=== PATIENT | female | born 1985 ===

== ENCOUNTER 2020-11-01 11:41 | Emergency (ER) | payer MEDICAID, SELFPAY ==
[2020-11-01 11:54] VITALS: BP 106/61; PULSE 80; RESP 18; TEMP 36.8; O2SAT 99; BMI 39.0
--- NOTE | 2020-11-01 13:41 | ED.GENADULT ---
HPI - General Adult General Chief complaint: General Medical Stated complaint: diarrhea, bodyaches Time Seen by Provider: 11/01/20 13:23 Source: patient Mode of arrival: ambulatory Limitations: no limitations History of Present Illness HPI narrative: States has had this couple days of body aches, rhinorrhea with myalgias and couple episodes of diarrhea. Here with multiple family members with similar symptoms. Daughter tested positive for COVID. Onset (ago): day(s) Treatments prior to arrival: none Related Data Allergies Allergy/AdvReac Type Severity Reaction Status Date / Time penicillin V Allergy Unknown Verified 11/28/17 00:00 Penicillins [PENICILLINS] Allergy Unknown UNKNOWN Unverified 07/16/20 17:28 Review of Systems Review of Systems: Constitutional: No Weight loss, No Fever, No Chills, No Night Sweats, No Fatigue, No Malaise, no recent travel or antibiotic use. ENT/Mouth: No Hearing loss, No Ear Pain, + Nasal Congestion, No Sinus Pain, No Hoarseness, No sore throat, + Rhinorrhea, No Swallowing Difficulty Eyes: No Eye Pain, No Swelling, No Redness, No Foreign Body, No Discharge, No Vision Changes Cardiovascular: No Chest Pain, No SOB, No Dyspnea on Exertion, No Orthopnea, No Edema, No Palpitations Respiratory: No Cough, No Sputum, No Wheezing, No Smoke Exposure, No Dyspnea Gastrointestinal: No Nausea, No Vomiting, + Diarrhea, No Constipation, No abdominal Pain, No Hematochezia, No Melena Genitourinary: no irregular bleeding, No Dysuria, No Urinary Frequency, No Hematuria, No Urinary Incontinence, No Urgency, No Flank Pain, No Urinary Flow Changes, No Hesitancy Musculoskeletal: No joint pain, + Myalgias, No Joint Swelling Skin: No Skin Lesions, No rash Neuro: No Weakness, No Numbness, No Paresthesias, No Loss of Consciousness, No Dizziness, No Headache Heme/Lymph: No Bruising, No Bleeding,No Lymphadenopathy Endocrine: No Polyuria, No Polydipsia, No Temperature Intolerance Yes all other systems are reviewed and are negative [facility] Past Medical History Medical History (Updated 11/01/20 @ 13:44 by Gregory Iglesias NP) Asthma Social History Social History Advance Directives: No Advance Directives Information Provided: No Physical Exam Vital Signs: Vital Signs: Last Vital Signs Temp 98.2 F 11/01/20 11:54 Pulse 80 11/01/20 11:54 Resp 18 11/01/20 11:54 BP 106/61 11/01/20 11:54 Pulse Ox 99 11/01/20 11:54 Body Mass Index 39.0 Const: General: cooperative and healthy appearing; No acute distress or intoxicated appearing Nutritional Appearance: average body habitus Orientation/consciousness: patient oriented x3 HENMT: Head: Yes normal to inspection Ears: hearing grossly normal bilaterally Eyes: General: appearance normal, both eyes and all related structures Visual Urban: normal visual urban by confrontation Neck: Neck: Yes normal visual inspection, No positive Brudzinski's sign, No positive Kernig's sign and No tender Thyroid: Thyroid normal Chest: Chest palpation & inspection: normal inspection of the chest Resp: Effort & Inspection: normal respiratory effort Auscultation: clear to auscultation bilaterally Cardio: Jugular venous distension: no JVD Rhythm: regular rhythm Heart sounds: S1 normal heart sound present and S2 normal heart sound present GI: Inspection: Yes normal to inspection Percussion: Yes normal to percussion Auscultation: normal bowel sounds : General: Yes no CVA tenderness Back/Spine/Pelvis: Back: no CVA tenderness Skin: General skin exam: no rashes or lesions noted Neuro: General: patient oriented x3 Extrem: General: Yes normal to inspection Course Course Course Narrative: Well nontoxic appearing. Hemodynamically stable. Strong suspicion for COVID-19 as daughter who is here with him tested positive. Similar symptoms. Will self-isolation/discussing. Cdc/state guidelines provided. Not currently working. Discharge Plan Discharge Clinical Impression: Acute viral syndrome Patient Disposition: Home, Self-Care Instructions: Viral Syndrome (ED) Additional Instructions: Based on your symptoms and history we have sent a COVID-19. Although your RESULT IS PENDING at this time. RESULTS should return within 72 hours. At this time you will be contacted with either NEGATIVE OR POSITIVE results. -Please wait until we contact you for your results. At this time you will be okay for discharge. Please plan for self quarantine for up to 14 days. Do not expose yourself to others. You may not go to work. If testing does come back negative you may return to activities as long as you are no longer having any symptoms for at least 3 days. Please continue to follow cold instructions and wash your hands frequently. You may take Tylenol as directed on the bottle for pain or fever. Patient seen in the emergency department and should be excused from work until negative test results AND until 72 hours without any symptoms AND at least 10 days have passed since symptoms first appeared or since last exposure to COVID-19 positive patient CDC Guidelines for home isolation: - Stay away from others - WEAR A MASK if you are sick AND STAY HOME - Cover your mouth and nose with a tissue when you cough or sneeze. Dispose of tissues in a lined trash can and wash your hands immediately with soap and water for at least 20 seconds. If soap and water are not available, clean hands with alcohol-based hand principal systems engineer that contains at least 60% alcohol. - Clean your hands often with soap and water for at least 20 seconds - Avoid touching your eyes, nose and mouth with unwashed hands - Do not share dishes, drinking glasses, cups, eating utensils, towels, or bedding with other people in your home. After using these items, wash them thoroughly with soap and water or put in the hydraulic press servicer. - Clean high-touch surfaces in your isolation area ( sick room and bathroom) every day; let a caregiver clean and disinfect high-touch surfaces in other areas of the home. Clean the area or item with soap and water or another detergent if it is dirty. Then, use a household disinfectant. - Limit contact with pets and animals: If you must care for a pet, wash your hands before and after interacting with them Referrals: [facility] [Primary Care Provider] - 2 weeks (PHONE VISIT ) Interventions: ED Discharge Assessment Last Done: 11/01/20 14:11 Discharge Date/Time: 11/01/20 14:12
== END 2020-11-01 14:12 | disposition home or self-care (01) ==
PROVIDERS: Nurse Practitioner Primary Care; Emergency Provider Emergency Medicine
DX: B34.9 Viral infection, unspecified (principal); M79.10 Myalgia, unspecified site; R19.7 Diarrhea, unspecified; Z20.828 Contact with and (suspected) exposure to other viral communicable diseases
CPT/HCPCS: 99283; U0003

== ENCOUNTER 2020-11-09 14:56 | Outpatient (REF) | payer MEDICAID, SELFPAY | END 2020-11-09 14:57 | disposition home or self-care (01) | LOC: HO.LAB 14:56 | PROVIDERS: Visit Provider Internal Medicine | DX: Z20.822 Contact with and (suspected) exposure to COVID-19 (principal) | CPT/HCPCS: 36415; C9803; U0003 ==

== ENCOUNTER 2020-11-18 11:57 | Outpatient (REF) | payer MEDICAID, SELFPAY | END 2020-11-18 11:58 | disposition home or self-care (01) | LOC: HO.LAB 11:57 | PROVIDERS: Visit Provider Internal Medicine | DX: Z20.822 Contact with and (suspected) exposure to COVID-19 (principal) | CPT/HCPCS: 36415; C9803; U0003 ==

== ENCOUNTER 2021-11-04 16:15 | Outpatient (REF) | payer MEDICAID, SELFPAY ==
--- NOTE | ~2021-11-04 | US_ITS ---
EXAMINATION: US PELVIS CLINICAL INFORMATION: Abnormal uterine and vaginal bleeding. COMPARISON: None TECHNIQUE: Ultrasound of the pelvis is performed using both transabdominal and transvaginal transducers along with Doppler. Transvaginal imaging is performed due to inadequate visualization transabdominally. FINDINGS: UTERUS: The uterus is anteverted and measures 10.2 x 5.2 x 5.3 cm. There are 2 uterine fibroids seen opposite one another just beneath the fundus measuring 3.3 x 2.9 x 3.0 cm and 2.9 x 2.6 x 3.1 cm. These abut the endometrial cavity. The double wall endometrial thickness is 0.9 mm. ADNEXA: Both ovaries are visualized. There is normal color flow to the adnexa. There is no ovarian torsion. There is no pelvic ascites or fluid collection. Right ovary measures 3.6 x 2.5 x 2.7 cm for a volume of 12.7 mL which includes an exophytic 2.0 x 1.2 x 1.1 cm cyst with a septation. Left ovary measures 2.9 x 2.1 x 2.0 cm for a volume of 6.4 mL which includes a 1.3 x 0.9 x 1.1 cm echogenic mass which could be a dermoid. US/US pelvic and transvaginal IMPRESSION: Uterine fibroids. Small right ovarian cyst needs no further follow up. Question of 1.3 cm left ovarian dermoid. Pelvic MR would be able to diagnose this.
== END 2021-11-04 16:16 | disposition home or self-care (01) ==
LOC: HO.US 16:15
PROVIDERS: PCP Internal Medicine; Visit Provider Advanced Practice Midwife
DX: N93.9 Abnormal uterine and vaginal bleeding, unspecified (principal)
CPT/HCPCS: 76830; 76856

== ENCOUNTER 2021-12-07 12:41 | Outpatient (REF) | payer MEDICAID, SELFPAY ==
--- NOTE | ~2021-12-07 | XR_ITS ---
EXAMINATION: XR HIP, LEFT CLINICAL INFORMATION: Pain COMPARISON: None TECHNIQUE: Two views of the left hip. FINDINGS: No fracture or dislocation. Alignment is maintained. Joint space maintained. The visualized left pelvis is intact. The soft tissues appear unremarkable. XR/XR hip LT min 2V IMPRESSION: Normal left hip.
--- NOTE | ~2021-12-07 | XR_ITS ---
EXAMINATION: XR KNEE, LEFT CLINICAL INFORMATION: Pain with no known injury. COMPARISON: 11/13/2019 TECHNIQUE: Four views of the left knee. FINDINGS: No fracture or subluxation. Compartmental joint spaces are maintained. No joint effusion. The soft tissues are unremarkable. XR/XR knee LT 4V IMPRESSION: Normal left knee.
== END 2021-12-07 12:42 | disposition home or self-care (01) ==
LOC: HO.XRAY 12:41
PROVIDERS: Absent Provider Internal Medicine; PCP Internal Medicine; Visit Provider General Practice
DX: M25.552 Pain in left hip (principal); M25.562 Pain in left knee
CPT/HCPCS: 73502; 73564

== ENCOUNTER 2021-12-21 15:33 | Outpatient (REF) | payer MEDICAID, SELFPAY ==
[2021-12-21 18:11] LABS: CT PCR NOT DETECTED (Not Detect.)
[2021-12-21 18:12] LABS: NG PCR NOT DETECTED (Not Detect.)
[2021-12-24 04:27] LABS: HPV mRNA E6/E7 rflx Not Detected (Not Detected)
== END 2021-12-21 15:34 | disposition home or self-care (01) ==
LOC: HO.LAB 15:33
PROVIDERS: PCP Internal Medicine; Visit Provider Obstetrics & Gynecology
DX: Z12.4 Encounter for screening for malignant neoplasm of cervix (principal); Z11.51 Encounter for screening for human papillomavirus (HPV); N93.9 Abnormal uterine and vaginal bleeding, unspecified; D21.9 Benign neoplasm of connective and other soft tissue, unspecified; N83.291 Other ovarian cyst, right side; N83.292 Other ovarian cyst, left side
CPT/HCPCS: 36415; 84443; 84702; 85027; 86304; 87491; 87591; 87624; 88142; 99202

== ENCOUNTER 2021-12-21 16:04 | Outpatient (REF) | payer MEDICAID, SELFPAY ==
[2021-12-21 16:28] LABS: Hematocrit 36.8 % (37.0-47.0); Hemoglobin 10.8 g/dl (12.0-16.0); Mean Corpuscular HGB Conc 29.3 g/dl (31.0-35.0); Mean Corpuscular Hemoglobin 20.2 pg (27.0-33.0); Mean Corpuscular Volume 68.8 fL (80.0-98.0); Mean Platelet Volume 9.1 fL (9.4-12.3); Platelet Count 582 X10*3/uL (160-400); Red Blood Count 5.35 X10*6/uL (4.20-5.50); Red Cell Distribution Width 16.2 % (11.0-16.0); White Blood Count 18.6 X10*3/uL (4.8-10.8)
[2021-12-21 17:07] LABS: HCG Quantitative < 2 mIU/mL; TSH reflex Free T4 1.32 uIU/mL (0.32-4.0)
[2021-12-22 09:12] LABS: CA-125 11 U/mL (<35)
== END 2021-12-21 16:05 | disposition home or self-care (01) ==
LOC: HO.LAB 16:04
PROVIDERS: PCP Internal Medicine; Visit Provider Obstetrics & Gynecology
DX: N93.9 Abnormal uterine and vaginal bleeding, unspecified (principal); N83.299 Other ovarian cyst, unspecified side
CPT/HCPCS: 36415; 84443; 84702; 85027; 86304

== ENCOUNTER 2022-01-04 18:56 | Emergency (ER) | payer MEDICAID, SELFPAY | END 2022-01-04 19:37 | disposition left against medical advice (07) | PROVIDERS: Emergency Provider Emergency Medicine | DX: R10.9 Unspecified abdominal pain (principal) ==

== ENCOUNTER 2022-01-18 10:01 | Outpatient (REF) | payer MEDICAID, SELFPAY | END 2022-01-18 10:02 | disposition home or self-care (01) | LOC: HO.LAB 10:01 | PROVIDERS: Visit Provider Obstetrics & Gynecology | DX: N93.9 Abnormal uterine and vaginal bleeding, unspecified (principal) | CPT/HCPCS: 58100; 88305 ==

== ENCOUNTER 2022-01-22 16:15 | Emergency (ER) | payer MEDICAID, SELFPAY ==
[2022-01-22 16:21] VITALS: BP 150/55; PULSE 91; RESP 16; TEMP 36.7; O2SAT 99; BMI 33.6
--- NOTE | 2022-01-22 16:49 | ED.URI ---
HPI - URI/Sore Throat General Chief Complaint: Upper Respiratory Symptoms Stated Complaint: coughing/SOB/headaches Time Seen by Provider: 01/22/22 16:43 Source: patient Mode of arrival: ambulatory Limitations: no limitations History of Present Illness HPI Narrative: 36 y/o female presenting with 4 days of nasal congestion, headaches, and dry cough. She was recently around her son and daughter who were home with similar symptoms. They were negative for COVID. She denies any shortness of breath or chest pain. She has been eating and drinking normally. She states she has yellow nasal discharge and has been using some sort of nasal spray at home. She denies any fevers but admits that some chills. She denies any nausea, vomiting, abdominal leia MD elicited complaint: cough and nasal congestion Onset (ago): day(s) (4) Consistency: intermittent Severity: moderate Description of mucous: watery and yellow Able to tolerate fluids by mouth: Yes Exacerbating factors: nothing Relieving factors: nothing Context: sick contacts Associated symptoms: chills, headache, nasal congestion and cough Treatments prior to arrival: none Related Data Previous Rx's Medication Instructions Recorded fluticasone propionate 50 1 spray INTRANASAL BID #16 g 01/22/22 mcg/actuation nasal spray,suspension (Flonase Allergy Relief) Allergies Allergy/AdvReac Type Severity Reaction Status Date / Time penicillin V Allergy Unknown Unknown Verified 01/22/22 16:21 Penicillins [PENICILLINS] Allergy Unknown UNKNOWN Verified 12/21/21 15:37 Review of Systems Review of Systems: Constitutional: No Fever, + Chills ENT/Mouth: No sore throat, + Rhinorrhea, No Swallowing Difficulty Eyes: No Eye Pain, No Swelling, No Redness Cardiovascular: No Chest Pain, No SOB Respiratory:+ Cough, No Sputum, No Wheezing, No dyspnea Gastrointestinal: No Nausea, No Vomiting, No Diarrhea, No abdominal Pain Musculoskeletal: No joint pain, No Myalgias Skin: No Skin Lesions, No rash Neuro: No Weakness, No Numbness, No Dizziness,+ Headache Heme/Lymph: No Bruising, No Lymphadenopathy PMFSH Past Medical History Medical History Asthma Surgical History Hx of section Social History Social History Alcohol intake: current Alcohol intake frequency: a few times a week Patient Tobacco Use Status: Current everyday Tobacco user Cigarettes Per Day: 2 Advance Directives: No Advance Directives Information Provided: No Sexual orientation: Straight/Heterosexual Gender identity: Female Physical Exam Vital Signs: Vital Signs: Last Vital Signs Temp 98.0 F 01/22/22 16:21 Pulse 91 01/22/22 16:21 Resp 16 01/22/22 16:21 BP 150/55 H 01/22/22 16:21 Pulse Ox 99 01/22/22 16:21 BMI result Body Mass Index 33.6 Appearance: Alert. Oriented X3. No acute distress. Eyes: Pupils equal, round and reactive to light. ENT: Pharynx normal. No tonsillar swelling or exudate. Normal voice. Normal TMs bilaterally. Neck: Normal inspection. Neck supple. No LAD. CVS: Normal heart rate and rhythm. Pulses normal. Respiratory: No respiratory distress. Breath sounds normal. Skin: Skin warm and dry. Normal skin color. Normal skin turgor. No rashes. Extremities: Normal inspection x4 Neuro: Oriented X 3. Grossly normal, nonfocal. Course Course Course Narrative: 36 y/o female presenting to the ER with nasal congestion, headache and dry cough x4 days. Children had similar symptoms last week. She is negative for influenza and COVID-19. Her symptoms are most likely due to another viral etiology contracted from her children. She is stable for discharge home with supportive care. Will write a prescription for intranasal fluticasone for nasal congestion. Patient agrees with plan will follow-up with her primary care doctor as needed. MDM - URI/Sore Throat Lab Data Labs: Lab Results 01/22/22 01/22/22 Range/Units 16:54 16:54 COVID-19 (JOSÉ MANUEL) Negative (Negative) COVID-19 Clin Com See Note Influenza Type A (RAMÓN) Negative (Negative) Influenza Type B (RAMÓN) Negative (Negative) Influenza A & B Note See Note Critical Care Time Critical Care Time Critical Care Time: No Discharge Plan Discharge Clinical Impression: Viral infection Patient Disposition: Home, Self-Care Instructions: Viral Syndrome (ED) Additional Instructions: You were negative for influenza and COVID-19. Your symptoms are most likely due to another viral infection, most likely contracted from your children. Use the prescribed nasal spray as needed for nasal congestion. You can continue using the nasal spray you have at home as well. Take [id number] cold and flu medications as needed for your symptoms Follow-up with your doctor this week. If you develop new or worsening symptoms call 911 or come back to the ER for further evaluation. Prescriptions: New fluticasone propionate [Flonase Allergy Relief] 50 mcg/actuation spray,suspension 1 spray intranasal BID Qty: 16 0RF Rx Instructions: administer into each nostril
[2022-01-22 17:17] LABS: COVID-19 Test Negative (Negative); IDNOW Serial# 16C4AD1C; Influenza A Negative (Negative); Influenza B2 Negative (Negative)
== END 2022-01-22 17:49 | disposition home or self-care (01) ==
PROVIDERS: Physician Assistant; Emergency Provider Internal Medicine; PCP Internal Medicine
DX: B34.9 Viral infection, unspecified (principal); Z20.822 Contact with and (suspected) exposure to COVID-19; R51.9 Headache, unspecified; J45.909 Unspecified asthma, uncomplicated; F17.200 Nicotine dependence, unspecified, uncomplicated
CPT/HCPCS: 87502; 87635; 99283

== ENCOUNTER → 2022-02-17 11:32 | Outpatient (BNVA) | payer MEDICAID, SELFPAY | PROVIDERS: PCP Internal Medicine; Visit Provider Obstetrics & Gynecology | DX: N93.9 Abnormal uterine and vaginal bleeding, unspecified (principal) | CPT/HCPCS: 99212 ==

== ENCOUNTER 2022-04-28 14:34 | Outpatient (REF) | payer MEDICAID, SELFPAY ==
--- NOTE | ~2022-04-28 | XR_ITS ---
EXAMINATION: XR CHEST CLINICAL INFORMATION: Bronchitis COMPARISON: Chest radiographs 06/15/2018. TECHNIQUE: 2 views of the chest were obtained. FINDINGS: Lungs clear. No hyperinflation, airspace consolidation, ground-glass opacity, or effusion. The costophrenic sulci are well-defined. Heart size normal. The hilar and mediastinal contours and visualized bony structures are unremarkable. XR/XR chest 2V IMPRESSION: Unremarkable examination.
[2022-04-28 15:47] LABS: Estimated Average Glucose 163 mg/dL; Hemoglobin A1c % 7.3 %
[2022-04-28 16:04] LABS: Creatinine Urine 86.77 mg/dL; Microalbum/Creatinine Ratio Ur 74.9 ug/mg cr
== END 2022-04-28 14:35 | disposition home or self-care (01) ==
LOC: HO.XRAY 14:34
PROVIDERS: Absent Provider Internal Medicine; PCP Internal Medicine; Visit Provider Emergency Medicine
DX: E11.9 Type 2 diabetes mellitus without complications (principal); E55.9 Vitamin D deficiency, unspecified; M25.552 Pain in left hip; J40 Bronchitis, not specified as acute or chronic
CPT/HCPCS: 36415; 71046; 82043; 83036

== ENCOUNTER 2022-06-28 16:20 | Emergency (ER) | payer MEDICAID, SELFPAY ==
[2022-06-28 16:31] VITALS: BP 109/55; PULSE 90; RESP 18; TEMP 36.9; O2SAT 98; BMI 34.5
--- NOTE | 2022-06-28 17:36 | ED.EXTPRO ---
HPI - Extremity Problem General Chief complaint: Extremity Problem Stated complaint: pain in both feet Time Seen by Provider: 06/28/22 17:36 Source: patient Mode of arrival: ambulatory Limitations: no limitations History of Present Illness HPI Narrative: Patient diabetic complaining of lower extremity pain for long time gets worse in the nighttime and able to sleep because of pain no swelling no trauma sensations intact no weakness no back pain Related Data Home Medications Medication Instructions Recorded Confirmed metformin 500 mg tablet 500 mg PO 02/17/22 omeprazole 20 mg capsule,delayed 20 mg PO DAILY 02/17/22 release Previous Rx's Medication Instructions Recorded fluticasone propionate 50 1 spray intranasal BID #16 grams 01/22/22 mcg/actuation nasal spray,suspension (Flonase Allergy Relief) gabapentin 300 mg capsule 300 mg PO BEDTIME #30 caps 06/28/22 tramadol 50 mg tablet 50 mg PO Q6H PRN pain #20 tabs 06/28/22 Allergies Allergy/AdvReac Type Severity Reaction Status Date / Time penicillin V Allergy Unknown Unknown Verified 02/17/22 11:44 Penicillins [PENICILLINS] Allergy Unknown UNKNOWN Verified 02/17/22 11:44 Review of Systems Review of Systems: Yes all other systems are reviewed and are negative [facility] Past Medical History Medical History Asthma Diabetes Surgical History Hx of section Social History Social History Alcohol intake: current Alcohol intake frequency: a few times a week Patient Tobacco Use Status: Current everyday Tobacco user Cigarettes Per Day: 2 Advance Directives: No Advance Directives Information Provided: No Sexual orientation: Straight/Heterosexual Gender identity: Female Physical Exam Vital Signs: Vital Signs: Last Vital Signs Temp 98.4 F 06/28/22 16:31 Pulse 90 06/28/22 16:31 Resp 18 06/28/22 16:31 BP 109/55 L 06/28/22 16:31 Pulse Ox 98 06/28/22 16:31 O2 Del Method 06/28/22 16:31 BMI result Body Mass Index 34.5 Appearance: Alert. Oriented X3. No acute distress. Eyes: PERRLA, No Nystagmus ENT: Pharynx normal. Oral Mucosa moist Neck: Normal inspection. Neck supple. CVS: Normal heart rate and rhythm. Pulses normal. Respiratory: No respiratory distress. Equal air entry bilateral, no wheezing/rales/rhonchi Abdomen: Soft and nontender. Bowel sounds are present, no mass palpable, no CVA tenderness Skin: Skin warm and dry. Normal skin color. Normal skin turgor. Extremities: No lower extremity edema. No calf tenderness Neuro: Oriented X 3. No motor deficit. No sensory deficit.No cerebellar signs , cranial nerves II-XII intact MDM - Extremity (Nontraumatic) MDM Narrative Medical decision making narrative: Patient clinically with diabetic neuropathy will discharge patient home on gabapentin advised to follow with PCP no signs of DVT Discharge Plan Discharge Clinical Impression: Diabetic peripheral angiopathy Patient Disposition: Home, Self-Care Instructions: Peripheral Neuropathy (ED) Additional Instructions: Take medication as prescribed for legcramps and pain follow with PCP Prescriptions: New gabapentin 300 mg capsule 300 mg PO BEDTIME Qty: 30 0RF tramadol 50 mg tablet 50 mg PO Q6H PRN (Reason: pain) Qty: 20 0RF No Action fluticasone propionate [Flonase Allergy Relief] 50 mcg/actuation spray,suspension 1 spray intranasal BID Qty: 16 0RF Rx Instructions: administer into each nostril metformin 500 mg tablet 500 mg PO omeprazole 20 mg capsule,delayed release(DR/EC) 20 mg PO DAILY Interventions: ED Discharge Assessment Last Done: 06/28/22 18:25 Discharge Date/Time: 06/28/22 18:26
[2022-06-28] MEDS: Gabapentin 300 MG CAPSULE PO (18:03)
== END 2022-06-28 18:26 | disposition home or self-care (01) ==
PROVIDERS: Emergency Provider Internal Medicine; PCP Internal Medicine
DX: E11.51 Type 2 diabetes mellitus with diabetic peripheral angiopathy without gangrene (principal); M79.662 Pain in left lower leg; M79.661 Pain in right lower leg; F17.200 Nicotine dependence, unspecified, uncomplicated; Z79.84 Long term (current) use of oral hypoglycemic drugs
CPT/HCPCS: 99283

== ENCOUNTER 2022-09-04 15:08 | Emergency (ER) | payer MEDICAID, SELFPAY | END 2022-09-04 16:08 | disposition left against medical advice (07) | LOC: HO.ED 16:02 | PROVIDERS: Emergency Provider Emergency Medicine | DX: M54.50 Low back pain, unspecified (principal) ==

== ENCOUNTER 2022-10-20 05:53 | Outpatient (REF) | payer MEDICAID, SELFPAY ==
--- NOTE | ~2022-10-20 | XR_ITS ---
EXAMINATION: XR KNEE AP STANDING CLINICAL INFORMATION: M25.561 - Pain in right knee COMPARISON: Radiographs left knee 12/07/2021, 11/13/2019, 11/08/2019 TECHNIQUE: AP bilateral standing view of the knees was obtained. FINDINGS: Right: No joint narrowing or erosive change or chondrocalcinosis. There is an oval circumscribed lucency femoral head possibly cyst or enchondroma measuring 0.7 x 1.8 cm. No visible matrix mineralization. Left: No joint narrowing or erosive change or chondrocalcinosis. There is subtle vertical cystic change in the proximal tibial metaphysis just lateral to midline similar to prior studies. Subtle vertical lucencies again seen mid tibial shaft, stable from prior studies. No matrix mineralization. No periostitis. Findings may be related to enchondromas or fibrous cortical defects. XR/XR knee standing BI IMPRESSION: -No knee joint compartment narrowing or erosive change. -Circumscribed nonexpansile cystic lesion right fibula head. 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 Findings are nonspecific, possibly enchondromas or fibrous cortical defect. Recommend correlation with patient's symptoms and clinical exam. If clinically indicated, further assessment of the skeleton for multiplicity may be obtained with recent nuclide bone scan.
== END 2022-10-20 05:54 | disposition home or self-care (01) ==
LOC: HO.HOSX 05:53
PROVIDERS: Visit Provider Physician Assistant
DX: M22.2X2 Patellofemoral disorders, left knee (principal)
CPT/HCPCS: 20610; 73565; 99202; J1020

== ENCOUNTER 2022-10-23 14:23 | Emergency (ER) | payer MEDICAID, SELFPAY ==
[2022-10-23 14:26] VITALS: BP 119/64; PULSE 80; RESP 18; TEMP 36.4; O2SAT 97; BMI 38.0
[2022-10-23 15:36] LABS: Influenza A PCR NEGATIVE (Negative); Influenza B PCR NEGATIVE (Negative); Resp Syncy Virus RNA Qual PCR NEGATIVE (Negative); SARS COV2 PCR INHOUSE NEGATIVE (Negative)
--- NOTE | 2022-10-23 15:43 | PC.NURSE ---
pt medicated per order
--- NOTE | 2022-10-23 16:03 | ED_ITS ---
HPI - General Adult General Chief complaint: General Medical Stated complaint: pressure in head Time Seen by Provider: 10/23/22 14:43 Source: patient Mode of arrival: ambulatory History of Present Illness HPI narrative: 37-year-old female with past medical history of asthma, diabetes, presenting to the ED complaining of nonproductive cough, headache, sore throat, myalgias, subjective fever times a couple days. Admits family members with similar symptoms. Headache not maximal in onset. Denies chest pain, shortness of breath, abdominal pain, nausea/vomiting, recent travel Onset (ago): day(s) Related Data Home Medications Medication Instructions Recorded Confirmed metformin 500 mg tablet 500 mg PO 02/17/22 omeprazole 20 mg capsule,delayed 20 mg PO DAILY 02/17/22 release Previous Rx's Medication Instructions Recorded fluticasone propionate 50 1 spray intranasal BID #16 grams 01/22/22 mcg/actuation nasal spray,suspension (Flonase Allergy Relief) gabapentin 300 mg capsule 300 mg PO BEDTIME #30 caps 06/28/22 tramadol 50 mg tablet 50 mg PO Q6H PRN pain #20 tabs 06/28/22 [id number] 1 cap PO Q4-6H PRN headache #14 10/23/22 50 mg-300 mg-40 mg capsule caps (Fioricet) Allergies Allergy/AdvReac Type Severity Reaction Status Date / Time penicillin V Allergy Unknown Unknown Verified 10/20/22 14:36 Penicillins [PENICILLINS] Allergy Unknown UNKNOWN Verified 10/20/22 14:36 Review of Systems Review of Systems: Constitutional: +subj Fever, + Chills ENT/Mouth: No Ear Pain, + Nasal Congestion, No Sinus Pain, No Hoarseness, + sore throat, + Rhinorrhea, No Swallowing Difficulty Cardiovascular: No Chest Pain, No SOB Respiratory: + Cough, No Sputum, No Wheezing Gastrointestinal: No Nausea, No Vomiting, No Diarrhea, No Constipation, No Abdominal pain Genitourinary: No Dysuria, No Urinary Frequency, No Hematuria, No Flank Pain Musculoskeletal: No joint pain, + Myalgias, No Joint Swelling Skin: No Skin Lesions, No rash Neuro: No Weakness, No Numbness Yes all other systems are reviewed and are negative Constitutional: Constitutional: Reports as per [facility] Past Medical History Attestation statement: The following information was validated with the patient. Medical History Asthma Diabetes Surgical History Hx of section Social History Social History Alcohol intake: current Alcohol intake frequency: a few times a week Patient Tobacco Use Status: Current everyday Tobacco user Cigarettes Per Day: 2 Advance Directives: No Sexual orientation: Straight/Heterosexual Gender identity: Female Physical Exam ED Vital Signs: Vital Signs - 24 hr 10/23/22 14:26 Temperature 97.5 F Pulse Rate 80 Respiratory Rate 18 Blood Pressure 119/64 Pulse Oximetry 97 Oxygen Delivery Method Room Air BMI result Body Mass Index 38.0 Const General: cooperative, healthy appearing and no acute distress Orientation/consciousness: patient oriented x3 Limitations: no limitations HENMT Head: Yes normal to inspection and Yes atraumatic Ears: hearing grossly normal bilaterally, external ears normal, TM's normal bilaterally and mastoids normal General nose exam: Normal external nose present Face and sinus: Yes normal facial exam Mouth: Normal oral and palatal mucosa present Throat: Yes posterior oropharynx normal, Yes tonsils normal, Yes uvula midline, No peritonsillar mass, No uvula laterally displaced and No uvular edema Eyes General: appearance normal, both eyes and all related structures EOM: EOMs intact bilaterally Neck Neck: Yes normal visual inspection and Yes no meningeal signs Resp Effort & Inspection: normal respiratory effort and no respiratory distress Auscultation: clear to auscultation bilaterally, no crackles, no rales and no rhonchi Cardio Rate: regular rate Heart sounds: S1 normal heart sound present and S2 normal heart sound present GI Inspection: Yes normal to inspection Palpation (GI): Soft to palpation, nontender, no guarding and not rigid Skin Rashes: no rashes Wounds: no wounds Neuro General: patient oriented x3, tone normal and no meningeal signs Gait exam (Neuro): Normal gait present Extrem General: Yes normal to inspection, Yes no pedal edema and Yes no calf tenderness Course Course Course Narrative: -COVID-19/influenza/RSV negative Patient reports symptomatic improvement after p.o. Fioricet Results discussed with patient including worrisome signs and symptoms and strict return precautions, and when to return to the emergency department. They verbalized understanding and feel safe for discharge at this time. Medications Administered Discontinued Medications Generic Name Dose Route Start Last Admin Trade Name Freq PRN Reason Stop Dose Admin Acetaminophen/Butalbital/Caffeine 1 tab 10/23/22 15:22 10/23/22 15:40 Butalb/Acetamin/Caff 50/325/40 Tablet PO 10/23/22 15:23 1 tab ONCE ONE Administration Medical Decision Making Medical Decision Making MDM Narrative: 37-year-old female with past medical history of asthma, diabetes, presenting to the ED complaining of nonproductive cough, headache, sore throat, myalgias, subjective fever times a couple days. On exam vital signs stable, NAD, nontoxic appearing, lungs CTA, concern for viral illness vs migraine headache. Low suspicion for pneumonia/bronchitis or SAH/ICH Plan: COVID-19/influenza/RSV testing, PO Fioricet Differential Diagnosis Differential Diagnoses: The differential diagnosis associated with the presentation includes Lab Data Labs: Lab Results 10/23/22 Range/Units 14:46 Influenza Type A (PCR) NEGATIVE (Negative) Influenza Type B (PCR) NEGATIVE (Negative) RSV RNA Qual (PCR) NEGATIVE (Negative) SARS-CoV-2 RNA (RT-PCR) NEGATIVE (Negative) Discharge Plan Discharge Clinical Impression: Acute viral syndrome Patient Disposition: Home, Self-Care Instructions: Viral Syndrome (ED) Additional Instructions: You tested negative for COVID-19, the flu, and RSV You likely have a virus. Rest. Stay hydrated. Take Tylenol & Motrin as needed. Fioricet headaches, take as needed. Be aware Fioricet as Tylenol mixed in do not exceed 4 g in 1 day If symptoms persist or worsen return to the emergency department Prescriptions: New bayrxabdyy-etmpmrrijuymg-shjv [Fioricet] 50-300-40 mg capsule 1 cap PO Q4-6H PRN (Reason: headache) Qty: 14 0RF No Action fluticasone propionate [Flonase Allergy Relief] 50 mcg/actuation spray,suspension 1 spray intranasal BID Qty: 16 0RF Rx Instructions: administer into each nostril gabapentin 300 mg capsule 300 mg PO BEDTIME Qty: 30 0RF tramadol 50 mg tablet 50 mg PO Q6H PRN (Reason: pain) Qty: 20 0RF metformin 500 mg tablet 500 mg PO omeprazole 20 mg capsule,delayed release(DR/EC) 20 mg PO DAILY Referrals: Josefina Nelson MD [Primary Care Provider] - 5 days Stand Alone Forms: Work/School Release Interventions: ED Discharge Assessment Last Done: 10/23/22 16:16 Discharge Date/Time: 10/23/22 16:17
--- NOTE | 2022-10-23 16:18 | PC.NURSE ---
pt states her pain reduced to 2/10 before discharge
== END 2022-10-23 16:17 | disposition home or self-care (01) ==
PROVIDERS: Emergency Provider Student in an Organized Health Care Education/Training Program; PCP Internal Medicine
DX: B34.9 Viral infection, unspecified (principal); Z20.822 Contact with and (suspected) exposure to COVID-19
CPT/HCPCS: 0241U; 99283

== ENCOUNTER 2022-10-28 16:01 | Emergency (ER) | payer MEDICAID, SELFPAY | END 2022-10-28 18:34 | disposition left against medical advice (07) | PROVIDERS: Emergency Provider Emergency Medicine; PCP Dermatology MOHS-Micrographic Surgery | DX: J10.1 Influenza due to other identified influenza virus with other respiratory manifestations (principal) ==

== ENCOUNTER 2023-01-11 10:37 | Outpatient (REF) | payer MEDICAID, SELFPAY ==
--- NOTE | ~2023-01-11 | XR_ITS ---
EXAMINATION: XR WRIST, RIGHT CLINICAL INFORMATION: Acute pain of right wrist COMPARISON: None available. TECHNIQUE: PA, lateral, and oblique views of the right wrist. FINDINGS: The bones and soft tissues are normal. No fracture. Alignment is anatomic with normal joint spaces. No erosions or abnormal soft tissue calcifications. XR/XR wrist RT min 3V IMPRESSION: Normal right wrist.
== END 2023-01-11 10:38 | disposition home or self-care (01) ==
LOC: HO.XRAY 10:37
PROVIDERS: Absent Provider Internal Medicine; PCP Internal Medicine; Visit Provider Emergency Medicine
DX: M25.531 Pain in right wrist (principal)
CPT/HCPCS: 73110

== ENCOUNTER 2023-02-22 18:26 | Emergency (ER) | payer MEDICAID, SELFPAY ==
--- NOTE | 2023-02-22 18:57 | ED_ITS ---
HPI - General Adult General Chief complaint: Abdominal Pain <RICARDO Matos - Last Filed: 02/22/23 19:01> Stated complaint: vomiting/abd <RICARDO Matos - Last Filed: 02/22/23 19:01> Time Seen by Provider: 02/22/23 20:50 <RICARDO Matos - Last Filed: 02/22/23 19:01> Related Data Home medications: Home Medications Medication Instructions Recorded Confirmed metformin 500 mg tablet 500 mg PO 02/17/22 omeprazole 20 mg capsule,delayed 20 mg PO DAILY 02/17/22 release Previous Rx's Medication Instructions Recorded fluticasone propionate 50 1 spray intranasal BID #16 grams 01/22/22 mcg/actuation nasal spray,suspension (Flonase Allergy Relief) gabapentin 300 mg capsule 300 mg PO BEDTIME #30 caps 06/28/22 tramadol 50 mg tablet 50 mg PO Q6H PRN pain #20 tabs 06/28/22 [id number]-[id number] 1 cap PO Q4-6H PRN headache #14 10/23/22 50 mg-300 mg-40 mg capsule caps (Fioricet) ferrous sulfate 325 mg (65 mg 325 mg PO TID #90 tabs 02/22/23 iron) tablet (Iron (ferrous sulfate)) <RICARDO Matos - Last Filed: 02/22/23 19:01> Allergies/adverse reactions: Allergies Allergy/AdvReac Type Severity Reaction Status Date / Time penicillin V Allergy Unknown Unknown Verified 02/22/23 18:58 Penicillins [PENICILLINS] Allergy Unknown UNKNOWN Verified 02/22/23 18:58 <RICARDO Matos - Last Filed: 02/22/23 19:01> [facility] Past Medical History Medical History: Medical History Asthma Diabetes <RICARDO Matos - Last Filed: 02/22/23 19:01> Surgical History: Surgical History Hx of section <RICARDO Matos - Last Filed: 02/22/23 19:01> Social History Social History: Social History Alcohol intake: current Alcohol intake frequency: holidays/special occasions only Alcohol type: beer Patient Tobacco Use Status: Current everyday Tobacco user Cigarettes Per Day: 2 Smoked in Last 30 Days: Yes Use of substances other than those prescribed or required for medical reasons: No Advance Directives: No Advance Directives Information Provided: No Sexual orientation: Straight/Heterosexual Gender identity: Female <RICARDO Matos - Last Filed: 02/22/23 19:01> Physical Exam ED Vital Signs: Vital Signs - 24 hr 02/22/23 18:58 02/22/23 23:47 02/23/23 00:02 Temperature 97.0 F 98.2 F 98.5 F Pulse Rate 91 79 81 Respiratory Rate 18 16 17 Blood Pressure 127/69 115/62 126/66 Pulse Oximetry 98 Oxygen Delivery Method Room Air 02/23/23 00:24 02/23/23 00:29 Temperature 97.9 F 97.7 F Pulse Rate 83 81 Respiratory Rate 16 16 Blood Pressure 122/65 121/68 Pulse Oximetry 100 Oxygen Delivery Method Room Air BMI result Body Mass Index 32.2 <RICARDO Matos - Last Filed: 02/22/23 19:01> Vital Signs - 24 hr 02/22/23 18:58 02/22/23 23:47 02/23/23 00:02 Temperature 97.0 F 98.2 F 98.5 F Pulse Rate 91 79 81 Respiratory Rate 18 16 17 Blood Pressure 127/69 115/62 126/66 Pulse Oximetry 98 Oxygen Delivery Method Room Air 02/23/23 00:24 02/23/23 00:29 Temperature 97.9 F 97.7 F Pulse Rate 83 81 Respiratory Rate 16 16 Blood Pressure 122/65 121/68 Pulse Oximetry 100 Oxygen Delivery Method Room Air BMI result Body Mass Index 32.2 <Pranav Mccullough - Last Filed: 02/23/23 00:36> Course Course Course Narrative: This is an RME: Additional HPI, ROS, PE not included below will be defe rred to primary provider. 38 year old F presents with CC of epigastric abdominal pain since yesterday. Patient additionally reports she has been vomiting and has had diarrhea since 1 am. Her PCP told her she was dehydrated and needed to be seen in the ED. Patient deneis urinary symptoms. PE: epigastric tenderness PLAN: labs, UA, COVID, FLU <RICARDO Matos - Last Filed: 02/22/23 19:01> Reevaluation(s) Reevaluation #1: Patient's repeat H&H was 6.7 and 26.4. Her stool sample was negative for occult blood. She is eating a cheeseburger that her brought her without any difficulty or nausea/vomiting. I discussed with the patient that her symptoms are most likely related to chronic iron loss from heavy menstrual cycle bleeding. She is agreeable to blood transfusion this time. Will transfuse 1 unit and the patient be discharged on iron supplementation. She was instructed to follow with PCP for repeat labs within 1 week <Pranav Mccullough - Last Filed: 02/23/23 00:36> Time: 23:22 <Pranav Mccullough - Last Filed: 02/23/23 00:36> Reevaluation #2: Patient reports feeling much better after blood transfusion. She is stable for discharge to time <Pranav Mccullough - Last Filed: 02/23/23 00:36> Time: 00:36 <Pranav Mccullough - Last Filed: 02/23/23 00:36> Medications Administered Discontinued Medications Generic Name Dose Route Start Last Admin Trade Name Freq PRN Reason Stop Dose Admin Al Hydroxide/Mg Hydroxide 30 ml 02/22/23 21:13 02/22/23 21:27 Magnesium Hydrox/Alum Hydrox 30 Ml Oral.Susp PO 02/22/23 21:14 30 ml ONCE ONE Administration Sodium Chloride 1,000 mls @ 999 mls/hr 02/22/23 19:00 02/23/23 00:21 Ns IV 02/22/23 20:00 Infused .Q1H1M JOEL Infusion Lidocaine HCl 15 ml 02/22/23 21:13 02/22/23 21:27 Lidocaine Hcl Viscous 2 % 15 Ml Solution MUCOUS MEM 02/22/23 21:14 15 ml ONCE ONE Administration Ondansetron HCl 4 mg 02/22/23 18:59 02/22/23 21:26 Ondansetron Hcl 4 Mg/2 Ml Vial IVPUSH 02/22/23 19:00 Not Given ONCE ONE Ondansetron HCl 4 mg 02/22/23 21:13 02/22/23 21:27 Ondansetron Hcl 4 Mg/2 Ml Vial IVPUSH 02/22/23 21:14 4 mg ONCE ONE Administration <RICARDO Matos - Last Filed: 02/22/23 19:01> Medications Administered Discontinued Medications Generic Name Dose Route Start Last Admin Trade Name Trinidad PRN Reason Stop Dose Admin Al Hydroxide/Mg Hydroxide 30 ml 02/22/23 21:13 02/22/23 21:27 Magnesium Hydrox/Alum Hydrox 30 Ml Oral.Susp PO 02/22/23 21:14 30 ml ONCE ONE Administration Sodium Chloride 1,000 mls @ 999 mls/hr 02/22/23 19:00 02/23/23 00:21 Ns IV 02/22/23 20:00 Infused .Q1H1M JOEL Infusion Lidocaine HCl 15 ml 02/22/23 21:13 02/22/23 21:27 Lidocaine Hcl Viscous 2 % 15 Ml Solution MUCOUS MEM 02/22/23 21:14 15 ml ONCE ONE Administration Ondansetron HCl 4 mg 02/22/23 18:59 02/22/23 21:26 Ondansetron Hcl 4 Mg/2 Ml Vial IVPUSH 02/22/23 19:00 Not Given ONCE ONE Ondansetron HCl 4 mg 02/22/23 21:13 02/22/23 21:27 Ondansetron Hcl 4 Mg/2 Ml Vial IVPUSH 02/22/23 21:14 4 mg ONCE ONE Administration <Pranav Mccullough - Last Filed: 02/23/23 00:36> Medical Decision Making Lab Data Result Diagrams: 02/22/23 19:18 02/22/23 19:18 <RICARDO Matos - Last Filed: 02/22/23 19:01> Labs: Lab Results 02/22/23 02/22/23 02/22/23 Range/Units 19:18 19:18 19:18 WBC 13.9 H (4.8-10.8) X10*3/uL RBC 5.21 (4.20-5.50) X10*6/uL Hgb 7.4 L D (12.0-16.0) g/dl Hct 29.9 L (37.0-47.0) % MCV 57.4 L (80.0-98.0) fL MCH 14.2 L (27.0-33.0) pg MCHC 24.7 L (31.0-35.0) g/dl RDW 21.3 H (11.0-16.0) % Plt Count 678 H (160-400) X10*3/uL MPV 8.4 L (9.4-12.3) fL Immature Gran % (Auto) 0.6 H (0.0-0.4) % Neut % (Auto) 76.8 H (45-73) % Lymph % (Auto) 13.4 L (20-40) % Mccreary % (Auto) 6.8 (2-11) % Eos % (Auto) 2.2 (0-4) % Baso % (Auto) 0.2 (0-2) % Lymph # (Auto) 1.9 (1.2-4.9) X10*3/uL Mccreary # (Auto) 1.0 (0.1-1.2) X10*3/uL Eos # (Auto) 0.3 (0.0-0.4) X10*3/uL Baso # (Auto) 0.0 (0.0-0.2) X10*3/uL Abs Immat Gran (auto) 0.09 H (0.00-0.03) X10*3/uL Absolute Neuts (auto) 10.7 H (2.0-8.3) x10*3/uL Absolute Nucleated RBC 0.000 (0.0-0.012) X10*3/uL Nucleated RBC % (auto) 0.0 (0.0-0.2) /100WBC Sodium 137 (135-145) mmol/L Potassium 3.9 (3.3-5.1) mmol/L Chloride 103 (96-108) mmol/L Carbon Dioxide 24 (22-29) mmol/L Anion Gap 14 (12-20) BUN 9 (9-16) mg/dL Creatinine 0.59 (0.5-1.4) mg/dL Estim Creat Clear Calc 136.5 Estimated GFR > 60 Random Glucose 124 H (60-115) mg/dL Calcium 8.7 (8.4-10.2) mg/dL Magnesium 1.7 (1.6-2.6) mg/dL Total Bilirubin 0.5 (0.0-1.0) mg/dL AST 16 (5-31) U/L ALT 11 (0-31) U/L Alkaline Phosphatase 75 (39-117) U/L Total Protein 7.1 (6.5-8.0) g/dL Albumin 4.2 (3.5-5.0) g/dL Stool Occult Blood (NEGATIVE) COVID-19 (JOSÉ MANUEL) (Negative) COVID-19 Clin Com Influenza Type A (RAMÓN) Negative (Negative) Influenza Type B (RAMÓN) Negative (Negative) Influenza A & B Note See Note Blood Type Antibody Screen Crossmatch 02/22/23 02/22/23 02/22/23 Range/Units 19:18 21:14 21:18 WBC (4.8-10.8) X10*3/uL RBC (4.20-5.50) X10*6/uL Hgb (12.0-16.0) g/dl Hct (37.0-47.0) % MCV (80.0-98.0) fL MCH (27.0-33.0) pg MCHC (31.0-35.0) g/dl RDW (11.0-16.0) % Plt Count (160-400) X10*3/uL MPV (9.4-12.3) fL Immature Gran % (Auto) (0.0-0.4) % Neut % (Auto) (45-73) % Lymph % (Auto) (20-40) % Mccreary % (Auto) (2-11) % Eos % (Auto) (0-4) % Baso % (Auto) (0-2) % Lymph # (Auto) (1.2-4.9) X10*3/uL Mccreary # (Auto) (0.1-1.2) X10*3/uL Eos # (Auto) (0.0-0.4) X10*3/uL Baso # (Auto) (0.0-0.2) X10*3/uL Abs Immat Gran (auto) (0.00-0.03) X10*3/uL Absolute Neuts (auto) (2.0-8.3) x10*3/uL Absolute Nucleated RBC (0.0-0.012) X10*3/uL Nucleated RBC % (auto) (0.0-0.2) /100WBC Sodium (135-145) mmol/L Potassium (3.3-5.1) mmol/L Chloride (96-108) mmol/L Carbon Dioxide (22-29) mmol/L Anion Gap (12-20) BUN (9-16) mg/dL Creatinine (0.5-1.4) mg/dL Estim Creat Clear Calc Estimated GFR Random Glucose (60-115) mg/dL Calcium (8.4-10.2) mg/dL Magnesium (1.6-2.6) mg/dL Total Bilirubin (0.0-1.0) mg/dL AST (5-31) U/L ALT (0-31) U/L Alkaline Phosphatase (39-117) U/L Total Protein (6.5-8.0) g/dL Albumin (3.5-5.0) g/dL Stool Occult Blood NEGATIVE (NEGATIVE) COVID-19 (JOSÉ MANUEL) Negative (Negative) COVID-19 Clin Com See Note Influenza Type A (RAMÓN) (Negative) Influenza Type B (RAMÓN) (Negative) Influenza A & B Note Blood Type O Positive Antibody Screen NEGATIVE Crossmatch See Detail 02/22/23 Range/Units 22:37 WBC (4.8-10.8) X10*3/uL RBC (4.20-5.50) X10*6/uL Hgb 6.7 L* (12.0-16.0) g/dl Hct 26.4 L (37.0-47.0) % MCV (80.0-98.0) fL MCH (27.0-33.0) pg MCHC (31.0-35.0) g/dl RDW (11.0-16.0) % Plt Count (160-400) X10*3/uL MPV (9.4-12.3) fL Immature Gran % (Auto) (0.0-0.4) % Neut % (Auto) (45-73) % Lymph % (Auto) (20-40) % Mccreary % (Auto) (2-11) % Eos % (Auto) (0-4) % Baso % (Auto) (0-2) % Lymph # (Auto) (1.2-4.9) X10*3/uL Mccreary # (Auto) (0.1-1.2) X10*3/uL Eos # (Auto) (0.0-0.4) X10*3/uL Baso # (Auto) (0.0-0.2) X10*3/uL Abs Immat Gran (auto) (0.00-0.03) X10*3/uL Absolute Neuts (auto) (2.0-8.3) x10*3/uL Absolute Nucleated RBC (0.0-0.012) X10*3/uL Nucleated RBC % (auto) (0.0-0.2) /100WBC Sodium (135-145) mmol/L Potassium (3.3-5.1) mmol/L Chloride (96-108) mmol/L Carbon Dioxide (22-29) mmol/L Anion Gap (12-20) BUN (9-16) mg/dL Creatinine (0.5-1.4) mg/dL Estim Creat Clear Calc Estimated GFR Random Glucose (60-115) mg/dL Calcium (8.4-10.2) mg/dL Magnesium (1.6-2.6) mg/dL Total Bilirubin (0.0-1.0) mg/dL AST (5-31) U/L ALT (0-31) U/L Alkaline Phosphatase (39-117) U/L Total Protein (6.5-8.0) g/dL Albumin (3.5-5.0) g/dL Stool Occult Blood (NEGATIVE) COVID-19 (JOSÉ MANUEL) (Negative) COVID-19 Clin Com Influenza Type A (RAMÓN) (Negative) Influenza Type B (RAMÓN) (Negative) Influenza A & B Note Blood Type Antibody Screen Crossmatch <RICARDO Matos - Last Filed: 02/22/23 19:01> Lab Results 02/22/23 02/22/23 02/22/23 Range/Units 19:18 19:18 19:18 WBC 13.9 H (4.8-10.8) X10*3/uL RBC 5.21 (4.20-5.50) X10*6/uL Hgb 7.4 L D (12.0-16.0) g/dl Hct 29.9 L (37.0-47.0) % MCV 57.4 L (80.0-98.0) fL MCH 14.2 L (27.0-33.0) pg MCHC 24.7 L (31.0-35.0) g/dl RDW 21.3 H (11.0-16.0) % Plt Count 678 H (160-400) X10*3/uL MPV 8.4 L (9.4-12.3) fL Immature Gran % (Auto) 0.6 H (0.0-0.4) % Neut % (Auto) 76.8 H (45-73) % Lymph % (Auto) 13.4 L (20-40) % Mccreary % (Auto) 6.8 (2-11) % Eos % (Auto) 2.2 (0-4) % Baso % (Auto) 0.2 (0-2) % Lymph # (Auto) 1.9 (1.2-4.9) X10*3/uL Mccreary # (Auto) 1.0 (0.1-1.2) X10*3/uL Eos # (Auto) 0.3 (0.0-0.4) X10*3/uL Baso # (Auto) 0.0 (0.0-0.2) X10*3/uL Abs Immat Gran (auto) 0.09 H (0.00-0.03) X10*3/uL Absolute Neuts (auto) 10.7 H (2.0-8.3) x10*3/uL Absolute Nucleated RBC 0.000 (0.0-0.012) X10*3/uL Nucleated RBC % (auto) 0.0 (0.0-0.2) /100WBC Sodium 137 (135-145) mmol/L Potassium 3.9 (3.3-5.1) mmol/L Chloride 103 (96-108) mmol/L Carbon Dioxide 24 (22-29) mmol/L Anion Gap 14 (12-20) BUN 9 (9-16) mg/dL Creatinine 0.59 (0.5-1.4) mg/dL Estim Creat Clear Calc 136.5 Estimated GFR > 60 Random Glucose 124 H (60-115) mg/dL Calcium 8.7 (8.4-10.2) mg/dL Magnesium 1.7 (1.6-2.6) mg/dL Total Bilirubin 0.5 (0.0-1.0) mg/dL AST 16 (5-31) U/L ALT 11 (0-31) U/L Alkaline Phosphatase 75 (39-117) U/L Total Protein 7.1 (6.5-8.0) g/dL Albumin 4.2 (3.5-5.0) g/dL Stool Occult Blood (NEGATIVE) COVID-19 (JOSÉ MANUEL) (Negative) COVID-19 Clin Com Influenza Type A (RAMÓN) Negative (Negative) Influenza Type B (RAMÓN) Negative (Negative) Influenza A & B Note See Note Blood Type Antibody Screen Crossmatch 02/22/23 02/22/23 02/22/23 Range/Units 19:18 21:14 21:18 WBC (4.8-10.8) X10*3/uL RBC (4.20-5.50) X10*6/uL Hgb (12.0-16.0) g/dl Hct (37.0-47.0) % MCV (80.0-98.0) fL MCH (27.0-33.0) pg MCHC (31.0-35.0) g/dl RDW (11.0-16.0) % Plt Count (160-400) X10*3/uL MPV (9.4-12.3) fL Immature Gran % (Auto) (0.0-0.4) % Neut % (Auto) (45-73) % Lymph % (Auto) (20-40) % Mccreary % (Auto) (2-11) % Eos % (Auto) (0-4) % Baso % (Auto) (0-2) % Lymph # (Auto) (1.2-4.9) X10*3/uL Mccreary # (Auto) (0.1-1.2) X10*3/uL Eos # (Auto) (0.0-0.4) X10*3/uL Baso # (Auto) (0.0-0.2) X10*3/uL Abs Immat Gran (auto) (0.00-0.03) X10*3/uL Absolute Neuts (auto) (2.0-8.3) x10*3/uL Absolute Nucleated RBC (0.0-0.012) X10*3/uL Nucleated RBC % (auto) (0.0-0.2) /100WBC Sodium (135-145) mmol/L Potassium (3.3-5.1) mmol/L Chloride (96-108) mmol/L Carbon Dioxide (22-29) mmol/L Anion Gap (12-20) BUN (9-16) mg/dL Creatinine (0.5-1.4) mg/dL Estim Creat Clear Calc Estimated GFR Random Glucose (60-115) mg/dL Calcium (8.4-10.2) mg/dL Magnesium (1.6-2.6) mg/dL Total Bilirubin (0.0-1.0) mg/dL AST (5-31) U/L ALT (0-31) U/L Alkaline Phosphatase (39-117) U/L Total Protein (6.5-8.0) g/dL Albumin (3.5-5.0) g/dL Stool Occult Blood NEGATIVE (NEGATIVE) COVID-19 (JOSÉ MANUEL) Negative (Negative) COVID-19 Clin Com See Note Influenza Type A (RAMÓN) (Negative) Influenza Type B (RAMÓN) (Negative) Influenza A & B Note Blood Type O Positive Antibody Screen NEGATIVE Crossmatch See Detail 02/22/23 Range/Units 22:37 WBC (4.8-10.8) X10*3/uL RBC (4.20-5.50) X10*6/uL Hgb 6.7 L* (12.0-16.0) g/dl Hct 26.4 L (37.0-47.0) % MCV (80.0-98.0) fL MCH (27.0-33.0) pg MCHC (31.0-35.0) g/dl RDW (11.0-16.0) % Plt Count (160-400) X10*3/uL MPV (9.4-12.3) fL Immature Gran % (Auto) (0.0-0.4) % Neut % (Auto) (45-73) % Lymph % (Auto) (20-40) % Mccreary % (Auto) (2-11) % Eos % (Auto) (0-4) % Baso % (Auto) (0-2) % Lymph # (Auto) (1.2-4.9) X10*3/uL Mccreary # (Auto) (0.1-1.2) X10*3/uL Eos # (Auto) (0.0-0.4) X10*3/uL Baso # (Auto) (0.0-0.2) X10*3/uL Abs Immat Gran (auto) (0.00-0.03) X10*3/uL Absolute Neuts (auto) (2.0-8.3) x10*3/uL Absolute Nucleated RBC (0.0-0.012) X10*3/uL Nucleated RBC % (auto) (0.0-0.2) /100WBC Sodium (135-145) mmol/L Potassium (3.3-5.1) mmol/L Chloride (96-108) mmol/L Carbon Dioxide (22-29) mmol/L Anion Gap (12-20) BUN (9-16) mg/dL Creatinine (0.5-1.4) mg/dL Estim Creat Clear Calc Estimated GFR Random Glucose (60-115) mg/dL Calcium (8.4-10.2) mg/dL Magnesium (1.6-2.6) mg/dL Total Bilirubin (0.0-1.0) mg/dL AST (5-31) U/L ALT (0-31) U/L Alkaline Phosphatase (39-117) U/L Total Protein (6.5-8.0) g/dL Albumin (3.5-5.0) g/dL Stool Occult Blood (NEGATIVE) COVID-19 (JOSÉ MANUEL) (Negative) COVID-19 Clin Com Influenza Type A (RAMÓN) (Negative) Influenza Type B (RAMÓN) (Negative) Influenza A & B Note Blood Type Antibody Screen Crossmatch <Pranav Mccullough - Last Filed: 02/23/23 00:36> Discharge Plan Discharge Clinical Impression: Microcytic anemia <RICARDO Matos - Last Filed: 02/22/23 19:01> Patient Disposition: Home, Self-Care <RICARDO Matos - Last Filed: 02/22/23 19:01> Instructions: Iron Deficiency Anemia (ED) <RICARDO Matos - Last Filed: 02/22/23 19:01> Additional Instructions: Your symptoms are most likely related to long-term heavy vaginal bleeding. This leads to loss of iron which is important to replenish your blood counts Your transfuse 1 unit of red blood cells in the ER Start taking iron supplementation 3 times daily for the next month Have your primary doctor repeat your blood work within 1 week <RICARDO Matos - Last Filed: 02/22/23 19:01> Prescriptions: New ferrous sulfate [Iron (ferrous sulfate)] 325 mg (65 mg iron) tablet 325 mg PO TID Qty: 90 0RF No Action fluticasone propionate [Flonase Allergy Relief] 50 mcg/actuation spray,suspension 1 spray intranasal BID Qty: 16 0RF Rx Instructions: administer into each nostril gabapentin 300 mg capsule 300 mg PO BEDTIME Qty: 30 0RF tramadol 50 mg tablet 50 mg PO Q6H PRN (Reason: pain) Qty: 20 0RF [id number] [Fioricet] 50-300-40 mg capsule 1 cap PO Q4-6H PRN (Reason: headache) Qty: 14 0RF metformin 500 mg tablet 500 mg PO omeprazole 20 mg capsule,delayed release(DR/EC) 20 mg PO DAILY <RICARDO Matos - Last Filed: 02/22/23 19:01>
[2023-02-22 18:58] VITALS: BP 127/69; PULSE 91; RESP 18; TEMP 36.1; O2SAT 98; BMI 32.2
[2023-02-22 19:23] LABS: MANUAL DIFF FLAG NO
[2023-02-22 19:26] LABS: Basophils Percent Auto 0.2 % (0-2); Eosinophils Absolute Auto 0.3 X10*3/uL (0.0-0.4); Eosinophils Percent Auto 2.2 % (0-4); Hematocrit 29.9 % (37.0-47.0); Hemoglobin 7.4 g/dl (12.0-16.0); Imm Gran Abs Auto 0.09 X10*3/uL (0.00-0.03); Imm Gran Pct Auto 0.6 % (0.0-0.4); Lymphocytes Absolute Auto 1.9 X10*3/uL (1.2-4.9); Lymphocytes Percent Auto 13.4 % (20-40); Mean Corpuscular HGB Conc 24.7 g/dl (31.0-35.0); Mean Corpuscular Hemoglobin 14.2 pg (27.0-33.0); Mean Platelet Volume 8.4 fL (9.4-12.3); Monocytes Percent Auto 6.8 % (2-11); Neutrophils Absolute Auto 10.7 x10*3/uL (2.0-8.3); Neutrophils Percent Auto 76.8 % (45-73); Platelet Count 678 X10*3/uL (160-400); Red Blood Count 5.21 X10*6/uL (4.20-5.50); Red Cell Distribution Width 21.3 % (11.0-16.0); White Blood Count 13.9 X10*3/uL (4.8-10.8)
[2023-02-22 19:33] LABS: Mean Corpuscular Volume 57.4 fL (80.0-98.0)
[2023-02-22 19:39] LABS: COVID-19 Test Negative (Negative); IDNOW Serial# 55D5AD1C; IDNOW Serial# BCCEAD1C; Influenza A Negative (Negative); Influenza B2 Negative (Negative)
[2023-02-22 20:07] LABS: Alanine Aminotransferase 11 U/L (0-31); Albumin Level 4.2 g/dL (3.5-5.0); Alkaline Phosphatase 75 U/L (39-117); Anion Gap 14 (12-20); Aspartate Amino Transferase 16 U/L (5-31); Bilirubin Total 0.5 mg/dL (0.0-1.0); Blood Urea Nitrogen 9 mg/dL (9-16); Calcium 8.7 mg/dL (8.4-10.2); Carbon Dioxide 24 mmol/L (22-29); Chloride 103 mmol/L (96-108); Creatinine Clr Calc Pharmacy 136.5; Estimated Glomerular Filt Rate > 60; Glucose Random 124 mg/dL (60-115); Magnesium 1.7 mg/dL (1.6-2.6); Potassium 3.9 mmol/L (3.3-5.1); Sodium 137 mmol/L (135-145); Total Protein 7.1 g/dL (6.5-8.0)
[2023-02-22] MEDS: 0.9 % Sodium Chloride 1,000 ML 999 ML IV (21:27)
[2023-02-22] MEDS: Lidocaine HCl Viscous 2 % 15 ML SOLUTION MUCOUS MEM (21:27)
[2023-02-22] MEDS: Magnesium Hydrox/Alum Hydrox 30 ML ORAL.SUSP PO (21:27)
[2023-02-22] MEDS: ondansetron HCL 4 MG/2 ML VIAL IVPUSH (21:27)
[2023-02-22 22:29] LABS: OBS Int Ctl Valid YES; OBS1 NEGATIVE (NEGATIVE)
[2023-02-22 22:52] LABS: Hematocrit 26.4 % (37.0-47.0)
[2023-02-22 22:57] LABS: Hemoglobin 6.7 g/dl (12.0-16.0)
[2023-02-22 23:47] VITALS: BP 115/62; PULSE 79; RESP 16; TEMP 36.8
[2023-02-23 00:02] VITALS: BP 126/66; PULSE 81; RESP 17; TEMP 36.9
[2023-02-23 00:24] VITALS: BP 122/65; PULSE 83; RESP 16; TEMP 36.6; O2SAT 100
[2023-02-23 00:29] VITALS: BP 121/68; PULSE 81; RESP 16; TEMP 36.5
--- NOTE | 2023-02-23 00:31 | PC.NURSE ---
Blood transfusion completed, patient tolerated procedure well with no s/s of acute reactions noted.
== END 2023-02-23 01:19 | disposition home or self-care (01) ==
PROVIDERS: Physician Assistant; Emergency Provider Emergency Medicine Emergency Medical Services; PCP Internal Medicine
DX: D50.9 Iron deficiency anemia, unspecified (principal); F17.210 Nicotine dependence, cigarettes, uncomplicated; Z71.6 Tobacco abuse counseling; Z20.822 Contact with and (suspected) exposure to COVID-19; Z20.828 Contact with and (suspected) exposure to other viral communicable diseases; Z79.899 Other long term (current) drug therapy
CPT/HCPCS: 36415; 36430; 80053; 82272; 83735; 85014; 85018; 85025; 86850; 86900; 86901; 86923; 87502; 87635; 96361; 96374; 96376; 99284; 99285; J2405; P9016

== ENCOUNTER 2023-02-24 18:01 | Emergency (ER) | payer MEDICAID, SELFPAY ==
--- NOTE | ~2023-02-24 | US_ITS ---
EXAMINATION: US ABDOMEN LIMITED CLINICAL INFORMATION: Epigastric/right upper quadrant abdominal pain. COMPARISON: 03/17/2019 TECHNIQUE: Real-time imaging of the right upper quadrant abdominal viscera. FINDINGS: PANCREAS: Not well seen due to bowel gas. LIVER: The liver is normal in size. The liver contour is normal. There is diffuse increased liver parenchymal echogenicity, consistent with hepatic steatosis. No focal hepatic lesion. There is no intrahepatic biliary duct dilatation seen. GALLBLADDER: Normal. The gallbladder is physiologically distended without evidence of stones, sludge, polyps, wall thickening or pericholecystic fluid. COMMON BILE DUCT: Normal in caliber measuring 0.2 cm in diameter. RIGHT KIDNEY: Normal. No hydronephrosis. No renal calculi or focal parenchymal lesions. The kidney measures 11 cm in maximum dimension. FREE FLUID: None. US/US abdomen limited IMPRESSION: Hepatic steatosis. Otherwise unremarkable right upper quadrant ultrasound.
[2023-02-24 19:18] VITALS: BP 109/76; PULSE 82; RESP 20; TEMP 36.6; O2SAT 98; BMI 30.7
--- NOTE | 2023-02-24 19:18 | ED.ABDPAIN ---
HPI - Abdominal Pain General Chief Complaint: Abdominal Pain <RICARDO Martinez - Last Filed: 02/24/23 19:22> Stated Complaint: abdominal pain, vomiting, diarrhea, seen Wed <RICARDO Martinez - Last Filed: 02/24/23 19:22> Time Seen by Provider: 02/24/23 22:19 <RICARDO Martinez - Last Filed: 02/24/23 19:22> Source: patient <Calvin Zamorano MD - Last Filed: 02/24/23 22:45> Mode of arrival: ambulatory <Calvin Zamorano MD - Last Filed: 02/24/23 22:45> Limitations: no limitations <Calvin Zamorano MD - Last Filed: 02/24/23 22:45> History of Present Illness HPI narrative: 38-year-old female presents with upper abdominal pain. The pain is been ongoing for several days. She was recently in the emergency department for nausea vomiting, diarrhea and reportedly received a blood transfusion. Since then she has continued to have upper abdominal pain. The pain is moderate in nature. Does not radiate. The pain is pressure-like in nature. Worse with eating. Associated with nausea vomiting. Vomiting can make the symptoms better. She denies any diarrhea that has resolved. There has been no blood in the vomitus or stool. Patient denies any active fevers or chills. Reviewed the records, was felt that her anemia was likely component of long-term heavy vaginal bleeding. Is recommended that she start iron supplementation. <Calvin Zamorano MD - Last Filed: 02/24/23 22:45> Related Data Home Medications: Home Medications Medication Instructions Recorded Confirmed metformin 500 mg tablet 500 mg PO 02/17/22 omeprazole 20 mg capsule,delayed 20 mg PO DAILY 02/17/22 release Previous Rx's Medication Instructions Recorded fluticasone propionate 50 1 spray intranasal BID #16 grams 01/22/22 mcg/actuation nasal spray,suspension (Flonase Allergy Relief) gabapentin 300 mg capsule 300 mg PO BEDTIME #30 caps 06/28/22 tramadol 50 mg tablet 50 mg PO Q6H PRN pain #20 tabs 06/28/22 gvmhvudehs-wcbgiwxjwayxi-qloyiudu 1 cap PO Q4-6H PRN headache #14 10/23/22 50 mg-300 mg-40 mg capsule caps (Fioricet) ferrous sulfate 325 mg (65 mg 325 mg PO TID #90 tabs 02/22/23 iron) tablet (Iron (ferrous sulfate)) ondansetron 4 mg disintegrating 4 mg PO Q8H PRN nausea and 02/24/23 tablet vomiting #10 tabs <RICARDO Martinez - Last Filed: 02/24/23 19:22> Allergies/Adverse Reactions: Allergies Allergy/AdvReac Type Severity Reaction Status Date / Time penicillin V Allergy Unknown Unknown Verified 02/22/23 18:58 Penicillins [PENICILLINS] Allergy Unknown UNKNOWN Verified 02/22/23 18:58 <RICARDO Martinez - Last Filed: 02/24/23 19:22> [facility] Past Medical History Medical History: Medical History Asthma Diabetes <RICARDO Martinez Last Filed: 02/24/23 19:22> Surgical History: Surgical History Hx of section <RICARDO Martinez - Last Filed: 02/24/23 19:22> Social History Social History: Social History Alcohol intake: current Alcohol intake frequency: holidays/special occasions only Alcohol type: beer Patient Tobacco Use Status: Current everyday Tobacco user Cigarettes Per Day: 2 Advance Directives: No Advance Directives Information Provided: No Sexual orientation: Straight/Heterosexual Gender identity: Female <RICARDO Martinez Last Filed: 02/24/23 19:22> Physical Exam ED Vital Signs: Vital Signs - 24 hr 02/24/23 19:18 02/24/23 21:11 Temperature 97.8 F 96.0 F L Pulse Rate 82 72 Respiratory Rate 20 18 Blood Pressure 109/76 122/74 Pulse Oximetry 98 100 Oxygen Delivery Method Room Air Room Air BMI result Body Mass Index 30.7 <RICARDO Martinez Last Filed: 02/24/23 19:22> Vital Signs - 24 hr 02/24/23 19:18 02/24/23 21:11 Temperature 97.8 F 96.0 F L Pulse Rate 82 72 Respiratory Rate 20 18 Blood Pressure 109/76 122/74 Pulse Oximetry 98 100 Oxygen Delivery Method Room Air Room Air BMI result Body Mass Index 30.7 <Calvin Zamorano MD - Last Filed: 02/24/23 22:45> GEN: Well developed, no acute distress, alert, oriented HEENT: Normocephalic, atraumatic, normal external ears, nose appears normal, no oropharyngeal edema or exudates Eyes: Normal to appearance Neck: Supple, no lymphadenopathy Respiratory: Talks in complete sentences, no respiratory distress, clear to auscultation bilaterally Cardiovascular: Regular rate and rhythm, no murmurs rubs or gallops Abdomen: Soft, nontender, nondistended, no guarding, no rebound, negative Acosta sign Back: No CVA tenderness Extremities: No clubbing cyanosis or edema Neurologic: No focal neurologic deficits, cranial nerves 2-12 intact, strength is 5/5 bilaterally Skin: No rash <Calvin Zamorano MD - Last Filed: 02/24/23 22:45> Course Course Course Narrative: RME: 38-year-old female with past medical history of asthma, diabetes, anemia, presenting to the ED complaining of epigastric abdominal pain, nausea, vomiting, diarrhea x 1 week. Patient was seen and treated in our ED on 02/22, notably anemic received 1 unit RBCs transfusion, occult stool negative at that time. Reports continued nausea and vomiting. Reports an episode of black emesis today. Denies melena/bloody BMs Abdomen soft with epigastric/RUQ tenderness EKG, labs, abdomen ultrasound ordered Full HPI, ROS and PE to be performed by primary ED provider. <RICARDO Martinez - Last Filed: 02/24/23 19:22> Reevaluation(s) Reevaluation #1: A her workup is complete. Her labwork identifies an elevated white blood cell count which is downward trending. Her hemoglobin is 8.7 which is up from 6.7. This appears to represent a good increase. She does have a thrombocytosis which has been seen previously. Patient's blood sugar is slightly elevated. Her LFTs and lipase were normal. This argues against biliary related symptoms and pancreatitis her ultrasound identified hepatic steatosis but otherwise was unremarkable. Be recommending antiemetics, acid reducing medications and follow-up with her primary care provider. <Calvin Zamorano MD - Last Filed: 02/24/23 22:45> Time: 22:41 <Calvin Zamorano MD - Last Filed: 02/24/23 22:45> Medical Decision Making Medical Decision Making [facility] Narrative: 38-year-old female presents with epigastric abdominal pain. Her examination is benign. Negative Acosta sign. Differential diagnosis could include gastritis, GERD, musculoskeletal pain, biliary colic, pancreatitis, dyspepsia, IBD, IBS. There are no palpable masses, doubt aortic dissection or AAA. She has no urinary complaints no CVA tenderness. I doubt renal colic. Will obtain an ultrasound on laboratory analysis. Disposition pending findings. <Calvin Zamorano MD - Last Filed: 02/24/23 22:45> Differential Diagnosis Differential Diagnoses: The differential diagnosis associated with the presentation includes (Gastritis, peptic ulcer disease, GERD, biliary colic, pancreatitis, IBD, IBS) <Calvin Zamorano MD - Last Filed: 02/24/23 22:45> Epigastric abdominal pain <Calvin Zamorano MD - Last Filed: 02/24/23 22:45> Admission/Observation Consideration of admission/observation: Escalation of care including admission/observation considered <Calvin Zamornao MD - Last Filed: 02/24/23 22:45> Lab Data [facility] Lab Attestation statement: I reviewed the patient's lab results. <Calvin Zamorano MD - Last Filed: 02/24/23 22:45> Result Diagrams: 02/24/23 19:42 02/24/23 19:42 <RICARDO Martinez - Last Filed: 02/24/23 19:22> Labs: Lab Results 02/24/23 02/24/23 02/24/23 Range/Units 19:42 19:42 19:42 WBC 12.8 H (4.8-10.8) X10*3/uL RBC 5.40 (4.20-5.50) X10*6/uL Hgb 8.7 L D (12.0-16.0) g/dl Hct 32.4 L D (37.0-47.0) % MCV 60.0 L (80.0-98.0) fL MCH 16.1 L (27.0-33.0) pg MCHC 26.9 L (31.0-35.0) g/dl RDW 24.4 H (11.0-16.0) % Plt Count 665 H (160-400) X10*3/uL MPV 8.6 L (9.4-12.3) fL Immature Gran % (Auto) 1.5 H (0.0-0.4) % Neut % (Auto) 66.2 (45-73) % Lymph % (Auto) 21.7 (20-40) % Cavalier % (Auto) 7.3 (2-11) % Eos % (Auto) 2.8 (0-4) % Baso % (Auto) 0.5 (0-2) % Lymph # (Auto) 2.8 (1.2-4.9) X10*3/uL Cavalier # (Auto) 0.9 (0.1-1.2) X10*3/uL Eos # (Auto) 0.4 (0.0-0.4) X10*3/uL Baso # (Auto) 0.1 (0.0-0.2) X10*3/uL Abs Immat Gran (auto) 0.19 H (0.00-0.03) X10*3/uL Absolute Neuts (auto) 8.5 H (2.0-8.3) x10*3/uL Absolute Nucleated RBC 0.000 (0.0-0.012) X10*3/uL Nucleated RBC % (auto) 0.0 (0.0-0.2) /100WBC PT 13.1 (10.0-13.1) SEC INR 1.1 (0.9-1.1) Sodium 139 (135-145) mmol/L Potassium 3.7 (3.3-5.1) mmol/L Chloride 106 (96-108) mmol/L Carbon Dioxide 24 (22-29) mmol/L Anion Gap 13 (12-20) BUN 9 (9-16) mg/dL Creatinine 0.66 (0.5-1.4) mg/dL Estim Creat Clear Calc 127.8 Estimated GFR > 60 Random Glucose 118 H (60-115) mg/dL Calcium 9.1 (8.4-10.2) mg/dL Magnesium 1.8 (1.6-2.6) mg/dL Total Bilirubin 0.3 (0.0-1.0) mg/dL Direct Bilirubin 0.1 (0.0-0.5) mg/dL AST 16 (5-31) U/L ALT 16 (0-31) U/L Alkaline Phosphatase 84 (39-117) U/L Total Protein 7.3 (6.5-8.0) g/dL Albumin 4.3 (3.5-5.0) g/dL Lipase 14 (8-78) U/L Urine Color Urine Appearance Urine pH (5.0-9.0) Ur Specific [place]crombie (1.005-1.025) Urine Protein (Neg-Trace) mg/dL Urine Glucose (UA) (Negative) mg/dL Urine Ketones (Negative) mg/dL Urine Blood (Negative) Urine Nitrite (Negative) Ur Leukocyte Esterase (Negative) 02/24/23 Range/Units 21:06 WBC (4.8-10.8) X10*3/uL RBC (4.20-5.50) X10*6/uL Hgb (12.0-16.0) g/dl Hct (37.0-47.0) % MCV (80.0-98.0) fL MCH (27.0-33.0) pg MCHC (31.0-35.0) g/dl RDW (11.0-16.0) % Plt Count (160-400) X10*3/uL MPV (9.4-12.3) fL Immature Gran % (Auto) (0.0-0.4) % Neut % (Auto) (45-73) % Lymph % (Auto) (20-40) % Cavalier % (Auto) (2-11) % Eos % (Auto) (0-4) % Baso % (Auto) (0-2) % Lymph # (Auto) (1.2-4.9) X10*3/uL Cavalier # (Auto) (0.1-1.2) X10*3/uL Eos # (Auto) (0.0-0.4) X10*3/uL Baso # (Auto) (0.0-0.2) X10*3/uL Abs Immat Gran (auto) (0.00-0.03) X10*3/uL Absolute Neuts (auto) (2.0-8.3) x10*3/uL Absolute Nucleated RBC (0.0-0.012) X10*3/uL Nucleated RBC % (auto) (0.0-0.2) /100WBC PT (10.0-13.1) SEC INR (0.9-1.1) Sodium (135-145) mmol/L Potassium (3.3-5.1) mmol/L Chloride (96-108) mmol/L Carbon Dioxide (22-29) mmol/L Anion Gap (12-20) BUN (9-16) mg/dL Creatinine (0.5-1.4) mg/dL Estim Creat Clear Calc Estimated GFR Random Glucose (60-115) mg/dL Calcium (8.4-10.2) mg/dL Magnesium (1.6-2.6) mg/dL Total Bilirubin (0.0-1.0) mg/dL Direct Bilirubin (0.0-0.5) mg/dL AST (5-31) U/L ALT (0-31) U/L Alkaline Phosphatase (39-117) U/L Total Protein (6.5-8.0) g/dL Albumin (3.5-5.0) g/dL Lipase (8-78) U/L Urine Color Yellow Urine Appearance Clear Urine pH 6.0 (5.0-9.0) Ur Specific [place]rombie 1.025 (1.005-1.025) Urine Protein Trace (Neg-Trace) mg/dL Urine Glucose (UA) Negative (Negative) mg/dL Urine Ketones Trace (Negative) mg/dL Urine Blood Negative (Negative) Urine Nitrite Negative (Negative) Ur Leukocyte Esterase Negative (Negative) <RICARDO Martinez - Last Filed: 02/24/23 19:22> Lab Results 02/24/23 02/24/23 02/24/23 Range/Units 19:42 19:42 19:42 WBC 12.8 H (4.8-10.8) X10*3/uL RBC 5.40 (4.20-5.50) X10*6/uL Hgb 8.7 L D (12.0-16.0) g/dl Hct 32.4 L D (37.0-47.0) % MCV 60.0 L (80.0-98.0) fL MCH 16.1 L (27.0-33.0) pg MCHC 26.9 L (31.0-35.0) g/dl RDW 24.4 H (11.0-16.0) % Plt Count 665 H (160-400) X10*3/uL MPV 8.6 L (9.4-12.3) fL Immature Gran % (Auto) 1.5 H (0.0-0.4) % Neut % (Auto) 66.2 (45-73) % Lymph % (Auto) 21.7 (20-40) % Cavalier % (Auto) 7.3 (2-11) % Eos % (Auto) 2.8 (0-4) % Baso % (Auto) 0.5 (0-2) % Lymph # (Auto) 2.8 (1.2-4.9) X10*3/uL Cavalier # (Auto) 0.9 (0.1-1.2) X10*3/uL Eos # (Auto) 0.4 (0.0-0.4) X10*3/uL Baso # (Auto) 0.1 (0.0-0.2) X10*3/uL Abs Immat Gran (auto) 0.19 H (0.00-0.03) X10*3/uL Absolute Neuts (auto) 8.5 H (2.0-8.3) x10*3/uL Absolute Nucleated RBC 0.000 (0.0-0.012) X10*3/uL Nucleated RBC % (auto) 0.0 (0.0-0.2) /100WBC PT 13.1 (10.0-13.1) SEC INR 1.1 (0.9-1.1) Sodium 139 (135-145) mmol/L Potassium 3.7 (3.3-5.1) mmol/L Chloride 106 (96-108) mmol/L Carbon Dioxide 24 (22-29) mmol/L Anion Gap 13 (12-20) BUN 9 (9-16) mg/dL Creatinine 0.66 (0.5-1.4) mg/dL Estim Creat Clear Calc 127.8 Estimated GFR > 60 Random Glucose 118 H (60-115) mg/dL Calcium 9.1 (8.4-10.2) mg/dL Magnesium 1.8 (1.6-2.6) mg/dL Total Bilirubin 0.3 (0.0-1.0) mg/dL Direct Bilirubin 0.1 (0.0-0.5) mg/dL AST 16 (5-31) U/L ALT 16 (0-31) U/L Alkaline Phosphatase 84 (39-117) U/L Total Protein 7.3 (6.5-8.0) g/dL Albumin 4.3 (3.5-5.0) g/dL Lipase 14 (8-78) U/L Urine Color Urine Appearance Urine pH (5.0-9.0) Ur Specific [place]rombie (1.005-1.025) Urine Protein (Neg-Trace) mg/dL Urine Glucose (UA) (Negative) mg/dL Urine Ketones (Negative) mg/dL Urine Blood (Negative) Urine Nitrite (Negative) Ur Leukocyte Esterase (Negative) 02/24/23 Range/Units 21:06 WBC (4.8-10.8) X10*3/uL RBC (4.20-5.50) X10*6/uL Hgb (12.0-16.0) g/dl Hct (37.0-47.0) % MCV (80.0-98.0) fL MCH (27.0-33.0) pg MCHC (31.0-35.0) g/dl RDW (11.0-16.0) % Plt Count (160-400) X10*3/uL MPV (9.4-12.3) fL Immature Gran % (Auto) (0.0-0.4) % Neut % (Auto) (45-73) % Lymph % (Auto) (20-40) % [place]alier % (Auto) (2-11) % Eos % (Auto) (0-4) % Baso % (Auto) (0-2) % Lymph # (Auto) (1.2-4.9) X10*3/uL [place]alier # (Auto) (0.1-1.2) X10*3/uL Eos # (Auto) (0.0-0.4) X10*3/uL Baso # (Auto) (0.0-0.2) X10*3/uL Abs Immat Gran (auto) (0.00-0.03) X10*3/uL Absolute Neuts (auto) (2.0-8.3) x10*3/uL Absolute Nucleated RBC (0.0-0.012) X10*3/uL Nucleated RBC % (auto) (0.0-0.2) /100WBC PT (10.0-13.1) SEC INR (0.9-1.1) Sodium (135-145) mmol/L Potassium (3.3-5.1) mmol/L Chloride (96-108) mmol/L Carbon Dioxide (22-29) mmol/L Anion Gap (12-20) BUN (9-16) mg/dL Creatinine (0.5-1.4) mg/dL Estim Creat Clear Calc Estimated GFR Random Glucose (60-115) mg/dL Calcium (8.4-10.2) mg/dL Magnesium (1.6-2.6) mg/dL Total Bilirubin (0.0-1.0) mg/dL Direct Bilirubin (0.0-0.5) mg/dL AST (5-31) U/L ALT (0-31) U/L Alkaline Phosphatase (39-117) U/L Total Protein (6.5-8.0) g/dL Albumin (3.5-5.0) g/dL Lipase (8-78) U/L Urine Color Yellow Urine Appearance Clear Urine pH 6.0 (5.0-9.0) Ur Specific [place]rombie 1.025 (1.005-1.025) Urine Protein Trace (Neg-Trace) mg/dL Urine Glucose (UA) Negative (Negative) mg/dL Urine Ketones Trace (Negative) mg/dL Urine Blood Negative (Negative) Urine Nitrite Negative (Negative) Ur Leukocyte Esterase Negative (Negative) <Calvin Zamorano MD - Last Filed: 02/24/23 22:45> Independent Interpretation I performed an independent interpretation of an: Ultrasound (Increased hepatic echogenicity) <Calvin Zamorano MD - Last Filed: 02/24/23 22:45> Radiology Impression Discussion of test interpretation with radiology: I have reviewed the radiologist's reading. ( US/US abdomen limited IMPRESSION: Hepatic steatosis. Otherwise unremarkable right upper quadrant ultrasound. Dictated By:Vj Dunlap MDSigned By:<Electronically signed by Vj Dunlap MD in [place]>02/24/23 2106) <Calvin Zamorano MD - Last Filed: 02/24/23 22:45> Tests considered The following testing was considered but not selected: CT scan <Calvin Zamorano MD - Last Filed: 02/24/23 22:45> Prescription Management I considered prescription management with: Pain Medication <Calvin Zamorano MD - Last Filed: 02/24/23 22:45> Discharge Plan Discharge Clinical Impression: Abdominal pain <RICARDO Martinez - Last Filed: 02/24/23 19:22> Patient Disposition: Home, Self-Care <RICARDO Martinez - Last Filed: 02/24/23 19:22> Instructions: Gastroesophageal Reflux Disease (DC), Abdominal Pain (ED) <RICARDO Martinez - Last Filed: 02/24/23 19:22> Additional Instructions: I will recommend to increase your omeprazole from 20 mg daily to 40 mg daily. Follow-up with her primary care provider early next week. Return for worsening and uncontrolled pain/intractable nausea vomiting. <RICARDO Martinez - Last Filed: 02/24/23 19:22> Prescriptions: New ondansetron 4 mg tablet,disintegrating 4 mg PO Q8H PRN (Reason: nausea and vomiting) Qty: 10 0RF No Action fluticasone propionate [Flonase Allergy Relief] 50 mcg/actuation spray,suspension 1 spray intranasal BID Qty: 16 0RF Rx Instructions: administer into each nostril gabapentin 300 mg capsule 300 mg PO BEDTIME Qty: 30 0RF tramadol 50 mg tablet 50 mg PO Q6H PRN (Reason: pain) Qty: 20 0RF [id number] [Fioricet] 50-300-40 mg capsule 1 cap PO Q4-6H PRN (Reason: headache) Qty: 14 0RF ferrous sulfate [Iron (ferrous sulfate)] 325 mg (65 mg iron) tablet 325 mg PO TID Qty: 90 0RF metformin 500 mg tablet 500 mg PO omeprazole 20 mg capsule,delayed release(DR/EC) 20 mg PO DAILY <RICARDO Martinez Last Filed: 02/24/23 19:22> Referrals: Josefina Nelson MD [Primary Care Provider] - 3 days <RICARDO Martinez - Last Filed: 02/24/23 19:22>
--- NOTE | 2023-02-24 19:20 | ECG_ITS ---
Test Reason : N/V Blood Pressure : / mmHG Vent. Rate : 081 BPM Atrial Rate : 081 BPM P-R Int : 140 ms QRS Dur : 090 ms QT Int : 396 ms P-R-T Axes : 046 058 050 degrees QTc Int : 460 ms Normal sinus rhythm Normal ECG When compared with ECG of 24-MAY-2017 16:40, No significant change was found Referred By: Pavithra Eli Electronically Signed By:Slim Suárez
[2023-02-24 19:46] LABS: MANUAL DIFF FLAG NO
[2023-02-24 19:49] LABS: Basophils Absolute Auto 0.1 X10*3/uL (0.0-0.2); Basophils Percent Auto 0.5 % (0-2); Eosinophils Absolute Auto 0.4 X10*3/uL (0.0-0.4); Eosinophils Percent Auto 2.8 % (0-4); Hematocrit 32.4 % (37.0-47.0); Hemoglobin 8.7 g/dl (12.0-16.0); Imm Gran Abs Auto 0.19 X10*3/uL (0.00-0.03); Imm Gran Pct Auto 1.5 % (0.0-0.4); Lymphocytes Absolute Auto 2.8 X10*3/uL (1.2-4.9); Lymphocytes Percent Auto 21.7 % (20-40); Mean Corpuscular HGB Conc 26.9 g/dl (31.0-35.0); Mean Corpuscular Hemoglobin 16.1 pg (27.0-33.0); Mean Platelet Volume 8.6 fL (9.4-12.3); Monocytes Absolute Auto 0.9 X10*3/uL (0.1-1.2); Monocytes Percent Auto 7.3 % (2-11); Neutrophils Absolute Auto 8.5 x10*3/uL (2.0-8.3); Neutrophils Percent Auto 66.2 % (45-73); Platelet Count 665 X10*3/uL (160-400); Red Cell Distribution Width 24.4 % (11.0-16.0); White Blood Count 12.8 X10*3/uL (4.8-10.8)
[2023-02-24 19:54] LABS: INTERNATIONAL NORM RATIO 1.1 (0.9-1.1); Prothrombin Time 13.1 SEC (10.0-13.1)
[2023-02-24 20:14] LABS: Alanine Aminotransferase 16 U/L (0-31); Albumin Level 4.3 g/dL (3.5-5.0); Alkaline Phosphatase 84 U/L (39-117); Anion Gap 13 (12-20); Aspartate Amino Transferase 16 U/L (5-31); Bilirubin Direct 0.1 mg/dL (0.0-0.5); Bilirubin Total 0.3 mg/dL (0.0-1.0); Blood Urea Nitrogen 9 mg/dL (9-16); Calcium 9.1 mg/dL (8.4-10.2); Carbon Dioxide 24 mmol/L (22-29); Chloride 106 mmol/L (96-108); Creatinine Clr Calc Pharmacy 127.8; Estimated Glomerular Filt Rate > 60; Glucose Random 118 mg/dL (60-115); Lipase 14 U/L (8-78); Magnesium 1.8 mg/dL (1.6-2.6); Potassium 3.7 mmol/L (3.3-5.1); Sodium 139 mmol/L (135-145); Total Protein 7.3 g/dL (6.5-8.0)
[2023-02-24 21:11] VITALS: BP 122/74; PULSE 72; RESP 18; TEMP 35.6; O2SAT 100
[2023-02-24 21:13] LABS: Appearance Urine Clear; Color Urine Yellow; Glucose Urine UA Negative (Negative); Leukocyte Esterase Urine Negative (Negative); Nitrite Urine Negative (Negative); Specific Gravity - Urine 1.025 (1.005-1.025); Urine Blood Negative (Negative); Urine Ketones Trace mg/dL (Negative); Urine Protein Trace mg/dL (Neg-Trace)
[2023-02-24] MEDS: Ondansetron ODT 4 MG TAB.RAPDIS TRANSLINGU (23:25)
== END 2023-02-24 23:31 | disposition home or self-care (01) ==
PROVIDERS: Physician Assistant; Emergency Provider Emergency Medicine; PCP Internal Medicine
DX: R10.9 Unspecified abdominal pain (principal); E11.9 Type 2 diabetes mellitus without complications; F17.210 Nicotine dependence, cigarettes, uncomplicated; Z79.84 Long term (current) use of oral hypoglycemic drugs; Z79.899 Other long term (current) drug therapy
CPT/HCPCS: 36415; 76705; 80048; 80076; 81003; 83690; 83735; 85025; 85610; 93005; 99283; 99284

== ENCOUNTER 2023-03-08 12:12 | Emergency (ER) | payer MEDICAID, SELFPAY ==
--- NOTE | 2023-03-08 12:34 | ED_ITS ---
HPI - Abdominal Pain General Chief Complaint: Abdominal Pain <RICARDO Jay - Last Filed: 03/08/23 12:40> Stated Complaint: Abdominal Pain Nausea <RICARDO Jay - Last Filed: 03/08/23 12:40> Time Seen by Provider: 03/08/23 16:55 <RICARDO Jay - Last Filed: 03/08/23 12:40> Source: patient <Jesús Lester MD - Last Filed: 03/09/23 00:55> Mode of arrival: ambulatory <Jesús Lester MD - Last Filed: 03/09/23 00:55> Limitations: no limitations <Jesús Lester MD - Last Filed: 03/09/23 00:55> History of Present Illness HPI narrative: Patient chronic abdominal pain with hepatic steatosis comes in for epigastric pain which is not going away this no vomiting has some diarrhea and nausea patient has not seen a business instructor yet no fever no chills no urinary symptom patient is taking Prilosec 20 mg daily <Jesús Lester MD - Last Filed: 03/09/23 00:55> Related Data Home Medications: Home Medications Medication Instructions Recorded Confirmed metformin 500 mg tablet 500 mg PO 02/17/22 omeprazole 20 mg capsule,delayed 20 mg PO DAILY 02/17/22 release Previous Rx's Medication Instructions Recorded fluticasone propionate 50 1 spray intranasal BID #16 grams 01/22/22 mcg/actuation nasal spray,suspension (Flonase Allergy Relief) gabapentin 300 mg capsule 300 mg PO BEDTIME #30 caps 06/28/22 tramadol 50 mg tablet 50 mg PO Q6H PRN pain #20 tabs 06/28/22 lbtfbznzqv-csrczinrubtdj-qutqckch 1 cap PO Q4-6H PRN headache #14 10/23/22 50 mg-300 mg-40 mg capsule caps (Fioricet) ferrous sulfate 325 mg (65 mg 325 mg PO TID #90 tabs 02/22/23 iron) tablet (Iron (ferrous sulfate)) ondansetron 4 mg disintegrating 4 mg PO Q8H PRN nausea and 02/24/23 tablet vomiting #10 tabs dicyclomine 20 mg tablet 20 mg PO QID PRN abdominal pain 03/08/23 #20 tabs sucralfate 1 gram tablet 1 g PO TID #90 tabs 03/08/23 <RICARDO Jay - Last Filed: 03/08/23 12:40> Allergies/Adverse Reactions: Allergies Allergy/AdvReac Type Severity Reaction Status Date / Time penicillin V Allergy Unknown Unknown Verified 02/22/23 18:58 Penicillins [PENICILLINS] Allergy Unknown UNKNOWN Verified 02/22/23 18:58 <RICARDO Jay - Last Filed: 03/08/23 12:40> Review of Systems Review of Systems Yes all other systems are reviewed and are negative <Jesús Lester MD - Last Filed: 03/09/23 00:55> [facility] Past Medical History Medical History: Medical History Anemia Asthma Diabetes <RICARDO Jya - Last Filed: 03/08/23 12:40> Surgical History: Surgical History Hx of section <RICARDO Jay - Last Filed: 03/08/23 12:40> Social History Social History: Social History Alcohol intake: current Alcohol intake frequency: holidays/special occasions only Alcohol type: beer Patient Tobacco Use Status: Current everyday Tobacco user Cigarettes Per Day: 2 Smoked in Last 30 Days: Yes Use of substances other than those prescribed or required for medical reasons: No Advance Directives: No Advance Directives Information Provided: Yes Patient : No Sexual orientation: Straight/Heterosexual Gender identity: Female <RICARDO Jay - Last Filed: 03/08/23 12:40> Physical Exam ED Vital Signs: Vital Signs - 24 hr 03/08/23 12:36 03/08/23 17:20 Temperature 97.7 F 98.2 F Pulse Rate 71 72 Respiratory Rate 18 18 Blood Pressure 118/69 112/77 Pulse Oximetry 93 98 Oxygen Delivery Method Room Air Room Air BMI result Body Mass Index 34.0 <RICARDO Jay - Last Filed: 03/08/23 12:40> Vital Signs - 24 hr 03/08/23 12:36 03/08/23 17:20 Temperature 97.7 F 98.2 F Pulse Rate 71 72 Respiratory Rate 18 18 Blood Pressure 118/69 112/77 Pulse Oximetry 93 98 Oxygen Delivery Method Room Air Room Air BMI result Body Mass Index 34.0 <Jesús Lester MD - Last Filed: 03/09/23 00:55> Appearance: Alert. Oriented X3. No acute distress. Eyes: No pallor or icterus ENT: Pharynx normal. Oral Mucosa moist Neck: Normal inspection. Neck supple. CVS: Normal heart rate and rhythm. Pulses normal. Respiratory: No respiratory distress. Equal air entry bilateral, Abdomen: Soft , mild tenderness in epigastric area no rebound tenderness/ guarding Bowel sounds are present, no mass palpable, no CVA tenderness Skin: Skin warm and dry. Normal skin color. Normal skin turgor. Extremities: No lower extremity edema. No calf tenderness Neuro: Oriented X 3. <Jesús Lester MD - Last Filed: 03/09/23 00:55> Course Course Course Narrative: RME - 38 yo female presents to the ER for evaluation of intermittent epigastric abdominal pain, nausea and diarrhea for the last 1 month. Seen here for the same on 02/24 - had unremarkable RUQ U/S. Instructed to increase PPI dose, but she hasn't taken it in 2 days because it was making her constipated. Pain is worse after eating. Plan: lab workup including LFTs and lipase <RICARDO Jay - Last Filed: 03/08/23 12:40> Medical Decision Making Medical Decision Making MDM Narrative: Patient with stable labs likely has chronic gastritis will increase the dose of Prilosec to 40 mg and sucralfate advised to follow with business instructor patient lab shows thrombocytosis advised to follow with private equity associate <Jesús Lester MD - Last Filed: 03/09/23 00:55> Lab Data MDM Lab Attestation statement: I reviewed the patient's lab results. <Jesús Lester MD - Last Fi led: 03/09/23 00:55> Result Diagrams: 03/08/23 12:53 03/08/23 12:53 <RICARDO Jay - Last Filed: 03/08/23 12:40> Labs: Lab Results 03/08/23 03/08/23 Range/Units 12:53 12:53 WBC 14.1 H (4.8-10.8) X10*3/uL RBC 5.36 (4.20-5.50) X10*6/uL Hgb 9.2 L (12.0-16.0) g/dl Hct 34.7 L (37.0-47.0) % MCV 64.7 L (80.0-98.0) fL MCH 17.2 L (27.0-33.0) pg MCHC 26.5 L (31.0-35.0) g/dl RDW 29.6 H (11.0-16.0) % Plt Count 703 H (160-400) X10*3/uL MPV 9.0 L (9.4-12.3) fL Immature Gran % (Auto) 0.8 H (0.0-0.4) % Neut % (Auto) 66.5 (45-73) % Lymph % (Auto) 20.5 (20-40) % [place] % (Auto) 8.1 (2-11) % Eos % (Auto) 3.5 (0-4) % Baso % (Auto) 0.6 (0-2) % Lymph # (Auto) 2.9 (1.2-4.9) X10*3/uL [place] # (Auto) 1.2 (0.1-1.2) X10*3/uL Eos # (Auto) 0.5 H (0.0-0.4) X10*3/uL Baso # (Auto) 0.1 (0.0-0.2) X10*3/uL Abs Immat Gran (auto) 0.12 H (0.00-0.03) X10*3/uL Absolute Neuts (auto) 9.4 H (2.0-8.3) x10*3/uL Absolute Nucleated RBC 0.000 (0.0-0.012) X10*3/uL Nucleated RBC % (auto) 0.0 (0.0-0.2) /100WBC Sodium 143 (135-145) mmol/L Potassium 3.9 (3.3-5.1) mmol/L Chloride 107 (96-108) mmol/L Carbon Dioxide 29 (22-29) mmol/L Anion Gap 11 L (12-20) BUN 12 (9-16) mg/dL Creatinine 0.65 (0.5-1.4) mg/dL Estim Creat Clear Calc 127.3 Estimated GFR > 60 Random Glucose 108 (60-115) mg/dL Calcium 9.2 (8.4-10.2) mg/dL Magnesium 1.7 (1.6-2.6) mg/dL Total Bilirubin 0.2 (0.0-1.0) mg/dL Direct Bilirubin < 0.2 (0.0-0.5) mg/dL AST 9 (5-31) U/L ALT 6 (0-31) U/L Alkaline Phosphatase 73 (39-117) U/L Total Protein 6.7 (6.5-8.0) g/dL Albumin 3.9 (3.5-5.0) g/dL Lipase 24 (8-78) U/L <RICARDO Jay - Last Filed: 03/08/23 12:40> Lab Results 03/08/23 03/08/23 Range/Units 12:53 12:53 WBC 14.1 H (4.8-10.8) X10*3/uL RBC 5.36 (4.20-5.50) X10*6/uL Hgb 9.2 L (12.0-16.0) g/dl Hct 34.7 L (37.0-47.0) % MCV 64.7 L (80.0-98.0) fL MCH 17.2 L (27.0-33.0) pg MCHC 26.5 L (31.0-35.0) g/dl RDW 29.6 H (11.0-16.0) % Plt Count 703 H (160-400) X10*3/uL MPV 9.0 L (9.4-12.3) fL Immature Gran % (Auto) 0.8 H (0.0-0.4) % Neut % (Auto) 66.5 (45-73) % Lymph % (Auto) 20.5 (20-40) % [place] % (Auto) 8.1 (2-11) % Eos % (Auto) 3.5 (0-4) % Baso % (Auto) 0.6 (0-2) % Lymph # (Auto) 2.9 (1.2-4.9) X10*3/uL [place] # (Auto) 1.2 (0.1-1.2) X10*3/uL Eos # (Auto) 0.5 H (0.0-0.4) X10*3/uL Baso # (Auto) 0.1 (0.0-0.2) X10*3/uL Abs Immat Gran (auto) 0.12 H (0.00-0.03) X10*3/uL Absolute Neuts (auto) 9.4 H (2.0-8.3) x10*3/uL Absolute Nucleated RBC 0.000 (0.0-0.012) X10*3/uL Nucleated RBC % (auto) 0.0 (0.0-0.2) /100WBC Sodium 143 (135-145) mmol/L Potassium 3.9 (3.3-5.1) mmol/L Chloride 107 (96-108) mmol/L Carbon Dioxide 29 (22-29) mmol/L Anion Gap 11 L (12-20) BUN 12 (9-16) mg/dL Creatinine 0.65 (0.5-1.4) mg/dL Estim Creat Clear Calc 127.3 Estimated GFR > 60 Random Glucose 108 (60-115) mg/dL Calcium 9.2 (8.4-10.2) mg/dL Magnesium 1.7 (1.6-2.6) mg/dL Total Bilirubin 0.2 (0.0-1.0) mg/dL Direct Bilirubin < 0.2 (0.0-0.5) mg/dL AST 9 (5-31) U/L ALT 6 (0-31) U/L Alkaline Phosphatase 73 (39-117) U/L Total Protein 6.7 (6.5-8.0) g/dL Albumin 3.9 (3.5-5.0) g/dL Lipase 24 (8-78) U/L <Jeúss Lester MD - Last Filed: 03/09/23 00:55> Medications Administered Discontinued Medications Generic Name Dose Route Start Last Admin Trade Name Freq PRN Reason Stop Dose Admin Al Hydroxide/Mg Hydroxide 30 ml 03/08/23 17:21 03/08/23 17:44 Magnesium Hydrox/Alum Hydrox 30 Ml Oral.Susp PO 03/08/23 17:22 30 ml ONCE ONE Administration Dicyclomine HCl 20 mg 03/08/23 17:21 03/08/23 17:44 Dicyclomine Hcl 10 Mg Capsule PO 03/08/23 17:22 20 mg ONCE ONE Administration <RICARDO Jay - Last Filed: 03/08/23 12:40> Medications Administered Discontinued Medications Generic Name Dose Route Start Last Admin Trade Name Freq PRN Reason Stop Dose Admin Al Hydroxide/Mg Hydroxide 30 ml 03/08/23 17:21 03/08/23 17:44 Magnesium Hydrox/Alum Hydrox 30 Ml Oral.Susp PO 03/08/23 17:22 30 ml ONCE ONE Administration Dicyclomine HCl 20 mg 03/08/23 17:21 03/08/23 17:44 Dicyclomine Hcl 10 Mg Capsule PO 03/08/23 17:22 20 mg ONCE ONE Administration <Jesús Lester MD - Last Filed: 03/09/23 00:55> Discharge Plan Discharge Clinical Impression: Gastritis, Irritable bowel syndrome <RICARDO Jay - Last Filed: 03/08/23 12:40> Patient Disposition: Home, Self-Care <RICARDO Jay - Last Filed: 03/08/23 12:40> Instructions: Gastritis (ED), Irritable Bowel Syndrome (ED) <RICARDO Jay - Last Filed: 03/08/23 12:40> Additional Instructions: Drink plenty of fluids Avoid fried food Increase the dose of Prilosec to 40 mg daily Sucralfate 1 tablet half an hour before meals Dicyclomine for persistent pain as needed <RICARDO Jay - Last Filed: 03/08/23 12:40> Prescriptions: New dicyclomine 20 mg tablet 20 mg PO QID PRN (Reason: abdominal pain) Qty: 20 0RF sucralfate 1 gram tablet 1 g PO TID Qty: 90 0RF No Action fluticasone propionate [Flonase Allergy Relief] 50 mcg/actuation spray,suspension 1 spray intranasal BID Qty: 16 0RF Rx Instructions: administer into each nostril gabapentin 300 mg capsule 300 mg PO BEDTIME Qty: 30 0RF tramadol 50 mg tablet 50 mg PO Q6H PRN (Reason: pain) Qty: 20 0RF otduqrdjmr-lagfssfzchibx-cnne [Fioricet] 50-300-40 mg capsule 1 cap PO Q4-6H PRN (Reason: headache) Qty: 14 0RF ferrous sulfate [Iron (ferrous sulfate)] 325 mg (65 mg iron) tablet 325 mg PO TID Qty: 90 0RF ondansetron 4 mg tablet,disintegrating 4 mg PO Q8H PRN (Reason: nausea and vomiting) Qty: 10 0RF metformin 500 mg tablet 500 mg PO omeprazole 20 mg capsule,delayed release(DR/EC) 20 mg PO DAILY <RICARDO Jay - Last Filed: 03/08/23 12:40> Referrals: Raina Villalobos MD [Physician] - 1 week <RICARDO Jay - Last Filed: 03/08/23 12:40> Interventions: ED Discharge Assessment Last Done: 03/08/23 17:57 <RICARDO Jay - Last Filed: 03/08/23 12:40> Discharge Date/Time: 03/08/23 18:15 <RICARDO Jay - Last Filed: 03/08/23 12:40>
[2023-03-08 12:36] VITALS: BP 118/69; PULSE 71; RESP 18; TEMP 36.5; O2SAT 93; BMI 34.0
[2023-03-08 12:58] LABS: MANUAL DIFF FLAG NO
[2023-03-08 13:00] LABS: Basophils Absolute Auto 0.1 X10*3/uL (0.0-0.2); Basophils Percent Auto 0.6 % (0-2); Eosinophils Absolute Auto 0.5 X10*3/uL (0.0-0.4); Eosinophils Percent Auto 3.5 % (0-4); Hematocrit 34.7 % (37.0-47.0); Hemoglobin 9.2 g/dl (12.0-16.0); Imm Gran Abs Auto 0.12 X10*3/uL (0.00-0.03); Imm Gran Pct Auto 0.8 % (0.0-0.4); Lymphocytes Absolute Auto 2.9 X10*3/uL (1.2-4.9); Lymphocytes Percent Auto 20.5 % (20-40); Mean Corpuscular HGB Conc 26.5 g/dl (31.0-35.0); Mean Corpuscular Hemoglobin 17.2 pg (27.0-33.0); Mean Corpuscular Volume 64.7 fL (80.0-98.0); Monocytes Absolute Auto 1.2 X10*3/uL (0.1-1.2); Monocytes Percent Auto 8.1 % (2-11); Neutrophils Absolute Auto 9.4 x10*3/uL (2.0-8.3); Neutrophils Percent Auto 66.5 % (45-73); Platelet Count 703 X10*3/uL (160-400); Red Blood Count 5.36 X10*6/uL (4.20-5.50); Red Cell Distribution Width 29.6 % (11.0-16.0); White Blood Count 14.1 X10*3/uL (4.8-10.8)
[2023-03-08 13:15] LABS: Alanine Aminotransferase 6 U/L (0-31); Albumin Level 3.9 g/dL (3.5-5.0); Alkaline Phosphatase 73 U/L (39-117); Anion Gap 11 (12-20); Aspartate Amino Transferase 9 U/L (5-31); Bilirubin Direct < 0.2 mg/dL (0.0-0.5); Bilirubin Total 0.2 mg/dL (0.0-1.0); Blood Urea Nitrogen 12 mg/dL (9-16); Calcium 9.2 mg/dL (8.4-10.2); Carbon Dioxide 29 mmol/L (22-29); Chloride 107 mmol/L (96-108); Creatinine Clr Calc Pharmacy 127.3; Estimated Glomerular Filt Rate > 60; Glucose Random 108 mg/dL (60-115); Lipase 24 U/L (8-78); Magnesium 1.7 mg/dL (1.6-2.6); Potassium 3.9 mmol/L (3.3-5.1); Sodium 143 mmol/L (135-145); Total Protein 6.7 g/dL (6.5-8.0)
[2023-03-08 17:20] VITALS: BP 112/77; PULSE 72; RESP 18; TEMP 36.8; O2SAT 98
--- NOTE | 2023-03-08 17:21 | PC.NURSE ---
patient a&ox3, vss, c/o mid abd pain 05/08, provider in at bedside to see patient, call nowak within reach, will continue to monitor
[2023-03-08] MEDS: Dicyclomine HCl 10 MG CAPSULE 20 MG PO (17:44)
[2023-03-08] MEDS: Magnesium Hydrox/Alum Hydrox 30 ML ORAL.SUSP PO (17:44)
== END 2023-03-08 18:15 | disposition home or self-care (01) ==
PROVIDERS: Physician Assistant; Emergency Provider Internal Medicine; PCP Internal Medicine
DX: K29.70 Gastritis, unspecified, without bleeding (principal); K58.9 Irritable bowel syndrome, unspecified; E11.9 Type 2 diabetes mellitus without complications; F17.210 Nicotine dependence, cigarettes, uncomplicated; Z79.84 Long term (current) use of oral hypoglycemic drugs; Z79.899 Other long term (current) drug therapy
CPT/HCPCS: 36415; 80048; 80076; 83690; 83735; 85025; 99283; 99284

== ENCOUNTER 2023-04-22 17:25 | Emergency (ER) | payer MEDICAID, SELFPAY ==
--- NOTE | ~2023-04-22 | XR_ITS ---
EXAMINATION: XR CHEST CLINICAL INFORMATION: Chest pain COMPARISON: 04/28/2022 TECHNIQUE: Frontal view of the chest was obtained. FINDINGS: No acute finding. The lung urban are grossly clear. The cardiac silhouette is nonenlarged. Hilar structures are comparable to previous. No effusion is seen. XR/XR chest 1V IMPRESSION: No acute finding.
[2023-04-22 17:28] VITALS: BP 146/104; PULSE 99; O2SAT 99
[2023-04-22 17:32] VITALS: BP 112/69; PULSE 80; RESP 14; TEMP 36.5; O2SAT 98; BMI 31.8
--- NOTE | 2023-04-22 17:37 | ECG_ITS ---
Test Reason : CHEST PAIN Blood Pressure : / mmHG Vent. Rate : 070 BPM Atrial Rate : 070 BPM P-R Int : 162 ms QRS Dur : 090 ms QT Int : 420 ms P-R-T Axes : 032 060 057 degrees QTc Int : 453 ms Normal sinus rhythm Normal ECG When compared with ECG of 24-FEB-2023 19:32, No significant change was found Referred By: Generic ED Physician Electronically Signed By:ARSH LINDSEY
[2023-04-22 17:49] LABS: MANUAL DIFF FLAG NO
[2023-04-22 18:02] LABS: Anion Gap 15 (12-20); Blood Urea Nitrogen 10 mg/dL (9-16); Calcium 9.9 mg/dL (8.4-10.2); Carbon Dioxide 23 mmol/L (22-29); Chloride 106 mmol/L (96-108); Creatinine Clr Calc Pharmacy 117.6; Estimated Glomerular Filt Rate > 60; Glucose Random 167 mg/dL (60-115); Potassium 3.5 mmol/L (3.3-5.1); Sodium 140 mmol/L (135-145)
[2023-04-22 18:08] VITALS: BP 116/70; PULSE 74; RESP 18; TEMP 36.6; O2SAT 97
[2023-04-22 18:12] LABS: Troponin-I High Sensitivity < 2.7 ng/L (<3.5-17.0)
--- NOTE | 2023-04-22 18:26 | ED_ITS ---
HPI - Chest Pain General Chief Complaint: Chest Pain Stated Complaint: CHEST PAIN Time Seen by Provider: 04/22/23 18:14 Source: patient, family and RN notes reviewed Mode of arrival: ambulatory Limitations: no limitations History of Present Illness HPI narrative: This is a 38-year-old female, with a past medical history of diabetes, presenting to the emergency department for evaluation of left sided chest pain x3 days, worsening this morning at 3:00 a.m. patient reports that the pain has been constant, does not radiate. Reports the pain is reproducible. Denies any recent trauma or injury to her chest. Denies recent heavy lifting. No fevers, chills, shortness of breath, palpitations, nausea, vomiting, or diarrhea. She denies recent travel, surgeries, hospitalizations, history of blood clots, history of cancer. She took Tylenol prior to arrival which has provided her without any relief. No other complaints or concerns at this time. MD complaint: chest pain Timing of current episode: constant Prior episodes: No Onset: during rest Pain location: left chest Pain radiation: none Severity: mild Quality: aching Relieving factors: nothing Exacerbating factors: nothing Treatment prior to arrival: none Risk Factors Coronary artery disease risk factors: diabetes Thoracic aortic dissection risk factors: none Related Data On Oral Contraceptives: No Home Medications Medication Instructions Recorded Confirmed metformin 500 mg tablet 500 mg PO 02/17/22 omeprazole 20 mg capsule,delayed 20 mg PO DAILY 02/17/22 release Previous Rx's Medication Instructions Recorded fluticasone propionate 50 1 spray intranasal BID #16 grams 01/22/22 mcg/actuation nasal spray,suspension (Flonase Allergy Relief) gabapentin 300 mg capsule 300 mg PO BEDTIME #30 caps 06/28/22 tramadol 50 mg tablet 50 mg PO Q6H PRN pain #20 tabs 06/28/22 nabteeggrl-fukxpfsvedesh-kmussqnl 1 cap PO Q4-6H PRN headache #14 10/23/22 50 mg-300 mg-40 mg capsule caps (Fioricet) ferrous sulfate 325 mg (65 mg 325 mg PO TID #90 tabs 02/22/23 iron) tablet (Iron (ferrous sulfate)) ondansetron 4 mg disintegrating 4 mg PO Q8H PRN nausea and 02/24/23 tablet vomiting #10 tabs dicyclomine 20 mg tablet 20 mg PO QID PRN abdominal pain 03/08/23 #20 tabs sucralfate 1 gram tablet 1 g PO TID #90 tabs 03/08/23 ibuprofen 600 mg tablet 600 mg PO Q6H PRN pain #30 tabs 04/22/23 Allergies Allergy/AdvReac Type Severity Reaction Status Date / Time penicillin V Allergy Unknown Unknown Verified 02/22/23 18:58 Penicillins [PENICILLINS] Allergy Unknown UNKNOWN Verified 02/22/23 18:58 Review of Systems Review of Systems: Yes all other systems are reviewed and are negative Constitutional: Constitutional: Reports as per [facility] Past Medical History Medical History Anemia Asthma Diabetes Surgical History Hx of section Social History Social History Alcohol intake: unknown Patient Tobacco Use Status: Current everyday Tobacco user Cigarettes Per Day: 2 Use of substances other than those prescribed or required for medical reasons: No Advance Directives: No Advance Directives Information Provided: No Patient : No Sexual orientation: Straight/Heterosexual Gender identity: Female Physical Exam Vital Signs: Vital Signs: Last Vital Signs Temp 97.8 F 04/22/23 18:08 Pulse 74 04/22/23 18:08 Resp 18 04/22/23 18:08 BP 116/70 04/22/23 18:08 Pulse Ox 97 04/22/23 18:08 O2 Del Method Room Air 04/22/23 18:08 BMI result Body Mass Index 31.8 Const: General: cooperative, comfortable and no acute distress Orientation/consciousness: patient oriented x3 Limitations: no limitations HEENT: Head: Yes normal to inspection, Yes normocephalic and Yes atraumatic Ears: hearing grossly normal bilaterally General nose exam: Normal external nose present Face and sinus: Yes normal facial exam Mouth: Normal oral and palatal mucosa present, oropharynx normal and moist mucous membranes Throat: Yes posterior oropharynx normal Eyes: General: appearance normal, both eyes and all related structures Eyelids: Yes eyelids normal Conjunctivae: conjunctivae normal Sclerae: s clerae normal Pupils: Equal, round and reactive pupils present EOM: EOMs intact bilaterally Neck: Neck: Yes normal visual inspection, Yes full ROM and Yes no lymphadenopathy Lymphatic: no lymphadenopathy noted Chest: Chest palpation & inspection: normal inspection of the chest Resp: Effort & Inspection: normal respiratory effort and able to speak in complete sentences Auscultation: clear to auscultation bilaterally, no crackles, no rales, no rhonchi and no wheezes Cardio: Other: Reproducible chest wall pain, no overlying ecchymosis or edema noted to the est. Rate: regular rate Rhythm: regular rhythm Heart sounds: S1 normal heart sound present and S2 normal heart sound present GI: Inspection: Yes normal to inspection Skin: General skin exam: no rashes or lesions noted Trauma: no lacerations or abrasions Wounds: no wounds Neuro: General: patient oriented x3 and moves all extremities Cranial nerves: Yes Equal, round and reactive pupils present Extrem: General: Yes normal to inspection Right upper extremity: normal to inspection Left upper extremity: normal to inspection Right lower extrem ity: normal to inspection Left lower extremity: normal to inspection Course Reevaluation(s) Reevaluation #1: Patient is negative cardiac workup, chest x-ray negative, EKG normal sinus rhythm with no ST elevation or depression. Symptoms likely secondary to musculoskeletal pain. Workup is reassuring today. Discussed these results patient who agree with following up with primary care. Assessed pain, patient is feeling much better after receiving Toradol I would like to be discharged home. Patient given return precautions. Patient stable for discharge. Medications Administered Discontinued Medications Generic Name Dose Route Start Last Admin Trade Name Freq PRN Reason Stop Dose Admin Ketorolac Tromethamine 15 mg 04/22/23 19:19 04/22/23 19:35 Ketorolac Tromethamine 15 Mg/Ml Vial IVPUSH 04/22/23 19:20 15 mg ONCE ONE Administration Medical Decision Making Medical Decision Making MDM Narrative: 38-year-old female, with a past medical history of diabetes, presenting to the emergency department for evaluation of chest pain since 3:00 a.m. this morning. On arrival, vital signs within normal limits, chest wall pain is reproducible. Given history of diabetes will obtain a full cardiac workup for rule out. Patient is PERC negative. Heart score 1 Differential Diagnosis Differential Diagnoses: The differential diagnosis associated with the presentation includes ACS, costochondritis, musculoskeletal, pneumothorax,, pneumonia Admission/Observation Consideration of admission/observation: Escalation of care including admission/observation considered Escalation care was considered given concern for ACS however upon workup, this was ruled out. Lab Data MDM Lab Attestation statement: I reviewed the patient's lab results. Mild leukocytosis which I believe is reactive, troponin x2 negative 04/22/23 17:44 04/22/23 17:44 Labs: Lab Results 04/22/23 04/22/23 04/22/23 Range/Units 17:44 17:44 17:44 WBC 13.2 H (4.8-10.8) X10*3/uL RBC 5.14 (4.20-5.50) X10*6/uL Hgb 11.4 L D (12.0-16.0) g/dl Hct 38.0 (37.0-47.0) % MCV 73.9 L (80.0-98.0) fL MCH 22.2 L (27.0-33.0) pg MCHC 30.0 L (31.0-35.0) g/dl RDW 23.0 H (11.0-16.0) % Plt Count 551 H (160-400) X10*3/uL MPV 9.6 (9.4-12.3) fL Immature Gran % (Auto) 1.1 H (0.0-0.4) % Neut % (Auto) 64.9 (45-73) % Lymph % (Auto) 24.5 (20-40) % [place] % (Auto) 6.9 (2-11) % Eos % (Auto) 1.9 (0-4) % Baso % (Auto) 0.7 (0-2) % Lymph # (Auto) 3.2 (1.2-4.9) X10*3/uL [place] # (Auto) 0.9 (0.1-1.2) X10*3/uL Eos # (Auto) 0.3 (0.0-0.4) X10*3/uL Baso # (Auto) 0.1 (0.0-0.2) X10*3/uL Abs Immat Gran (auto) 0.14 H (0.00-0.03) X10*3/uL Absolute Neuts (auto) 8.5 H (2.0-8.3) x10*3/uL Absolute Nucleated RBC 0.000 (0.0-0.012) X10*3/uL Nucleated RBC % (auto) 0.0 (0.0-0.2) /100WBC Sodium 140 (135-145) mmol/L Potassium 3.5 (3.3-5.1) mmol/L Chloride 106 (96-108) mmol/L Carbon Dioxide 23 (22-29) mmol/L Anion Gap 15 (12-20) BUN 10 (9-16) mg/dL Creatinine 0.68 (0.5-1.4) mg/dL Estim Creat Clear Calc 117.6 Estimated GFR > 60 Random Glucose 167 H (60-115) mg/dL Calcium 9.9 D (8.4-10.2) mg/dL Troponin I High Sens < 2.7 (<3.5-17.0) ng/L Independent Interpretation I performed an independent interpretation of an: EKG and Plain X-Ray Interpretation: X-ray reviewed by me with no findings of consolidation, I agree with the radiology report. EKG normal sinus rhythm with ventricular rate of 70 beats per minute OH interval 162 QTC 453, no ST elevation or depression. Radiology Impression Discussion of test interpretation with radiology: I have reviewed the radiologist's reading. Radiologist Impression: EXAMINATION: XR CHEST CLINICAL INFORMATION: Chest pain COMPARISON: 04/28/2022 TECHNIQUE: Frontal view of the chest was obtained. FINDINGS: No acute finding. The lung urban are grossly clear. The cardiac silhouette is nonenlarged. Hilar structures are comparable to previous. No effusion is seen. XR/XR chest 1V IMPRESSION: No acute finding. ? Dictated By: Elmer Spence MD Signed By: <Electronically signed by Elmer Spence MD in OV> 04/22/23 1842 DD/ 175 TD/TT:? [employer]: [employer] External Record Review External record reviewed: Inpatient record, Office record, Outpatient record, Prior outpatient labs, Prior outpatient radiology, Primary care record and Outside ED record Extensive review of previous ER visits and outpatient visits. Scores Heart Score History: -0- slightly suspicious ECG: -0- normal Age: -0- < or = 45 Risk factory: -1- 1 or 2 risk factors Troponin: -0- < or = normal limit Score: 1 Risk: 1.7% Discharge Plan Discharge Clinical Impression: Acute chest wall pain Patient Disposition: Home, Self-Care Instructions: Chest Pain (ED) Additional Instructions: Your blood work, x-rays, and work up today was reassuring. Your symptoms are likely due to musculoskeletal pain. Please take prescribed anti-inflammatories as directed as needed for pain. Please follow-up with your primary care physician regarding this visit. Call on Monday to make an appointment. If any new or worsening symptoms occur, including but not limited to worsening chest pain, shortness of breath, please return for re-evaluation. Prescriptions: New ibuprofen 600 mg tablet 600 mg PO Q6H PRN (Reason: pain) Qty: 30 0RF No Action fluticasone propionate [Flonase Allergy Relief] 50 mcg/actuation spray,suspension 1 spray intranasal BID Qty: 16 0RF Rx Instructions: administer into each nostril gabapentin 300 mg capsule 300 mg PO BEDTIME Qty: 30 0RF tramadol 50 mg tablet 50 mg PO Q6H PRN (Reason: pain) Qty: 20 0RF [id number]-[id number] [Fioricet] 50-300-40 mg capsule 1 cap PO Q4-6H PRN (Reason: headache) Qty: 14 0RF ferrous sulfate [Iron (ferrous sulfate)] 325 mg (65 mg iron) tablet 325 mg PO TID Qty: 90 0RF ondansetron 4 mg tablet,disintegrating 4 mg PO Q8H PRN (Reason: nausea and vomiting) Qty: 10 0RF dicyclomine 20 mg tablet 20 mg PO QID PRN (Reason: abdominal pain) Qty: 20 0RF sucralfate 1 gram tablet 1 g PO TID Qty: 90 0RF metformin 500 mg tablet 500 mg PO omeprazole 20 mg capsule,delayed release(DR/EC) 20 mg PO DAILY Interventions: ED Discharge Assessment Last Done: 04/22/23 20:26 Discharge Date/Time: 04/22/23 20:27 Print Language: Montenegrin
[2023-04-22 18:29] LABS: Basophils Absolute Auto 0.1 X10*3/uL (0.0-0.2); Basophils Percent Auto 0.7 % (0-2); Eosinophils Absolute Auto 0.3 X10*3/uL (0.0-0.4); Eosinophils Percent Auto 1.9 % (0-4); Hemoglobin 11.4 g/dl (12.0-16.0); Imm Gran Abs Auto 0.14 X10*3/uL (0.00-0.03); Imm Gran Pct Auto 1.1 % (0.0-0.4); Lymphocytes Absolute Auto 3.2 X10*3/uL (1.2-4.9); Lymphocytes Percent Auto 24.5 % (20-40); Mean Corpuscular Hemoglobin 22.2 pg (27.0-33.0); Mean Corpuscular Volume 73.9 fL (80.0-98.0); Mean Platelet Volume 9.6 fL (9.4-12.3); Monocytes Absolute Auto 0.9 X10*3/uL (0.1-1.2); Monocytes Percent Auto 6.9 % (2-11); Neutrophils Absolute Auto 8.5 x10*3/uL (2.0-8.3); Neutrophils Percent Auto 64.9 % (45-73); Platelet Count 551 X10*3/uL (160-400); Red Blood Count 5.14 X10*6/uL (4.20-5.50); White Blood Count 13.2 X10*3/uL (4.8-10.8)
[2023-04-22] MEDS: Ketorolac Tromethamine 15 MG/ML VIAL IVPUSH (19:35)
== END 2023-04-22 20:27 | disposition home or self-care (01) ==
PROVIDERS: Emergency Provider Internal Medicine; PCP Internal Medicine
DX: R07.89 Other chest pain (principal); E11.9 Type 2 diabetes mellitus without complications; F17.210 Nicotine dependence, cigarettes, uncomplicated; Z79.899 Other long term (current) drug therapy
CPT/HCPCS: 36415; 71045; 80048; 84484; 85025; 93005; 96374; 99284; 99285; J1885

== ENCOUNTER 2023-07-04 14:35 | Outpatient (REF) | payer MEDICAID, SELFPAY ==
[2023-07-05 15:17] LABS: Influenza A PCR NEGATIVE (Negative); Influenza B PCR NEGATIVE (Negative); Resp Syncy Virus RNA Qual PCR NEGATIVE (Negative); SARS COV2 PCR INHOUSE NEGATIVE (Negative)
== END 2023-07-04 14:36 | disposition home or self-care (01) ==
LOC: HO.HHCLNP 14:35
PROVIDERS: Visit Provider Nurse Practitioner Family
DX: Z20.822 Contact with and (suspected) exposure to COVID-19 (principal); J06.9 Acute upper respiratory infection, unspecified
CPT/HCPCS: 0241U; 87070

== ENCOUNTER 2023-07-19 | Outpatient (REF) | payer MEDICAID, SELFPAY ==
[2023-07-20 16:27] LABS: Influenza A PCR NEGATIVE (Negative); Influenza B PCR NEGATIVE (Negative); Resp Syncy Virus RNA Qual PCR NEGATIVE (Negative); SARS COV2 PCR INHOUSE NEGATIVE (Negative)
== END 2023-07-19 00:01 | disposition home or self-care (01) ==
LOC: HO.HHCLNP
PROVIDERS: Visit Provider Registered Nurse
DX: Z20.822 Contact with and (suspected) exposure to COVID-19 (principal); R05.9 Cough, unspecified
CPT/HCPCS: 0241U

== ENCOUNTER 2023-10-13 15:57 | Emergency (ER) | payer MEDICAID, SELFPAY ==
[2023-10-13 16:01] VITALS: BP 131/71; PULSE 92; RESP 20; TEMP 36.7; O2SAT 98; BMI 34.0
--- NOTE | 2023-10-13 16:06 | ED_ITS ---
HPI - General Adult General Chief complaint: Upper Respiratory Symptoms Stated complaint: bodyache Time Seen by Provider: 10/13/23 16:30 Source: patient Mode of arrival: ambulatory Limitations: no limitations History of Present Illness HPI narrative: 38 year old female with no significant pmhx presents to the ED today for evaluation of cough, body aches, MOREIRA, congestion, fever, and chills x1 day. No documented fever at home, has felt warm. Cough is nonproductive of sputum. Admits son at home tested positive for COVID. Denies sore throat, ear pain, chest pain, shortness of breath, wheezing, dyspnea, rash, abdominal pain, nausea or vomiting, flank pain, dysuria or hematuria. Related Data Home Medications Medication Instructions Recorded Confirmed metformin 500 mg tablet 500 mg PO 02/17/22 omeprazole 20 mg capsule,delayed 20 mg PO DAILY 02/17/22 release Previous Rx's Medication Instructions Recorded fluticasone propionate 50 1 spray intranasal BID #16 grams 01/22/22 mcg/actuation nasal spray,suspension (Flonase Allergy Relief) gabapentin 300 mg capsule 300 mg PO BEDTIME #30 caps 06/28/22 tramadol 50 mg tablet 50 mg PO Q6H PRN pain #20 tabs 06/28/22 pygueievzi-znghspzpynjou-bvpwnluy 1 cap PO Q4-6H PRN headache #14 10/23/22 50 mg-300 mg-40 mg capsule caps (Fioricet) ferrous sulfate 325 mg (65 mg 325 mg PO TID #90 tabs 02/22/23 iron) tablet (Iron (ferrous sulfate)) ondansetron 4 mg disintegrating 4 mg PO Q8H PRN nausea and 02/24/23 tablet vomiting #10 tabs dicyclomine 20 mg tablet 20 mg PO QID PRN abdominal pain 03/08/23 #20 tabs sucralfate 1 gram tablet 1 g PO TID #90 tabs 03/08/23 ibuprofen 600 mg tablet 600 mg PO Q6H PRN pain #30 tabs 04/22/23 benzonatate 100 mg capsule 100 mg PO BID PRN cough #14 caps 10/13/23 Allergies Allergy/AdvReac Type Severity Reaction Status Date / Time penicillin V Allergy Unknown Unknown Verified 02/22/23 18:58 Penicillins [PENICILLINS] Allergy Unknown UNKNOWN Verified 02/22/23 18:58 Review of Systems Review of Systems: Constitutional: +fever, +chills, No fatigue, night sweats, weight changes ENT/Mouth: No ear pain, hearing loss, +nasal congestion, No sinus pain, rhinorrhea, sore throat Eyes: No eye pain, swelling, redness, vision changes, discharge Cardio: No chest pain, palpitations, HANKINS, orthopnea, peripheral edema Pulm: No SOB, +cough, No sputum, wheezing, dyspnea, hemoptysis GI: No nausea, vomiting, hematemesis, abdominal pain, diarrhea, constipation, hematochezia, melena : No irregular bleeding, dysuria, frequency, urgency, hesitancy, hematuria, flank pain, urinary flow changes, urinary incontinence or retention MSK: No back pain, neck pain, joint pain, +myalgias Skin: No lesions, rashes Neuro: No weakness, numbness, paresthesias, LOC, dizziness, +headache All other systems reviewed and are negative. [facility] Past Medical History Attestation statement: The following information was validated with the patient. Source: old records reviewed and nursing notes reviewed Medical History Anemia Diabetes Asthma Surgical History Hx of section Social History Social History Alcohol intake: unknown Patient Tobacco Use Status: Current everyday Tobacco user Cigarettes Per Day: 2 Advance Directives: No Advance Directives Information Provided: No Sexual orientation: Straight/Heterosexual Gender identity: Female Physical Exam ED Vital Signs: Vital Signs - 24 hr 10/13/23 16:01 Temperature 98.1 F Pulse Rate 92 Respiratory Rate 20 Blood Pressure 131/71 Pulse Oximetry 98 Oxygen Delivery Method Room Air BMI result Body Mass Index 34.0 vital signs stable, afebrile Const General: cooperative, comfortable, no acute distress, alert and awake Orientation/consciousness: patient oriented x3 Limitations: no limitations HENMT Other: + posterior oropharynx without erythema or edema. No tonsillar exudates. Uvula midline. No peritonsillar masses. Controlling secretions speaking complete sentences. Head: Yes normal to inspection Ears: hearing grossly normal bilaterally, external ears normal, TM's normal bilaterally, EAC's normal, mastoids normal and no periauricular adenopathy General nose exam: Normal external nose present, Normal nares present and No nasal discharge present Face and sinus: Yes normal facial exam and Yes sinuses nontender Mouth: Normal oral and palatal mucosa present Eyes General: appearance normal, both eyes and all related structures Conjunctivae: conjunctivae normal Sclerae: sclerae normal Pupils: Equal, round and reactive pupils present EOM: EOMs intact bilaterally Neck Neck: Yes normal visual inspection, Yes full ROM, Yes no lymphadenopathy and Yes no meningeal signs Resp Effort & Inspection: normal respiratory effort and Actively coughing Auscultation: clear to auscultation bilaterally and no wheezes Cardio Rate: regular rate Rhythm: regular rhythm Peripheral pulses: radial pulses present GI Inspection: Yes normal to inspection Palpation (GI): Soft to palpation, nontender and no hepatosplenomegaly General: Yes no CVA tenderness Back/Spine/Pelvis Back: no CVA tenderness Skin General skin exam: no rashes or lesions noted Neuro General: patient oriented x3, gait normal, moves all extremities and no meningeal signs Cranial nerves: Yes Equal, round and reactive pupils present Extrem General: Yes normal to inspection and Yes full ROM Course Course Course Narrative: RME performed by Jackie Goldsmith PA-C. Patient is a 38 year old assigned female at presenting to the emergency department with body aches. Swabs ordered. Patient placed back in the waiting room pending room availability and results. Reevaluation(s) Reevaluation #1: [id number]-- Informed patient of positive COVID results. Advised her that treatment for this is symptomatic and she does not need antibiotics. She was given Decadron in the ED today and states she feels better. Tolerating gingerale. Patient has remained stable throughout ED visit today. Discussed COVID protocol along with worrisome signs symptoms and when to return to the emergency department. All questions answered at this time. Patient is agreeable with disp osition and stable for discharge. Medications Administered Discontinued Medications Generic Name Dose Route Start Last Admin Trade Name Freq PRN Reason Stop Dose Admin Acetaminophen 975 mg 10/13/23 17:09 10/13/23 17:33 Acetaminophen 325 Mg Tablet PO 10/13/23 17:10 975 mg ONCE ONE Administration Dexamethasone Sodium Phosphate 10 mg 10/13/23 17:20 12/15/23 17:33 Dexamethasone Sod Phosphate 10 Mg/Ml Vial IVPUSH 10/13/23 17:21 10 mg ONCE ONE Administration Medical Decision Making Medical Decision Making [facility] Narrative: 38 year old female with no significant pmhx presents to the ED today for evaluat ion of cough, body aches, MOREIRA, congestion, fever, and chills x1 day. Vital signs stable. Afebrile. Not hypoxic. She is nontoxic appearing and in no acute distress. Lying comfortably on the bed. Bilateral EACs and TMs WNL. Posterior oropharynx without erythema or edema, no tonsillar exudates or peritonsillar masses, uvula midline, controlling secretions and speaking in complete sentences. Lungs are clear to auscultation bilaterally, no wheezes or signs of respiratory distress. No rashes. Exam nonfocal. No concern for viral syndrome, strep throat. Unlikely pneumonia, bronchitis, bronchiolitis, [employer], retropharyngeal abscess, mono, epiglottitis. Plan for serology and re- evaluation Differential Diagnosis Differential Diagnoses: The differential diagnosis associated with the presentation includes as above. Admission/Observation not indicated. Lab Data [facility] Lab Attestation statement: I reviewed the patient's lab results. As above. Labs: Lab Results 10/13/23 Range/Units 16:25 Influenza Type A (PCR) NEGATIVE (Negative) Influenza Type B (PCR) NEGATIVE (Negative) RSV RNA Qual (PCR) NEGATIVE (Negative) SARS-CoV-2 RNA (RT-PCR) POSITIVE A (Negative) S. pyogenes GrpA RAMÓN Negative (Negative) External Record Review External record reviewed: Inpatient record Prescription Management I considered prescription management with: Pain Medication and Other (steroid, antitussive) Social Determinants Patient?s care significantly limited by Social Determinants of Health including: Other Social Determinant of Health Critical Care Time Critical Care Time Critical Care Time: No Discharge Plan Discharge Clinical Impression: COVID Patient Disposition: Home, Self-Care Instructions: COVID-19 (Coronavirus Disease 2019) (ED) Additional Instructions: Today you tested positive for COVID-19.? Take Ibuprofen or Tylenol as needed for fevers or body aches.? Quarantine for 5 days and ensure you wear a mask. After 5 days you should wear a mask for 5 days after that.? Practice social distancing and good hand hygiene. Drink plenty of fluids. Yemi Balderas have been sent to your pharmacy. You may take these as needed for cough. Follow-up with your primary care provider this week. Return to the emergency department with new or worsening symptoms. In case of emergency call 911 You can purchase a pulse oximeter from your local pharmacy or grocery store, and monitor your oxygen saturation if it goes below 94% you should return to the emergency department for further evaluation. Prescriptions: New benzonatate 100 mg capsule 100 mg PO BID PRN (Reason: cough) Qty: 14 0RF No Action fluticasone propionate [Flonase Allergy Relief] 50 mcg/actuation spray,suspension 1 spray intranasal BID Qty: 16 0RF Rx Instructions: administer into each nostril gabapentin 300 mg capsule 300 mg PO BEDTIME Qty: 30 0RF tramadol 50 mg tablet 50 mg PO Q6H PRN (Reason: pain) Qty: 20 0RF npffztoeyp-cmyfxffskbgdf-mwyx [Fioricet] 50-300-40 mg capsule 1 cap PO Q4-6H PRN (Reason: headache) Qty: 14 0RF ibuprofen 600 mg tablet 600 mg PO Q6H PRN (Reason: pain) Qty: 30 0RF ferrous sulfate [Iron (ferrous sulfate)] 325 mg (65 mg iron) tablet 325 mg PO TID Qty: 90 0RF ondansetron 4 mg tablet,disintegrating 4 mg PO Q8H PRN (Reason: nausea and vomiting) Qty: 10 0RF dicyclomine 20 mg tablet 20 mg PO QID PRN (Reason: abdominal pain) Qty: 20 0RF sucralfate 1 gram tablet 1 g PO TID Qty: 90 0RF metformin 500 mg tablet 500 mg PO omeprazole 20 mg capsule,delayed release(DR/EC) 20 mg PO DAILY Stand Alone Forms: Work/School Release Interventions: ED Discharge Assessment Last Done: 10/13/23 18:41 Discharge Date/Time: 10/13/23 18:41
[2023-10-13 17:12] LABS: Influenza A PCR NEGATIVE (Negative); Influenza B PCR NEGATIVE (Negative); Resp Syncy Virus RNA Qual PCR NEGATIVE (Negative); SARS COV2 PCR INHOUSE POSITIVE (Negative)
[2023-10-13 17:20] LABS: IDNOW Serial# 08D9AD1C; Strep A Nucleic Acid Negative (Negative)
[2023-10-13] MEDS: dexAMETHasone sod phosphate 10 MG/ML VIAL IVPUSH (17:33)
[2023-10-13] MEDS: Acetaminophen 325 MG TABLET 975 MG PO (17:33)
== END 2023-10-13 18:41 | disposition home or self-care (01) ==
PROVIDERS: Physician Assistant Medical; Emergency Provider Emergency Medicine; PCP Internal Medicine
DX: U07.1 COVID-19 (principal); M79.10 Myalgia, unspecified site; R05.9 Cough, unspecified; R51.9 Headache, unspecified; R50.9 Fever, unspecified; Z79.899 Other long term (current) drug therapy
CPT/HCPCS: 0241U; 87651; 99283; J1100

== ENCOUNTER 2023-11-29 14:13 | Outpatient (AMB) | payer MEDICAID, SELFPAY ==
--- NOTE | 2023-11-29 14:20 | MHC.OFFVIS ---
Intake Vital Signs 11/29/23 14:24 Height 5 ft 4 in Weight 180 lb BMI 30.9 BP 104/51 L Blood Pressure Location Lt brachial Position Sitting Pulse 84 Intake Visit Reasons: Anemia Intake Note: Patient new consult for Anemia. Patient cc: middle abdominal pain, acid reflex with burning sensation and also she is gasping for air due her GERD at night time, diarrhea, fatigue, tiredness and sleeping all the time and loss weight. Multi Skilled Operator Required: No Accompanied by: Self / Same As Patient Allergies penicillin V Allergy (Unknown, Verified 11/29/23 14:18) Unknown Penicillins [PENICILLINS] Allergy (Unknown, Verified 11/29/23 14:18) UNKNOWN HPI Anemia HPI Details 38-year-old female with past medical history of anemia, thrombocytosis, epigastric pain, diabetes, asthma is here today for initial consultation. Patient was sent to us for evaluating the cause of her anemia. Patient confused about the appointment. Patient reports that she thought that she was sent for multiple symptoms that she has been experiencing that include epigastric pain postprandially, nausea and vomiting. Choking episodes during the night with severe acid reflux despite being on sucralfate 3 times a day. Patient reports to have frequent diarrhea mostly postprandially, denies melena, hematochezia, unintentional weight loss or ribbon like stools. Patient reports severe cramping during her periods that last sometimes 2-3 weeks with severe bleeding. Patient reports that sometimes when she believes she will bleed through the pad and the blood will go down her legs. Patient had episode of nausea and vomiting and epigastric pain and when she was seen in the ER her H&H was low and she needed to be transfused. Patient denies vomiting blood or coffee ground like vomit. Patient reports dyspepsia without dysphagia or odynophagia. [facility] Medical History (Updated 11/29/23 @ 16:55 by Shannan Dueñas, [facility]) GERD (gastroesophageal reflux disease) Anemia Diabetes Asthma Surgical History Hx of section Social History Alcohol intake: unknown Patient Tobacco Use Status: Current everyday Tobacco user Cigarettes Per Day: 2 Sexual orientation: Straight/Heterosexual Gender identity: Female Review of Systems Const Denies weight gain and Denies weight loss ENT Reports no additional complaints, Denies dysphagia and Denies odynophagia Card Reports no additional complaints Resp Reports no additional complaints GI Reports abdominal pain (epigastric), Denies belching, Denies melena, Reports bloating, Reports constipation, Denies dysphagia, Denies excessive flatus, Reports dyspepsia, Reports heartburn, Denies diarrhea, Reports loose stools, Denies nausea, Denies odynophagia and Denies vomiting Reports no additional complaints Musc Reports no additional complaints Neuro Reports no additional complaints Psych Reports no additional complaints Endo Reports no additional complaints Physical Exam Vital Signs: Last Vital Signs Pulse 84 11/29/23 14:24 BP 104/51 L 11/29/23 14:24 BMI result Body Mass Index 30.9 Const General: healthy appearing, no acute distress and well developed Nutritional Appearance: well nourished Orientation/consciousness: patient oriented x3 Resp Effort & Inspection: normal respiratory effort, able to speak in complete sentences, no tracheal deviation and symmetric chest movement Auscultation: clear to auscultation bilaterally Cardio Rate: regular rate GI Inspection: Yes normal to inspection and No distended Palpation (GI): Soft to palpation, not firm, nontender and No hepatosplenomegaly present Auscultation: normal bowel sounds General: Yes no CVA tenderness Back/Spine/Pelvis Back: no CVA tenderness Skin General skin exam: elasticity normal, turgor normal and dry skin Neuro General: patient oriented x3 Psych Appearance: grossly normal Mental Status: mental status grossly normal Assessment & Plan Assessment & Plan (1) Menometrorrhagia: Code(s): N92.1 - Excessive and frequent menstruation with irregular cycle (2) GERD (gastroesophageal reflux disease): Code(s): K21.9 - Gastro-esophageal reflux disease without esophagitis Qualifiers: Esophagitis presence: esophagitis presence not specified Qualified Code(s): K21.9 - Gastro-esophageal reflux disease without esophagitis (3) Postprandial abdominal pain in right upper quadrant: Code(s): R10.11 - Right upper quadrant pain (4) Postprandial abdominal bloating: Code(s): R14.0 - Abdominal distension (gaseous) (5) Diarrhea: Code(s): R19.7 - Diarrhea, unspecified Qualifiers: Diarrhea type: functional diarrhea Qualified Code(s): K59.1 - Functional diarrhea (6) Anemia: Code(s): D64.9 - Anemia, unspecified Qualifiers: Anemia type: iron deficiency Iron deficiency anemia type: chronic blood loss Qualified Code(s): D50.0 - Iron deficiency anemia secondary to blood loss (chronic) Plan Patient reports epigastric discomfort postprandially. Discussed with patient low FODMAP diet. List of food recommended as well as list of food to avoid given to patient. She will start taking pantoprazole daily and will take sucralfate at bedtime. Patient has been on sucralfate 3 times a day for a last couple months. We can cut down to bedtime only. Will try to manage her reflux with pantoprazole 40 mg. Patient was encouraged to avoid dietary triggers late night snacking. Staying upright for minimal 3 hours after meals discussed with patient. Patient was encouraged to stop NSAIDs and try Tylenol instead, use it only on as needed basis. Patient has a history of increase echogenicity of her liver will repeat ultrasound with elastography to stage. Will check transglutaminase to rule out celiac. Will check liver panel and lipase. Will check her thyroid, vitamin B12, folate, vitamin-D level to rule out malabsorption. Patient will be sent to check for H pylori. Patient does admit to having H pylori in the past like 10 years ago or so and was treated. History of hep C in the past treated with antivirals. Will check viral load. Patient reports severe cramping with heavy and long. Sometimes lasting 3 weeks. Have seen gynecology in the past, had ultrasound that showed ovarian cysts on both ovaries. Most likely PCOS. Patient is losing hair, facial hair present. I will see her in 5 weeks, sooner on as needed basis. Patient is agreeable to this plan and verbalizes understanding of instructions. She was given the opportunity to ask questions and all questions answered. Thank you for allowing me to participate in her care Orders: Orders Transglutaminase Ab IgG Today R10.9 - Unspecified abdominal pain Transglutaminase IgA Today R10.9 - Unspecified abdominal pain TSH reflex Free T4 Today K59.00 - Constipation, unspecified Liver Panel Today R74.01 - Elevation of levels of liver transaminase levels H pylori Ag Stool Today K21.9 - Gastro-esophageal reflux disease without esophagitis Lipase Today R10.9 - Unspecified abdominal pain Vitamin B12 and Folate Today R19.7 - Diarrhea, unspecified Vitamin D 25-OH (D2 and D3) Today E55.9 - Vitamin D deficiency, unspecified Hepatitis A,B,C Profile Today R79.89 - Other specified abnormal findings of blood chemistry US abdomen comp w elastography Today R79.89 - Other specified abnormal findings of blood chemistry Hepatitis C Viral Load Today Z86.19 - Personal history of other infectious and parasitic diseases Referrals DISPENSING AUDIOLOGIST Referral N92.1 - Excessive and frequent menstruation with irregular cycle Medications: New pantoprazole take one tablet half an hour before breakfast 40 mg PO DAILY 30 tabs 2RF K21.9 - Gastro-esophageal reflux disease without esophagitis methylcellulose (laxative) (Citrucel) 500 mg PO DAILY 30 tabs 2RF K59.00 - Constipation, unspecified Changed From sucralfate 1 g PO TID 90 tabs 0RF To sucralfate 1 g PO BEDTIME 30 tabs 3RF Discontinued ondansetron Discontinued Reason: Patient Completed Course 4 mg PO Q8H PRN 10 tabs 0RF nausea and vomiting ibuprofen Discontinued Reason: Patient Completed Course 600 mg PO Q6H PRN 30 tabs 0RF pain dicyclomine Discontinued Reason: Patient Completed Course 20 mg PO QID PRN 20 tabs 0RF abdominal pain Coding Level of Care Code New Pt Level 4 (48772) Diagnoses Menometrorrhagia N92.1 Gastroesophageal reflux disease, unspecified whether esophagitis present K21.9 Esophagitis presence: esophagitis presence not specified Postprandial abdominal pain in right upper quadrant R10.11 Postprandial abdominal bloating R14.0 Functional diarrhea K59.1 Diarrhea type: functional diarrhea Iron deficiency anemia due to chronic blood loss D50.0 Anemia type: iron deficiency Iron deficiency anemia type: chronic blood loss Time Spent (min) 45 Comment 30 minutes spent with patient and additional 15 minutes spent reviewing her records
[2023-11-29 14:24] VITALS: BP 104/51; PULSE 84; BMI 30.9
== END 2023-11-29 15:03 | disposition home or self-care (01) ==
PROVIDERS: PCP Internal Medicine; Visit Provider Nurse Practitioner Family
DX: N92.1 Excessive and frequent menstruation with irregular cycle (principal); K21.9 Gastro-esophageal reflux disease without esophagitis; R10.11 Right upper quadrant pain; R14.0 Abdominal distension (gaseous); K59.1 Functional diarrhea; D50.0 Iron deficiency anemia secondary to blood loss (chronic)
CPT/HCPCS: 99204

== ENCOUNTER 2023-11-29 14:13 | Outpatient (REF) | payer MEDICAID, SELFPAY ==
[2023-11-29 17:01] LABS: Alanine Aminotransferase 13 U/L (0-31); Albumin Level 3.8 g/dL (3.5-5.0); Alkaline Phosphatase 78 U/L (39-117); Aspartate Amino Transferase 13 U/L (5-31); Bilirubin Direct < 0.2 mg/dL (0.0-0.5); Bilirubin Total 0.1 mg/dL (0.0-1.0); Lipase 22 U/L (8-78); Total Protein 6.9 g/dL (6.5-8.0)
[2023-11-29 17:18] LABS: TSH reflex Free T4 1.51 uIU/mL (0.32-4.0)
[2023-11-29 17:28] LABS: Folate 8.9 ng/mL (> or = 4.0); Vitamin B12 347 pg/mL (200-900)
[2023-11-30 04:05] LABS: HBc Num1 0.45 S/CO (0.00-0.79); Hepatitis A Antibody IgM 0.16 Index (0-0.79); Hepatitis B Core Antibody Nonreactive (Nonreactive); ~Hepatitis A Antibody IgM Nonreactive (Nonreactive)
[2023-11-30 04:22] LABS: HBsAGNum1 0.29 S/CO (0.00-0.99); Hepatitis B Surface Antigen Negative (Negative); ~HepC Num1 6.51 S/CO (0.00-0.79); ~Hepatitis B Surface Antibody NONREACTIVE (Nonreactive); ~Hepatitis C Antibody Reactive (Nonreactive)
[2023-11-30 13:33] LABS: Transglutaminase Ab IgG 3.8 U/mL; Transglutaminase IgA <1.0 U/mL
[2023-12-02 13:39] LABS: Vitamin D 25-OH, D2 22 ng/mL; Vitamin D 25-OH, D3 9 ng/mL; Vitamin D 25-OH, Total 31 ng/mL (30-100)
[2023-12-02 17:48] LABS: HCV Log PCR <1.18 NOT DETECTED Log IU/mL (NOT DETECTED); HepC Viral Load <15 NOT DETECTED IU/mL (NOT DETECTED)
== END 2023-11-29 14:14 | disposition home or self-care (01) ==
LOC: HO.LAB 14:13
PROVIDERS: PCP Internal Medicine; Visit Provider Nurse Practitioner Family
DX: K21.9 Gastro-esophageal reflux disease without esophagitis (principal); K59.00 Constipation, unspecified; K59.1 Functional diarrhea; R74.01 Elevation of levels of liver transaminase levels; R79.89 Other specified abnormal findings of blood chemistry; E55.9 Vitamin D deficiency, unspecified; D64.9 Anemia, unspecified; R10.13 Epigastric pain; N92.1 Excessive and frequent menstruation with irregular cycle; R10.11 Right upper quadrant pain; R14.0 Abdominal distension (gaseous); D50.0 Iron deficiency anemia secondary to blood loss (chronic); Z86.19 Personal history of other infectious and parasitic diseases
CPT/HCPCS: 36415; 80076; 82306; 82607; 82746; 83690; 84443; 86364; 86704; 86706; 86709; 86803; 87340; 87522; 99212

== ENCOUNTER 2024-08-02 15:55 | Outpatient (REF) | payer MEDICAID, SELFPAY ==
[2024-08-03 12:45] LABS: CT PCR NOT DETECTED (Not Detect.); NG PCR NOT DETECTED (Not Detect.)
[2024-08-04 09:01] LABS: Bacterial Vaginosis PCR NEGATIVE (Negative); Candida Group PCR DETECTED (Not Detect); Candida glab krusei PCR NOT DETECTED (Not Detect); Trichomonas vaginalis PCR NOT DETECTED (Not Detect)
[2024-08-05 04:32] LABS: HIV AB/AG Nonreactive (Nonreactive); HIV Num 1 0.05 S/CO (0.00-0.99); ~HepC Num1 6.55 S/CO (0.00-0.79); ~Hepatitis C Antibody Reactive (Nonreactive)
[2024-08-06 15:09] LABS: HCV Log PCR <1.18 NOT DETECTED Log IU/mL (NOT DETECTED); HepC Viral Load <15 NOT DETECTED IU/mL (NOT DETECTED)
== END 2024-08-02 15:56 | disposition home or self-care (01) ==
LOC: HO.HHCL 15:55
PROVIDERS: Visit Provider Nurse Practitioner Family
DX: N89.8 Other specified noninflammatory disorders of vagina (principal); Z72.51 High risk heterosexual behavior
CPT/HCPCS: 0352U; 36415; 86803; 87389; 87491; 87522; 87591

== ENCOUNTER 2024-09-24 11:21 | Outpatient (REF) | payer MEDICAID, SELFPAY ==
[2024-09-25 12:31] LABS: Bacterial Vaginosis PCR NEGATIVE (Negative); Candida Group PCR DETECTED (Not Detect); Candida glab krusei PCR NOT DETECTED (Not Detect); Trichomonas vaginalis PCR NOT DETECTED (Not Detect)
[2024-09-25 13:00] LABS: CT PCR NOT DETECTED (Not Detect.); NG PCR NOT DETECTED (Not Detect.)
== END 2024-09-24 11:22 | disposition home or self-care (01) ==
LOC: HO.HHCLNP 11:21
PROVIDERS: Visit Provider Nurse Practitioner Family
DX: N89.8 Other specified noninflammatory disorders of vagina (principal)
CPT/HCPCS: 0352U; 87491; 87591

== ENCOUNTER 2024-10-28 16:12 | Outpatient (REF) | payer MEDICAID, SELFPAY ==
[2024-10-28 18:19] LABS: Alanine Aminotransferase 15 U/L (0-31); Albumin Level 3.8 g/dL (3.5-5.0); Alkaline Phosphatase 94 U/L (39-117); Anion Gap 14 (12-20); Aspartate Amino Transferase 23 U/L (5-31); Bilirubin Total 0.3 mg/dL (0.0-1.0); Blood Urea Nitrogen 9 mg/dL (9-16); Calcium 8.8 mg/dL (8.4-10.2); Carbon Dioxide 20 mmol/L (22-29); Chloride 104 mmol/L (96-108); Cholesterol 148 mg/dL (<200); Estimated Glomerular Filt Rate > 60; Glucose Random 327 mg/dL (60-115); HDL Cholesterol 33 mg/dL (>40); LDL Cholesterol Calculated 89 mg/dL (<100); Potassium 4.4 mmol/L (3.3-5.1); Sodium 134 mmol/L (135-145); Total Protein 7.4 g/dL (6.5-8.0); Triglycerides 134 mg/dL (<150)
[2024-10-28 18:32] LABS: Reflex LDLD? No
[2024-10-28 18:39] LABS: TSH reflex Free T4 0.34 uIU/mL (0.32-4.0); Vitamin D 25-OH Total 29.7 ng/mL (>30)
[2024-10-29 04:12] LABS: HBS Num1 3.79 mIU/mL (0-7.99); HBc Num1 0.55 S/CO (0.00-0.79); HBsAGNum1 0.43 S/CO (0.00-0.99); Hepatitis A Antibody IgM 0.15 Index (0-0.79); Hepatitis B Core Antibody Nonreactive (Nonreactive); Hepatitis B Surface Antigen Negative (Negative); ~Hepatitis A Antibody IgM Nonreactive (Nonreactive); ~Hepatitis B Surface Antibody NONREACTIVE (Nonreactive); ~Hepatitis C Antibody Reactive (Nonreactive)
[2024-10-29 11:38] LABS: Rubella IgG Antibody 4.02 Index
== END 2024-10-28 16:13 | disposition home or self-care (01) ==
LOC: HO.HHCL 16:12
PROVIDERS: Visit Provider Internal Medicine
DX: Z00.00 Encounter for general adult medical examination without abnormal findings (principal); E66.811 Obesity, class 1; E66.09 Other obesity due to excess calories; Z68.30 Body mass index [BMI] 30.0-30.9, adult; E11.9 Type 2 diabetes mellitus without complications; Z86.19 Personal history of other infectious and parasitic diseases
CPT/HCPCS: 36415; 80053; 80061; 82306; 84443; 86704; 86706; 86709; 86735; 86762; 86765; 86803; 87340

== ENCOUNTER 2024-10-29 10:01 | Outpatient (REF) | payer MEDICAID, SELFPAY ==
[2024-10-29 11:02] LABS: MANUAL DIFF FLAG NO
[2024-10-29 11:21] LABS: Basophils Absolute Auto 0.1 X10*3/uL (0.0-0.2); Basophils Percent Auto 0.5 % (0-2); Eosinophils Absolute Auto 0.5 X10*3/uL (0.0-0.4); Eosinophils Percent Auto 3.1 % (0-4); Hematocrit 35.4 % (37.0-47.0); Hemoglobin 10.2 g/dl (12.0-16.0); Imm Gran Abs Auto 0.17 X10*3/uL (0.00-0.03); Imm Gran Pct Auto 1.1 % (0.0-0.4); Lymphocytes Absolute Auto 3.1 X10*3/uL (1.2-4.9); Mean Corpuscular HGB Conc 28.8 g/dl (31.0-35.0); Mean Corpuscular Hemoglobin 19.3 pg (27.0-33.0); Mean Corpuscular Volume 66.9 fL (80.0-98.0); Mean Platelet Volume 10.1 fL (9.4-12.3); Monocytes Absolute Auto 0.8 X10*3/uL (0.1-1.2); Monocytes Percent Auto 5.3 % (2-11); Neutrophils Absolute Auto 10.7 x10*3/uL (2.0-8.3); Platelet Count 572 X10*3/uL (160-400); Red Blood Count 5.29 X10*6/uL (4.20-5.50); Red Cell Distribution Width 17.1 % (11.0-16.0); White Blood Count 15.3 X10*3/uL (4.8-10.8)
[2024-10-29 11:45] LABS: Creatinine Urine 95.03 mg/dL; Microalbum/Creatinine Ratio Ur 16.8 ug/mg cr (<30)
[2024-10-29 11:47] LABS: Cholesterol 153 mg/dL (<200); HDL Cholesterol 32 mg/dL (>40); LDL Cholesterol Calculated 83 mg/dL (<100); Triglycerides 192 mg/dL (<150)
[2024-10-29 11:56] LABS: Vitamin D 25-OH Total 25.7 ng/mL (>30)
[2024-10-29 13:59] LABS: Reflex LDLD? No
[2024-10-31 18:24] LABS: TS Negative Control Passed; TS Panel A 0; TS Panel B 0; TS Positive Control Passed; TSpotTB Negative (Negative)
== END 2024-10-29 10:02 | disposition home or self-care (01) ==
LOC: HO.HHCL 10:01
PROVIDERS: Visit Provider Internal Medicine
DX: E55.9 Vitamin D deficiency, unspecified (principal); E11.9 Type 2 diabetes mellitus without complications; Z79.4 Long term (current) use of insulin; D75.839 Thrombocytosis, unspecified; Z86.19 Personal history of other infectious and parasitic diseases
CPT/HCPCS: 36415; 80061; 82043; 82306; 82570; 85025; 86481

== ENCOUNTER 2024-10-29 12:14 | Emergency (ER) | payer MEDICAID, SELFPAY ==
[2024-10-29 12:56] VITALS: BP 116/68; PULSE 89; RESP 16; TEMP 36.6; O2SAT 98; BMI 34.1
--- NOTE | 2024-10-29 12:57 | ED.GENADULT ---
HPI - General Adult General Chief complaint: Skin/Abscess/Foreign Body Stated complaint: Vaginal abscess - sent by Time Seen by Provider: 10/29/24 13:45 Source: patient Mode of arrival: ambulatory Limitations: no limitations History of Present Illness ED Provider: DEBBIE JIMENEZ PA-C HPI narrative: 39 year old female with pmhx significant for DM, asthma, anemia, and GERD presents to the ED today for evaluation of abscess to her left labia x5 days. She reports history of similar in the affected region as well as her axilla. States he is typically resolve on their own. She was evaluated for this at urgent care today however was sent to the ED for I&D. Reports pain. States that there was some drainage yesterday. Denies dysuria, vaginal discharge, other vaginal lesions. Denies concern for STDs. She is sexually active with her long-term partner. Related Data Home Medications ?Medication ?Instructions ?Recorded ?Confirmed metformin 500 mg tablet 500 mg PO 02/17/22 Previous Rx's ?Medication ?Instructions ?Recorded fluticasone propionate 50 1 spray intranasal BID #16 grams 01/22/22 mcg/actuation nasal spray,suspension (Flonase Allergy Relief) gabapentin 300 mg capsule 300 mg PO BEDTIME #30 caps 06/28/22 tramadol 50 mg tablet 50 mg PO Q6H PRN pain #20 tabs 06/28/22 [id number]-kcdzbmyoxkpof-rokbaqjc 1 cap PO Q4-6H PRN headache #14 10/23/22 50 mg-300 mg-40 mg capsule caps (Fioricet) ferrous sulfate 325 mg (65 mg 325 mg PO TID #90 tabs 02/22/23 iron) tablet (Iron (ferrous sulfate)) benzonatate 100 mg capsule 100 mg PO BID PRN cough #14 caps 10/13/23 methylcellulose (laxative) 500 mg 500 mg PO DAILY #30 tabs 04/03/24 tablet (Citrucel) sucralfate 1 gram tablet 1 g PO BEDTIME #30 tabs 05/13/24 pantoprazole 40 mg tablet,delayed 40 mg PO DAILY #30 tabs 07/10/24 release doxycycline monohydrate 100 mg 100 mg PO BID 7 days #14 caps 10/29/24 capsule morphine 15 mg immediate release 15 mg PO Q8H PRN pain (scale score 10/29/24 tablet 4-6) #5 tabs sulfamethoxazole 800 1 tab PO DAILY 7 days #7 tabs 10/29/24 mg-trimethoprim 160 mg tablet (Bactrim DS) Allergies Allergy/AdvReac Type Severity Reaction Status Date / Time penicillin V Allergy Unknown Unknown Verified 10/29/24 12:57 Penicillins [PENICILLINS] Allergy Unknown UNKNOWN Verified 10/29/24 12:57 Review of Systems Review of Systems: Constitutional: No fever, chills, fatigue, night sweats, weight changes ENT/Mouth: No ear pain, hearing loss, nasal congestion, sinus pain, rhinorrhea, sore throat Eyes: No eye pain, swelling, redness, vision changes, discharge Cardio: No chest pain, palpitations, HANKINS, orthopnea, peripheral edema Pulm: No SOB, cough, sputum, wheezing, dyspnea, hemoptysis GI: No nausea, vomiting, hematemesis, abdominal pain, diarrhea, constipation, hematochezia, melena : No irregular bleeding, dysuria, frequency, urgency, hesitancy, hematuria, flank pain, urinary flow changes, urinary incontinence or retention, +vaginal pain/swelling MSK: No back pain, neck pain, joint pain, myalgias Skin: No lesions, rashes Neuro: No weakness, numbness, paresthesias, LOC, dizziness, headache Psych: No anxiety/panic, depression, SI/HI, AH/VH All other systems reviewed and are negative. [facility] Past Medical History Attestation statement: The following information was validated with the patient. Source: old records reviewed and nursing notes reviewed Medical History GERD (gastroesophageal reflux disease) Anemia Diabetes Asthma Surgical History Hx of section Social History Social History Alcohol intake: unknown Patient Tobacco Use Status: Current everyday Tobacco user Cigarettes Per Day: 2 Advance Directives: No Advance Directives Information Provided: Yes Sexual orientation: Straight/Heterosexual Gender identity: Female Physical Exam ED Vital Signs: Vital Signs - 24 hr 10/29/24 17:57 Temperature 97.8 F Pulse Rate 89 Respiratory Rate 16 Blood Pressure 116/68 Pulse Oximetry 98 Oxygen Delivery Method Room Air BMI result Body Mass Index 34.1 vital signs stable, afebrile General: Well appearing, in no acute distress. Skin: Warm, dry, intact. No rashes or lesions. Head: Normocephalic, atraumatic. EENT: Hearing is intact b/l. Conjunctiva clear. Cardiac: Chest wall symmetric. RRR Lungs: Normal respiratory effort without accessory muscle use Abdomen: Soft, non-tender, non-distended. No rebound tenderness or guarding. Positive BS x4. : power mule operator offered, patient declined. External genitalia w/ swelling to posterior aspect of left labia majora, erythemaous. ttp, indurated, warm w/ central pointing. Ext: Upper and lower extremities atraumatic, without tenderness, deformity, swelling or erythema Neuro: AOx3. Normal speech. Ambulating with steady gait. Course Course Course Narrative: This is a rapid medical exam performed by Gal Kitchen NP: Additional HPI, ROS, PE not included below will be deferred to primary provider. Patient is a 39-year-old female presenting from urgent care for drainage of a labial abscess. Symptoms x 4 days. Area not visualized in triage due to privacy concerns. Reevaluation(s) Reevaluation #1: exam consistent with bartholins abscess to left labia. pre-medicated w/ oxycodone and ativan for anxiety/ pain. I&D performed, initially attempted needle aspiration which was unsuccessful. I incised the abscess and expressed ~3 ml of purulent fluid. no packing placed. will place patient on double coverage with bactrim and doxy (unknown allergy to PCN - will refrain from cephalosporin). advised sitz baths/ warm compresses/ hygiene. Patient has remained stable throughout ED visit today. Discussed worrisome signs and symptoms and when to return to the ED. All questions answered at this time. Patient is agreeable with disposition and stable for discharge. Medications Administered Discontinued Medications Generic Name Dose Route Start Last Admin Trade Name Freq PRN Reason Stop Dose Admin Doxycycline Monohydrate 100 mg 10/29/24 16:19 10/29/24 16:23 Doxycycline Monohydrate 100 Mg Capsule PO 10/29/24 16:20 100 mg ONCE ONE Administration Lidocaine HCl 5 ml 10/29/24 13:45 10/29/24 13:58 Lidocaine Hcl 1 % Mpf 5 Ml Vial INFILTRATI 10/29/24 13:46 5 ml ONCE ONE Administration Lidocaine HCl 5 ml 10/29/24 13:46 10/29/24 13:58 Lidocaine Hcl 1 % Mpf 5 Ml Vial INFILTRATI 10/29/24 13:47 5 ml ONCE ONE Administration Lorazepam 1 mg 10/29/24 14:17 10/29/24 14:39 Lorazepam 1 Mg Tablet PO 10/29/24 14:18 1 mg ONCE ONE Administration Oxycodone HCl 5 mg 10/29/24 15:44 10/29/24 16:20 Oxycodone Hcl Immed Release 5 Mg Tablet PO 10/29/24 15:45 5 mg ONCE ONE Administration Trimethoprim/Sulfamethoxazole 1 tab 10/29/24 16:19 10/29/24 16:23 Sulfamethox/Trimeth 800/160 Tablet PO 10/29/24 16:20 1 tab ONCE ONE Administration Procedures Abscess I/D Site: bartholin's gland Side (if applicable): left Local Anesthetic: lidocaine 1% Amount of anesthesia used (mL): 5 Technique: needle aspiration and incised with blade Amount of fluid expressed (mL): 3 Sent for culture/gram staining?: No Irrigation: Yes Packing used?: none Medical Decision Making Medical Decision Making MDM Narrative: 39 year old female with pmhx significant for DM, asthma, anemia, and GERD presents to the ED today for evaluation of abscess to her left labia x5 days. Vital signs stable. afebrile. she is nontoxic appearing and in NAD. Exam concerning for bartholins gland abscess. Differential diagnosis includes bartholins cyst, bartholins abscess, folliculitis, cellulitis Plan for pain control, I&D, and disposition. Differential Diagnosis Differential Diagnoses: The differential diagnosis associated with the presentation includes as above. Admission/Observation Not indicated Independent Historian Clinical information obtained from an independent historian. History obtained from or confirmed by: Spouse External Record Review External record reviewed: Inpatient record, Office record, Outpatient record, Prior outpatient labs, Prior outpatient radiology, Primary care record and Outside ED record Prescription Management I considered prescription management with: Pain Medication and Antibiotic (bactrim, doxycycline) Chronic Conditions Patient?s care impacted by: Diabetes Social Determinants Patient?s care significantly limited by Social Determinants of Health including: Other Social Determinant of Health Critical Care Time Critical Care Time Critical Care Time: No Discharge Plan Discharge Clinical Impression: Abscess of Bartholin gland Patient Disposition: Home, Self-Care Instructions: Abscess (ED), Sitz Bath (DC), Incision and Drainage (ED) Additional Instructions: You were evaluated in the ED today for an abscess to your left labia. A small amount of fluid was drained from the abscess today. Wear a pad over the next few days as it may continue to drain. There was no packing placed. You will be given a prescription for antibiotics (Bactrim and Doxycycline). Please take the antibiotics as directed for the full course of the medication. I advised sitz baths (refer to papers attached). Practice clean hygiene. I recommend you take 600mg ibuprofen every 6 hours or Tylenol 650mg every 6 hours as needed for pain. If needed, you can alternate these medications so that you take one medication every 3 hours. For example, at noon take ibuprofen, then at 3pm take Tylenol, then at 6pm take ibuprofen. I have sent morphine to your pharmacy for break through pain. Use this with caution as this is a controlled pain medication. Please schedule an appointment with your primary care provider as soon as possible for follow up. You have also been provided with a referral to a general surgeon. You may call them to establish care. They will not call you. Return to the Emergency Department if you experience fevers greater than 100.4F, increase in area of redness or swelling, increasing amount of discharge from the area, increased tenderness around the area, or any other concerning symptoms. Prescriptions: New sulfamethoxazole-trimethoprim [Bactrim DS] 800-160 mg tablet 1 tab PO DAILY 7 Days Qty: 7 0RF doxycycline monohydrate 100 mg capsule 100 mg PO BID 7 Days Qty: 14 0RF morphine 15 mg tablet 15 mg PO Q8H PRN (Reason: pain (scale score 4-6)) Qty: 5 0RF Rx Instructions: Partial Fill upon patient request. No Action Citrucel 500 mg tablet 500 mg PO DAILY Qty: 30 2RF sucralfate 1 gram tablet 1 g PO BEDTIME Qty: 30 3RF pantoprazole 40 mg tablet,delayed release (DR/EC) 40 mg PO DAILY Qty: 30 2RF Rx Instructions: take one tablet half an hour before breakfast fluticasone propionate [Flonase Allergy Relief] 50 mcg/actuation spray,suspension 1 spray intranasal BID Qty: 16 0RF Rx Instructions: administer into each nostril gabapentin 300 mg capsule 300 mg PO BEDTIME Qty: 30 0RF tramadol 50 mg tablet 50 mg PO Q6H PRN (Reason: pain) Qty: 20 0RF bqjverdrap-bjremamjztiik-htvu [Fioricet] 50-300-40 mg capsule 1 cap PO Q4-6H PRN (Reason: headache) Qty: 14 0RF ferrous sulfate [Iron (ferrous sulfate)] 325 mg (65 mg iron) tablet 325 mg PO TID Qty: 90 0RF benzonatate 100 mg capsule 100 mg PO BID PRN (Reason: cough) Qty: 14 0RF metformin 500 mg tablet 500 mg PO Referrals: [facility] [place], [place] General Surgeons [Provider Group] Josefina Nelson MD [Primary Care Provider] - Interventions: ED Discharge Assessment Last Done: 10/29/24 17:57 Discharge Date/Time: 10/29/24 17:57 Print Language: Senegalese
[2024-10-29] MEDS: Lidocaine HCl 1 % MPF 5 ML VIAL INFILTRATI ×2 (13:58)
[2024-10-29] MEDS: LORazepam 1 MG TABLET PO (14:39)
--- NOTE | 2024-10-29 15:03 | PC.NURSE ---
pt a&ox3, family at bedside, pt medicated for anxiety and awaiting provider, plan of care ongoing
[2024-10-29] MEDS: oxyCODONE HCl Immed Release 5 MG TABLET PO (16:20)
[2024-10-29] MEDS: Sulfamethox/Trimeth 800/160 TABLET 1 TAB PO (16:23)
[2024-10-29] MEDS: Doxycycline Monohydrate 100 MG CAPSULE PO (16:23)
[2024-10-29 17:57] VITALS: BP 116/68; PULSE 89; RESP 16; TEMP 36.6; O2SAT 98
== END 2024-10-29 17:57 | disposition home or self-care (01) ==
PROVIDERS: Emergency Provider Emergency Medicine; PCP Internal Medicine
DX: N75.1 Abscess of Bartholin's gland (principal); N76.4 Abscess of vulva; F17.210 Nicotine dependence, cigarettes, uncomplicated
CPT/HCPCS: 56420; 99283; 99284; J2003

== ENCOUNTER 2025-01-20 09:35 | Outpatient (REF) | payer MEDICAID, SELFPAY ==
--- NOTE | ~2025-01-20 | XR_ITS ---
EXAMINATION: XR KNEE 1-2 VIEWS LEFT HISTORY: pain COMPARISON: Comparison is made with the prior examination dated 10/20/2022. FINDINGS: AP and lateral views of the left knee are submitted. Osseous mineralization is normal. There is no fracture or dislocation. The joint spaces are preserved. The soft tissues are unremarkable. There is no joint effusion. XR/XR knee LT 2V IMPRESSION: Unremarkable examination of the left knee. Electronically signed by: Champ De Jesus MD 01/20/2025 10:33 AM EDT
== END 2025-01-20 09:36 | disposition home or self-care (01) ==
LOC: HO.HHCX 09:35
PROVIDERS: Visit Provider Student in an Organized Health Care Education/Training Program
DX: M25.562 Pain in left knee (principal); G89.29 Other chronic pain
CPT/HCPCS: 73560

== ENCOUNTER → 2025-01-20 09:36 | Outpatient (BNV) | payer MEDICAID, SELFPAY | PROVIDERS: Visit Provider Radiology Diagnostic Radiology | DX: M25.562 Pain in left knee (principal) | CPT/HCPCS: 73560 ==

== ENCOUNTER 2025-02-28 17:55 | Emergency (ER) | payer MEDICAID, SELFPAY ==
--- NOTE | 2025-02-28 18:31 | ED_ITS ---
HPI - URI/Sore Throat General Chief Complaint: Upper Respiratory Symptoms Stated Complaint: headache neck pain body aches Time Seen by Provider: 02/28/25 22:43 Source: patient Mode of arrival: ambulatory Limitations: no limitations History of Present Illness ED Provider: HPI Narrative: Patient's with history of asthma smoker comes here for 3 - 4 days of cough with mucopurulent phlegm nasal congestion body ache her daughter also sick since yesterday patient has had clear nasal discharge sometimes purulent especially in the nighttime also does have mucopurulent phlegm no fever no chills does not have any inhaler at home and been coughing a lot in the nighttime Related Data Home Medications ?Medication ?Instructions ?Recorded ?Confirmed metformin 500 mg tablet 500 mg PO 02/17/22 Previous Rx's ?Medication ?Instructions ?Recorded fluticasone propionate 50 1 spray intranasal BID #16 grams 01/22/22 mcg/actuation nasal spray,suspension (Flonase Allergy Relief) gabapentin 300 mg capsule 300 mg PO BEDTIME #30 caps 06/28/22 tramadol 50 mg tablet 50 mg PO Q6H PRN pain #20 tabs 06/28/22 [id number]-ievjossdscriz-zclgbsbr 1 cap PO Q4-6H PRN headache #14 10/23/22 50 mg-300 mg-40 mg capsule caps (Fioricet) ferrous sulfate 325 mg (65 mg 325 mg PO TID #90 tabs 02/22/23 iron) tablet (Iron (ferrous sulfate)) benzonatate 100 mg capsule 100 mg PO BID PRN cough #14 caps 10/13/23 methylcellulose (laxative) 500 mg 500 mg PO DAILY #30 tabs 04/03/24 tablet (Citrucel) sucralfate 1 gram tablet 1 g PO BEDTIME #30 tabs 05/13/24 pantoprazole 40 mg tablet,delayed 40 mg PO DAILY #30 tabs 07/10/24 release doxycycline monohydrate 100 mg 100 mg PO BID 7 days #14 caps 10/29/24 capsule morphine 15 mg immediate release 15 mg PO Q8H PRN pain (scale score 10/29/24 tablet 4-6) #5 tabs sulfamethoxazole 800 1 tab PO DAILY 7 days #7 tabs 10/29/24 mg-trimethoprim 160 mg tablet (Bactrim DS) albuterol sulfate 90 mcg/actuation 2 puff inhalation Q6H PRN 02/28/25 aerosol inhaler shortness of breath or wheezing #8.5 grams benzonatate 200 mg capsule 200 mg PO TID PRN cough #20 caps 02/28/25 cefuroxime axetil 500 mg tablet 500 mg PO BID 7 days #14 tabs 02/28/25 Allergies Allergy/AdvReac Type Severity Reaction Status Date / Time penicillin V Allergy Unknown Unknown Verified 02/28/25 18:36 Penicillins [PENICILLINS] Allergy Unknown UNKNOWN Verified 02/28/25 18:36 Review of Systems Review of Systems: Yes all other systems are reviewed and are negative [facility] Past Medical History Medical History GERD (gastroesophageal reflux disease) Anemia Diabetes Asthma Surgical History Hx of section Social History Social History Alcohol intake: unknown Patient Tobacco Use Status: Current everyday Tobacco user Cigarettes Per Day: 2 Advance Directives: No Advance Directives Information Provided: Yes Do you have a plan to hurt others: No Plan Sexual orientation: Straight/Heterosexual Gender identity: Female Physical Exam Vital Signs: Vital Signs: Last Vital Signs Temp 97.8 F 02/28/25 18:35 Pulse 82 02/28/25 18:35 Resp 18 02/28/25 18:35 BP 119/62 02/28/25 18:35 Pulse Ox 100 02/28/25 18:35 O2 Del Method Room Air 02/28/25 18:35 BMI result Body Mass Index 34.3 Appearance: Alert. Oriented X3. No acute distress. Eyes: no pallor or icterus ENT: Pharynx normal Oral Mucosa moist tympanic membrane intact no erythema, clear rhinorrhea Neck: Normal inspection. Neck supple. CVS: Normal heart rate and rhythm. Pulses normal. Respiratory: No respiratory distress. Equal air entry bilateral, no wheezing/rales/rhonchi prolonged expiration Abd: soft, not tender Skin: Skin warm and dry. Normal skin color. Normal skin turgor. Extremities: No lower extremity edema, no calf tenderness Neuro: Oriented X 3. Course Course Course Narrative: This is an RME performed by S. Barcome, MARINE FUEL DOCK ATTENDANT: Additional HPI, ROS, PE not included below will be deferred to primary provider. Patient is a 40-year-old female who presents emergency department for evaluation of body aches, posterior headache, nasal congestion. Daughter is ill with similar symptoms. Plan: Viral serologies, group a strep Medical Decision Making Medical Decision Making [facility] Narrative: Patient has acute bronchitis will prescribe cefuroxime inhaler and cough drops, advised to stop smoking. Patient's COVID/flu/RSV/strep negative Lab Data [facility] Lab Attestation statement: I reviewed the patient's lab results. Labs: Lab Results 02/28/25 Range/Units 19:29 Influenza Type A (PCR) NEGATIVE (Negative) Influenza Type B (PCR) NEGATIVE (Negative) RSV RNA Qual (PCR) NEGATIVE (Negative) SARS-CoV-2 RNA (RT-PCR) NEGATIVE (Negative) S. pyogenes GrpA RAMÓN Negative (Negative) Discharge Plan Discharge Clinical Impression: Bronchitis Patient Disposition: Home, Self-Care Instructions: Acute Bronchitis (ED) Additional Instructions: Stop smoking Your COVID flu RSV and strep tests are negative Take antibiotics as prescribed Inhaler as advised Follow up with your PCP Prescriptions: New benzonatate 200 mg capsule 200 mg PO TID PRN (Reason: cough) Qty: 20 0RF cefuroxime axetil 500 mg tablet 500 mg PO BID 7 Days Qty: 14 0RF albuterol sulfate 90 mcg/actuation HFA aerosol inhaler 2 puff inhalation Q6H PRN (Reason: shortness of breath or wheezing) Qty: 8.5 0RF No Action Citrucel 500 mg tablet 500 mg PO DAILY Qty: 30 2RF sucralfate 1 gram tablet 1 g PO BEDTIME Qty: 30 3RF pantoprazole 40 mg tablet,delayed release (DR/EC) 40 mg PO DAILY Qty: 30 2RF Rx Instructions: take one tablet half an hour before breakfast fluticasone propionate [Flonase Allergy Relief] 50 mcg/actuation spray,suspension 1 spray intranasal BID Qty: 16 0RF Rx Instructions: administer into each nostril gabapentin 300 mg capsule 300 mg PO BEDTIME Qty: 30 0RF tramadol 50 mg tablet 50 mg PO Q6H PRN (Reason: pain) Qty: 20 0RF nobqxpfdzf-ppjfejrdajnvd-macd [Fioricet] 50-300-40 mg capsule 1 cap PO Q4-6H PRN (Reason: headache) Qty: 14 0RF ferrous sulfate [Iron (ferrous sulfate)] 325 mg (65 mg iron) tablet 325 mg PO TID Qty: 90 0RF benzonatate 100 mg capsule 100 mg PO BID PRN (Reason: cough) Qty: 14 0RF sulfamethoxazole-trimethoprim [Bactrim DS] 800-160 mg tablet 1 tab PO DAILY 7 Days Qty: 7 0RF doxycycline monohydrate 100 mg capsule 100 mg PO BID 7 Days Qty: 14 0RF morphine 15 mg tablet 15 mg PO Q8H PRN (Reason: pain (scale score 4-6)) Qty: 5 0RF Rx Instructions: Partial Fill upon patient request. metformin 500 mg tablet 500 mg PO Print Language: Japanese
[2025-02-28 18:35] VITALS: BP 119/62; PULSE 82; RESP 18; TEMP 36.6; O2SAT 100; BMI 34.3
[2025-02-28 19:40] LABS: IDNOW Serial# 58CA691E
[2025-02-28 19:41] LABS: Strep A Nucleic Acid Negative (Negative)
[2025-02-28 20:11] LABS: Influenza A PCR NEGATIVE (Negative); Influenza B PCR NEGATIVE (Negative); Resp Syncy Virus RNA Qual PCR NEGATIVE (Negative); SARS COV2 PCR INHOUSE NEGATIVE (Negative)
[2025-02-28] MEDS: cefuroxime axetiL 500 MG TABLET PO (23:02)
[2025-02-28] MEDS: Albuterol Sulfate 90 MCG 8 GM INHALER 2 PUFF INHALE (23:02)
[2025-02-28 23:27] VITALS: BP 119/62; PULSE 82; RESP 18; TEMP 36.6; O2SAT 100
== END 2025-02-28 23:29 | disposition home or self-care (01) ==
PROVIDERS: Nurse Practitioner Family; Emergency Provider Internal Medicine
DX: J40 Bronchitis, not specified as acute or chronic (principal); R05.9 Cough, unspecified
CPT/HCPCS: 0241U; 87651; 99282; 99283; 99284

== ENCOUNTER 2025-03-11 08:52 | Outpatient (REF) | payer MEDICAID, SELFPAY ==
--- NOTE | 2025-03-11 08:56 | EMG_ITS ---
Bilateral tibial and peroneal motor studies were performed. Bilateral superficial peroneal and sural sensory studies were performed. Bilateral median and lateral distal tibial mixed plantar sensory studies were performed. Tibial H reflexes were obtained and paraspinal muscles were tested with a needle. 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 Otherwise, no significant abnormality noted. MD JORDAN David/YANET / [phone]
--- OUTSIDE RECORDS SUMMARY | 2025-03-11 09:18 | XMS_ITS | Encounter Summary ---
Author Organization [employer] Address [address] [place] [address] Care Team Providers Care Natural Resource Economist Name Role Phone Josefina Nelson MD Primary Care Provider + Encounter Details Date Type Department Care Team ([facility] Contact Info) Description 12/30/2022 Abstract [facility] [address], [place] [phone] Natan Mcneil DDS [address], [place] [phone] Social History Tobacco Use Types Packs/Day Years Used Date Smoking Tobacco: Some Days Cigarettes Smokeless Tobacco: Never Alcohol Use Standard Drinks/Week Comments Yes 0 (1 standard drink = 0.6 oz pur e alcohol) Comments No Sex and Gender Information Value Date Recorded Sex Assigned at Female 08/29/2022 10:19 AM EDT Legal Sex Female 10:19 AM EDT Gender Identity Female 08/29/2022 10:19 AM EDT Sexual Orientation Choose not to disclose 2021 10:19 AM EDT COVID-19 Exposure Response Date Recorded In the last 10 days, have yo u been in contact with someone who was confirmed or suspected to have Coronavirus/COVID-19? No / Unsure 12/26/2022 1:33 PM EST documented as of this encounter Plan of Treatment Upcoming Encounters Date Type Department Care Team ([facility] Contact Info) Description 03/14/2025 10:45 AM EDT Office Visit [facility] [address], [place] [phone] Josefina Nelson MD [address] [place], [place] [phone] documented as of this encounter Visit Diagnoses Not on filedocumented in this encounter Care Teams Natural Resource Economist Relationship Specialty Start Date End Date Josefina Nelson MD [address] [place] [id number] PCP - General Family Medicine 01/19/17 documented as of this encounter
--- OUTSIDE RECORDS SUMMARY | 2025-03-11 09:18 | XMS_ITS | Encounter Summary ---
Author Organization [employer] Address [address] [address] [place] [address] Care Team Providers Care Back Pad Inspector Name Role Phone Josefina Nelson MD Primary Care Provider + Reason for Visit * Reason Comments Med Refill Encounter Details Date Type Department Care Team ([facility] st Contact Info) Description 03/29/2024 Refill [facility] [address] [place], [place] [phone] Josefina Nelson MD [address] [place], [place] [phone] Nonintractable headache, unspecified chronicity pattern, unspecified headache type Social History Tobacco Use Types Packs/Day Years Used Date Smoking Tobacco: Some Days Cigarettes Passive Smoke Exposure: Never Smokeless Tobacco: Never Alcohol Use Standard Drinks/Week Comments Yes 0 (1 standard drink = 0.6 oz pur e alcohol) oca Housing Stability Answer Date Recorded What is your housing situation today? I have mikayla vargas 02/16/[address] you li ve. Do you have problems with any of the following? Water leaks;Pests such as bugs, ants, or mice 02/16/2024 Food Insecurity Answer Date Recorded Within the past 12 months, y ou worried that your food would run out before you got money to buy more: Never True 08/22/2023 Within the past 12 months,th e food you bought just didn't last and you didn't have enough money to get more: Never True Transportation Answer Date Recorded In the past 12 months, has l ack of transportation kept you from medical appts, meetings, work or from getting things needed for daily living? No 08/22/2023 Utilities Answer Date Recorded In the past 12 months, has t he electric, gas, oil or water company threatened to shut off services in your home? No 08/22/2023 Depression Answer Date Recorded Patient Health Questionnaire-2 Score 0 04/03/2023 Comments No Sex and Gender Information Value Date Recorded Sex Assigned at Female 08/29/2022 10:19 AM EDT Legal Sex Female 10:19 AM EDT Gender Identity Female 08/29/2022 10:19 AM EDT Sexual Orientation Choose not to disclose 2021 10:19 AM EDT documented as of this encounter Plan of Treatment Upcoming Encounters Date Type Department Care Team (Late st Contact Info) Description 03/14/2025 10:45 AM EDT Office Visit [facility] [address] [place] [address] Josefina Nelson MD [address] [place] [phone] documented as of this encounter Visit Diagnoses Diagnosis Nonintractable headache, unspecified chronicity pattern, unspecified headache type documented in this encounter Care Teams Back Pad Inspector Relationship Specialty Start Date End Date Josefina Nelson MD [address] [place] [id number] PCP - General Family Medicine 01/19/17 documented as of this encounter
--- OUTSIDE RECORDS SUMMARY | 2025-03-11 09:18 | XMS_ITS | Encounter Summary ---
Author Organization [employer] Address [address] [facility] 7t [place] [address] Care Team Providers Care Crocheter Hand Name Role Phone Josefina Nelson MD Primary Care Provider + Reason for Visit * Reason Comments Med Refill Encounter Details Date Type Department Care Team ([facility] st Contact Info) Description 01/11/2025 Refill [facility] [address] [place], [place] [phone] Josefina Nelson MD [address] [place] [address] Social History Tobacco Use Types Packs/Day Years Used Date Smoking Tobacco: Every Day Cigarettes Passive Smoke Exposure: Never Smokeless Tobacco: Never Alcohol Use Standard Drinks/Week Comments Yes 0 (1 standard drink = 0.6 oz pur e alcohol) oca Depression Answer Date Recorded Patient Health Questionnaire-9 Score 7 05/27/2024 Patient Health Questionnaire-9 Score 7 05/27/2024 Last PHQ-9: Questionnaire Data Not on file 0 05/27/2024 Housing Stability Answer Date Recorded What is your housing situation today? I have mikayla kaye 02/16/[address] you li [...] Answer Date Recorded Patient Health Questionnaire-2 Score 2 05/27/2024 Internet Access Answer Date Recorded Internet Access Q1 Yes 09/25/2024 Internet Access Q2 Not on file 09/25/2024 Comments No Sex and Gender Information Value [...] Description 03/14/2025 10:45 AM EDT Office Visit [facility] [address] [place] [address] Josefina Nelson MD [address] [place] [address] documented as of this encounter Visit Diagnoses Not on filedocumented in this encounter Additional Health Concerns Assessment Noted Time PHQ-9 Depression Total Score: 7 05/27/20 24 3:24 PM EDT documented as of this encounter Care Teams Crocheter Hand Relationship Specialty Start Date End Date Josefina Nelson MD [address] [place] [address] PCP - General Family Medicine 01/19/17 documented as of this encounter
--- OUTSIDE RECORDS SUMMARY | 2025-03-11 09:18 | XMS_ITS | Encounter Summary ---
Author Organization [employer] Address [address] [facility] 7t [place] [address] Care Team Providers Care Automotive Specialty Technician Name Role Phone Josefina Nelson MD Primary Care Provider + Reason for Visit * Reason Comments Pre-visit Planning (Unable to reach for PVP screening, LVM) Encounter Details Date Type Department Care Team ([facility] Contact Info) Description 03/07/2025 Patient Outreach [facility] [address] [place], [place] [phone] Josefina Nelson MD [address] [place], [place] [phone] Pre-visit Planning ((Unable to reach for PVP screening, LVM)) Social History Tobacco Use Types Packs/Day Years [...] AM EDT documented as of this encounter Progress Notes * Maegan Hansen - 03/07/2025 11:26 AM EDT REX Issa. Placed outbound call to patient to complete pre-visit planning. No answer at this time. Patient name and were not confirmed. CC left voicemail requesting return call. Direct contact information provided. documented in this encounter Plan of Treatment Upcoming Encounters Date Type Department Care Team (Late st Contact Info) Description 03/14/2025 10:45 AM EDT Office Visit [facility] [address] [place] [address] Josefina Nelson MD [address] [place] [address] documented as of this encounter Visit Diagnoses Not on filedocumented in this encounter Additional Health Concerns Assessment Noted Time PHQ-9 Depression Total Score: 7 05/27/20 24 3:24 PM EDT documented as of this encounter Care Teams Automotive Specialty Technician Relationship Specialty Start Date End Date Josefina Nelson MD [address] [place] [address] PCP - General Family Medicine 01/19/17 documented as of this encounter
--- OUTSIDE RECORDS SUMMARY | 2025-03-11 09:18 | XMS_ITS | Encounter Summary ---
Author Organization [facility] Address [address] [facility] 7t [place] [address] Care Team Providers Care Priming Mixture Carrier Name Role Phone Josefina Nelson MD Primary Care Provider + Encounter Details Date Type Department Care Team (Latest Contact Info) Description 06/09/2022 Abstract [facility] CONVERSIONS Dental, Provider, DDS Social History Tobacco Use Types Packs/Day Years Used Date Smoking Tobacco: Never Assessed Comments Unknown Sex and Gender Information Value Date Recorded [...] Description 03/14/2025 10:45 AM EDT Office Visit [facility] [address] [place] [address] Josefina Nelson MD [address] [place] [address] documented as of this encounter Visit Diagnoses Not on filedocumented in this encounter Care Teams Priming Mixture Carrier Relationship Specialty Start Date End Date Josefina Nelson MD [address] [place] [address] PCP - General Family Medicine 01/19/17 documented as of this encounter
--- OUTSIDE RECORDS SUMMARY | 2025-03-11 09:18 | XMS_ITS | Encounter Summary ---
Author Organization [employer] Address [address] [facility] 7t [place] [address] Care Team Providers Care Wire Setter Name Role Phone Josefina Nelson MD Primary Care Provider + Encounter Details Date Type Department Care Team (Late Contact Info) Description 11/02/2022 Orders Only [facility] [address] [place], [place] [phone] Jacklyn Patterson LPN Social History Tobacco Use Types Packs/Day Years Used Date Smoking Tobacco: Every Day Cigarettes Smokeless Tobacco: Never Comments Unknown Sex and Gender Information Value [...] suspected to have Coronavirus/COVID-19? No / Unsure 11/01/2022 3:06 PM EST documented as of this encounter Plan of Treatment Upcoming Encounters Date Type Department Care Team (Late st Contact Info) Description 03/14/2025 10:45 AM EDT Office Visit [facility] [address] [place] [phone] Josefina Nelson MD [address] [place] [address] documented as of this encounter Visit Diagnoses Not on filedocumented in this encounter Care Teams Wire Setter Relationship Specialty Start Date End Date Josefina Nelson MD [address] [place] [address] PCP - General Family Medicine 01/19/17 documented as of this encounter
--- OUTSIDE RECORDS SUMMARY | 2025-03-11 09:18 | XMS_ITS | Encounter Summary ---
Author Organization [employer] Address [address] [facility] 7t [place] [address] Care Team Providers Care Humanities Teacher Name Role Phone Josefina Nelson MD Primary Care Provider + Reason for Visit * Reason Comments Med Refill Encounter Details Date Type Department Care Team ([facility] st Contact Info) Description 04/07/2024 Refill [facility] [address] [place], [place] [phone] Josefina Nelson MD [address] [place], [place] [phone] Cough, unspecified type Social History Tobacco Use Types Packs/Day [...] Description 03/14/2025 10:45 AM EDT Office Visit [facility] MEDICINE [address] [place] [phone] Josefina Nelson MD [address] [place] [phone] documented as of this encounter Visit Diagnoses Diagnosis Cough, unspecified type documented in this encounter Care Teams Humanities Teacher Relationship Specialty Start Date End Date Josefina Nelson MD [address] [place] [phone] PCP - General Family Medicine 01/19/17 documented as of this encounter
--- OUTSIDE RECORDS SUMMARY | 2025-03-11 09:18 | XMS_ITS | Encounter Summary ---
Author Organization [facility] Address [address] [facility] 7t [place] [address] Care Team Providers Care [employer] Name Role Phone Josefina Nelson MD Primary Care Provider + Encounter Details Date Type Department Care Team (Latest Contact Info) Description 07/21/2021 Abstract [facility] CONVERSIONS Dental, Provider, DDS Social History Tobacco [...] 10:45 AM EDT Office Visit [facility] [address] [place] [address] Josefina Nelson MD [address] [place] [address] documented as of this encounter Visit Diagnoses Not on filedocumented in this encounter Care Teams [employer] Relationship Specialty Start Date End Date Josefina Nelson MD [address] [place] [address] PCP - General Family Medicine 01/19/17 documented as of this encounter
--- OUTSIDE RECORDS SUMMARY | 2025-03-11 09:18 | XMS_ITS | Encounter Summary ---
Author Organization [facility] Address [address] [facility] 7t [place] [address] Care Team Providers Care Revenue Specialist Name Role Phone Josefina Nelson MD Primary Care Provider + Encounter Details Date Type Department Care Team ([facility] Contact Info) Description 10/12/2022 Orders Only [facility] [address] [place], [place] [phone] Reyna Moya LPN Social History Tobacco Use Types Packs/Day [...] suspected to have Coronavirus/COVID-19? No / Unsure 10/12/2022 1:54 PM EST documented as of this encounter Plan of Treatment Upcoming Encounters Date Type Department Care Team (Late st Contact Info) Description 03/14/2025 10:45 AM EDT Office Visit [facility] [address] [place] [phone] Josefina Nelson MD [address] [place], [place] [phone] documented as of this encounter Procedures Procedure Name Priority Date/Time Associated Diagnosis Comments SARS COV2/INFLUENZA A/B AND RSV RNA QL NAAT Routine 10/23/2022 2:46 PM EST documented in this encounter Results * SARS-CoV-2 RNA, Influenza A/B, and RSV RNA, Ql NAAT (10/23/2022 2:46 PM EST) Influenza A PCR NEGATIVE Negative [facility] Influenza B PCR NEGATIVE Negative [facility] Resp Syncy Virus RNA Qual PCR NEGATIVE Negative [facility] SARS COV2 PCR NEGATIVE Negative [facility] SARS/Flu/RSV Note See Note [facility] Comment:All test results mus t be correlated with clinical findings.Negative results do not preclude SARS-CoV2, influenza Avirus, influenza B virus and/or RSV infectionand should not be used as the sole basis for treatment orother patient management decisions. Negative results must becombined with clinical observations, patient history, andepidemiological information.This test has not been evaluated for monitoring treatment ofinfection.This test has been authorized by the FDA under an EmergencyUse Authorization (EUA) for use by authorized laboratories.Testing performed on the [employer] GeneXpert utilizingreal-time RT-PCR.All SARS CoV2 and positive influenza A/B results arereported to [facility]. 10/23/2022 2:46 PM EST 10/23/2022 2:55 PM EST [facility] Exter nal Provider LAB MICROBIOLOGY - GENERAL ORDERABLES Final Result [facility] [address] [place] [phone] documented in this encounter Visit Diagnoses Not on filedocumented in this encounter Care Teams Revenue Specialist Relationship Specialty Start Date End Date Josefina Nelson MD [address] [place] [phone] PCP - General Family Medicine 01/19/17 documented as of this encounter
--- OUTSIDE RECORDS SUMMARY | 2025-03-11 09:18 | XMS_ITS | Clinical Summary ---
Author Organization [employer] Address [address] [facility] [address] [place] [address] Care Team Providers Care Primer Assembler Name Role Phone Josefina Nelson MD Primary Care Provider + Allergies Active Allergy Reactions Criticality Noted Date Comments Penicillin V Hives Penicillins 10/12/2022 Other Reaction(s): UNKNOWN Medications * This document contains information received from the source organization and may not represent a complete record from that organization. Emollient (Moisturizing Creme) cream use topically to affected area 4x/day prn 2 Active TRUEplus Lancets 33G misc TEST BLOOD SUGAR EVERY DAY 2 Active dicyclomine (Bentyl) 20 MG tablet Take 1 tablet by mouth if needed in the morning, at noon, in the evening, and at bedtime. Abdominal pain Active traZODone (Desyrel) 50 MG tabletIndication s:Adjustment disorder with anxious mood TAKE 1 OR 2 TABLETS BY MOUTH AT BEDTIME NEEDED FOR SLEEP 60 tablet 3 Active FREESTYLE LITE test stripIndications :Type 2 diabetes mellitus without complication, without long-term current use of insulin ([facility]) USE 1 PARA TEST BLOOD SUGAR EVERY DAY 50 strip 5 3 Active ferrous sulfate (FeroSul) 325 (65 Fe) MG tablet Take 1 tablet (325 mg) by mouth 2 times daily. 180 tablet 4 Active SITagliptin (Januvia) 100 MG tablet Take 1 tablet (100 mg) by mouth Once per day. 30 tablet 11 4 08/19/20 25 Active hydrocortisone 2.5 % cream Apply pea sized amount to skin bid for 1 week 15 g 4 Active diphenhydrAMINE (BENADryl) 25 MG tablet Take 1 tablet (25 mg) by mouth if needed at bedtime for itching or allergies for up to 7 days. 7 tablet 4 Active Acetaminophen Extra Strength 500 MG tabletIndication s:Nasal congestion TAKE 1 TABLET BY MOUTH EVERY 6 TO 8 HOURS NEEDED FOR PAIN OR FEVER 120 tablet 4 Active omeprazole (PriLOSEC) [address] capsuleIndicatio ns:Gastroesophag eal reflux disease, unspecified whether esophagitis present Take 1 capsule (20 mg) by mouth before breakfast. Do not crush or chew. 90 capsule 1 4 Active pioglitazone (Actos) 45 MG tablet Take 1 tablet (45 mg) by mouth Once per day. 30 tablet 11 4 10/28/20 25 Active ergocalciferol (Vitamin D2) 1.25 MG (15410 UT) capsule TAKE 1 CAPSULE BY MOUTH ONCE A WEEK 12 capsule 1 5 Active albuterol (Ventolin HFA) 108 (90 Base) MCG/ACT inhalerIndicatio ns:Cough, unspecified type INHALE 2 PUFFS BY MOUTH EVERY 4 HOURS NEEDED FOR WHEEZING OR SHORTNESS OF BREATH 18 g 2 5 Active gabapentin (Neurontin) 300 MG capsule Take 1 capsule (300 mg) by mouth 3 times daily. 90 capsule 3 5 01/10/20 26 Active cetirizine (ZyrTEC) 10 MG tablet Take 1 tablet (10 mg) by mouth in the morning. 90 tablet 3 5 Active naproxen (Naprosyn) 500 MG tablet Take 1 tablet (500 mg) by mouth if needed in the morning and at bedtime for mild pain. 30 tablet 1 5 01/10/20 26 Active baclofen (Lioresal) 10 MG tablet Take 1 tablet (10 mg) by mouth if needed in the morning, at noon, and at bedtime for muscle spasms. 60 tablet 1 5 Active Diclofenac Sodium 1 % gel Apply 2 g topically if needed in the morning, at noon, in the evening, and at bedtime (pain). 150 g 3 5 Active fluticasone (Flonase) 50 MCG/ACT nasal spray Administer 1 spray into each nostril Once per day. 16 g 3 5 Active pramipexole (Mirapex) 0.75 MG tablet Take 1 tablet (0.75 mg) by mouth at bedtime. 30 tablet 11 5 01/21/20 26 Active Blood Glucose Monitoring Suppl ([employer] Lite) w/Device kit 1 each Once per day. 1 kit 4 02/26/20 25 Active Problems Problem Noted Date Diagnosed Date Nasal congestion 10/28/2024 Assessment & Plan (10/28/2024 4:40 PM EST): Most likely related to URI, viral tests are negative today. Rest (sleep at least 8 hours a night). Hydrate with plenty of water (avoid caffeine and alcohol). Use saline nose drops to loosen mucus + Flonase spray Take Acetaminophen (Tylenol??) as needed to reduce fever, headache, body aches or discomfort Gargle with salt water and use throat sprays/lozenges for throat pain. Use heated, humidified air. If you do not have a humidifier, take hot showers. Gastroesophageal reflux disease 10/28/2024 Assessment & Plan (10/28/2024 4:43 PM EST): Not improved with Sucralfate Rx Omeprazole, advised to take it prn only due to potential vitamin deficiencies with intermission coordinator use. 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 She doesn't have any increased risk for TB at this time, will order T-spot as requested by employer. Order IZ titers, will complete other IZs at next appt once URI is resolved. Candidiasis of female genitalia 08/19/2024 Assessment & Plan (08/19/2024 5:53 PM EDT): Resolved now I gave her an extra rx Diflucan in case she develops candidiasis sp abs rx today. Advised re tight control of DM, avoid vaginal douches. Benign skin lesion excluding plantar wart 2023 Assessment & Plan (08/19/2024 5:58 PM EDT): On left foot, refer to podiatry for further evaluation Vaginal itching 08/02/2024 Assessment & Plan (10/28/2024 4:32 PM EST): Most likely vaginal candidiasis se c to uncontrolled DM. Rx fluconazole sent to pharmacy Advised re tight control of DM Re consult prn if sxs continue after 4d Assessment & Plan (08/04/2024 10:53 AM EDT): Suspect vaginal antonieta secondary to elevated glucose Rx as written below, Labs as written below Class 1 obesity due to exces s calories with serious comorbidity and body mass index (BMI) of 30.0 to 30.9 in adult 05/28/2024 Assessment & Plan (10/28/2024 4:33 PM EST): Discussed re weight reduction options including exercise, life style modifications, diet . Patient didn't tolerate metformin that was started for DM, which should also would've helped with weight reduction. Decliend to be started on GLP1 agonists. Recommended to decrease soda and sugary beverage consumption, increase protein intake with meals (at least 1 portion of protein with each meal) to assist with satiety, increase dietary fiber Recommended at least 150 min/week of moderate intensity exercise. Assessment & Plan (05/28/2024 10:34 AM EDT): Discussed re weight reduction options including exercise, life style modifications, diet . Patient is on metformin for DM, which should also help with weight reduction. Recommended to decrease soda and sugary beverage consumption, increase protein intake with meals (at least 1 portion of protein with each meal) to assist with satiety, increase dietary fiber Recommended at least 150 min/week of moderate intensity exercise. Exercise counseling 05/28/2024 Dietary counseling 05/28/2024 Acute bilateral low back pain without sciatica 0 05/27/2024 Assessment & Plan (05/28/2024 10:28 AM EDT): It seems to be muscular Advised to use dry heat to affected area, use diclofenac gel bid + Tyelnol prn. Patient denied DV, she's able to reach out for safety in case she feels threatened. Pelvic pain 05/27/2024 Assessment & Plan (05/28/2024 10:24 AM EDT): Ro IC vs ovarian cyst? 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 I will obtain GARLAND MACHINE OPERATOR records Use tylenol prn pain, keep sxs dairy and menstrual track. Pain in both feet 02/26/2024 Assessment & Plan (02/26/2024 1:57 PM EDT): - most likely OA - advised to use shoes with arch support, refer to podiatry History of hepatitis C 11/30/2023 Assessment & Plan (10/28/2024 4:43 PM EST): Treated >10y ago, VL earlier this year was NEG, no need for addtl VL testing unless she has another RF. Order hepatitis vax titers and fu at next appt. 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 Will check CBC and ferritin levels prior to next appt. 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 Refer to . Adjustment disorder with anxious mood 04/03/2023 Assessment & Plan (08/19/2024 6:00 PM EDT): Anxiety seems to be triggered lately by behavioral issues of her father in law (has dementia). Advised to address it with WILMAN's PCP or her partner Advised to avoid being in close contact or by herself with her WILMAN. FU in 2mo, may need addtl intervention. She is able to reach out for safety, feels safe at home. Declined evaluation today. Assessment & Plan (04/03/2023 2:41 PM EDT): pt seems to be getting to extreme measures to control anxiety including smoking cigarettes, alcohol, and resort to violence Discussed with pt about stressful situations that may lead to violence, discuss this situation with her partner and reach out to us with situation of DV. Discussed with patient about reported to police if she feels unsafe, she feels safe at home at this time. Use trazodone qhs insomnia refer to Alcohol use disorder 04/03/2023 Assessment & Plan (04/03/2023 2:39 PM EDT): Counseled to cut down on alcohol fu in 3 months Dental caries 01/11/2023 Dental calculus 12/26/2022 Periodontal disease 12/26/2022 Elevated blood pressure reading 12/05/2022 Epigastric pain 12/05/2022 Assessment & Plan (04/03/2023 2:44 PM EDT): R/o PUD Continue omeprazole + sucralfate counseled to cut down on smoking and cut alcohol down to off. refer to GI FU in 3 months with wa Hip pain 12/05/2022 Primary osteoarthritis of left knee 12/05/2022 Recurrent candidiasis of vagina 12/05/2022 Superficial varicosities 12/05/2022 Vitamin D deficiency 12/05/2022 Assessment & Plan (05/28/2024 10:33 AM EDT): Check Vit D levels. Benign hypertension 10/12/2022 Type 2 diabetes mellitus without complication Assessment & Plan (10/28/2024 4:35 PM EST): Uncontrolled, I will add Actos 45mg, continue Januvia and fu with me in 4-5w Counseled re more frequent low calorie/carb meals. Check fgstk 2x daily, she wont do fgstk due to needle phobia Encouraged physical activity as tolerated. Copy of podiatry referral was given today so that she can make her appt. Assessment & Plan (08/19/2024 5:56 PM EDT): Uncontrolled, last A1c was 8. DC metformin due to non tolerance and likely non compliance. Start januvia 100mg and fu with me in 2m Counseled re more frequent low calorie/carb meals. Check fgstk 2x daily Encouraged physical activity as tolerated. Refer to podiatry to evaluate foot lesion Declined Influenza vax today, advised to go to nearest pharmacy once she completes abs, Assessment & Plan (08/04/2024 10:53 AM EDT): Glucose above goal today, limited engagement with sugars, motivated to address elevated sugars, scheduled with pcp Assessment & Plan (05/28/2024 10:27 AM EDT): Controlled. A1c is at goal. Continue on Metformin 1000mg bid Counseled re more frequent low calorie/carb meals. Check fgstk 1x daily Encouraged physical activity as tolerated. FU in x3 months. Assessment & Plan (02/26/2024 2:14 PM EDT): Fairly controlled, I advised pt importance of checking finger sticks at home so I can adjust her medications Compliant w/meds Continue Metformin same dose Counseled re low salt diet/increase moderate physical activity. Check home BP BIW and prn CP/MOREIRA/HANKINS Non smoking patient. Assessment & Plan (04/03/2023 2:45 PM EDT): Significantly improved. Continue Metformin 1000mg BID FU in 3 months and consider adjusting medication if A1C is below 6 Counseled re more frequent low calorie/carb meals. Encouraged physical activity as tolerated. Acquired skin tag 10/04/2018 Assessment & Plan (02/26/2024 5:08 PM EDT): Failed rx with liquid nitrogen. Refer to dermatology Tenosynovitis 08/25/2017 Simple obesity 07/26/2017 Recurrent major depression in partial remission 01/23/2017 Resolved Problems Problem Noted Date Diagnosed Date Resolved Date Subacute maxillary sinusitis 08/19/2024 10/28/2024 Assessment & Plan (08/19/2024 5:57 PM EDT): Rx Bactrim x 7d + Flonase + Tylenol Rapid viral tests are negative. Unprotected sex 08/02/2024 08/19/2024 Acute otitis media 12/05/2022 Contact with and (suspected) exposure to covid-19 12/05/2022 12/13/2022 Sprain of ankle 12/05/2022 05/28/2024 Sore throat 12/05/2022 12/13/2022 Suspected COVID-19 virus infection 12/05/2022 12/13/2022 Superficial burn of finger 01/29/2019 0 12/13/2022 Encounters Date Type Department Care Team Description 03/07/2025 Patient Outreach [facility] [address] [place] [address] [phone] Josefina Nelson MD Pre-visit Planning ((Unable to reach for PVP screening, LVM)) 02/25/2025 Travel 01/20/2025 9:00 AM EDT Office Visit [facility] [address], [place] [phone] Charlette Gutierrez MD Chronic pain of left knee (Primary Dx); RLS (restless legs syndrome) 01/11/2025 Refill [facility] [address], [place] [phone] Josefina Nelson MD 01/10/2025 Population Health Risk Score [facility] [address] [phone] Provider, Population Health Generic 01/09/2025 8:40 AM EDT Office Visit [facility] [address] [place] [phone] Jacklyn Lindsay DO Neck pain (Primary Dx); Acute nonintractable headache, unspecified headache type; Paresthesia of both feet 12/17/2024 Telephone [facility] [address] [place] [phone] Josefina Nelson MD No Show 12/14/2024 Refill [facility] [address] [phone] Josefina Nelson MD Cough, unspecified type 12/13/2024 Telephone [facility] [address] [place] [phone] Josefina Nelson MD Chart prep from Last 3 Months Immunizations Name Administration Dates Next Due Influenza injectable quadrivalent preservative f ree 07/21/2022,12/22/2020 Tdap 01/29/2019 Social History Tobacco Use Types Packs/Day Years Used Date Smoking Tobacco: Every Day Cigarettes Passive Smoke Exposure: Never Smokeless Tobacco: Never Tobacco Cessation:Ready to Q uit: Not Asked; Counseling Given: Not Answered Alcohol Use Standard Drinks/Week Comments Yes 0 [...] not to disclose 2021 10:19 AM EDT Last Filed Vital Signs Vital Sign Reading Time Taken Comments Blood Pressure 130/90 01/20/2025 8:48 AM EDT Pulse 90 01/20/2025 8:48 AM EDT Temperature 36.6 ??C (97.9 ??F) 01/20/2025 8:48 AM ED T Respiratory Rate 17 01/20/2025 8:48 AM EDT Oxygen Saturation 99% 01/09/2025 8:41 AM EDT Inhaled Oxygen Concentration - - Weight 92.7 kg (204 lb 6.4 oz) 01/20/2025 8:48 A M EDT Height 162.6 cm (5' 4 ) 01/20/2025 8:48 AM EDT Body Mass Index 35.09 01/20/2025 8:48 AM EDT Plan of Treatment Upcoming Encounters Date Type Department Care Team (Late st Contact Info) Description 03/14/2025 10:45 AM EDT Office Visit [facility] [address] [place] [address] Josefina eNlson MD [address] [place] [address] Health Maintenance Due Date Last Done Comments Dental Oral Exam 1985 Dental Prophylaxis 1985 Dental X-Ray: Bitewings 1985 Dental X-Ray: Full Mouth 1985 Eye Exam 1995 Alcohol/Substance Use Screening 1997 Family Planning (PISQ) 02/18/2000 Hepatitis A Vaccines (1 of 2 - Risk 2-dose series) 02/18/2004 Hepatitis B Vaccines (1 of 3 - 19+ 3-dose series) 02/18/2004 Pneumococcal Vaccine: Pediatrics (0 to 5 Years) and At-Risk Patients (6 to 49) Years) (1 of 2 - PCV) 02/18/2004 COVID-19 Vaccine ( season) 2024 11/24/2021, 04/01/2021, 03/04/2021 Influenza Vaccine (#1) 2024 07/21/2022, 2020 Diabetes: Hemoglobin A1C 01/26/2025 024, 08/02/2024, 05/27/2024, Additional history exists SDOH Screening 02/15/2025 02/16/2024 Mammogram 2025 Depression Screening 05/27/2025 05/27/2024, 05/27/20 Diabetes: Foot Exam 08/19/2025 08/19/2024, 08/19/2024, 08/19/2024, Additional history exists Diabetes: Urine Protein Screening 10/29/2025 10/29/2024, 04/28/2022 Lipid Panel 10/29/2025 10/29/2024, 10/01, 04/22/2022, Additional history exists Tobacco Screening 01/20/2026 01/20/2025 Cervical Cancer Screening 12/21/2026 HPV/Cotest 12/21/2026 12/21/2021, 12/01, 12/21/2021, Additional history exists Pap Smear 12/21/2026 12/21/2021, 08/30, 09/16/2021 DTaP/Tdap/Td Vaccines (2 - Td or Tdap) 01/29/2029 01/29/2019 Zoster Vaccines (1 of 2) 2035 RSV Patients and Patients Aged 60 years or older (1 - 1-dose 75+ series) 02/18/2060 HIV Screening Completed 08/02/2024 HIB Vaccines Aged Out No longer eligi ble based on patient's age to complete this topic HPV Vaccines Aged Out No longer eligi ble based on patient's age to complete this topic IPV Vaccines Aged Out No longer eligi ble based on patient's age to complete this topic Meningococcal Vaccine Aged Out No estefania jovanny eligible based on patient's age to complete this topic RSV under 20 months Aged Out No longe r eligible based on patient's age to complete this topic Rotavirus Vaccines Aged Out No longer eligible based on patient's age to complete this topic Procedures Procedure Name Priority Date/Time Associated Diagnosis Comments XR KNEE 1-2 VIEWS LEFT Routine 01/20/2025 9:36 AM EDT Chronic pain of left knee ALBUMIN, RANDOM URINE W/CREATININE Routine 10/29/2024 10:04 AM EST Type 2 diabetes mellitus without complication, without long-term current use of insulin (CMS/HCC) LIPID PANEL WITH REFLEX TO DIRECT LDL Routine 10/29/2024 10:04 AM EST Type 2 diabetes mellitus without complication, with long-term current use of insulin (CMS/HCC) POCT GLYCATED HEMOGLOBIN, TOTAL Routine 10/28/2024 3:44 PM EST Type 2 diabetes mellitus without complication, without long-term current use of insulin (CMS/HCC) HIV 1/2 ANTIGEN/ANTIBODY, FOURTH GENERATION W/RFL Routine 08/02/2024 4:00 PM EDT Unprotected sex HM PAP/HPV Routine 12/21/2021 from Last 3 Months or Most Recently Relevant to Health Maintenance Results * XR Knee 1-2 Views Left (01/20/2025 9:36 AM EDT) Anatomical Region Laterality Modality Lower Extremities, Knee Left [facility] 01/20/2025 9:36 AM EDT Narrative 01/20/2025 10:35 AM EDT ?[facility] ?[address] ?[place] [address] ?XRay Report ? Signed ? Patient: Romo,Radha ?MR#: [id number] ?? [id number] ? : 1985 ?Acct:[id number] ? Age/Sex: 39 / F ?ADM Date: 01/20/25 ? Loc: HO.HHCX ? Attending Dr: Charlette Gutierrez MD ? Ordering Physician: Charlette Gutierrez MD ?? Date of Service: 01/20/25 ?? Procedure(s): XR knee LT 2V ?? Accession Number(s): [id number] ? cc: Charlette Gutierrez MD ? EXAMINATION: ??XR KNEE 1-2 VIEWS LEFT ? HISTORY: pain ? COMPARISON: Comparison is made with the prior examination dated ?? 10/20/2022. ? FINDINGS: ? AP and lateral views of the left knee are submitted. ??Osseous ?? mineralization is normal. ??There is no fracture or dislocation. ??The ?? joint spaces are preserved. ??The soft tissues are unremarkable. There ?? is no joint effusion. ? XR/XR knee LT 2V ?? IMPRESSION: ? Unremarkable examination of the left knee. ? Electronically signed by: ??Champ De Jesus MD ??01/20/2025 10:33 AM EDT ?? RP ? Dictated By: ?Champ De Jesus MD ? Signed By: ?<Electronically signed by Champ Faberman, MD in OV> ?01/20/25 1033 ? DD/ 0936 ? TD/TT: 01/20/25 0940 ? Manager Documentation: ? Procedure Note Loraine Bustillo - 01/20/[address] [address] XRay Report Signed Patient: Leonardo Romo#: [id number] : 1985Acct:[id number] Age/Sex: 39 / FADM Date: 01/20/25 Loc: HO.HHCX Attending Dr: Charlette Gutierrez MD Ordering Physician: Charlette Gutierrez MD Date of Service: 01/20/25 Procedure(s): XR knee LT 2V Accession Number(s): [id number] cc: Charlette Gutierrez MD EXAMINATION: XR KNEE 1-2 VIEWS LEFT HISTORY: pain COMPARISON: Comparison is made with the prior examination dated 10/20/2022. FINDINGS: AP and lateral views of the left knee are submitted. Osseous mineralization is normal. There is no fracture or dislocation. The joint spaces are preserved. The soft tissues are unremarkable. There is no joint effusion. XR/XR knee LT 2V IMPRESSION: Unremarkable examination of the left knee. Electronically signed by: Champ De Jesus MD 01/20/2025 10:33 AM EDT RP Dictated By: Champ De Jesus MD Signed By: <Electronically signed by Champ De Jesus MD in OV> 01/20/25 1033 DD/ 0936 TD/TT: 01/20/25 0940 Manager Documentation: Charlette Gutierrez MD IMG XR PROCEDURES Final Result * (ABNORMAL) Lipid Panel with Reflex to Direct LDL (10/29/2024 10:04 AM EST) Triglycerides 192(H) <150 mg/dL [facility] Comment:Desirable Triglyceri de: less than 150 mg/dLBorderline High Triglyceride 150-199 mg/dLHigh Triglyceride: 200-499 mg/dLVery High Triglyceride: greater than or equal to 5OO mg/dL Cholesterol 153 <200 mg/dL [facility] Comment:Desirable Cholestero l: less than 200 mg/dLBorderline High Cholesterol: 200-239 mg/dLHigh Cholesterol: greater than 239 mg/dL LDL Cholesterol Calculated 83 <100 mg/dL [facility] Comment:Desirable LDL: less than 100 mg/dLNear Optimal/Above Optimal LDL: 110- 129 mg/dLBorderline High LDL: 130-159 mg/dLHigh LDL: 160-189 mg/dLVery High LDL: greater than or equal to 190 mg/dL HDL Cholesterol 32(L) >40 mg/dL [facility] Comment:Desirable HDL: great er than 40 mg/dL Note: This HDL assay may give artificially low results in patients with liver disease. Blood 10/29/2024 10:0 4 AM EST 10/29/2024 10:57 AM EST Josefina Nelson MD LAB BLOOD ORDERABLES Fin al Result Performing Organization Address [facility] Co de Phone Number [facility] [address] [place] [phone] * Albumin, Random Urine W/Creatinine (10/29/2024 10:04 AM EST) Creatinine, Urine 95.03 mg/dL [facility] Microalbumin Urine 16.0 mg/L [facility] Microalbum Creatinine Ratio Ur 16.8 <30 ug/mg cr [facility] Comment:Albumin/Creatinine R atio Reference Ranges: Normal: < 30 ug/mg creatinine Microalbuminuria: 30 - 300 ug/mg creatinineClinical Albuminuria: > 300 ug/mg creatinine Urine (Urine, Random) 10/29/2024 10:04 AM EST 10/29/2024 11:00 AM EST Josefina Nelson MD LAB URINE ORDERABLES Fin al Result Performing Organization Address [facility] Co de Phone Number [facility] [address] [place] [phone] * (ABNORMAL) POCT HGB A1C (10/28/2024 3:44 PM EST) Hemoglobin A1C 9.3(A) 4.0 - 6.0 % QC Media Lot # [id number] Lot# Expiration Date Blood 10/28/2024 3:44 PM EST Josefina Nelson MD POINT OF CARE TEST ENTER /EDIT ORDERABLES Final Result * HIV-1/2 Antigen and Antibodies, Fourth Generation, with Reflexes (08/02/2024 4:00 PM EDT) HIV AB/AG Nonreactive Nonreactive [facility] Comment:HIV-1 p24 Ag and/or HIV-1/HIV-2 Ab not detected.A test result that is nonreactive does not exclude thepossibility of exposure to or infection with HIV-1 and/orHIV-2. Nonreactive results in this assay for individualswith prior exposure to HIV-1 and/or HIV-2 may be due toantigen and antibody levels that are below the limit ofdetection of this assay.The [employer] HIV Ag/Ab Combo assay result andsupplemental assay results should be interpreted inconjunction with the patient's clinical presentation,history and other laboratory results. If the results areinconsistent with clinical evidence, additional testing issuggested to confirm the result. Blood Venous blood specimen / Unknown 08/02/2024 4:00 PM EDT 08/02/2024 5:36 PM EDT Stephanie Bernabe NP LAB BLOOD ORDERABLES Final Resul t [facility] [address] [place] [phone] * Pap Smear (12/21/2021) Pap Negative for intraephithelial lesion or malignancy Negative for intraephithelial lesion or malignancy, Other HPV Undetected Historical Provider HEALTH MAINTENANCE Final Result from Last 3 Months or Most Recently Relevant to Health Maintenance Insurance [facility] C[facility] [place] AD[place] Care Teams Primer Assembler Relationship Specialty Start Date End Date Josefina Nelson MD [address] [place] [phone] PCP - General Family Medicine 01/19/17
--- OUTSIDE RECORDS SUMMARY | 2025-03-11 09:18 | XMS_ITS | Encounter Summary ---
Author Organization [employer] [facility] Address [address] [facility] 7t [place] [address] Care Team Providers Care Freedom Of Information Officer Name Role Phone Josefina Nelson MD Primary Care Provider + Encounter Details Date Type Department Care Team (Late Contact Info) Description 11/20/2022 Orders Only [facility] MED[facility] [address] [place] [address] [phone] Brown Osei FNP Acute cystitis without hematuria (Primary Dx) Social History Tobacco Use Types Packs/Day Years [...] suspected to have Coronavirus/COVID-19? No / Unsure 11/15/2022 1:01 PM EST documented as of this encounter Plan of Treatment Upcoming Encounters Date Type Department Care Team (Late st Contact Info) Description 03/14/2025 10:45 AM EDT Office Visit [facility] [address] [place] [address] [phone] Josefina Nelson MD [address] [place] [address] [phone] documented as of this encounter Visit Diagnoses Diagnosis Acute cystitis without hematuria- Primary documented in this encounter Care Teams Freedom Of Information Officer Relationship Specialty Start Date End Date Josefina Nelson MD [address] [place] [address] PCP - General Family Medicine 01/19/17 documented as of this encounter
--- OUTSIDE RECORDS SUMMARY | 2025-03-11 09:18 | XMS_ITS | Encounter Summary ---
Author Organization [employer] [facility] Address [address] [facility] 7t [place] [address] Care Team Providers Care Hose Operator Name Role Phone Josefina Nelson MD Primary Care Provider + Encounter Details Date Type Department Care Team (Late Contact Info) Description 08/02/2023 Abstract [facility] MED[facility]INE [address] [place] [address] Yoko Lundy Social History Tobacco Use Types Packs/Day Years Used Date Smoking Tobacco: Some Days Cigarettes Passive Smoke Exposure: Never Smokeless Tobacco: Never Alcohol Use Standard Drinks/Week Comments Yes 0 (1 standard drink = 0.6 oz pur e alcohol) oca Depression Answer Date Recorded Patient Health Questionnaire-2 [...] Encounters Date Type Department Care Team (Late Contact Info) Description 03/14/2025 10:45 AM EDT Office Visit [facility] MED[facility]INE [address] [place] [address] Josefina Nelson MD [address] [place], [place] [phone] documented as of this encounter Procedures Procedure Name Priority Date/Time Associated Diagnosis Comments PAP/HPV Routine 12/21/2021 documented in this encounter Results * Hm Pap Smear (12/21/2021) Pap Negative for intraephithelial lesion or malignancy Negative for intraephithelial lesion or malignancy, Other HPV Undetected us Historical Provider HEALTH MAINTENANCE Final Result documented in this encounter Visit Diagnoses Not on filedocumented in this encounter Care Teams Hose Operator Relationship Specialty Start Date End Date Josefina Nelson MD [address] [place] [phone] PCP - General Family Medicine 01/19/17 documented as of this encounter
--- OUTSIDE RECORDS SUMMARY | 2025-03-11 09:18 | XMS_ITS | Encounter Summary ---
Author Organization [employer] Address [address] [facility] 7t [place] [address] Care Team Providers Care Marketing Content Coordinator Name Role Phone Josefina Nelson MD Primary Care Provider + Encounter Details Date Type Department Care Team (Late Contact Info) Description 12/12/2022 Abstract [facility] ADULT DENTAL [address] [place] [address] Natan Mcneil DDS [address] [place], [place] [phone] Social History Tobacco Use Types Packs/Day Years Used Date Smoking Tobacco: Every Day Cigarettes 0.3 10 Smokeless Tobacco: Never Alcohol Use Standard Drinks/Week [...] suspected to have Coronavirus/COVID-19? No / Unsure 12/12/2022 1:56 PM EST documented as of this encounter Plan of Treatment Upcoming Encounters Date Type Department Care Team (Late Contact Info) Description 03/14/2025 10:45 AM EDT Office Visit [facility] MEDICINE [address] [place] [address] Josefina Nelson MD [address] [place] [address] documented as of this encounter Visit Diagnoses Not on filedocumented in this encounter Care Teams Marketing Content Coordinator Relationship Specialty Start Date End Date Josefina Nelson MD [address] [place] [phone] PCP - General Family Medicine 01/19/17 documented as of this encounter
--- OUTSIDE RECORDS SUMMARY | 2025-03-11 09:18 | XMS_ITS | Encounter Summary ---
Author Organization [employer] Address [address] [facility] 7t [place] [address] Care Team Providers Care Screen Printing Machine Loader Unloader Name Role Phone Josefina Nelson MD Primary Care Provider + Encounter Details Date Type Department Care Team (Late st Contact Info) Description 09/25/2024 Orders Only [facility] [address] [place], [place] [phone] Tanya Metzger FNP [address] [place] [address] Social History Tobacco Use Types Packs/Day Years [...] Description 03/14/2025 10:45 AM EDT Office Visit [facility] MEDICINE [address] [place] [address] Josefina Nelson MD [address] [place] [address] documented as of this encounter Visit Diagnoses Not on filedocumented in this encounter Additional Health Concerns Assessment Noted Time PHQ-9 Depression Total Score: 7 05/27/20 24 3:24 PM EDT documented as of this encounter Care Teams Screen Printing Machine Loader Unloader Relationship Specialty Start Date End Date Josefina Nelson MD [address] [place] [phone] PCP - General Family Medicine 01/19/17 documented as of this encounter
--- OUTSIDE RECORDS SUMMARY | 2025-03-11 09:18 | XMS_ITS | Encounter Summary ---
Author Organization [employer] Address 75 [facility] 7t [place] [address] Care Team Providers Care Electrical Maintenance Technician Name Role Phone Josefina Nelson MD Primary Care Provider + Reason for Visit * Reason Onset Date Comments Nurse Triage 04/20/2023 Encounter Details Date Type Department Care Team ([facility] st Contact Info) Description 04/20/2023 Telephone [facility] MEDICINE [address] [place], [place] [phone] Josefina Nelson MD [address] [place] [address] Nurse Triage Social History Tobacco Use Types Packs/Day Years [...] suspected to have Coronavirus/COVID-19? No / Unsure 04/21/2023 3:18 PM EDT documented as of this encounter Miscellaneous Notes * Telephone Encounter - Armida Hay RN - 04/20/2023 3:57 PM EDT Triage call Pt reports abnormal vaginal bleeding for month now. Pt reports that Pt wears both pads and disposable underwear for the bleeding at time of the call, 3pm, Pt has changed 4 times with heavy amt of blood. Pt is passing blood clots as well some size of marble. Pt is taking iron as directedand has had a blood transfusion in January of 2023 . Pt does have some weakness at times. Pt is not taking control medication. Pt is advised to come to [facility] to be seen. Pt will come in the morning, opens 830am and closes 400pm. Pt aware. Protocol Used: Vaginal Bleeding - Abnormal (Adult) Protocol-Based Disposition: See in Office or Video Visit Today Override (Final) Disposition: See in Office or Video Visit Today or Tomorrow Override Reason: Other Video visit not offered Positive Triage Question: * Patient wants to be seen * All higher-acuity triage questions were negative Care Advice Discussed: * Reasons To Call Back - Severe abdomen pain or lightheadedness occurs - test is positive - Bleeding worsens - Bleeding or spotting lasts over 7 days - You become worse * Telephone Encounter - Lai Martinez - 04/20/2023 2:40 PM EDT Symptom: Menstrual Periods Absent or Missed Outcome: Schedule an appointment to be seen within 24 hours Reason: This is the only possible outcome for this symptom' Please contact spouse at [phone] documented in this encounter Plan of Treatment Upcoming Encounters Date Type Department Care Team (Late st Contact Info) Description 03/14/2025 10:45 AM EDT Office Visit [facility] MEDICINE [address] [place] [address] Josefina Nelson MD [address] [place] [address] documented as of this encounter Visit Diagnoses Not on filedocumented in this encounter Care Teams Electrical Maintenance Technician Relationship Specialty Start Date End Date Josefina Nelson MD [address] [place] [address] PCP - General Family Medicine 01/19/17 documented as of this encounter
== END 2025-03-11 08:53 | disposition home or self-care (01) ==
LOC: HO.NEURO 08:52
PROVIDERS: Visit Provider Family Medicine
DX: R20.2 Paresthesia of skin (principal)
CPT/HCPCS: 95886; 95913

== ENCOUNTER 2025-04-05 20:56 | Emergency (ER) | payer MEDICAID, SELFPAY ==
--- NOTE | ~2025-04-05 | XR_ITS ---
CLINICAL HISTORY: chest pain, palpitations 1 view chest x-ray Comparison: None Findings: Lungs are clear without acute infiltrates. No pneumothorax. Heart size normal. No acute bony abnormalities. Impression: No acute processes This document has been electronically signed by: Hussain Hargrove MD on 04/05/2025 21:57:17
[2025-04-05 21:04] VITALS: BP 127/81; BP 130/80; PULSE 95; PULSE 98; RESP 20; TEMP 36.8; O2SAT 98; BMI 34.5
--- NOTE | 2025-04-05 21:09 | ECG_ITS ---
Test Reason : CHEST PAIN Blood Pressure : */* mmHG Vent. Rate : 88 BPM Atrial Rate : 88 BPM P-R Int : 132 ms QRS Dur : 88 ms QT Int : 384 ms P-R-T Axes : 53 80 76 degrees QTcB Int : 464 ms Normal sinus rhythm Normal ECG When compared with ECG of 22-Apr-2023 17:40, No significant change was found Referred By: Generic ED Physician Electronically Signed By: ARSH LINDSEY
[2025-04-05 21:18] LABS: Glucose, Whole Blood 359 mg/dL (60-115)
[2025-04-05 21:33] LABS: MANUAL DIFF FLAG NO
--- OUTSIDE RECORDS SUMMARY | 2025-04-05 21:33 | XMS_ITS | Encounter Summary ---
Author Organization [employer] [facility] Address [address] [facility] 7t [place] [address] Care Team Providers Care Supervisor Dumping Name Role Phone Josefina Nelson MD Primary Care Provider + Encounter Details Date Type Department Care Team (Late Contact Info) Description 08/02/2023 Abstract [facility] MEDICINE [address] [place] [address] Yoko Lundy Social History Tobacco Use Types [...] Department Care Team (Late Contact Info) Description 06/27/2025 11:30 AM EDT Office Visit [facility] MEDICINE [address] [place], [place] [phone] Josefina Nelson MD [address] [place], [place] [phone] documented as of this encounter Procedures Procedure Name Priority Date/Time Associated Diagnosis Comments PAP/HPV Routine 12/21/2021 documented in this encounter Results * Hm Pap Smear (12/21/2021) Pap Negative for intraephithelial lesion or malignancy Negative for intraephithelial lesion or malignancy, Other HPV Undetected us Historical Provider HEALTH MAINTENANCE Final Result documented in this encounter Visit Diagnoses Not on filedocumented in this encounter Care Teams Supervisor Dumping Relationship Specialty Start Date End Date Josefina Nelson MD [address] [place] [phone] PCP - General Family Medicine 01/19/17 documented as of this encounter
[2025-04-05 21:34] LABS: Basophils Absolute Auto 0.1 X10*3/uL (0.0-0.2); Basophils Percent Auto 0.6 % (0-2); Eosinophils Absolute Auto 0.4 X10*3/uL (0.0-0.4); Eosinophils Percent Auto 2.9 % (0-4); Hematocrit 32.9 % (37.0-47.0); Hemoglobin 9.2 g/dl (12.0-16.0); Imm Gran Abs Auto 0.18 X10*3/uL (0.00-0.03); Imm Gran Pct Auto 1.2 % (0.0-0.4); Lymphocytes Absolute Auto 2.6 X10*3/uL (1.2-4.9); Lymphocytes Percent Auto 17.9 % (20-40); Mean Corpuscular Hemoglobin 17.7 pg (27.0-33.0); Monocytes Absolute Auto 1.1 X10*3/uL (0.1-1.2); Monocytes Percent Auto 7.6 % (2-11); Neutrophils Absolute Auto 10.2 x10*3/uL (2.0-8.3); Neutrophils Percent Auto 69.8 % (45-73); Platelet Count 667 X10*3/uL (160-400); Red Cell Distribution Width 20.8 % (11.0-16.0); White Blood Count 14.6 X10*3/uL (4.8-10.8)
[2025-04-05 21:36] LABS: Mean Corpuscular Volume 63.3 fL (80.0-98.0)
[2025-04-05 21:50] LABS: Anion Gap 11 (12-20); Blood Urea Nitrogen 11 mg/dL (9-16); Calcium 8.9 mg/dL (8.4-10.2); Carbon Dioxide 25 mmol/L (22-29); Chloride 104 mmol/L (96-108); Creatinine Clr Calc Pharmacy 113.6; Estimated Glomerular Filt Rate > 60; Glucose Random 364 mg/dL (60-115); Sodium 136 mmol/L (135-145)
[2025-04-05 21:58] LABS: Troponin-I High Sensitivity < 2.7 ng/L (<3.5-17.0)
[2025-04-05 22:05] LABS: INTERNATIONAL NORM RATIO 1.1 (0.9-1.1); Prothrombin Time 12.5 SEC (10.9-12.4)
[2025-04-05 22:08] LABS: D Dimer High Sensitivity < 150 NG/ML
[2025-04-05 22:20] VITALS: BP 115/62; PULSE 89; RESP 15; TEMP 37.2; O2SAT 100
[2025-04-05 22:20] LABS: Appearance Urine Clear; Color Urine Yellow; Glucose Urine UA >=1000 mg/dL (Negative); Leukocyte Esterase Urine Negative (Negative); Nitrite Urine Negative (Negative); PH 5.5 (5.0-9.0); Specific Gravity - Urine >= 1.030 (1.005-1.025); UMIC TRIGGER UACC YES; Urine Blood Negative (Negative); Urine Ketones Negative (Negative); Urine Protein Negative (Neg-Trace)
[2025-04-05 22:21] LABS: UPreg QC Valid YES; Urine Pregnancy NEGATIVE (NEGATIVE)
[2025-04-05 22:30] LABS: Bacteria Urine None Seen (None Seen); Hyaline Casts Urine 0-2 /LPF (0-2); RBC Urine 0-2 /HPF (0-2); Squamous Epithelial Cell Urine 0-2 /HPF (0-2); WBC Urine 0-5 /HPF (0-5)
[2025-04-05 22:57] LABS: Influenza A PCR NEGATIVE (Negative); Influenza B PCR NEGATIVE (Negative); Resp Syncy Virus RNA Qual PCR NEGATIVE (Negative); SARS COV2 PCR INHOUSE NEGATIVE (Negative)
[2025-04-05] MEDS: 0.9 % Sodium Chloride 1,000 ML 999 ML IV (23:19)
--- NOTE | 2025-04-05 23:54 | ED_ITS ---
HPI - Chest Pain General Chief Complaint: Chest Pain Stated Complaint: N/V/ABD PAIN/FEVER/CHILLS PER EMS Time Seen by Provider: 04/05/25 23:13 Source: patient Mode of arrival: ambulatory Limitations: no limitations History of Present Illness ED Provider: HPI narrative: Patient is diabetic with history of asthma been coughing for last 2 days complaining of pain in the right side of the chest when she takes a breath or cough brought by EMS Check blood sugar was 420 which she has not taken her medication today also noncompliant to her diet in the EMS gave her nitroglycerin sublingually without any significant effect Related Data Home Medications ?Medication ?Instructions ?Recorded ?Confirmed metformin 500 mg tablet 500 mg PO 02/17/22 Previous Rx's ?Medication ?Instructions ?Recorded fluticasone propionate 50 1 spray intranasal BID #16 grams 01/22/22 mcg/actuation nasal spray,suspension (Flonase Allergy Relief) gabapentin 300 mg capsule 300 mg PO BEDTIME #30 caps 06/28/22 tramadol 50 mg tablet 50 mg PO Q6H PRN pain #20 tabs 06/28/22 btxbmhkuwp-zrghdzsjqpwjw-vqpnkeyl 1 cap PO Q4-6H PRN headache #14 10/23/22 50 mg-300 mg-40 mg capsule caps (Fioricet) ferrous sulfate 325 mg (65 mg 325 mg PO TID #90 tabs 02/22/23 iron) tablet (Iron (ferrous sulfate)) benzonatate 100 mg capsule 100 mg PO BID PRN cough #14 caps 10/13/23 methylcellulose (laxative) 500 mg 500 mg PO DAILY #30 tabs 04/03/24 tablet (Citrucel) sucralfate 1 gram tablet 1 g PO BEDTIME #30 tabs 05/13/24 pantoprazole 40 mg tablet,delayed 40 mg PO DAILY #30 tabs 07/10/24 release doxycycline monohydrate 100 mg 100 mg PO BID 7 days #14 caps 10/29/24 capsule morphine 15 mg immediate release 15 mg PO Q8H PRN pain (scale score 10/29/24 tablet 4-6) #5 tabs sulfamethoxazole 800 1 tab PO DAILY 7 days #7 tabs 10/29/24 mg-trimethoprim 160 mg tablet (Bactrim DS) albuterol sulfate 90 mcg/actuation 2 puff inhalation Q6H PRN 02/28/25 aerosol inhaler shortness of breath or wheezing #8.5 grams benzonatate 200 mg capsule 200 mg PO TID PRN cough #20 caps 02/28/25 cefuroxime axetil 500 mg tablet 500 mg PO BID 7 days #14 tabs 02/28/25 Allergies Allergy/AdvReac Type Severity Reaction Status Date / Time penicillin V Allergy Unknown Unknown Verified 04/05/25 21:07 Penicillins [PENICILLINS] Allergy Unknown UNKNOWN Verified 04/05/25 21:07 Review of Systems 2 Review of Systems: Yes all other systems are reviewed and are negative [facility] Past Medical History Medical History GERD (gastroesophageal reflux disease) Anemia Diabetes Asthma Surgical History Hx of section Social History Social History Alcohol intake: current Alcohol intake frequency: holidays/special occasions only Alcohol type: beer Patient Tobacco Use Status: Current everyday Tobacco user Cigarettes Per Day: 2 Sexual orientation: Straight/Heterosexual Gender identity: Female Physical Exam 2 Vital Signs: Vital Signs: Last Vital Signs Temp 99.0 F 04/06/25 01:10 Pulse 84 04/06/25 01:10 Resp 20 04/06/25 01:10 BP 141/89 H 04/06/25 01:10 Pulse Ox 100 04/06/25 01:10 O2 Del Method Room Air 04/06/25 01:10 BMI result Body Mass Index 34.5 Appearance: Alert. Oriented X3. No acute distress. Eyes: PERRLA, No Nystagmus ENT: Pharynx normal. Oral Mucosa moist Neck: Normal inspection. Neck supple. CVS: Normal heart rate and rhythm. Pulses normal. Respiratory: No respiratory distress. Equal air entry bilateral, bilateral wheezing no crackles Abdomen: Soft and nontender. Bowel sounds are present, no mass palpable, no CVA tenderness Skin: Skin warm and dry. Normal skin color. Normal skin turgor. Extremities: No lower extremity edema. No calf tenderness Neuro: Oriented X 3. No motor deficit. No sensory deficit.No cerebellar signs , cranial nerves II-XII intact Medications Administered Discontinued Medications Generic Name Dose Route Start Last Admin Trade Name Trinidad PRN Reason Stop Dose Admin Albuterol Sulfate 2.5 mg/ 0 mg 04/06/25 00:06 04/06/25 00:55 Albuterol/Ipratropium 3 ml INHALE 04/06/25 00:07 1 dose ONCE ONE Administration Sodium Chloride 1,000 mls @ 999 mls/hr 04/05/25 23:15 04/06/25 00:39 Ns IV 04/06/25 00:15 Infused .Q1H1M JOEL Infusion Insulin Human Lispro 6 unit 04/06/25 00:38 04/06/25 00:46 Insulin Lispro 100 Unit/Ml 3 Ml Vial SUBCUT 04/06/25 00:39 6 unit ONCE ONE Administration Medical Decision Making Medical Decision Making [facility] Narrative: Patient's asthma with atypical right-sided chest pain chest x-ray negative cardiac enzymes and EKG negative noted to have elevated blood sugar as she was noncompliant to her for last few days insulin was given and POC improved to 281 Lab Data [facility] Lab Attestation statement: I reviewed the patient's lab results. 04/05/25 21:27 04/05/25 21:26 Labs: Lab Results 04/05/25 04/05/25 04/05/25 Range/Units 21:13 21:26 21:27 WBC 14.6 H (4.8-10.8) X10*3/uL RBC 5.20 (4.20-5.50) X10*6/uL Hgb 9.2 L (12.0-16.0) g/dl Hct 32.9 L (37.0-47.0) % MCV 63.3 L (80.0-98.0) fL MCH 17.7 L (27.0-33.0) pg MCHC 28.0 L (31.0-35.0) g/dl RDW 20.8 H (11.0-16.0) % Plt Count 667 H (160-400) X10*3/uL MPV 9.0 L (9.4-12.3) fL Immature Gran % (Auto) 1.2 H (0.0-0.4) % Neut % (Auto) 69.8 (45-73) % Lymph % (Auto) 17.9 L (20-40) % Bates % (Auto) 7.6 (2-11) % Eos % (Auto) 2.9 (0-4) % Baso % (Auto) 0.6 (0-2) % Lymph # (Auto) 2.6 (1.2-4.9) X10*3/uL Bates # (Auto) 1.1 (0.1-1.2) X10*3/uL Eos # (Auto) 0.4 (0.0-0.4) X10*3/uL Baso # (Auto) 0.1 (0.0-0.2) X10*3/uL Abs Immat Gran (auto) 0.18 H (0.00-0.03) X10*3/uL Absolute Neuts (auto) 10.2 H (2.0-8.3) x10*3/uL Absolute Nucleated RBC 0.000 (0.0-0.012) X10*3/uL Nucleated RBC % (auto) 0.0 (0.0-0.2) /100WBC PT 12.5 H (10.9-12.4) SEC INR 1.1 (0.9-1.1) D-Dimer High Sensitivty < 150 NG/ML Sodium 136 (135-145) mmol/L Potassium 4.0 (3.3-5.1) mmol/L Chloride 104 (96-108) mmol/L Carbon Dioxide 25 (22-29) mmol/L Anion Gap 11 L (12-20) BUN 11 (9-16) mg/dL Creatinine 0.72 (0.5-1.4) mg/dL Estim Creat Clear Calc 113.6 Estimated GFR > 60 POC Glucose 359 H* (60-115) mg/dL Random Glucose 364 H* (60-115) mg/dL Calcium 8.9 (8.4-10.2) mg/dL Troponin I High Sens < 2.7 (<3.5-17.0) ng/L Urine Color Urine Appearance Urine pH (5.0-9.0) Ur Specific Vanderbilt (1.005-1.025) Urine Protein (Neg-Trace) mg/dL Urine Glucose (UA) (Negative) mg/dL Urine Ketones (Negative) mg/dL Urine Blood (Negative) Urine Nitrite (Negative) Ur Leukocyte Esterase (Negative) Urine RBC (0-2) /HPF Urine WBC (0-5) /HPF Ur Squamous Epith Cells (0-2) /HPF Urine Bacteria (None Seen) Hyaline Casts (0-2) /LPF Urine Test (NEGATIVE) Influenza Type A (PCR) (Negative) Influenza Type B (PCR) (Negative) RSV RNA Qual (PCR) (Negative) SARS-CoV-2 RNA (RT-PCR) (Negative) 04/05/25 04/06/25 Range/Units 22:13 00:28 WBC (4.8-10.8) X10*3/uL RBC (4.20-5.50) X10*6/uL Hgb (12.0-16.0) g/dl Hct (37.0-47.0) % MCV (80.0-98.0) fL MCH (27.0-33.0) pg MCHC (31.0-35.0) g/dl RDW (11.0-16.0) % Plt Count (160-400) X10*3/uL MPV (9.4-12.3) fL Immature Gran % (Auto) (0.0-0.4) % Neut % (Auto) (45-73) % Lymph % (Auto) (20-40) % Bates % (Auto) (2-11) % Eos % (Auto) (0-4) % Baso % (Auto) (0-2) % Lymph # (Auto) (1.2-4.9) X10*3/uL Bates # (Auto) (0.1-1.2) X10*3/uL Eos # (Auto) (0.0-0.4) X10*3/uL Baso # (Auto) (0.0-0.2) X10*3/uL Abs Immat Gran (auto) (0.00-0.03) X10*3/uL Absolute Neuts (auto) (2.0-8.3) x10*3/uL Absolute Nucleated RBC (0.0-0.012) X10*3/uL Nucleated RBC % (auto) (0.0-0.2) /100WBC PT (10.9-12.4) SEC INR (0.9-1.1) D-Dimer High Sensitivty NG/ML Sodium (135-145) mmol/L Potassium (3.3-5.1) mmol/L Chloride (96-108) mmol/L Carbon Dioxide (22-29) mmol/L Anion Gap (12-20) BUN (9-16) mg/dL Creatinine (0.5-1.4) mg/dL Estim Creat Clear Calc Estimated GFR POC Glucose 281 H (60-115) mg/dL Random Glucose (60-115) mg/dL Calcium (8.4-10.2) mg/dL Troponin I High Sens (<3.5-17.0) ng/L Urine Color Yellow Urine Appearance Clear Urine pH 5.5 (5.0-9.0) Ur Specific Vanderbilt >= 1.030 H (1.005-1.025) Urine Protein Negative (Neg-Trace) mg/dL Urine Glucose (UA) >=1000 H (Negative) mg/dL Urine Ketones Negative (Negative) mg/dL Urine Blood Negative (Negative) Urine Nitrite Negative (Negative) Ur Leukocyte Esterase Negative (Negative) Urine RBC 0-2 (0-2) /HPF Urine WBC 0-5 (0-5) /HPF Ur Squamous Epith Cells 0-2 (0-2) /HPF Urine Bacteria None Seen (None Seen) Hyaline Casts 0-2 (0-2) /LPF Urine Test NEGATIVE (NEGATIVE) Influenza Type A (PCR) NEGATIVE (Negative) Influenza Type B (PCR) NEGATIVE (Negative) RSV RNA Qual (PCR) NEGATIVE (Negative) SARS-CoV-2 RNA (RT-PCR) NEGATIVE (Negative) Independent Interpretation I performed an independent interpretation of an: EKG Interpretation: Normal sinus rhythm normal intervals ventricular rate 88 beats per minute no acute ST-T changes no acute ischemia Discharge Plan Discharge Clinical Impression: Chest pain, Asthma Patient Disposition: Home, Self-Care Instructions: Chest Pain (ED), Asthma (ED), Diabetic Hyperglycemia (ED) Additional Instructions: Continue to use your inhaler Drink plenty of fluids Take her diabetic medication on time Diabetic diet as advised Follow up with your PCP if not better Prescriptions: No Action Citrucel 500 mg tablet 500 mg PO DAILY Qty: 30 2RF sucralfate 1 gram tablet 1 g PO BEDTIME Qty: 30 3RF pantoprazole 40 mg tablet,delayed release (DR/EC) 40 mg PO DAILY Qty: 30 2RF Rx Instructions: take one tablet half an hour before breakfast fluticasone propionate [Flonase Allergy Relief] 50 mcg/actuation spray,suspension 1 spray intranasal BID Qty: 16 0RF Rx Instructions: administer into each nostril gabapentin 300 mg capsule 300 mg PO BEDTIME Qty: 30 0RF tramadol 50 mg tablet 50 mg PO Q6H PRN (Reason: pain) Qty: 20 0RF auctajkhwm-evylrtbkiemlc-rjjp [Fioricet] 50-300-40 mg capsule 1 cap PO Q4-6H PRN (Reason: headache) Qty: 14 0RF ferrous sulfate [Iron (ferrous sulfate)] 325 mg (65 mg iron) tablet 325 mg PO TID Qty: 90 0RF benzonatate 100 mg capsule 100 mg PO BID PRN (Reason: cough) Qty: 14 0RF sulfamethoxazole-trimethoprim [Bactrim DS] 800-160 mg tablet 1 tab PO DAILY 7 Days Qty: 7 0RF doxycycline monohydrate 100 mg capsule 100 mg PO BID 7 Days Qty: 14 0RF morphine 15 mg tablet 15 mg PO Q8H PRN (Reason: pain (scale score 4-6)) Qty: 5 0RF Rx Instructions: Partial Fill upon patient request. benzonatate 200 mg capsule 200 mg PO TID PRN (Reason: cough) Qty: 20 0RF cefuroxime axetil 500 mg tablet 500 mg PO BID 7 Days Qty: 14 0RF albuterol sulfate 90 mcg/actuation HFA aerosol inhaler 2 puff inhalation Q6H PRN (Reason: shortness of breath or wheezing) Qty: 8.5 0RF metformin 500 mg tablet 500 mg PO Interventions: ED Discharge Assessment Last Done: 04/06/25 01:10 Discharge Date/Time: 04/06/25 01:10 Print Language: Sudanese
[2025-04-06 00:46] LABS: Glucose, Whole Blood 281 mg/dL (60-115)
[2025-04-06] MEDS: Insulin Lispro 100 UNIT/ML 3 ML VIAL 6 UNIT SUBCUT (00:46)
[2025-04-06 00:49] VITALS: BP 141/89; PULSE 84; RESP 20; TEMP 37.2; O2SAT 100
[2025-04-06] MEDS: Albuterol Sulfate 2.5 MG, Albuterol/Iprat 2.5/0.5MG 3 ML 3 ML INHALE (00:55)
[2025-04-06 01:10] VITALS: BP 141/89; PULSE 84; RESP 20; TEMP 37.2; O2SAT 100
== END 2025-04-06 01:10 | disposition home or self-care (01) ==
PROVIDERS: Emergency Provider Internal Medicine
DX: R07.9 Chest pain, unspecified (principal); R00.2 Palpitations; J45.909 Unspecified asthma, uncomplicated; Z03.818 Encounter for observation for suspected exposure to other biological agents ruled out
CPT/HCPCS: 0241U; 36415; 71045; 80048; 81001; 81025; 82947; 84484; 85025; 85379; 85610; 93005; 96360; 99284; 99285

== ENCOUNTER → 2025-04-05 21:09 | Outpatient (BNV) | payer MEDICAID, SELFPAY | PROVIDERS: Emergency Provider Internal Medicine; Visit Provider Internal Medicine | DX: R07.9 Chest pain, unspecified (principal) | CPT/HCPCS: 93010 ==

== ENCOUNTER → 2025-04-05 21:30 | Outpatient (BNV) | payer MEDICAID, SELFPAY | PROVIDERS: Visit Provider Radiology Diagnostic Radiology | DX: R07.9 Chest pain, unspecified (principal); R00.2 Palpitations | CPT/HCPCS: 71045 ==

== ENCOUNTER 2025-06-10 11:49 | Outpatient (REF) | payer MEDICAID, SELFPAY ==
--- OUTSIDE RECORDS SUMMARY | 2025-06-11 12:43 | XMS_ITS | Encounter Summary ---
Author Organization [employer] Address [address] [place] [address] Care Team Providers Care Form Setter Metal Road Forms Name Role Phone Josefina Nelson MD Primary Care Provider + Encounter Details Date Type Department Care Team (Latest Contact Info) Description 06/10/2025 Travel Social History Tobacco Use Types Packs/Day Years Used Date Smoking Tobacco: Every Day Cigarettes Passive Smoke Exposure: Never Smokeless Tobacco: Never Alcohol Use Standard Drinks/Week Comments Yes 0 (1 standard drink = 0.6 oz pur e alcohol) oca Depression Answer Date Recorded Patient Health Questionnaire-9 Score 0 03/13/2025 Patient Health Questionnaire-9 Score 0 03/13/2025 Last PHQ-9: Questionnaire Data Not on file 0 03/13/2025 Housing Stability Answer Date Recorded What is [...] Date Recorded Patient Health Questionnaire-2 Score 0 03/13/2025 Internet Access Answer Date Recorded Internet Access [...] Care Team (Late st Contact Info) Description 07/03/2025 12:00 PM EDT Office Visit [facility] MEDICINE [address] [place] [address] Josefina Nelson MD [address] [place] [address] 12/10/2025 3:00 PM EST Office Visit [facility] ADULT DENTAL [address] [place] [address] Amauri, Oralia [address] [place] [address] documented as of this encounter Visit Diagnoses Not on filedocumented in this encounter Additional Health Concerns Assessment Noted Time PHQ-9 Depression Total Score: 0 03/13/20 25 10:38 AM EDT documented as of this encounter Care Teams Form Setter Metal Road Forms Relationship Specialty Start Date End Date Josefina Nelson MD [address] [place] [id number] PCP - General Family Medicine 01/19/17 documented as of this encounter
[2025-06-11 13:52] LABS: Bacterial Vaginosis PCR NEGATIVE (Negative); Candida Group PCR DETECTED (Not Detect); Candida glab krusei PCR NOT DETECTED (Not Detect); Trichomonas vaginalis PCR NOT DETECTED (Not Detect)
[2025-06-11 13:57] LABS: CT PCR NOT DETECTED (Not Detect.); NG PCR NOT DETECTED (Not Detect.)
== END 2025-06-10 11:50 | disposition home or self-care (01) ==
LOC: HO.HHCLNP 11:49
PROVIDERS: Visit Provider Emergency Medicine
DX: Z11.3 Encounter for screening for infections with a predominantly sexual mode of transmission (principal); Z11.2 Encounter for screening for other bacterial diseases; Z11.8 Encounter for screening for other infectious and parasitic diseases; R39.9 Unspecified symptoms and signs involving the genitourinary system
CPT/HCPCS: 81515; 87086; 87147; 87491; 87591

== ENCOUNTER 2025-06-25 17:43 | Outpatient (REF) | payer MEDICAID, SELFPAY ==
--- OUTSIDE RECORDS SUMMARY | 2025-06-25 18:00 | XMS_ITS | Encounter Summary ---
Author Organization [employer] Address [address] [facility] 7t [place] [address] Care Team Providers Care Conference Services Coordinator Name Role Phone Josefina Nelson MD Primary Care Provider + Reason for Visit * Reason Comments Walk-In Yeast infection Encounter Details Date Type Department Care Team ([facility] Contact Info) Description 06/25/2025 6:00 PM EDT Office Visit [facility] [address] [place] [address] Amada Kaminski NP 230 [place] [address] Type 2 diabetes mellitus without complication, without long-term current use of insulin ([facility]) (Primary Dx); Vaginal discharge; Vaginal itching Social History Tobacco Use Types Packs/Day Years [...] AM EDT documented as of this encounter Last Filed Vital Signs Vital Sign Reading Time Taken Comments Blood Pressure 133/87 06/25/2025 5:54 PM EDT Pulse 90 06/25/2025 5:54 PM EDT Temperature 36.3 C (97.4 F) 06/25/2025 5:54 PM EDT Respiratory Rate 18 06/25/2025 5:54 PM EDT Oxygen Saturation 99% 06/25/2025 5:54 PM EDT Inhaled Oxygen Concentration - - Weight 93.9 kg (207 lb) 06/25/2025 5:54 PM EDT Height - - Body Mass Index 36.67 03/13/2025 10:36 AM EDT documented in this encounter Progress Notes * Amada Kaminski NP - 06/25/2025 6:00 PM EDT SUBJECTIVE: Radha Romo is a 40 y.o. female who presents to the [facility] for a sick visit. Denies recent illness, injury, or hospitalization. HPI -was seen about 1 week ago for vaginal itching and was treated with single dose of fluconazole -continues to have vaginal itching and discharge -notes vaginal irritation from scratching -denies urinary symptoms -Declines STI testing Review of Systems Constitutional: Negative. Negative for chills and fever. Respiratory: Negative for chest tightness and shortness of breath. Cardiovascular: Negative for chest pain. Gastrointestinal: Negative for abdominal pain, constipation, diarrhea and nausea. Genitourinary: Positive for vaginal discharge. Negative for dysuria. Musculoskeletal: Negative for arthralgias, back pain, myalgias and neck pain. Skin: Negative. Negative for rash and wound. Neurological: Negative for weakness, light-headedness and headaches. Psychiatric/Behavioral: Negative for behavioral problems, confusion, decreased concentration and suicidal ideas. OBJECTIVE: Visit Vitals BP 133/87 (BP Location: Right arm, Patient Position: Sitting, BP Cuff Size: Adult long) Pulse 90 Temp 97.4 ??F (36.3 ??C) (Temporal) Resp 18 Wt 207 lb (93.9 kg) SpO2 99% BMI 36.67 kg/m?? OB Status Having periods Smoking Status Every Day BSA 2.04 m?? Problem List[1] Physical Exam Vitals reviewed. Constitutional: General: She is not in acute distress. Appearance: Normal appearance. She is not ill-appearing. HENT: Head: Normocephalic and atraumatic. Right Ear: External ear normal. Left Ear: External ear normal. Nose: Nose normal. Eyes: General: No scleral icterus. Extraocular Movements: Extraocular movements intact. Cardiovascular: Rate and Rhythm: Normal rate and regular rhythm. Pulmonary: Effort: Pulmonary effort is normal. No respiratory distress. Musculoskeletal: General: Normal range of motion. Cervical back: Normal range of motion. Skin: General: Skin is warm and dry. Neurological: General: No focal deficit present. Mental Status: She is alert and oriented to person, place, and time. Gait: Gait normal. Psychiatric: Mood and Affect: Mood normal. Behavior: Behavior normal. Assessment/Plan Diagnoses and all orders for this visit: Type 2 diabetes mellitus without complication, without long-term current use of insulin ([facility]) - POCT urinalysis dipstick manually resulted Vaginal discharge Comments: -rx'd single dose of fluconazole for possible persisitent yeast infection symptoms -recommend low sugar diet -feminine hygiene reviewed Vaginal itching Comments: -vaginal swab obtained to test or BV/yeast infections -will treat accordingly -feminine hygiene reviewed Orders: - fluconazole (Diflucan) 150 MG tablet; Take one tablet today - Bacterial Vaginosis, Yeast and Trich; Future Follow-up with PCP as scheduled for routine health or sooner as needed [place] Translation: Provided by [facility] staff member DARRIUS Cross [1] Patient Active Problem List Diagnosis Benign hypertension Type 2 diabetes mellitus without complication ([facility]) Recurrent major depression in partial remission ([facility]) Elevated blood pressure reading Epigastric pain Hip pain Primary osteoarthritis of left knee Recurrent candidiasis of vagina Simple obesity Acquired skin tag Superficial varicosities Tenosynovitis Vitamin D deficiency Dental calculus Periodontal disease Dental caries Anemia Thrombocytosis Caregiver stress Adjustment disorder with anxious mood Alcohol use disorder Partial edentulism Tooth sensitivity at cementoenamel junction History of hepatitis C Pain in both feet Acute bilateral low back pain without sciatica Pelvic pain Class 1 obesity due to excess calories with serious comorbidity and body mass index (BMI) of 30.0 to 30.9 in adult Exercise counseling Dietary counseling Vaginal itching Candidiasis of female genitalia Benign skin lesion excluding plantar wart Nasal congestion Gastroesophageal reflux disease Preventative health care Abnormal uterine bleeding Abscess of Bartholin gland Acute chest wall pain Complex cyst of both ovaries COVID Hepatitis C virus Irritable bowel syndrome Myoma Patella-femoral syndrome Gastritis GERD (gastroesophageal reflux disease) Type 2 diabetes mellitus ([facility]) documented in this encounter Plan of Treatment Upcoming Encounters Date Type Department Care Team (Late st Contact Info) Description 07/03/2025 12:00 PM EDT Office Visit [facility] MEDICINE [address] [place] [address] Josefina Nelson MD 230 [place] [address] 12/10/2025 3:00 PM EST Office Visit [facility] ADULT DENTAL [address] [place] [address] Oralia Baugh [address] [place] [address] Scheduled Orders Name Type Priority Associated Diagnoses Orde r Schedule Bacterial Vaginosis, Yeast and Trich Microbiology Routine Vaginal itching Expected: 06/25/2025 (Approximate), Expires: 06/25/2026 documented as of this encounter Procedures Procedure Name Priority Date/Time Associated Diagnosis Comments POCT URINALYSIS DIPSTICK Routine 06/25/2025 6:25 PM EDT Type 2 diabetes mellitus without complication, without long-term current use of insulin ([facility]) documented in this encounter Results * POCT urinalysis dipstick manually resulted (06/25/2025 6:25 PM EDT) Color, UA Yellow Clarity, UA Cloudy Glucose, UA Negative Bilirubin, UA Trace Comment:small Ketones, UA Negative Spec Grav, UA 1.030 Blood, UA Negative Negative, None Detected pH, UA 6.0 Protein, UA Trace Comment:100 mg/dl Urobilinogen, UA 1.0 Leukocytes, UA Negative Negative, Rare, Trace Nitrite, UA Negative Negative, None Detected Appearance, UA yellow cloudy QC Media Lot # [id number] Lot# Expiration Date [id number] Urine 06/25/2025 6:25 PM EDT [facility] Appra GLOBAL PROGRAM MANAGER POINT OF CARE TEST ENTER/EDIT O RDERABLES Final Result documented in this encounter Visit Diagnoses Diagnosis Type 2 diabetes mellitus without complication, without long-term current use of insulin ([facility])- Primary Vaginal discharge Leukorrhea, not specified as infective Vaginal itching Pruritus of genital organs documented in this encounter Additional Health Concerns Assessment Noted Time PHQ-9 Depression Total Score: 0 03/13/20 25 10:38 AM EDT documented as of this encounter Care Teams Conference Services Coordinator Relationship Specialty Start Date End Date Josefina Nelson MD [address] [place] [phone] PCP - General Family Medicine 01/19/17 documented as of this encounter
--- OUTSIDE RECORDS SUMMARY | 2025-06-26 17:44 | XMS_ITS | Encounter Summary ---
Author Organization [employer] [facility] Address [address] [facility] 7t [place] [address] Care Team Providers Care Cutter In Name Role Phone Josefina Nelson MD Primary Care Provider + Encounter Details Date Type Department Care Team (Late Contact Info) Description 08/02/2023 Abstract [facility] MEDICINE [address] [place] [address] Yoko Lundy Social History Tobacco Use Types [...] Department Care Team (Late Contact Info) Description 07/03/2025 12:00 PM EDT Office Visit [facility] MEDICINE [address] [place] [address] Josefina Nelson MD [address] [place] [address] 12/10/2025 3:00 PM EST Office Visit [facility] ADULT DENTAL [address] [place] [address] Oralia Baugh [address] [place] [address] documented as of this encounter Procedures Procedure Name Priority Date/Time Associated Diagnosis Comments PAP/HPV Routine 12/21/2021 documented in this encounter Results * Pap Smear (12/21/2021) Pap Negative for intraephithelial lesion or malignancy Negative for intraephithelial lesion or malignancy, Other HPV Undetected Historical Provider HEALTH MAINTENANCE Final Result documented in this encounter Visit Diagnoses Not on filedocumented in this encounter Care Teams Cutter In Relationship Specialty Start Date End Date Josefina Nelson MD [address] [place] [phone] PCP - General Family Medicine 01/19/17 documented as of this encounter
--- OUTSIDE RECORDS SUMMARY | 2025-06-26 17:44 | XMS_ITS | Encounter Summary ---
Author Organization [employer] [facility] Address [address] [facility] 7t [place] [address] Care Team Providers Care Data Center Consultant Name Role Phone Josefina Nelson MD Primary Care Provider + Encounter Details Date Type Department Care Team (Latest Contact Info) Description 07/21/2021 Abstract [facility] CONVERSIONS Dental, Provider, DDS Social History [...] Description 07/03/2025 12:00 PM EDT Office Visit [facility] MEDIC[facility] [address] [place] [address] Josefina Nelson MD [address] [place] [address] 12/10/2025 3:00 PM EST Office Visit [facility] ADULT DENTAL 230 [place] [address] Kennedy Baugharis 230 [place] [address] documented as of this encounter Visit Diagnoses Not on filedocumented in this encounter Care Teams Data Center Consultant Relationship Specialty Start Date End Date Josefina Nelson MD [address] [place] [address] PCP - General Family Medicine 01/19/17 documented as of this encounter
--- OUTSIDE RECORDS SUMMARY | 2025-06-26 17:44 | XMS_ITS | Encounter Summary ---
Author Organization [employer] [facility] Address [address] [facility] 7t [place] [address] Care Team Providers Care Lawn Mower Repairer Name Role Phone Josefina Nelson MD Primary Care Provider + Encounter Details Date Type Department Care Team (Latest Contact Info) Description 06/09/2022 Abstract [facility] CONVERSIONS Dental, Provider, DDS Social History [...] Description 07/03/2025 12:00 PM EDT Office Visit [facility] MEDICINE [address] [place] [address] Josefina Nelson MD [address] [place] [address] 12/10/2025 3:00 PM EST Office Visit [facility] ADULT DENTAL [address] [place] [address] Kennedy Baugharis [address] [place] [address] documented as of this encounter Visit Diagnoses Not on filedocumented in this encounter Care Teams Lawn Mower Repairer Relationship Specialty Start Date End Date Josefina Nelson MD [address] [place] [address] PCP - General Family Medicine 01/19/17 documented as of this encounter
--- OUTSIDE RECORDS SUMMARY | 2025-06-26 17:44 | XMS_ITS | Encounter Summary ---
Author Organization [employer] Address [address] [facility] 7t [place] [address] Care Team Providers Care Astronomy Professor Name Role Phone Josefina Nelson MD Primary Care Provider + Encounter Details Date Type Department Care Team (Late Contact Info) Description 12/12/2022 Abstract [facility] ADULT DENTAL [address] [place] [address] Natan Mcneil DDS [address] [place], [place] [phone] Social History Tobacco Use Types Packs/Day Years [...] Description 07/03/2025 12:00 PM EDT Office Visit [facility] MEDIC[facility] [address] [place] [address] Josefina Nelson MD 230 [place] [address] 12/10/2025 3:00 PM EST Office Visit [facility] ADULT DENTAL [address] [place], [place] [phone] Oralia Baugh [address] [place], [place] [phone] documented as of this encounter Visit Diagnoses Not on filedocumented in this encounter Care Teams Astronomy Professor Relationship Specialty Start Date End Date Josefina Nelson MD [address] [place] [address] PCP - General Family Medicine 01/19/17 documented as of this encounter
--- OUTSIDE RECORDS SUMMARY | 2025-06-26 17:44 | XMS_ITS | Encounter Summary ---
Author Organization [employer] [facility] Address [address] [facility] 7t [place] [address] Care Team Providers Care First Aid Director Name Role Phone Josefina Nelson MD Primary Care Provider + Encounter Details Date Type Department Care Team (Late st Contact Info) Description 11/20/2022 Orders Only [facility] [address] [place] [address] [phone] Brown Osei FNP Acute cystitis without hematuria [...] Description 07/03/2025 12:00 PM EDT Office Visit [facility] [address] [place] [address] [phone] Josefina Nelson MD [address] [place] [address] 12/10/2025 3:00 PM EST Office Visit [facility] ADULT DENTAL [address] [place] [address] [phone] Kennedy Baugharis [address] [place] [address] documented as of this encounter Visit Diagnoses Diagnosis Acute cystitis without hematuria- Primary documented in this encounter Care Teams First Aid Director Relationship Specialty Start Date End Date Josefina Nelson MD 230 [place] [address] PCP - General Family Medicine 01/19/17 documented as of this encounter
--- OUTSIDE RECORDS SUMMARY | 2025-06-26 17:44 | XMS_ITS | Encounter Summary ---
Author Organization [employer] Address [address] [facility] 7t [place] [address] Care Team Providers Care Auto Care Center Manager Name Role Phone Josefina Nelson MD Primary Care Provider + Reason for Visit * Reason Comments Med Refill Encounter Details Date Type Department Care Team ([facility] st Contact Info) Description 04/07/2024 Refill [facility] [address] [place], [place] [phone] Josefina Nelson MD [address] [place], [place] [phone] Cough, unspecified type Social History Tobacco Use [...] 07/03/2025 12:00 PM EDT Office Visit [facility] [address] [place] [address] Josefina Nelson MD [address] [place] [address] 12/10/2025 3:00 PM EST Office Visit [facility] ADULT DENTAL [address] [place] [address] Oralia Baugh [address] [place] [address] documented as of this encounter Visit Diagnoses Diagnosis Cough, unspecified type documented in this encounter Care Teams Auto Care Center Manager Relationship Specialty Start Date End Date Josefina Nelson MD [address] [place] [address] PCP - General Family Medicine 01/19/17 documented as of this encounter
--- OUTSIDE RECORDS SUMMARY | 2025-06-26 17:44 | XMS_ITS | Encounter Summary ---
Author Organization [employer] [facility] Address [address] [facility] 7t [place] [address] Care Team Providers Care Residency Director Name Role Phone Josefina Nelson MD Primary Care Provider + Encounter Details Date Type Department Care Team (Late Contact Info) Description 10/12/2022 Orders [address] [facility] [address] [place], [place] [phone] Reyna Moya LPN Social History Tobacco Use [...] 12:00 PM EDT Office Visit [facility] MEDICINE [address] [place] [address] Josefina Nelson MD [address] [place] [address] 12/10/2025 3:00 PM EST Office Visit [facility] ADULT DENTAL [address] [place] [address] Oralia Baugh [address] [place] [address] documented as of this encounter Procedures Procedure Name Priority Date/Time Associated Diagnosis Comments SARS COV2/INFLUENZA A/B AND RSV RNA QL NAAT Routine 10/23/2022 2:46 PM EST documented in this encounter Results * SARS-CoV-2 RNA, Influenza A/B, and RSV RNA, Ql NAAT (10/23/2022 2:46 PM EST) Influenza A PCR NEGATIVE Negative [facility] Influenza B PCR NEGATIVE Negative [facility] Resp Syncy Virus RNA Qual PCR NEGATIVE Negative [facility] SARS COV2 PCR NEGATIVE Negative [facility] SARS/Flu/RSV Note See Note [facility] Comment:All test results mus t [...] use by authorized laboratories.Testing performed on the [employer] GeneXpert utilizingreal-time RT-PCR.All SARS CoV2 and positive influenza A/B results arereported to [facility]. 10/23/2022 2:46 PM EST 10/23/2022 2:55 PM EST [facility] Exter nal Provider LAB MICROBIOLOGY - GENERAL ORDERABLES Final Result [facility] [address] [place] [address] [phone] documented in this encounter Visit Diagnoses Not on filedocumented in this encounter Care Teams Residency Director Relationship Specialty Start Date End Date Josefina eNlson MD [address] [place] [phone] PCP - General Family Medicine 01/19/17 documented as of this encounter
--- OUTSIDE RECORDS SUMMARY | 2025-06-26 17:44 | XMS_ITS | Encounter Summary ---
Author Organization [employer] Address [address] [facility] 7t [place] [address] Care Team Providers Care Electrical Installation Inspector Name Role Phone Josefina Nelson MD Primary Care Provider + Reason for Visit * Reason Comments Med Refill Encounter Details Date Type Department Care Team ([facility] st Contact Info) Description 03/29/2024 Refill [facility]ALK[facility]IN [facility] [address] [place], [place] [phone] Josefina Nelson MD [address] [place], [place] [phone] Nonintractable headache, unspecified chronicity pattern, unspecified headache [...] Description 07/03/2025 12:00 PM EDT Office Visit [facility] MED[facility] [address] [place] [address] Josefina Nelson MD [address] [place] [address] 12/10/2025 3:00 PM EST Office Visit [facility] ADULT DENTAL [address] [place] [address] Amauri, Oralia [address] [place] [address] documented as of this encounter Visit Diagnoses Diagnosis Nonintractable headache, unspecified chronicity pattern, unspecified headache type documented in this encounter Care Teams Electrical Installation Inspector Relationship Specialty Start Date End Date Josefina Nelson MD [address] [place] [phone] PCP - General Family Medicine 01/19/17 documented as of this encounter
--- OUTSIDE RECORDS SUMMARY | 2025-06-26 17:45 | XMS_ITS | Encounter Summary ---
Author Organization [employer] Address 75 [facility] 7t [place] [address] Care Team Providers Care Machine Sprayer Name Role Phone Josefina Nelson MD Primary Care Provider + Reason for Visit * Reason Comments Med Refill Encounter Details Date Type Department Care Team ([facility] st Contact Info) Description 01/11/2025 Refill [facility] MEDICINE [address] [place], [place] [phone] Josefina Nelson MD [address] [place] [address] Social History Tobacco Use Types Packs/Day Years [...] Description 07/03/2025 12:00 PM EDT Office Visit [facility] MEDICINE [address] [place] [address] Josefina Nelson MD [address] [place] [address] 12/10/2025 3:00 PM EST Office Visit [facility] ADULT DENTAL [address] [place] [address] Amauri, Oralia [address] [place] [address] documented as of this encounter Visit Diagnoses Not on filedocumented in this encounter Additional Health Concerns Assessment Noted Time PHQ-9 Depression Total Score: 7 05/27/20 24 3:24 PM EDT documented as of this encounter Care Teams Machine Sprayer Relationship Specialty Start Date End Date Josefina Nelson MD [address] [place] [address] PCP - General Family Medicine 01/19/17 documented as of this encounter
--- OUTSIDE RECORDS SUMMARY | 2025-06-26 17:45 | XMS_ITS | Encounter Summary ---
Author Organization [employer] Address [address] [facility] 7t [place] [address] Care Team Providers Care Vehicle Dynamics Engineer Name Role Phone Josefina Nelson MD Primary Care Provider + Encounter Details Date Type Department Care Team ([facility] Contact Info) Description 12/30/2022 Abstract [facility] ADULT DENTAL [address] [place], [place] [phone] Natan Mcneil DDS [address] [place], [place] [phone] Social History Tobacco Use Types Packs/Day Years [...] Upcoming Encounters Date Type Department Care Team ([facility] Contact Info) Description 07/03/2025 12:00 PM EDT Office Visit [facility] [address] [place], [place] [phone] Josefina Nelson MD [address] [place], [place] [phone] 12/10/2025 3:00 PM EST Office Visit [facility] ADULT DENTAL [address] [place], [place] [phone] Amauri Oralia [address] [place], [place] [phone] documented as of this encounter Visit Diagnoses Not on filedocumented in this encounter Care Teams Vehicle Dynamics Engineer Relationship Specialty Start Date End Date Josefina Nelson MD [address] [place] [address] PCP - General Family Medicine 01/19/17 documented as of this encounter
--- OUTSIDE RECORDS SUMMARY | 2025-06-26 17:45 | XMS_ITS | Encounter Summary ---
Author Organization [employer] Address [address] [facility] [address] [place] [address] Care Team Providers Care Recreation Establishment Manager Name Role Phone Josefina Nelson MD Primary Care Provider + Encounter Details Date Type Department Care Team (Latest Contact Info) Description 06/25/2025 Travel Social History Tobacco Use Types Packs/Day [...] Office Visit [facility] MEDICINE [address] [place] [address] Josefina Nelson MD [address] [place] [address] 12/10/2025 3:00 PM EST Office Visit [facility] ADULT DENTAL [address] [place] [address] Amauri, Oralia [address] [place] [address] documented as of this encounter Visit Diagnoses Not on filedocumented in this encounter Additional Health Concerns Assessment Noted Time PHQ-9 Depression Total Score: 0 03/13/20 25 10:38 AM EDT documented as of this encounter Care Teams Recreation Establishment Manager Relationship Specialty Start Date End Date Josefina Nelson MD [address] [place] [address] PCP - General Family Medicine 01/19/17 documented as of this encounter
--- OUTSIDE RECORDS SUMMARY | 2025-06-26 17:45 | XMS_ITS | Encounter Summary ---
Author Organization [employer] Address [address] [facility] 7t [place] [address] Care Team Providers Care Twisting Press Operator Name Role Phone Josefina Nelson MD Primary Care Provider + Encounter Details Date Type Department Care Team (Late st Contact Info) Description 11/02/2022 Orders Only [facility] MED & PEDS [address] [place], [place] [phone] Jacklyn Patterson LPN Social History Tobacco Use [...] 12:00 PM EDT Office Visit [facility] MEDICINE [address] [place] [address] Josefina Nelson MD [address] [place] [address] 12/10/2025 3:00 PM EST Office Visit [facility] ADULT DENTAL [address] [place] [address] Oralia Baugh [address] [place] [address] documented as of this encounter Visit Diagnoses Not on filedocumented in this encounter Care Teams Twisting Press Operator Relationship Specialty Start Date End Date Josefina Nelson MD [address] [place] [address] PCP - General Family Medicine 01/19/17 documented as of this encounter
--- OUTSIDE RECORDS SUMMARY | 2025-06-26 17:45 | XMS_ITS | Encounter Summary ---
Author Organization [employer] Address [address] [facility] [address] [place] [address] Care Team Providers Care Reinforcing Rod Layer Name Role Phone Josefina Nelson MD Primary Care Provider + Reason for Visit * Reason Onset Date Comments Nurse Triage 04/20/2023 Encounter Details Date Type Department Care Team ([facility] st Contact Info) Description 04/20/2023 Telephone [facility] [address] [place], [place] [phone] Josefina Nelson MD [address] [place] [address] Nurse Triage Social History Tobacco Use Types [...] medication. Pt is advised to come to [facility] to be seen. Pt will come in [...] for this symptom' Please contact spouse at [phone] documented in this encounter Plan of Treatment Upcoming Encounters Date Type Department Care Team (Late st Contact Info) Description 07/03/2025 12:00 PM EDT Office Visit [facility] [address] [place] [address] Josefina Nelson MD [address] [place] [address] 12/10/2025 3:00 PM EST Office Visit [facility] [address] [place] [address] Oralia Baugh [address] [place] [address] documented as of this encounter Visit Diagnoses Not on filedocumented in this encounter Care Teams Reinforcing Rod Layer Relationship Specialty Start Date End Date Josefina Nelson MD [address] [place] [address] PCP - General Family Medicine 01/19/17 documented as of this encounter
--- OUTSIDE RECORDS SUMMARY | 2025-06-26 17:45 | XMS_ITS | Encounter Summary ---
Author Organization [employer] Address [address] [facility] [address] [place] [address] Care Team Providers Care Senior Credit Officer Name Role Phone Josefina Nelson MD Primary Care Provider + Encounter Details Date Type Department Care Team (Late st Contact Info) Description 09/25/2024 Orders Only [facility] [address] [place], [place] [phone] Tanya Metzger FNP [address] [place] [address] Social History Tobacco Use Types Packs/Day Years [...] Description 07/03/2025 12:00 PM EDT Office Visit [facility] [address] [place] [address] Josefina Nelson MD [address] [place] [address] 12/10/2025 3:00 PM EST Office Visit [facility] [address] [place] [address] Amauri, Oralia [address] [place] [address] documented as of this encounter Visit Diagnoses Not on filedocumented in this encounter Additional Health Concerns Assessment Noted Time PHQ-9 Depression Total Score: 7 05/27/20 24 3:24 PM EDT documented as of this encounter Care Teams Senior Credit Officer Relationship Specialty Start Date End Date Josefina Nelson MD [address] [place] [address] PCP - General Family Medicine 01/19/17 documented as of this encounter
--- OUTSIDE RECORDS SUMMARY | 2025-06-26 17:45 | XMS_ITS | Clinical Summary ---
Author Organization [employer] Address [address] [facility] [address] [place] [address] Care Team Providers Care Documentation Consultant Name Role Phone Josefina Nelson MD Primary Care Provider + Allergies Active Allergy Reactions Criticality Noted Date Comments Penicillin V Hives Penicillins 10/12/2022 Other Reaction(s): UNKNOWN Medications * This document contains information received from the source organization and may not represent a complete record from that organization. Emollient (Moisturizing Creme) cream use topically to affected area 4x/day prn 09/19/20 22 Active TRUEplus Lancets 33G misc TEST BLOOD SUGAR EVERY DAY 08/10/20 22 Active dicyclomine (Bentyl) 20 MG tablet Take 1 tablet by mouth if needed in the morning, at noon, in the evening, and at bedtime. Abdominal pain Active traZODone (Desyrel) 50 MG tabletIndicati ons:Adjustment disorder with anxious mood TAKE 1 OR 2 TABLETS BY MOUTH AT BEDTIME NEEDED FOR SLEEP 60 tablet 08/31/20 23 Active FREESTYLE LITE test stripIndicatio ns:Type 2 diabetes mellitus without complication, without long-term current use of insulin ([facility]) USE 1 PARA TEST BLOOD SUGAR EVERY DAY 50 strip 5 08/31/20 23 Active ferrous sulfate (FeroSul) 325 (65 Fe) MG tablet Take 1 tablet (325 mg) by mouth 2 times daily. 180 tablet 02/22/20 24 Active SITagliptin (Januvia) 100 MG tablet Take 1 tablet (100 mg) by mouth Once per day. 30 tablet 11 08/19/20 24 025 Active hydrocortisone 2.5 % cream Apply pea sized amount to skin bid for 1 week 15 g 09/24/20 24 Active diphenhydrAMIN E (BENADryl) 25 MG tablet Take 1 tablet (25 mg) by mouth if needed at bedtime for itching or allergies for up to 7 days. 7 tablet 10/28/20 24 Active Acetaminophen Extra Strength 500 MG tabletIndicati ons:Nasal congestion TAKE 1 TABLET BY MOUTH EVERY 6 TO 8 HOURS NEEDED FOR PAIN OR FEVER 120 tablet 10/28/20 24 Active pioglitazone (Actos) 45 MG tablet Take 1 tablet (45 mg) by mouth Once per day. 30 tablet 11 10/28/20 24 025 Active ergocalciferol (Vitamin D2) 1.25 MG (61444 UT) capsule TAKE 1 CAPSULE BY MOUTH ONCE A WEEK 12 capsule 1 12/10/19 25 Active albuterol (Ventolin HFA) 108 (90 Base) MCG/ACT inhalerIndicat ions:Cough, unspecified type INHALE 2 PUFFS BY MOUTH EVERY 4 HOURS NEEDED FOR WHEEZING OR SHORTNESS OF BREATH 18 g 2 12/17/19 25 Active cetirizine (ZyrTEC) 10 MG tablet Take 1 tablet (10 mg) by mouth in the morning. 90 tablet 3 01/10/20 25 Active Diclofenac Sodium 1 % gel Apply 2 g topically if needed in the morning, at noon, in the evening, and at bedtime (pain). 150 g 3 01/10/20 25 Active pramipexole (Mirapex) 0.75 MG tablet Take 1 tablet (0.75 mg) by mouth at bedtime. 30 tablet 11 01/21/20 25 026 Active omeprazole (PriLOSEC) [address] capsuleIndicat ions:Gastroeso phageal reflux disease, unspecified whether esophagitis present TAKE 1 CAPSULE BY MOUTH EVERY DAY BEFORE BREAKFAST. DO NOT BREAK, CRUSH, DISSOLVE OR CHEW. 90 capsule 1 05/28/20 25 Active naproxen (Naprosyn) 500 MG tablet TAKE 1 TABLET BY MOUTH TWICE DAILY IN THE MORNING AND AT BEDTIME NEEDED FOR MILD PAIN 30 tablet 1 06/02/20 25 Active baclofen (Lioresal) 10 MG tablet TAKE 1 TABLET BY MOUTH THREE TIMES DAILY IN THE MORNING, AT NOON, AND AT BEDTIME NEEDED FOR MUSCLE SPASMS 60 tablet 1 06/05/20 25 Active lidocaine (Lidoderm) 5 % patch Apply 1 patch topically Once per day. Remove & discard patch within 12 hours or as directed by MD. 30 patch 2 06/10/20 25 026 Active fluticasone (Flonase) 50 MCG/ACT nasal spray Administer 1 spray into each nostril Once per day. 16 g 3 06/10/20 25 025 Active Blood Pressure kit 1 each 2 times daily. 1 kit 06/10/20 25 026 Active gabapentin (Neurontin) 300 MG capsule TAKE 1 CAPSULE BY MOUTH THREE TIMES DAILY 90 capsule 3 06/16/20 25 Active fluconazole (Diflucan) 150 MG tabletIndicati ons:Vaginal itching Take one tablet today 1 tablet 06/25/20 25 Active omeprazole (PriLOSEC) [address] capsuleIndicat ions:Gastroeso phageal reflux disease, unspecified whether esophagitis present Take 1 capsule (20 mg) by mouth before breakfast. Do not crush or chew. 90 capsule 1 10/28/20 24 025 Discontinued gabapentin (Neurontin) 300 MG capsule Take 1 capsule (300 mg) by mouth 3 times daily. 90 capsule 3 01/10/20 25 025 Discontinued fluticasone (Flonase) 50 MCG/ACT nasal spray Administer 1 spray into each nostril Once per day. 16 g 3 01/10/20 25 025 Discontinued(Re order (will not trigger notification to Pharmacy)) naproxen (Naprosyn) 500 MG tablet TAKE 1 TABLET BY MOUTH TWICE DAILY IN THE MORNING AND AT BEDTIME NEEDED FOR MILD PAIN 30 tablet 1 03/21/20 25 025 Discontinued baclofen (Lioresal) 10 MG tablet TAKE 1 TABLET BY MOUTH THREE TIMES DAILY IN THE MORNING, AT NOON, AND AT BEDTIME NEEDED FOR MUSCLE SPASMS 60 tablet 1 03/27/20 25 025 Discontinued chlorhexidine (Peridex) 0.12 % solution Use 15 mL in the mouth or throat if needed (for mouthwash 15 ml for 30 seconds, swish and spit) for up to 14 days. 473 mL 05/28/20 25 025 ibuprofen 800 MG tablet Take 1 tablet (800 mg) by mouth every 8 (eight) hours if needed for mild pain for up to 10 days. 15 tablet 05/28/20 25 025 Discontinued Blood Pressure kit 1 each 2 times daily. 1 kit 06/10/20 25 025 Discontinued(Re order (will not trigger notification to Pharmacy)) nitrofurantoin , macrocrystal-m onohydrate, (Macrobid) 100 MG capsule Take 1 capsule (100 mg) by mouth 2 times daily for 5 days. 10 capsule 06/10/20 25 025 fluconazole (Diflucan) 150 MG tablet Take 1 tablet (150 mg) by mouth Once per day for 1 dose. 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 Rest (sleep at least 8 hours a night). Hydrate with plenty of water (avoid caffeine and alcohol). Use saline nose drops to loosen mucus + Flonase spray Take Acetaminophen (Tylenol ) as needed to reduce fever, headache, body [...] only due to potential vitamin deficiencies with skilled nursing use. 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 She doesn't have any increased risk for TB at this time, will order T-spot as requested by employer. Order IZ titers, will complete other IZs at next appt once URI is resolved. 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 I will obtain [employer] REPA[employer] records Use tylenol prn pain, keep sxs [...] disease 12/26/2022 Elevated blood pressure reading 12/05/2022 Assessment & Plan (03/14/2025 11:37 AM EDT): - goal BP < 130/80 - Advised to check home BP and return for BP check with primary care team nurse -Continue working on lifestyle modification Epigastric pain 12/05/2022 Assessment & Plan (04/03/2023 2:44 PM EDT): R/o PUD Continue omeprazole + sucralfate counseled to cut down on smoking and cut alcohol down to off. refer to GI FU in 3 months with nc Hip pain 12/05/2022 Primary osteoarthritis of left knee 12/05/2022 Recurrent candidiasis of vagina 12/05/2022 Superficial varicosities 12/05/2022 Vitamin D deficiency 12/05/2022 Assessment & Plan (05/28/2024 10:33 AM EDT): Check Vit D levels. Benign hypertension 10/12/2022 Type 2 diabetes mellitus without complication Assessment & Plan (03/14/2025 11:44 AM EDT): - A1c 7.6% on 03/13/25 continue Actos 45mg, continue Januvia Continue treatment plan per PCP as following: Counseled re more frequent low calorie/carb meals. Check fgstk 2x daily, she wont do fgstk due to needle phobia Encouraged physical activity as tolerated. Copy of podiatry referral was given today so that she can make her appt. - Last Lipid Profile: 10/29/2024 - Last microalbumin test: 16.8 10/29/24 Assessment & Plan (10/28/2024 4:35 PM EST): [...] Recurrent major depression in partial remission 01/23/2017 Assessment & Plan (03/14/2025 11:41 AM EDT): - patient is hesitant to see a behavioral health service provider because they call crisis team every time she sees her - will contact integrated behavioral health service clinician and ask for outpatient treatment Resolved Problems Problem Noted Date Diagnosed Date [...] burn of finger 01/29/2019 0 12/13/2022 Encounters * This document contains information received from the source organization and may not represent a complete record from that organization. Date Type Department Care Team Description 06/25/2025 6:00 PM EDT Office Visit [facility] [address] [place] [phone] Amada Kaminski NP Type 2 diabetes mellitus without complication, without long-term current use of insulin ([facility]) (Primary Dx); Vaginal discharge; Vaginal itching 06/25/2025 Travel 06/15/2025 Refill [facility] [address] [place] [phone] Jacklyn Lindsay DO 06/11/2025 Results Follow-Up [facility] [address] [place] [phone] Erick Abreu MD Bacterial Vaginosis 06/10/2025 11:00 AM EDT Office Visit [facility] [address] [place] [phone] Erick Abreu MD Influenza-like symptoms (Primary Dx); Chronic pain of left knee; UTI symptoms; Benign hypertension; Acute cough 06/10/2025 Orders Only [facility] [address] [place] [phone] Erick Abreu MD 06/10/2025 Travel 06/05/2025 Refill [facility] [address] [phone] Jacklyn Lindsay DO 05/31/2025 Refill [facility] [address] [phone] Jacklyn Lindsay DO 05/28/2025 11:30 AM EDT Office Visit [facility] [address] [place] [phone] Sotomayor-Acost a, Kenzie, DDS Acute gingival inflammation (Primary Dx) 05/27/2025 Refill [facility] [address] [place] [phone] Josefina Nelson MD Gastroesophageal reflux disease, unspecified whether esophagitis present 05/26/[address] [phone] Josefina Nelson MD Change PCP; TRANSFER REQUEST 04/11/[address] [phone] Josefina Nelson MD Appointment Request 04/08/[address] [phone] Josefina Nelson MD Appointment Request; Call Back Request 03/26/2025 Refill [facility] [address] [address] Jacklyn Lindsay DO from Last 3 Months Immunizations Immunization Administration Dates Next Due Hep A, Adult 03/13/2025 Hep B, adult 03/13/2025 Influenza injectable quadrivalent preservative f ree 07/21/2022,12/22/2020 [...] (207 lb) 06/25/2025 5:54 PM EDT Height 160 cm (5' 3 ) 03/13/2025 10:36 AM EDT Body Mass Index 36.67 03/13/2025 10:36 AM EDT Plan of Treatment Upcoming Encounters Date Type Department Care Team (Late st Contact Info) Description 07/03/2025 12:00 PM EDT Office Visit [facility] [address] [place] [address] Josefina Nelson MD [address] [place] [address] 12/10/2025 3:00 PM EST Office Visit [facility] [address] [place] [address] Oralia Baugh [address] [place] [address] Health Maintenance Due Date Last Done Comments Dental Oral Exam 1985 Dental Prophylaxis 1985 Dental X-Ray: Bitewings 1985 Eye Exam 1995 Alcohol/Substance Use Screening 1997 Family Planning (PISQ) 02/18/2000 HPV Vaccines (1 - 3-dose series) 02/18/2000 Pneumococcal Vaccine: Pediatrics (0 to 5 Years) and At-Risk Patients (6 to 49) Years (1 of 2 - PCV) 02/18/2004 COVID-19 Vaccine ( season) 2024 11/24/2021, 04/01/2021, 03/04/2021 SDOH Screening 02/15/2025 02/16/2024 Mammogram 2025 Hepatitis B Vaccines (2 of 3 - 19+ 3-dose series) 04/10/2025 03/13/2025 Diabetes: Hemoglobin A1C 06/13/2025 025, 10/28/2024, 08/02/2024, Additional history exists Influenza Vaccine (#1) 2025 07/21/2022, 2020 Diabetes: Foot Exam 08/19/2025 08/19/2024, 08/19/2024, 08/19/2024, Additional history exists Hepatitis A Vaccines (2 of 2 - Risk 2-dose series) 09/13/2025 03/13/2025 Diabetes: Urine Protein Screening 10/29/2025 10/29/2024, 04/28/2022 Lipid Panel 10/29/2025 10/29/2024, 10/01, 04/22/2022, Additional history exists Depression Screening 03/13/2026 03/13/2025, 03/13/20 Disability Screening 03/13/2026 03/13/2025 Tobacco Screening 06/25/2026 06/25/2025 Cervical Cancer Screening 12/21/2026 HPV/Cotest 12/21/2026 12/21/2021, 12/01, 12/21/2021, Additional history exists Pap Smear 12/21/2026 12/21/2021, 08/30, 09/16/2021 Dental X-Ray: Full Mouth 05/29/2028 05/28/2025 DTaP/Tdap/Td Vaccines (2 - Td or Tdap) [...] patient's age to complete this topic Meningococcal B Vaccine Aged Out No l onger eligible based on patient's age to complete [...] complication, without long-term current use of insulin ([facility]) POCT INFLUENZA B (ID NOW RAPID MOLECULAR) Routine 06/10/2025 12:43 PM EDT Acute cough POCT INFLUENZA A (ID NOW RAPID MOLECULAR) Routine 06/10/2025 12:43 PM EDT Acute cough POCT RAPID COVID ANTIGEN Routine 06/10/2025 12:43 PM EDT Acute cough CULTURE, URINE, ROUTINE Routine 06/10/2025 12:21 PM EDT UTI symptoms CHLAMYDIA/N. GONORRHOEAE RNA, TMA, UROGENITAL Routine 06/10/2025 12:00 PM EDT UTI symptoms POCT URINALYSIS DIPSTICK Routine 06/10/2025 11:22 AM EDT UTI symptoms BACTERIAL VAGINOSIS PANEL Routine 06/10/2025 12:00 AM EDT CASE PRESENTATION, DETAILED AND EXTENSIVE TREATMENT PLANNING Routine 05/28/2025 11:30 AM EDT Acute gingival inflammation PANORAMIC RADIOGRAPHIC IMAGE Routine 05/28/2025 11:30 AM EDT Acute gingival inflammation PALLIATIVE (EMERGENCY) TREATMENT OF DENTAL PAIN - MINOR PROCEDURE Routine 05/28/2025 11:30 AM EDT Acute gingival inflammation POCT GLYCOSYLATED HEMOGLOBIN (HGB A1C) Routine 03/13/2025 11:23 AM EDT Type 2 diabetes mellitus without complication, without long-term current use of insulin ([facility]) ALBUMIN, RANDOM URINE W/CREATININE Routine 10/29/2024 10:04 AM EST Type 2 diabetes mellitus without complication, without long-term current use of insulin ([facility]) LIPID PANEL WITH REFLEX TO DIRECT LDL Routine 10/29/2024 10:04 AM EST Type 2 diabetes mellitus without complication, with long-term current use of insulin ([facility]) HIV 1/2 ANTIGEN/ANTIBODY, FOURTH GENERATION W/RFL Routine 08/02/2024 4:00 PM EDT Unprotected sex HM PAP/HPV Routine 12/21/2021 from Last 3 Months or Most Recently Relevant to Health Maintenance Results * POCT urinalysis dipstick manually resulted (06/25/2025 6:25 PM EDT) Only the most recent of2 resultswithin the time period is included. Color, UA Yellow Clarity, UA Cloudy Glucose, UA Negative Bilirubin, UA Trace Comment:small Ketones, UA Negative Spec Grav, UA 1.030 Blood, UA Negative Negative, None Detected pH, UA 6.0 Protein, UA Trace Comment:100 mg/dl Urobilinogen, UA 1.0 Leukocytes, UA Negative Negative, Rare, Trace Nitrite, UA Negative Negative, None Detected Appearance, UA yellow cloudy QC Media Lot # [id number] Lot# Expiration Date Urine 06/25/2025 6:25 PM EDT Amada Kaminski NP POINT OF CARE TEST ENTER/EDIT O RDERABLES Final Result * Influenza B (ID NOW Rapid Molecular) (06/10/2025 12:43 PM EDT) Pathologist [facility] Influenza B Negative Negative, Indeterminate [facility] Swab 06/10/2025 12:4 3 PM EDT Erick Abreu MD POINT OF CARE TEST ENTER/EDIT OR DERABLES Final Result [facility] [address] [place] [phone] * Influenza A (ID NOW Rapid Molecular) (06/10/2025 12:43 PM EDT) Pathologist [facility] Influenza A Negative Negative, Indeterminate [facility] Swab 06/10/2025 12:4 3 PM EDT us Erick Abreu MD POINT OF CARE TEST ENTER/EDIT OR DERABLES Final Result Performing Organization Address [facility] Co de Phone Number [facility] [address] [place] [phone] * POCT Rapid COVID Ag (06/10/2025 12:43 PM EDT) Rapid COVID Ag Negative [facility] Swab 06/10/2025 12:4 3 PM EDT us Erick Abreu MD POINT OF CARE TEST ENTER/EDIT OR DERABLES Final Result Performing Organization Address [facility] Phone Number [facility] [address] [place] [phone] * Culture, Urine, Routine (06/10/2025 12:21 PM EDT) Urine Urine specimen obtained by clean catch procedure / Unknown 06/10/2025 12:21 PM EDT 06/11/2025 11:51 AM EDT Comment:CC Narrative [facility] - 06/12/2025 1:31 PM EDT Urine Culture Report Result Urine Culture 10,000 to 50,000 cfu/ml Urine Culture Mixed bacterial orville characteristic of Urine Culture urogenital contamination. Strep agalactiae (Grp B) Quant < 10,000 cfu/mL Susc N/A Susceptibility not routinely performed on this isolate. Specimen Source: Urine clean catch us Erick Abreu MD LAB MICROBIOLOGY - GENERAL ORDER SOFIA Final Result Performing Organization Address [facility] Co de Phone Number [facility] [address] [place] [phone] * Chlamydia/N. Gonorrhoeae RNA, TMA, Urogenitial (06/10/2025 12:00 PM EDT) Pathologist [facility] CT PCR NOT DETECTED Not Detect. [facility] Comment:A not detected test result does not exclude the possibilityof infection because test results can be affected byimproper specimen collection, concurrent antibiotic therapy,or the number of organisms in the specimen which may bebelow the sensitivity of the test. As with many diagnostictests, results from the Xpert CT/NG assay should beinterpreted in conjunction with other laboratory andclinical data available to the clinician.Xpert CT/NG performance has not been evaluated in patientsless than 14 years of age. The assay should not be used forthe evaluationof suspected sexual abuse or for other medico-legalindications. Additional testing is recommended in anycircumstance when false positive or false negative resultscould lead to adverse medical, social or psychologicalconsequences. NG PCR NOT DETECTED Not Detect. [facility] Comment:A not detected test result does not exclude the possibilityof infection because test results can be affected byimproper specimen collection, concurrent antibiotic therapy,or the number of organisms in the specimen which may bebelow the sensitivity of the test. As with many diagnostictests, results from the Xpert CT/NG assay should beinterpreted in conjunction with other laboratory andclinical data available to the clinician.Xpert CT/NG performance has not been evaluated in patientsless than 14 years of age. The assay should not be used forthe evaluationof suspected sexual abuse or for other medico-legalindications. Additional testing is recommended in anycircumstance when false positive or false negative resultscould lead to adverse medical, social or psychologicalconsequences. Swab (Vaginal Swab) 06/10/2025 12:00 PM EDT 06/11/2025 12:21 PM EDT us Erick Abreu MD LAB MICROBIOLOGY - GENERAL ORDER SOFIA Final Result [facility] [address] [place] [address] [phone] * (ABNORMAL) Bacterial Vaginosis (06/10/2025 12:00 AM EDT) TRICHOMONAS VAGINALIS DETECTION BY PCR NOT DETECTED Not Detect [facility] BACTERIAL VAGINOSIS DETECTION BY PCR NEGATIVE Negative [facility] Comment:The BV organism targ ets of the Xpert Xpress MVP test can becommensal in women; Xpert Xpress MVP positive results forbacterial vaginosis should be considered in conjunction withother clinical and patient information to determine thedisease status. Organisms that are not detected by the XpertXpress MVP test have also been reported to be associatedwith BV and aerobic vaginitis.The Xpert Xpress MVP test performance has not been evaluatedin patients under the age of 14. ANTONIETA GROUP DETECTION BY PCR DETECTED(A) Not Detect [facility] Antonieta glab krusei PCR NOT DETECTED Not Detect [facility] 06/10/2025 06/10/2025 Erick Abreu MD LAB MICROBIOLOGY - GENERAL ORDER SOFIA Final Result [facility] [address] [place] [phone] * (ABNORMAL) POCT glycosylated hemoglobin (Hgb A1c) (03/13/2025 11:23 AM EDT) Hemoglobin A1C 7.6(A) 4.0 - 6.0 % QC Media Lot # [id number] Lot# Expiration Date Blood Capillary blood specimen / Unknown 03/13/2025 11:23 AM EDT Daphnie Barron MD POINT OF CARE TEST ENTER/EDIT OR DERABLES Final Result * (ABNORMAL) Lipid Panel with Reflex to Direct LDL (10/29/2024 10:04 AM EST) Triglycerides 192(H) <150 mg/dL [facility] Comment:Desirable Triglyceri de: less than 150 mg/dLBorderline High Triglyceride 150-199 mg/dLHigh Triglyceride: 200-499 mg/dLVery High Triglyceride: greater than or equal to 5OO mg/dL Cholesterol 153 <200 mg/dL [facility] Comment:Desirable Cholestero l: less than 200 mg/dLBorderline High Cholesterol: 200-239 mg/dLHigh Cholesterol: greater than 239 mg/dL LDL Cholesterol Calculated 83 <100 mg/dL [facility] Comment:Desirable LDL: less than 100 mg/dLNear Optimal/Above Optimal LDL: 110- 129 mg/dLBorderline High LDL: 130-159 mg/dLHigh LDL: 160-189 mg/dLVery High LDL: greater than or equal to 190 mg/dL HDL Cholesterol 32(L) >40 mg/dL [facility] Comment:Desirable HDL: great er than 40 mg/dL Note: This HDL assay may give artificially low results in patients with liver disease. Blood 10/29/2024 10:0 4 AM EST 10/29/2024 10:57 AM EST us Josefina Nelson MD LAB BLOOD ORDERABLES Fin al Result Performing Organization Address [facility] Co de Phone Number [facility] [address] [place] [phone] * Albumin, Random Urine W/Creatinine (10/29/2024 10:04 AM EST) Creatinine, Urine 95.03 mg/dL [facility] Microalbumin Urine 16.0 mg/L [facility] Microalbum Creatinine Ratio Ur 16.8 <30 ug/mg cr [facility] Comment:Albumin/Creatinine R atio Reference Ranges: Normal: < 30 ug/mg creatinine Microalbuminuria: 30 - 300 ug/mg creatinineClinical Albuminuria: > 300 ug/mg creatinine Urine (Urine, Random) 10/29/2024 10:04 AM EST 10/29/2024 11:00 AM EST us Josefina Nelson MD LAB URINE ORDERABLES Fin al Result Performing Organization Address [facility] Co de Phone Number [facility] [address] [place] [phone] * HIV-1/2 Antigen and Antibodies, Fourth Generation, with Reflexes (08/02/2024 4:00 PM EDT) HIV AB/AG Nonreactive Nonreactive [facility] Comment:HIV-1 p24 Ag and/or HIV-1/HIV-2 Ab not detected.A test result that is nonreactive does not exclude thepossibility of exposure to or infection with HIV-1 and/orHIV-2. Nonreactive results in this assay for individualswith prior exposure to HIV-1 and/or HIV-2 may be due toantigen and antibody levels that are below the limit ofdetection of this assay.[employer] HIV Ag/Ab Combo assay result andsupplemental assay results should be interpreted inconjunction with the patient's clinical presentation,history and other laboratory results. If the results areinconsistent with clinical evidence, additional testing issuggested to confirm the result. Blood Venous blood specimen / Unknown 08/02/2024 4:00 PM EDT 08/02/2024 5:36 PM EDT Stephanie Bernabe NP LAB BLOOD ORDERABLES Final Resul t [facility] [address] [place] [phone] * Pap Smear (12/21/2021) Pap Negative for intraephithelial lesion or malignancy Negative for intraephithelial lesion or malignancy, Other HPV Undetected Historical Provider HEALTH MAINTENANCE Final Result from Last 3 Months or Most Recently Relevant to Health Maintenance [facility] AD[place] Care Teams Documentation Consultant Relationship Specialty Start Date End Date Josefina Nelson MD [address] [place] [address] PCP - General Family Medicine 01/19/17
[2025-06-27 07:21] LABS: Bacterial Vaginosis PCR NEGATIVE (Negative); Candida Group PCR DETECTED (Not Detect); Candida glab krusei PCR NOT DETECTED (Not Detect); Trichomonas vaginalis PCR NOT DETECTED (Not Detect)
== END 2025-06-25 17:44 | disposition home or self-care (01) ==
LOC: HO.HHCLNP 17:43
PROVIDERS: Visit Provider Nurse Practitioner
DX: N89.8 Other specified noninflammatory disorders of vagina (principal)
CPT/HCPCS: 81515

== ENCOUNTER 2025-07-01 11:22 | Outpatient (REF) | payer MEDICAID, SELFPAY ==
[2025-07-02 13:31] LABS: Bacterial Vaginosis PCR NEGATIVE (Negative); CT PCR NOT DETECTED (Not Detect.); Candida Group PCR DETECTED (Not Detect); Candida glab krusei PCR NOT DETECTED (Not Detect); NG PCR NOT DETECTED (Not Detect.); Trichomonas vaginalis PCR NOT DETECTED (Not Detect)
== END 2025-07-01 11:23 | disposition home or self-care (01) ==
LOC: HO.HHCLNP 11:22
PROVIDERS: Visit Provider Family Medicine
DX: R05.9 Cough, unspecified (principal)
CPT/HCPCS: 81515; 87491; 87591

== ENCOUNTER 2025-07-31 11:50 | Outpatient (REF) | payer MEDICAID, SELFPAY ==
--- OUTSIDE RECORDS SUMMARY | 2025-07-30 15:40 | XMS_ITS | Encounter Summary ---
Author Organization [employer] Address [address] [facility] 7t [place] [address] Care Team Providers Care Independent Marketing Consultant Name Role Phone Josefina Nelson MD Primary Care Provider + Encounter Details Date Type Department Care Team (Late st Contact Info) Description 07/30/2025 3:40 PM EDT Office Visit [facility] [address] [place], [place] [phone] Josefina Nelson MD [address] [place] [address] Vaginal itching (Primary Dx); Type 2 diabetes mellitus with hyperglycemia, without long-term current use of insulin (HCC); Gastroesophageal reflux disease, unspecified whether esophagitis present; Vaginal discharge; Vaginal discomfort Social History Tobacco Use Types Packs/Day Years [...] is your housing situation today? I have mikaylaazul kaye 02/16/[address] you [...] Sign Reading Time Taken Comments Blood Pressure 132/77 07/30/2025 4:19 PM EDT Pulse 96 07/30/2025 4:19 PM EDT Temperature 37.1 C (98.8 F) 07/30/2025 4:19 PM EDT Respiratory Rate 24 07/30/2025 4:19 PM EDT Oxygen Saturation - - Inhaled Oxygen Concentration - - Weight 97.9 kg (215 lb 12.8 oz) 07/30/2025 4:19 PM EDT Height 158.1 cm (5' 2.25 ) 07/30/2025 4:19 PM ED T Body Mass Index 39.15 07/30/2025 4:19 PM EDT documented in this encounter Progress Notes * Josefina Nelson MD - 07/30/2025 3:40 PM EDT SUBJECTIVE: Radha Romo is a 40 y.o. year old female who presents for Walk In Center/yeast infection. Denies recent illness, injury, or hospitalization. Acute Concerns: Co foul smell clear/white vaginal discharge, very pruriginous x 3w on/off. No fever. Of epigastric pain and postprandial nausea on and off for 1 month. No diarrhea, fever Social History Social History Narrative Not on file Problem List[1] Family History[2] Review of Systems Constitutional: Negative for chills, fatigue and fever. HENT: Negative for congestion, ear pain, nosebleeds, rhinorrhea, sinus pressure, sore throat and trouble swallowing. Eyes: Negative for pain and discharge. Respiratory: Negative for cough, chest tightness and shortness of breath. Cardiovascular: Negative for chest pain, palpitations and leg swelling. Gastrointestinal: Positive for abdominal pain. Negative for blood in stool, constipation, diarrhea and nausea. Endocrine: Negative for polydipsia and polyuria. Genitourinary: Positive for vaginal discharge and vaginal pain (and itchiness). Negative for dysuria, frequency, genital sores and pelvic pain. Musculoskeletal: Negative for back pain and neck pain. Skin: Negative for rash. Allergic/Immunologic: Negative for environmental allergies. Neurological: Negative for dizziness, seizures, weakness, light-headedness and headaches. Hematological: Negative for adenopathy. Psychiatric/Behavioral: Negative for agitation, behavioral problems, self-injury and suicidal ideas. OBJECTIVE: Vitals: 07/30/25 1619 BP: 132/77 Pulse: 96 Resp: 24 Temp: 98.8 ??F (37.1 ??C) Physical Exam HENT: Right Ear: Tympanic membrane and ear canal normal. Left Ear: Tympanic membrane and ear canal normal. Mouth/Throat: Mouth: Mucous membranes are moist. Pharynx: No oropharyngeal exudate or posterior oropharyngeal erythema. Eyes: Pupils: Pupils are equal, round, and reactive to light. Cardiovascular: Rate and Rhythm: Regular rhythm. Pulses: Normal pulses. Heart sounds: Normal heart sounds. No murmur heard. Pulmonary: Breath sounds: Normal breath sounds. Abdominal: General: Bowel sounds are normal. Palpations: Abdomen is soft. Tenderness: There is no abdominal tenderness. Musculoskeletal: General: Normal range of motion. Cervical back: Neck supple. Skin: General: Skin is warm. Neurological: General: No focal deficit present. Mental Status: She is alert and oriented to person, place, and time. Psychiatric: Mood and Affect: Mood normal. Behavior: Behavior normal. Office Visit on 07/30/2025 Component Date Value Ref Range Status Color, UA 07/30/2025 Yellow Final Clarity, UA 07/30/2025 Clear Final Glucose, UA 07/30/2025 4+ >500 Final >=1000 mg/dL Bilirubin, UA 07/30/2025 Negative Final Ketones, UA 07/30/2025 Negative Final Spec Grav, UA 07/30/2025 1.025 Final Blood, UA 07/30/2025 Negative Negative, None Detected Final pH, UA 07/30/2025 6.0 Final Protein, UA 07/30/2025 Negative Final Urobilinogen, UA 07/30/2025 0.2 Final Leukocytes, UA 07/30/2025 Negative Negative, Rare, Trace Final Nitrite, UA 07/30/2025 Negative Negative, None Detected Final Appearance, UA 07/30/2025 clear Final [employer] Lot # 07/30/2025 [id number] Final Lot# Expiration Date 07/30/2025 [id number] Final Glucose Blood, POC 07/30/2025 450 (A) 60 - 200 mg/dL Final Renetta james pt Pamela Is just billing [employer] Lot # 07/30/2025 [id number] Final [facility] Lot# Expiration Date 07/30/2025 10,025 Final When this blood sugar Problem List Items Addressed This Visit Vaginal itching - Primary Most likely vaginal candidiasis se c to uncontrolled DM. Rx fluconazole x 2 weeks and advised re tight control of DM Re consult prn if sxs continue after 4d Relevant Medications fluconazole (Diflucan) 150 MG tablet calcium carbonate (Tums) 500 MG chewable tablet Type 2 diabetes mellitus (HCC) Still uncontrolled, she will have 4 units of Humalog today DC Ozempic as it is not covered by insurance/PA was denied. I will Rx Mounjaro 2.5 mg, needs PA. Patient will greatly benefit from Mounjaro as it will also help with weight reduction, she is already on other p.o. medications and did not tolerate metformin due to GI intolerance. Follow-up with me as recommended Relevant Medications Tirzepatide (Mounjaro) 2.5 MG/0.5ML solution auto-injector Insulin Lispro solution 4 Units (Completed) Other Relevant Orders POCT glucose manually resulted (Completed) Gastroesophageal reflux disease Restart omeprazole and discussed about tight control of diabetes Use Tums AC meals for the next week Relevant Medications omeprazole (PriLOSEC) [address] capsule calcium carbonate (Tums) 500 MG chewable tablet Other Visit Diagnoses Vaginal discharge Relevant Medications calcium carbonate (Tums) 500 MG chewable tablet Other Relevant Orders POCT Urinalysis (Completed) Chlamydia/N. Gonorrhoeae RNA, TMA, Urogenitial Bacterial Vaginosis Vaginal discomfort Relevant Medications calcium carbonate (Tums) 500 MG chewable tablet Other Relevant Orders POCT Urinalysis (Completed) Follow Up: Medications Ordered Prior to Encounter[3] [1] Patient Active Problem List Diagnosis Primary hypertension Recurrent major depression in partial remission (CMS/HCC) Elevated blood pressure reading Epigastric pain Hip [...] (gastroesophageal reflux disease) Type 2 diabetes mellitus (HCC) Tarsal tunnel syndrome of left side [2] No family history on file. [3] Current Outpatient Medications on File Prior to Visit Medication Sig Dispense Refill Acetaminophen Extra Strength 500 MG tablet TAKE 1 TABLET BY MOUTH EVERY 6 TO 8 HOURS NEEDED FOR PAIN OR FEVER 120 tablet 0 albuterol (Ventolin HFA) 108 (90 Base) MCG/ACT inhaler INHALE 2 PUFFS BY MOUTH EVERY 4 HOURS NEEDED FOR WHEEZING OR SHORTNESS OF BREATH 18 g 2 baclofen (Lioresal) 10 MG tablet TAKE 1 TABLET BY MOUTH THREE TIMES DAILY IN THE MORNING, AT NOON, AND AT BEDTIME NEEDED FOR MUSCLE SPASMS 60 tablet 1 Blood Pressure kit 1 each 2 times daily. 1 kit 0 cetirizine (ZyrTEC) 10 MG tablet Take 1 tablet (10 mg) by mouth in the morning. 90 tablet 3 clotrimazole (Lotrimin) 1 % vaginal cream Insert one applicator per vagina at bedtime for 7 nights 45 g 0 Diclofenac Sodium 1 % gel Apply 2 g topically if needed in the morning, at noon, in the evening, and at bedtime (pain). 150 g 3 dicyclomine (Bentyl) 20 MG tablet Take 1 tablet by mouth if needed in the morning, at noon, in the evening, and at bedtime. Abdominal pain Emollient (Moisturizing Creme) cream use topically to affected area 4x/day prn ergocalciferol (Vitamin D2) 1.25 MG (33192 UT) capsule TAKE 1 CAPSULE BY MOUTH ONCE A WEEK 12 capsule 1 ferrous sulfate (FeroSul) 325 (65 Fe) MG tablet Take 1 tablet (325 mg) by mouth 2 times daily. 180 tablet 0 fluticasone (Flonase) 50 MCG/ACT nasal spray Use 1 spray each nostril daily. Shake gently. Before first use, prime pump. After use, clean tip and replace cap. 16 g 2 FREESTYLE LITE test strip USE 1 PARA TEST BLOOD SUGAR EVERY DAY 50 strip 5 gabapentin (Neurontin) 300 MG capsule TAKE 1 CAPSULE BY MOUTH THREE TIMES DAILY 90 capsule 3 hydrocortisone 2.5 % cream Apply pea sized amount to skin bid for 1 week 15 g 0 lidocaine (Lidoderm) 5 % patch Apply 1 patch topically Once per day. Remove & discard patch within 12 hours or as directed by MD. 30 patch 2 lisinopril 5 MG tablet Take 1 tablet (5 mg) by mouth Once per day. 30 tablet 11 naproxen (Naprosyn) 500 MG tablet TAKE 1 TABLET BY MOUTH TWICE DAILY IN THE MORNING AND AT BEDTIME NEEDED FOR MILD PAIN 30 tablet 1 pioglitazone (Actos) 45 MG tablet Take 1 tablet (45 mg) by mouth Once per day. 30 tablet 11 pramipexole (Mirapex) 0.75 MG tablet Take 1 tablet (0.75 mg) by mouth at bedtime. 30 tablet 11 traZODone (Desyrel) 50 MG tablet TAKE 1 OR 2 TABLETS BY MOUTH AT BEDTIME NEEDED FOR SLEEP 60 tablet 0 TRUEplus Lancets 33G misc TEST BLOOD SUGAR EVERY DAY [DISCONTINUED] fluconazole (Diflucan) 150 MG tablet Take one tablet today 1 tablet 0 [DISCONTINUED] naproxen (Naprosyn) 500 MG tablet TAKE 1 TABLET BY MOUTH TWICE DAILY IN THE MORNING AND AT BEDTIME NEEDED FOR MILD PAIN 30 tablet 1 [DISCONTINUED] omeprazole (PriLOSEC) [address] capsule TAKE 1 CAPSULE BY MOUTH EVERY DAY BEFORE BREAKFAST. DO NOT BREAK, CRUSH, DISSOLVE OR CHEW. 90 capsule 1 [DISCONTINUED] Semaglutide,0.25 or 0.5MG/DOS, (Ozempic, 0.25 or 0.5 MG/DOSE,) 2 MG/3ML solution pen-injector Inject 0.25 mg under the skin 1 (one) time per week. 2 mL 2 No current facility-administered medications on file prior to visit. documented in this encounter Miscellaneous Notes * Assessment & Plan Note - Josefina Nelson MD - 07/30/2025 4:46 PM EDT Associated Problem(s): Vaginal itching Most likely vaginal candidiasis se c to uncontrolled DM. Rx fluconazole x 2 weeks and advised re tight control of DM Re consult prn if sxs continue after 4d * Assessment & Plan Note - Josefina Nelson MD - 07/30/2025 4:45 PM EDT Associated Problem(s): Gastroesophageal reflux disease Restart omeprazole and discussed about tight control of diabetes Use Tums AC meals for the next week * Assessment & Plan Note - Josefina Nelson MD - 07/30/2025 4:44 PM EDT Associated Problem(s): Type 2 diabetes mellitus (HCC) Still uncontrolled, she will have 4 units of Humalog today DC Ozempic as it is not covered by insurance/PA was denied. I will Rx Mounjaro 2.5 mg, needs PA. Patient will greatly benefit from Mounjaro as it will also help with weight reduction, she is already on other p.o. medications and did not tolerate metformin due to GI intolerance. Follow-up with me as recommended documented in this encounter Plan of Treatment Upcoming Encounters Date Type Department Care Team (Late st Contact Info) Description 09/18/2025 12:00 PM EST Office Visit [facility] [address] [place] [address] Josefina Nelson MD [address] [place] [address] 12/10/2025 3:00 PM EST Office Visit [facility] [address] [place] [address] Amauri, Oralia [address] [place] [address] Scheduled Orders Name Type Priority Associated Diagnoses Orde r Schedule Chlamydia/N. Gonorrhoeae RNA, TMA, Urogenitial Microbiology Routine Vaginal discharge Ordered: 07/30/2025 Bacterial Vaginosis Microbiology Routine Vaginal discharge Expected: 07/30/2025 (Approximate), Expires: 07/30/2026 documented as of this encounter Procedures Procedure Name Priority Date/Time Associated Diagnosis Comments POCT GLUCOSE Routine 07/30/2025 5:03 PM EDT Type 2 diabetes mellitus with hyperglycemia, without long-term current use of insulin (HCC) POCT URINALYSIS DIPSTICK Routine 07/30/2025 4:22 PM EDT Vaginal discomfort Vaginal discharge documented in this encounter Results * (ABNORMAL) POCT glucose manually resulted (07/30/2025 5:03 PM EDT) Glucose Blood, POC 450(A) 60 - 200 mg/dL Comment:Renetta james pt Jordana bernal Is just billing [employer] Lot # [id number] Comment:[facility] Lot# Expiration Date Blood Capillary blood specimen / Unknown 07/30/2025 5:03 PM EDT Josefina Nelson MD POINT OF CARE TEST ENTER /EDIT ORDERABLES Final Result * POCT Urinalysis (07/30/2025 4:22 PM EDT) Color, UA Yellow Clarity, UA Clear Glucose, UA 4+ >500 Comment:>=1000 mg/dL Bilirubin, UA Negative Ketones, UA Negative Spec Grav, UA 1.025 Blood, UA Negative Negative, None Detected pH, UA 6.0 Protein, UA Negative Urobilinogen, UA 0.2 Leukocytes, UA Negative Negative, Rare, Trace Nitrite, UA Negative Negative, None Detected Appearance, UA clear [employer] Lot # [id number] Lot# Expiration Date [id number] Urine 07/30/2025 4:22 PM EDT Josefina Nelson MD POINT OF CARE TEST ENTER /EDIT ORDERABLES Final Result documented in this encounter Visit Diagnoses Diagnosis Vaginal itching- Primary Pruritus of genital organs Type 2 diabetes mellitus with hyperglycemia, without long-term current use of insulin (HCC) Gastroesophageal reflux disease, unspecified whether esophagitis present Vaginal discharge Leukorrhea, not specified as infective Vaginal discomfort documented in this encounter Administered Medications Inactive Administered Medications - up to 3 most recent administrations Medication Order MAR Action Action Date Dose Rate Site Insulin Lispro solution 4 Units 4 Units, Subcutaneous, Once, On Mon07/30/25 at 1645, For 1 doseIndications:Type 2 diabetes mellitus with hyperglycemia, without long-term current use of insulin (HCC) Given 07/30/2025 4:45 PM EDT 4 Units Right Upper Arm (Back) documented in this encounter Additional Health Concerns Assessment Noted Time PHQ-9 Depression Total Score: 0 03/13/20 25 10:38 AM EDT documented as of this encounter Care Teams Independent Marketing Consultant Relationship Specialty Start Date End Date Josefina Nelson MD [address] [place] [id number] PCP - General Family Medicine 01/19/17 documented as of this encounter
--- OUTSIDE RECORDS SUMMARY | 2025-07-31 13:35 | XMS_ITS | Encounter Summary ---
Author Organization [employer] [facility] Address [address] [facility] 7t [place] [address] Care Team Providers Care Sales Broker Name Role Phone Josefina Nelson MD Primary Care Provider + Encounter Details Date Type Department Care Team (Latest Contact Info) Description 07/21/2021 Abstract [facility], Provider, DDS Social History Tobacco [...] Description 09/18/2025 12:00 PM EST Office Visit [facility] [address] [place] [address] Josefina Nelson MD [address] [place] [address] 12/10/2025 3:00 PM EST Office Visit [facility] [address] [place] [address] Oralia Baugh [address] [place] [address] documented as of this encounter Visit Diagnoses Not on filedocumented in this encounter Care Teams Sales Broker Relationship Specialty Start Date End Date Josefina Nelson MD [address] [place] [address] PCP - General Family Medicine 01/19/17 documented as of this encounter
--- OUTSIDE RECORDS SUMMARY | 2025-07-31 13:35 | XMS_ITS | Encounter Summary ---
Author Organization [email or web address] Address [address] [facility] [address] 7t [place] [address] Care Team Providers Care Disaster Recovery Analyst Name Role Phone Josefina Nelson MD Primary Care Provider + Reason for Visit * Reason Comments Med Refill Encounter Details Date Type Department Care Team ([facility] st Contact Info) Description 07/26/2025 Refill [facility] [address] [place], [place] [phone] Josefina Nelson MD [address] [place], [place] [phone] Social History Tobacco Use Types Packs/Day Years [...] Description 09/18/2025 12:00 PM EST Office Visit [facility] [address] [place] [address] Josefina Nelson MD [address] [place] [address] 12/10/2025 3:00 PM EST Office Visit [facility] [address] [place] [address] Amauri, Oralia [address] [place] [address] documented as of this encounter Visit Diagnoses Not on filedocumented in this encounter Additional Health Concerns Assessment Noted Time PHQ-9 Depression Total Score: 0 03/13/20 25 10:38 AM EDT documented as of this encounter Care Teams Disaster Recovery Analyst Relationship Specialty Start Date End Date Josefina Nelson MD [address] [place] [address] PCP - General Family Medicine 01/19/17 documented as of this encounter
--- OUTSIDE RECORDS SUMMARY | 2025-07-31 13:35 | XMS_ITS | Encounter Summary ---
Author Organization [employer] Address [address] [facility] 7t [place] [address] Care Team Providers Care Pharmacy Technician Assistant Name Role Phone Josefina Nelson MD Primary Care Provider + Reason for Visit * Reason Comments Med Refill Encounter Details Date Type Department Care Team ([facility] st Contact Info) Description 03/29/2024 Refill [facility] [address] [place], [place] [phone] Josefina Nelson MD [address] [place], [place] [phone] Nonintractable headache, unspecified chronicity pattern, unspecified headache [...] Description 09/18/2025 12:00 PM EST Office Visit [facility] [address] [place] [address] Josefina Nelson MD [address] [place] [address] 12/10/2025 3:00 PM EST Office Visit [facility] [address] [place] [address] AmauriKennedyOralia [address] [place] [address] documented as of this encounter Visit Diagnoses Diagnosis Nonintractable headache, unspecified chronicity pattern, unspecified headache type documented in this encounter Care Teams Pharmacy Technician Assistant Relationship Specialty Start Date End Date Josefina Nelson MD [address] [place] [phone] PCP - General Family Medicine 01/19/17 documented as of this encounter
--- OUTSIDE RECORDS SUMMARY | 2025-07-31 13:35 | XMS_ITS | Encounter Summary ---
Author Organization [facility] Address [address] [facility] 7t [place] [address] Care Team Providers Care Master Pilot Name Role Phone Josefina Nelson MD Primary Care Provider + Encounter Details Date Type Department Care Team (Late Contact Info) Description 10/12/2022 Orders Only [facility] [address] [place], [place] [phone] Reyna Moya LPN Social History Tobacco Use [...] Department Care Team (Late Contact Info) Description 09/18/2025 12:00 PM EST Office Visit [facility] [address] [place] [address] Josefina Nelson MD [address] [place] [address] 12/10/2025 3:00 PM EST Office Visit [facility] [address] [place] [address] Oralia Baugh [address] [place] [address] documented as of this encounter Procedures Procedure Name Priority Date/Time Associated Diagnosis Comments SARS COV2/INFLUENZA A/B AND RSV RNA QL NAAT Routine 10/23/2022 2:46 PM EST documented in this encounter Results * SARS-CoV-2 RNA, Influenza A/B, and RSV RNA, Ql NAAT (10/23/2022 2:46 PM EST) Influenza A PCR NEGATIVE Negative [facility] Influenza B PCR NEGATIVE Negative [facility] Resp Syncy Virus RNA Qual PCR NEGATIVE Negative [facility] SARS COV2 PCR NEGATIVE Negative [facility] SARS/Flu/RSV Note See Note [facility] Comment:All test results mus t be [...] use by authorized laboratories.Testing performed on the [employer] GeneXpert utilizingreal-time RT-PCR.All SARS CoV2 and positive influenza A/B results arereported to [facility]. 10/23/2022 2:46 PM EST 10/23/2022 2:55 PM EST us [facility] Exter nal Provider LAB MICROBIOLOGY - GENERAL ORDERABLES Final Result [facility] [address] [place] [address] [phone] documented in this encounter Visit Diagnoses Not on filedocumented in this encounter Care Teams Master Pilot Relationship Specialty Start Date End Date Josefina Nelson MD [address] [place] [phone] PCP - General Family Medicine 01/19/17 documented as of this encounter
--- OUTSIDE RECORDS SUMMARY | 2025-07-31 13:35 | XMS_ITS | Encounter Summary ---
Author Organization [employer] Address [address] [facility] [address] [place] [address] Care Team Providers Care Muck Boss Name Role Phone Josefina Nelson MD Primary Care Provider + Reason for Visit * Reason Comments Med Refill Encounter Details Date Type Department Care Team ([facility] st Contact Info) Description 07/31/2025 Refill [facility] [address] [place], [place] [phone] Josefina Nelson MD [address] [place], [place] [phone] Social History Tobacco Use Types Packs/Day Years [...] Description 09/18/2025 12:00 PM EST Office Visit [facility] [address] [place] [address] Josefina Nelson MD [address] [place] [address] 12/10/2025 3:00 PM EST Office Visit [facility] [address] [place] [address] Amauri, Oralia [address] [place] [address] documented as of this encounter Visit Diagnoses Not on filedocumented in this encounter Additional Health Concerns Assessment Noted Time PHQ-9 Depression Total Score: 0 03/13/20 25 10:38 AM EDT documented as of this encounter Care Teams Muck Boss Relationship Specialty Start Date End Date Josefina Nelson MD [address] [place] [address] PCP - General Family Medicine 01/19/17 documented as of this encounter
--- OUTSIDE RECORDS SUMMARY | 2025-07-31 13:35 | XMS_ITS | Encounter Summary ---
Author Organization [employer] Address [address] [facility] 7t [place] [address] Care Team Providers Care Rehab Therapy Manager Name Role Phone Josefina Nelson MD Primary Care Provider + Reason for Visit * Reason Comments Med Refill Encounter Details Date Type Department Care Team ([facility] st Contact Info) Description 04/07/2024 Refill [facility] [address] [place], [place] [phone] Josefina Nelson MD [address] [place], [place] [phone] Cough, unspecified type Social History Tobacco Use [...] Description 09/18/2025 12:00 PM EST Office Visit [facility] [address] [place] [address] Josefina Nelson MD [address] [place] [address] 12/10/2025 3:00 PM EST Office Visit [facility] [address] [place] [address] Amauri, Oralia [address] [place] [address] documented as of this encounter Visit Diagnoses Diagnosis Cough, unspecified type documented in this encounter Care Teams Rehab Therapy Manager Relationship Specialty Start Date End Date Josefina Nelson MD [address] [place] [phone] PCP - General Family Medicine 01/19/17 documented as of this encounter
--- OUTSIDE RECORDS SUMMARY | 2025-07-31 13:35 | XMS_ITS | Encounter Summary ---
Author Organization [facility] Address [address] [facility] [address] [place] [address] Care Team Providers Care It Sales Executive Name Role Phone Josefina Nelson MD Primary Care Provider + Encounter Details Date Type Department Care Team (Late Contact Info) Description 08/02/2023 Abstract [facility] [address] [place] [address] Yoko Lundy Social History Tobacco Use Types [...] 09/18/2025 12:00 PM EST Office Visit [facility] [address] [place] [address] Josefina Nelson MD [address] [place] [address] 12/10/2025 3:00 PM EST Office Visit [facility] [address] [place] [address] Oralia Baugh [address] [place] [address] documented as of this encounter Procedures Procedure Name Priority Date/Time Associated Diagnosis Comments PAP/HPV Routine 12/21/2021 documented in this encounter Results * Pap Smear (12/21/2021) Pap Negative for intraephithelial lesion or malignancy Negative for intraephithelial lesion or malignancy, Other HPV Undetected Historical Provider [facility] Final Result documented in this encounter Visit Diagnoses Not on filedocumented in this encounter Care Teams It Sales Executive Relationship Specialty Start Date End Date Josefina Nelson MD [address] [place] [id number] PCP - General Family Medicine 01/19/17 documented as of this encounter
--- OUTSIDE RECORDS SUMMARY | 2025-07-31 13:35 | XMS_ITS | Encounter Summary ---
Author Organization [facility] Address [address] [facility] [address] [place] [address] Care Team Providers Care Electrical And Instrument Engineer Name Role Phone Josefina Nelson MD Primary Care Provider + Encounter Details Date Type Department Care Team (Latest Contact Info) Description 06/09/2022 Abstract [facility] Dental, Provider, DDS Social History [...] Description 09/18/2025 12:00 PM EST Office Visit [facility] [address] [place] [address] Josefina Nelson MD [address] [place] [address] 12/10/2025 3:00 PM EST Office Visit [facility] [address] [place] [address] Oralia Baugh [address] [place] [address] documented as of this encounter Visit Diagnoses Not on filedocumented in this encounter Care Teams Electrical And Instrument Engineer Relationship Specialty Start Date End Date Josefina Nelson MD [address] [place] [address] PCP - General Family Medicine 01/19/17 documented as of this encounter
--- OUTSIDE RECORDS SUMMARY | 2025-07-31 13:36 | XMS_ITS | Encounter Summary ---
Author Organization [employer] Address [address] [facility] [address] [place] [address] Care Team Providers Care Manager Zone Name Role Phone Josefina Nelson MD Primary Care Provider + Reason for Visit * Reason Comments Med Refill Encounter Details Date Type Department Care Team ([facility] st Contact Info) Description 01/11/2025 Refill [facility] [address] [place], [place] [phone] Josefina Nelson MD [address] [place] [address] Social History Tobacco Use Types Packs/Day Years [...] 12:00 PM EST Office Visit [facility] [address] [place] [address] Josefina Nelson MD [address] [place] [address] 12/10/2025 3:00 PM EST Office Visit [facility] [address] [place] [address] Amauri, Oralia [address] [place] [address] documented as of this encounter Visit Diagnoses Not on filedocumented in this encounter Additional Health Concerns Assessment Noted Time PHQ-9 Depression Total Score: 7 05/27/20 24 3:24 PM EDT documented as of this encounter Care Teams Manager Zone Relationship Specialty Start Date End Date Josefina Nelson MD [address] [place] [address] PCP - General Family Medicine 01/19/17 documented as of this encounter
--- OUTSIDE RECORDS SUMMARY | 2025-07-31 13:36 | XMS_ITS | Encounter Summary ---
Author Organization [employer] Address [address] [facility] [address] [place] [address] Care Team Providers Care Mural Artist Name Role Phone Josefina Nelson MD Primary Care Provider + Encounter Details Date Type Department Care Team (Late Contact Info) Description 12/12/2022 Abstract [facility] [address] [place] [address] Natan Mcneil DDS [address] [place], [place] [phone] Social History Tobacco Use Types Packs/Day Years [...] Description 09/18/2025 12:00 PM EST Office Visit [facility] [address] [place] [address] Josefina Nelson MD [address] [place] [address] 12/10/2025 3:00 PM EST Office Visit [facility] [address] [place], [place] [phone] Oralia Baugh [address] [place], [place] [phone] documented as of this encounter Visit Diagnoses Not on filedocumented in this encounter Care Teams Mural Artist Relationship Specialty Start Date End Date Josefina Nelson MD [address] [place] [address] PCP - General Family Medicine 01/19/17 documented as of this encounter
--- OUTSIDE RECORDS SUMMARY | 2025-07-31 13:36 | XMS_ITS | Clinical Summary ---
Author Organization [employer] Address [address] [place] [address] Care Team Providers Care Managed Services Sales Consultant Name Role Phone Josefina Nelson MD [...] complication, without long-term current use of insulin (HCC) USE 1 PARA TEST BLOOD SUGAR EVERY DAY 50 strip 5 08/31/20 23 Active ferrous sulfate (FeroSul) 325 (65 Fe) MG tablet Take 1 tablet (325 mg) by mouth 2 times daily. 180 tablet 02/22/20 24 Active hydrocortisone 2.5 % cream Apply pea sized amount to skin bid for 1 week 15 g 09/24/20 24 Active Acetaminophen Extra Strength 500 MG tabletIndicati ons:Nasal congestion TAKE 1 TABLET BY MOUTH EVERY 6 TO 8 HOURS NEEDED FOR PAIN OR FEVER 120 tablet 10/28/20 24 Active pioglitazone (Actos) 45 MG tablet Take 1 tablet (45 mg) by mouth Once per day. 30 tablet 11 10/28/20 24 025 Active ergocalciferol (Vitamin D2) 1.25 MG (81837 UT) capsule TAKE 1 CAPSULE BY MOUTH [...] 30 tablet 11 01/21/20 25 026 Active baclofen (Lioresal) 10 MG tablet TAKE 1 TABLET BY MOUTH THREE TIMES DAILY IN THE MORNING, AT NOON, AND AT BEDTIME NEEDED FOR MUSCLE SPASMS 60 tablet 1 06/05/20 25 Active lidocaine (Lidoderm) 5 % patch Apply 1 patch topically Once per day. Remove & discard patch within 12 hours or as directed by MD. 30 patch 2 06/10/20 25 026 Active Blood Pressure kit 1 each 2 times daily. 1 kit 06/10/20 25 026 Active gabapentin (Neurontin) 300 MG capsule TAKE 1 CAPSULE BY MOUTH THREE TIMES DAILY 90 capsule 3 06/16/20 25 Active clotrimazole (Lotrimin) 1 % vaginal creamIndicatio ns:Vulvovagina l Candidiasis Insert one applicator per vagina at bedtime for 7 nights 45 g 07/01/20 25 Active fluticasone (Flonase) 50 MCG/ACT nasal sprayIndicatio ns:Allergic rhinitis, unspecified seasonality, unspecified trigger Use 1 spray each nostril daily. Shake gently. Before first use, prime pump. After use, clean tip and replace cap. 16 g 2 07/01/20 25 Active lisinopril 5 MG tablet Take 1 tablet (5 mg) by mouth Once per day. 30 tablet 11 07/03/20 25 026 Active naproxen (Naprosyn) 500 MG tablet TAKE 1 TABLET BY MOUTH TWICE DAILY IN THE MORNING AND AT BEDTIME NEEDED FOR MILD PAIN 30 tablet 1 07/28/20 25 Active fluconazole (Diflucan) 150 MG tabletIndicati ons:Vaginal itching Take one tablet today and 1 tablet PO in 1w 2 tablet 07/30/20 25 Active omeprazole (PriLOSEC) [address] capsuleIndicat ions:Gastroeso phageal reflux disease, unspecified whether esophagitis present Take 1 capsule (20 mg) by mouth before breakfast. Do not crush or chew. 90 capsule 3 07/30/20 25 Active Tirzepatide (Mounjaro) 2.5 MG/0.5ML solution auto-injector Inject 2.5 mg under the skin 1 (one) time per week. 2 mL 3 07/30/20 25 Active calcium carbonate (Tums) 500 MG chewable tablet Chew 1 tablet (500 mg) if needed in the morning, at noon, and at bedtime for indigestion or heartburn for up to 10 days. 30 tablet 07/30/20 25 025 Active SITagliptin (Januvia) 100 MG tablet Take 1 tablet (100 mg) by mouth Once per day. 30 tablet 11 08/19/20 24 025 Discontinued(T herapy completed) diphenhydrAMIN E (BENADryl) 25 MG tablet Take 1 tablet (25 mg) by mouth if needed at bedtime for itching or allergies for up to 7 days. 7 tablet 10/28/20 24 025 Discontinued(T herapy completed) omeprazole (PriLOSEC) [address] capsuleIndicat ions:Gastroeso phageal reflux disease, unspecified whether esophagitis present TAKE 1 CAPSULE BY MOUTH EVERY DAY BEFORE BREAKFAST. DO NOT BREAK, CRUSH, DISSOLVE OR CHEW. 90 capsule 1 05/28/20 25 025 Discontinued(R eorder (will not trigger notification to Pharmacy)) naproxen (Naprosyn) 500 MG tablet TAKE 1 TABLET BY MOUTH TWICE DAILY IN THE MORNING AND AT BEDTIME NEEDED FOR MILD PAIN 30 tablet 1 06/02/20 25 025 Discontinued fluticasone (Flonase) 50 MCG/ACT nasal spray Administer 1 spray into each nostril Once per day. 16 g 3 06/10/20 25 025 Discontinued(T herapy completed) fluconazole (Diflucan) 150 MG tabletIndicati ons:Vaginal itching Take one tablet today 1 tablet 06/25/20 25 025 Discontinued(R eorder (will not trigger notification to Pharmacy)) Semaglutide,0. 25 or 0.5MG/DOS, (Ozempic, 0.25 or 0.5 MG/DOSE,) 2 MG/3ML solution pen-injector Inject 0.25 mg under the skin 1 (one) time per week. 2 mL 2 07/03/20 025 Discontinued(F ormulary change) Hospital, Clinic, or Other Facility Administered Medication Ordered Dose Route Frequency Start Date End Date Status Insulin Lispro solution 4 UnitsIndications:Type 2 diabetes mellitus without complication, without long-term current use of insulin (HCC) 4 Units SC Once 07/03/2025 07/03/2025 Ended Insulin Lispro solution 4 UnitsIndications:Type 2 diabetes mellitus with hyperglycemia, without long-term current use of insulin (HCC) 4 Units SC Once 07/30/2025 07/30/2025 Ended Active Problems Problem Noted Date Diagnosed Date Tarsal tunnel syndrome of left side 07/03/2025 Assessment & Plan (07/22/2025 2:55 PM EDT): Awaiting orthopedic appointment in [address] Abreu). Advised regarding tight control of diabetes in order to decrease DM neuropathy Advised to use cane for ambulation on a as needed basis. Will consider CT scan for further evaluation of the tarsal tunnel area Abnormal uterine bleeding 05/28/2025 Overview (05/28/2025): With [...] Gastroesophageal reflux disease 10/28/2024 Assessment & Plan (07/30/2025 4:45 PM EDT): Restart omeprazole and discussed about tight control of diabetes Use Tums AC meals for the next week Assessment & Plan (10/28/2024 4:43 PM EST): Not improved with Sucralfate Rx Omeprazole, advised to take it prn only due to potential vitamin deficiencies with assisted use. 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 She doesn't have any increased risk for TB at this time, will order T-spot as requested by employer. Order IZ titers, will complete other IZs at next appt once URI is resolved. Hepatitis C virus 09/25/2024 Type 2 diabetes mellitus 09/25/2024 Assessment & Plan (07/30/2025 4:44 PM EDT): Still uncontrolled, she will have 4 units [...] GI intolerance. Follow-up with me as recommended Assessment & Plan (07/22/2025 2:58 PM EDT): Uncontrolled, she did not tolerate metformin due to persistent diarrhea and does not want Inject daily insulin. She got 4u lispro today. I will add Ozempic once per week and continue Actos, it will also help with weight loss given that she did not tolerate metformin (diarrhea). Will continue Januvia for now until Ozempic is approved. Follow-up with me in 6 weeks Counseled re more frequent low calorie/carb meals. Check fgstk 2x daily Encouraged physical activity as tolerated. Candidiasis of female genitalia 08/19/2024 Assessment & [...] evaluation Vaginal itching 08/02/2024 Assessment & Plan (07/30/2025 4:46 PM EDT): Most likely vaginal candidiasis se c to uncontrolled DM. Rx fluconazole x 2 weeks and advised re tight control of DM Re consult prn if sxs continue after 4d Assessment & Plan (10/28/2024 4:32 PM EST): [...] me, patient wants to fu with another [employer], not at [facility]. I will obtain [employer] records Use tylenol prn pain, keep sxs [...] at home at this time. Use trazodone q insomnia refer to Alcohol use disorder 04/03/2023 [...] to GI FU in 3 months with me Hip pain 12/05/2022 Primary osteoarthritis of left knee 12/05/2022 Recurrent candidiasis of vagina 12/05/2022 Superficial varicosities 12/05/2022 Vitamin D deficiency 12/05/2022 Assessment & Plan (05/28/2024 10:33 AM EDT): Check Vit D levels. Primary hypertension 10/12/2022 Assessment & Plan (07/22/2025 2:13 PM EDT): Stage one, new diagnosis. Will start low-dose lisinopril which should also help with renovascular protection from DM. Counseled re low salt diet/increase moderate physical activity. Check home BP BIW and prn CP/MOREIRA/HANKINS Non smoking patient. Follow-up with me in 4 to 6 weeks Acquired skin tag 10/04/2018 Assessment & Plan [...] 12/13/2022 Suspected COVID-19 virus infection 12/05/2022 12/13/2022 Type 2 diabetes mellitus without complication 10/12/20 22 07/03/2025 Assessment & Plan (03/14/2025 11:44 AM EDT): [...] calorie/carb meals. Encouraged physical activity as tolerated. Superficial burn of finger 01/29/2019 0 12/13/2022 Encounters Date Type Department Care Team Description 07/31/2025 Refill [facility] [address] [place] [phone] Josefina Nelson MD 07/30/2025 3:40 PM EDT [facility] [address] [address] Josefina Nelson MD Vaginal itching (Primary Dx); Type 2 diabetes mellitus with hyperglycemia, without long-term current use of insulin ([facility]); Gastroesophageal reflux disease, unspecified whether esophagitis present; Vaginal discharge; Vaginal discomfort 07/26/2025 Refill [facility] [address] [address] Josefina Nelson MD 07/16/[address] [address] Josefina Nelson MD Prior Auth Prescription; Prior Authorization (MH: Hermelindoempic) 07/03/2025 12:00 PM EDT Office Visit [address] [address] Josefina Nelson MD Type 2 diabetes mellitus without complication, without long-term current use of insulin ([facility]/HCC) (Primary Dx); Tarsal tunnel syndrome of left side; Primary hypertension 07/03/2025 Travel 07/02/[address] [address] Josefina Nelson MD chart prep 07/01/2025 6:20 PM EDT Office Visit [facility] [address] [address] Martir Callejas MD Vaginal candidiasis (Primary Dx); Allergic rhinitis, unspecified seasonality, unspecified trigger 07/01/2025 Travel 06/27/2025 Results Follow-Up [facility] [address] [place] [phone] Amada Kaminski NP Bacterial Vaginosis 06/25/2025 6:00 PM EDT Office Visit [facility] [address] [place] [phone] Amada Kaminski, GERARDO Type 2 diabetes mellitus without complication, without long-term current use of insulin ([facility]) (Primary Dx); Vaginal discharge; Vaginal itching 06/25/2025 Orders Only [facility] [address] [place] [phone] Amada Kaminski, GERARDO 06/25/2025 Travel 06/15/2025 Refill [facility] [address] [place] [address] Jacklyn Lindsay, 06/11/2025 Results Follow-Up [facility] [address] [address] Erick Abreu MD Bacterial Vaginosis 06/10/2025 11:00 AM EDT Office Visit [facility] [address] [address] Erick Abreu MD Influenza-like symptoms (Primary Dx); Chronic pain of left knee; UTI symptoms; Benign hypertension; Acute cough 06/10/2025 Orders Only [facility] [address] [place] [phone] Erick Abreu MD 06/10/2025 Travel 06/05/2025 Refill [facility] [address] [address] Jacklyn Lindsay, 05/31/2025 Refill [facility] [address] [address] Jacklyn Lindsay, 05/28/2025 11:30 AM EDT Office Visit [facility] [address] [place] [phone] Kenzie Collins, DDS Acute gingival inflammation (Primary Dx) 05/27/[address] [address] Josefina Nelson MD Gastroesophageal reflux disease, unspecified whether esophagitis present 05/26/[address] [address] Josefina Nelson MD Change PCP; TRANSFER REQUEST from Last 3 Months Immunizations Immunization Administration [...] is your housing situation today? I have imkaylaazul kaye 02/16/[address] you [...] 24 07/30/2025 4:19 PM EDT Oxygen Saturation 98% 07/01/2025 7:30 PM EDT Inhaled Oxygen Concentration - - Weight 97.9 kg (215 lb 12.8 oz) 07/30/2025 4:19 PM EDT Height 158.1 cm (5' 2.25 ) 07/30/2025 4:19 PM ED T Body Mass Index 39.15 07/30/2025 4:19 PM EDT Plan of Treatment Upcoming Encounters Date Type Department Care Team (Late st Contact Info) Description 09/18/2025 12:00 PM EST Office Visit [facility] [address] [place] [address] Josefina Nelson MD [address] [place] [address] 12/10/2025 3:00 PM EST Office Visit [facility] [address] [place] [address] Oralia Baugh [address] [place] [address] Health Maintenance Due Date Last Done Comments Dental Oral Exam 1985 Dental Prophylaxis 1985 Dental X-Ray: Bitewings 1985 Eye Exam 1995 Alcohol/Substance Use Screening 1997 Family Planning (PISQ) 02/18/2000 HPV Vaccines (1 - 3-dose series) 02/18/2000 Pneumococcal Vaccine: Pediatrics (0 to 5 Years) and At-Risk Patients (6 to 49) Years (1 of 2 - PCV) 02/18/2004 SDOH Screening 02/15/2025 02/16/2024 Mammogram 2025 Hepatitis B Vaccines (2 of 3 - 19+ 3-dose series) 04/10/2025 03/13/2025 COVID-19 Vaccine (4 - 2025-26 season) 2025 11/24/2021, 04/01/2021, 03/04/2021 Influenza Vaccine (#1) 2025 07/21/2022, 2020 Diabetes: Foot Exam 08/19/2025 08/19/2024, 08/19/2024, 08/19/2024, Additional history exists Hepatitis A Vaccines (2 of 2 - Risk 2-dose series) 09/13/2025 03/13/2025 Diabetes: Hemoglobin A1C 10/02/2025 025, 03/13/2025, 10/28/2024, Additional history exists Diabetes: Urine Protein Screening 10/29/2025 10/29/2024, 04/28/2022 Lipid Panel 10/29/2025 10/29/2024, 10/01, 04/22/2022, Additional history exists Depression Screening 03/13/2026 03/13/2025, 03/13/20 25 Disability Screening 03/13/2026 03/13/2025 Tobacco Screening 07/01/2026 07/01/2025 Cervical Cancer Screening 12/21/2026 HPV/Cotest 12/21/2026 12/21/2021, [...] hyperglycemia, without long-term current use of insulin ([facility]) POCT URINALYSIS DIPSTICK Routine 07/30/2025 4:22 PM EDT Vaginal discomfort Vaginal discharge POCT GLYCATED HEMOGLOBIN, TOTAL Routine 07/03/2025 12:25 PM EDT Type 2 diabetes mellitus without complication, without long-term current use of insulin ([facility]) POCT GLUCOSE Routine 07/03/2025 12:09 PM EDT Type 2 diabetes mellitus without complication, without long-term current use of insulin ([facility]) POCT INFLUENZA A (ID NOW RAPID MOLECULAR) Routine 07/01/2025 6:43 PM EDT Allergic rhinitis, unspecified seasonality, unspecified trigger POCT RAPID STREP A Routine 07/01/2025 6: 43 PM EDT Allergic rhinitis, unspecified seasonality, unspecified trigger POCT INFLUENZA B (ID NOW RAPID MOLECULAR) Routine 07/01/2025 6:42 PM EDT Allergic rhinitis, unspecified seasonality, unspecified trigger POCT RAPID COVID ANTIGEN Routine 07/01/2025 6:38 PM EDT Allergic rhinitis, unspecified seasonality, unspecified trigger BACTERIAL VAGINOSIS PANEL Routine 07/01/2025 6:18 PM EDT Allergic rhinitis, unspecified seasonality, unspecified trigger CHLAMYDIA/N. GONORRHOEAE RNA, TMA, UROGENITAL Routine 07/01/2025 6:18 PM EDT Allergic rhinitis, unspecified seasonality, unspecified trigger BACTERIAL VAGINOSIS PANEL Routine 06/25/2025 6:30 PM EDT POCT URINALYSIS DIPSTICK Routine 06/25/2025 6:25 PM EDT Type 2 diabetes mellitus without complication, without long-term current use of insulin ([facility]) POCT INFLUENZA B (ID NOW RAPID MOLECULAR) [...] 05/28/2025 11:30 AM EDT Acute gingival inflammation ALBUMIN, RANDOM URINE W/CREATININE Routine 10/29/2024 10:04 AM EST Type 2 diabetes mellitus without complication, without long-term current use of insulin ([facility]) LIPID PANEL WITH REFLEX TO DIRECT LDL Routine 10/29/2024 10:04 AM EST Type 2 diabetes mellitus without complication, with long-term current use of insulin ([facility]) HIV 1/2 ANTIGEN/ANTIBODY, FOURTH GENERATION W/RFL Routine 08/02/2024 4:00 PM EDT Unprotected sex HM PAP/HPV Routine 12/21/2021 from Last 3 Months or Most Recently Relevant to Health Maintenance Results * (ABNORMAL) POCT glucose manually resulted (07/30/2025 5:03 PM EDT) Only the most recent of2 resultswithin the time period is included. Glucose Blood, POC 450(A) 60 - 200 mg/dL Comment:Renetta james pt Jordana bernal Is just billing QC Media Lot # [id number] Comment:[facility] Lot# Expiration Date Blood Capillary blood specimen / Unknown 07/30/2025 5:03 PM EDT Josefina Nelson MD POINT OF CARE TEST ENTER /EDIT ORDERABLES Final Result * POCT Urinalysis (07/30/2025 4:22 PM EDT) Only the most recent of3 resultswithin the time period is included. Color, UA Yellow Clarity, UA Clear Glucose, UA 4+ >500 Comment:>=1000 mg/dL Bilirubin, UA Negative Ketones, UA Negative Spec Grav, UA 1.025 Blood, UA Negative Negative, None Detected pH, UA 6.0 Protein, UA Negative Urobilinogen, UA 0.2 Leukocytes, UA Negative Negative, Rare, Trace Nitrite, UA Negative Negative, None Detected Appearance, UA clear [employer] Lot # [id number] Lot# Expiration Date Urine 07/30/2025 4:22 PM EDT Josefina Nelson MD POINT OF CARE TEST ENTER /EDIT ORDERABLES Final Result * (ABNORMAL) POCT Hgb A1c (07/03/2025 12:25 PM EDT) Hemoglobin A1C 9.1(A) 4.0 - 5.7 % [employer] Lot # [id number] Lot# Expiration Date [id number] Blood 07/03/2025 12:2 5 PM EDT Josefina Nelson MD POINT OF CARE TEST ENTER /EDIT ORDERABLES Final Result * Influenza A (ID NOW Rapid Molecular) (07/01/2025 6:43 PM EDT) Only the most recent of2 resultswithin the time period is included. Influenza A Negative Negative, Indeterminate [facility] Swab 07/01/2025 6:43 PM EDT Result [facility] Martir Callejas MD POINT OF CARE TEST ENTER/EDIT OR DERABLES Final Result Performing Organization Address [facility] de Phone Number [facility] [address] [place] [phone] * POCT rapid strep A manually resulted (07/01/2025 6:43 PM EDT) Pathologist [facility] Rapid Strep A Screen Negative Negative, None Detected Swab 07/01/2025 6:43 PM EDT Result [facility] Martir Callejas MD POINT OF CARE TEST ENTER/EDIT OR DERABLES Final Result * Influenza B (ID NOW Rapid Molecular) (07/01/2025 6:42 PM EDT) Only the most recent of2 resultswithin the time period is included. Pathologist [facility] Influenza B Negative Negative, Indeterminate [facility] Swab 07/01/2025 6:42 PM EDT Martir Callejas MD POINT OF CARE TEST ENTER/EDIT OR DERABLES Final Result Performing Organization Address [facility] Co de Phone Number [facility] [address] [place] [phone] * POCT Rapid COVID Ag (07/01/2025 6:38 PM EDT) Only the most recent of2 resultswithin the time period is included. Pathologist [facility] Rapid COVID Ag Negative Swab 07/01/2025 6:38 PM EDT Martir Callejas MD POINT OF CARE TEST ENTER/EDIT OR DERABLES Final Result * (ABNORMAL) Bacterial Vaginosis (07/01/2025 6:18 PM EDT) Only the most recent of3 resultswithin the time period is included. [facility] TRICHOMONAS VAGINALIS DETECTION BY PCR NOT DETECTED Not Detect [facility] BACTERIAL VAGINOSIS DETECTION BY PCR NEGATIVE Negative [facility] Comment:The BV organism targ ets of [...] GROUP DETECTION BY PCR DETECTED(A) Not Detect [facility] Antonieta glab krusei PCR NOT DETECTED Not Detect [facility] Swab Vaginal structure / Unknown 07/01/2025 6:18 PM EDT 07/02/2025 11:29 AM EDT us Martir Callejas MD LAB MICROBIOLOGY - GENERAL ORDER SOFIA Final Result [facility] [address] [place] [phone] * Chlamydia/N. Gonorrhoeae RNA, TMA, Urogenitial (07/01/2025 6:18 PM EDT) Only the most recent of2 resultswithin the time period is included. Pathologist [facility] CT PCR NOT DETECTED Not Detect. [facility] Comment:A not detected test result does [...] psychologicalconsequences. NG PCR NOT DETECTED Not Detect. [facility] Comment:A not detected test result does [...] medical, social or psychologicalconsequences. Swab (Vaginal Swab) 07/01/2025 6:18 PM EDT 07/02/2025 11:29 AM EDT us Martir Callejas MD LAB MICROBIOLOGY - GENERAL ORDER SOFIA Final Result [facility] [address] [place] [address] [phone] * Culture, Urine, Routine (06/10/2025 12:21 PM EDT) Urine Urine specimen obtained by clean catch procedure / Unknown 06/10/2025 12:21 PM EDT 06/11/2025 11:51 AM EDT Comment:UACC Narrative [facility] - 06/12/2025 1:31 PM EDT Urine Culture Report Result Urine Culture 10,000 to 50,000 cfu/ml Urine Culture Mixed bacterial orville characteristic of Urine Culture urogenital contamination. Strep agalactiae (Grp B) Quant < 10,000 cfu/mL Susc N/A Susceptibility not routinely performed on this isolate. Specimen Source: Urine clean catch Erick Abreu MD LAB MICROBIOLOGY - GENERAL ORDER SOFIA Final Result Performing Organization Address [facility] Co de Phone Number [facility] [address] [place] [phone] * (ABNORMAL) Lipid Panel with Reflex to Direct LDL (10/29/2024 10:04 AM EST) Triglycerides 192(H) <150 mg/dL [facility] Comment:Desirable Triglyceri de: less than 150 mg/dLBorderline High Triglyceride 150-199 mg/dLHigh Triglyceride: 200-499 mg/dLVery High Triglyceride: greater than or equal to 5OO mg/dL Cholesterol 153 <200 mg/dL [facility] Comment:Desirable Cholestero l: less than 200 mg/dLBorderline High Cholesterol: 200-239 mg/dLHigh Cholesterol: greater than 239 mg/dL LDL Cholesterol Calculated 83 <100 mg/dL [facility] Comment:Desirable LDL: less than 100 mg/dLNear Optimal/Above Optimal LDL: 110- 129 mg/dLBorderline High LDL: 130-159 mg/dLHigh LDL: 160-189 mg/dLVery High LDL: greater than or equal to 190 mg/dL HDL Cholesterol 32(L) >40 mg/dL [facility] Comment:Desirable HDL: great er than 40 mg/dL Note: This HDL assay may give artificially low results in patients with liver disease. Blood 10/29/2024 10:0 4 AM EST 10/29/2024 10:57 AM EST Josefina Nelson MD LAB BLOOD ORDERABLES Fin al Result Performing Organization Address [facility] Co de Phone Number [facility] [address] [place] [phone] * Albumin, Random Urine W/Creatinine (10/29/2024 10:04 AM EST) Creatinine, Urine 95.03 mg/dL [facility] Microalbumin Urine 16.0 mg/L [facility] Microalbum Creatinine Ratio Ur 16.8 <30 ug/mg cr [facility] Comment:Albumin/Creatinine R atio Reference Ranges: Normal: < 30 ug/mg creatinine Microalbuminuria: 30 - 300 ug/mg creatinineClinical Albuminuria: > 300 ug/mg creatinine Urine (Urine, Random) 10/29/2024 10:04 AM EST 10/29/2024 11:00 AM EST Josefina Nelson MD LAB URINE ORDERABLES Fin al Result [facility] [address] [place] [phone] * HIV-1/2 Antigen and Antibodies, Fourth Generation, with Reflexes (08/02/2024 4:00 PM EDT) HIV AB/AG Nonreactive Nonreactive [facility] Comment:HIV-1 p24 Ag and/or HIV-1/HIV-2 Ab not detected.A test result that is nonreactive does not exclude thepossibility of exposure to or infection with HIV-1 and/orHIV-2. Nonreactive results in this assay for individualswith prior exposure to HIV-1 and/or HIV-2 may be due toantigen and antibody levels that are below the limit ofdetection of this assay.The [email or web address] HIV Ag/Ab Combo assay result andsupplemental assay results should be interpreted inconjunction with the patient's clinical presentation,history and other laboratory results. If the results areinconsistent with clinical evidence, additional testing issuggested to confirm the result. Blood Venous blood specimen / Unknown 08/02/2024 4:00 PM EDT 08/02/2024 5:36 PM EDT us Stephanie Bernabe EVENT PRODUCER LAB BLOOD ORDERABLES Final Resul t [facility] [address] [place] [address] [phone] * Hm Pap Smear (12/21/2021) Pap Negative for intraephithelial lesion or malignancy Negative for intraephithelial lesion or malignancy, Other HPV Undetected us Historical Provider HEALTH MAINTENANCE Final Result from Last 3 Months or Most Recently Relevant to Health Maintenance Insurance [place] [facility] STAND ADULT Care Teams Managed Services Sales Consultant Relationship Specialty Start Date End Date Josefina Nelson MD [address] [place] [phone] PCP - General Family Medicine 01/19/17
--- OUTSIDE RECORDS SUMMARY | 2025-07-31 13:36 | XMS_ITS | Encounter Summary ---
Author Organization [employer] Address [address] 7t [place] [address] Care Team Providers Care Plating Operator Name Role Phone Josefina Nelson MD Primary Care Provider + Encounter Details Date Type Department Care Team (Late st Contact Info) Description 09/25/2024 Orders Only [facility] [address] [place], [place] [phone] Tanya Metzger FNP [address] [place] [address] Social History Tobacco Use Types Packs/Day Years [...] Description 09/18/2025 12:00 PM EST Office Visit [facility] [address] [place] [address] Josefina Nelson MD 230 [place] [address] 12/10/2025 3:00 PM EST Office Visit [facility] ADULT DENTAL [address] [place] [address] Amauri, Oralia [address] [place] [address] documented as of this encounter Visit Diagnoses Not on filedocumented in this encounter Additional Health Concerns Assessment Noted Time PHQ-9 Depression Total Score: 7 05/27/20 24 3:24 PM EDT documented as of this encounter Care Teams Plating Operator Relationship Specialty Start Date End Date Josefina Nelson MD 230 [place] [address] PCP - General Family Medicine 01/19/17 documented as of this encounter
--- OUTSIDE RECORDS SUMMARY | 2025-07-31 13:36 | XMS_ITS | Encounter Summary ---
Author Organization [employer] Address [address] [facility] 7t [place] [address] Care Team Providers Care Parking Supervisor Name Role Phone Josefina Nelson MD Primary Care Provider + Reason for Visit * Reason Onset Date Comments Nurse Triage 04/20/2023 Encounter Details Date Type Department Care Team ([facility] st Contact Info) Description 04/20/2023 Telephone [facility] MEDIC[facility] [address] [place], [place] [phone] Josefina Nelson MD [address] [place] [address] Nurse Triage Social History Tobacco Use Types [...] medication. Pt is advised to come to [facility] to be seen. Pt will come in [...] for this symptom' Please contact spouse at [phone] documented in this encounter Plan of Treatment Upcoming Encounters Date Type Department Care Team (Late st Contact Info) Description 09/18/2025 12:00 PM EST Office Visit [facility] MED[facility] [address] [place] [address] Josefina Nelson MD [address] [place] [address] 12/10/2025 3:00 PM EST Office Visit [facility] ADULT DENTAL [address] [place] [address] Oralia Baugh [address] [place] [address] documented as of this encounter Visit Diagnoses Not on filedocumented in this encounter Care Teams Parking Supervisor Relationship Specialty Start Date End Date Josefina Nelson MD [address] [place] [address] PCP - General Family Medicine 01/19/17 documented as of this encounter
--- OUTSIDE RECORDS SUMMARY | 2025-07-31 13:36 | XMS_ITS | Encounter Summary ---
Author Organization [employer] [facility] Address [address] [facility] 7t [place] [address] Care Team Providers Care Special Education Inclusion Teacher Name Role Phone Josefina Nelson MD Primary Care Provider + Encounter Details Date Type Department Care Team (Late st Contact Info) Description 11/20/[address] [facility] [address] [place] [address] [phone] Brown Osei FNP Acute cystitis without hematuria [...] Description 09/18/2025 12:00 PM EST Office Visit [facility] [address] [place] [address] [phone] Josefina Nelson MD [address] [place] [phone] 12/10/2025 3:00 PM EST Office Visit [facility] ADULT DENTAL [address] [place] [address] [phone] Oralia Baugh 230 [place] [address] documented as of this encounter Visit Diagnoses Diagnosis Acute cystitis without hematuria- Primary documented in this encounter Care Teams Special Education Inclusion Teacher Relationship Specialty Start Date End Date Josefina Nelson MD 230 [place] [address] PCP - General Family Medicine 01/19/17 documented as of this encounter
--- OUTSIDE RECORDS SUMMARY | 2025-07-31 13:36 | XMS_ITS | Encounter Summary ---
Author Organization [employer] Address [address] [facility] 7t [place] [address] Care Team Providers Care Audio Production Manager Name Role Phone Josefina Nelson MD Primary Care Provider + Encounter Details Date Type Department Care Team ([facility] Contact Info) Description 12/30/2022 Abstract [facility] ADULT DENTAL [address] [place], [place] [phone] Natan Mcneil DDS [address] [place], [place] [phone] Social History Tobacco Use Types Packs/Day Years [...] Upcoming Encounters Date Type Department Care Team ([facility] Contact Info) Description 09/18/2025 12:00 PM EST Office Visit [facility] MED[facility] [address] [place] [address] Josefina Nelson MD 230 [place], [place] [phone] 12/10/2025 3:00 PM EST Office Visit [facility] ADULT DENTAL [address] [place], [place] [phone] Kennedy Baugharis [address] [place] [address] documented as of this encounter Visit Diagnoses Not on filedocumented in this encounter Care Teams Audio Production Manager Relationship Specialty Start Date End Date Josefina Nelson MD [address] [place] [address] PCP - General Family Medicine 01/19/17 documented as of this encounter
--- OUTSIDE RECORDS SUMMARY | 2025-07-31 13:36 | XMS_ITS | Encounter Summary ---
Author Organization [employer] Address [address] [facility] 7t [place] [address] Care Team Providers Care Rubber Cutting Machine Tender Name Role Phone Josefina Nelson MD Primary Care Provider + Encounter Details Date Type Department Care Team (Late st Contact Info) Description 11/02/2022 Orders Only [facility] [address] [place], [place] [phone] Jacklyn Patterson LPN Social History Tobacco Use [...] Description 09/18/2025 12:00 PM EST Office Visit [facility] [address] [place], [place] [phone] Josefina Nelson MD 230 [place] [address] 12/10/2025 3:00 PM EST Office Visit [facility] ADULT DENTAL [address] [place], [place] [phone] Oralia Baugh [address] [place] [address] documented as of this encounter Visit Diagnoses Not on filedocumented in this encounter Care Teams Rubber Cutting Machine Tender Relationship Specialty Start Date End Date Josefina Nelson MD [address] [place] [address] PCP - General Family Medicine 01/19/17 documented as of this encounter
[2025-07-31 13:47] LABS: Bacterial Vaginosis PCR NEGATIVE (Negative); Candida Group PCR DETECTED (Not Detect); Candida glab krusei PCR NOT DETECTED (Not Detect); Trichomonas vaginalis PCR NOT DETECTED (Not Detect)
[2025-07-31 14:14] LABS: CT PCR NOT DETECTED (Not Detect.); NG PCR NOT DETECTED (Not Detect.)
== END 2025-07-31 11:51 | disposition home or self-care (01) ==
LOC: HO.HHCLNP 11:50
PROVIDERS: Visit Provider Internal Medicine
DX: N89.8 Other specified noninflammatory disorders of vagina (principal); Z20.2 Contact with and (suspected) exposure to infections with a predominantly sexual mode of transmission
CPT/HCPCS: 81515; 87491; 87591

== ENCOUNTER 2025-09-05 08:20 | Outpatient (REF) | payer MEDICAID, SELFPAY ==
--- OUTSIDE RECORDS SUMMARY | 2025-09-05 08:39 | XMS_ITS | Encounter Summary ---
Author Organization [facility] Address [address] [facility] 7t [place] [address] Care Team Providers Care Senior Specialist Name Role Phone Josefina Nelson MD Primary Care Provider + Encounter Details Date Type Department Care Team (Late Contact Info) Description 10/12/2022 Orders Only [facility] [address] [place], [place] [phone] Reyna Moya LPN Social History Tobacco Use [...] Description 09/18/2025 12:00 PM EST Office Visit [facility] [address] [place] [address] Josefina Nelson MD [address] [place] [address] 12/10/2025 3:00 PM EST Office Visit [facility] ADULT DENTAL [address] [place] [address] Oralia Baugh [address] [place] [address] 12/24/2025 2:30 PM EST Office Visit [facility] OPTOMETRY [address] [place] [address] Dominique Salinas, OD [address] [place] [address] documented as of this encounter Procedures Procedure Name Priority Date/Time Associated Diagnosis Comments SARS COV2/INFLUENZA A/B AND RSV RNA QL NAAT Routine 10/23/2022 2:46 PM EST documented in this encounter Results * SARS-CoV-2 RNA, Influenza A/B, and RSV RNA, Ql NAAT (10/23/2022 2:46 PM EST) Influenza A PCR NEGATIVE Negative [facility] Influenza B PCR NEGATIVE Negative [facility] Resp Syncy Virus RNA Qual PCR NEGATIVE Negative [facility] SARS COV2 PCR NEGATIVE Negative [facility] SARS/Flu/RSV Note See Note [facility] Comment:All test results mus t be [...] use by authorized laboratories.Testing performed on the [employer] GeneXpert utilizingreal-time RT-PCR.All SARS CoV2 and positive influenza A/B results arereported to [facility]. 10/23/2022 2:46 PM EST 10/23/2022 2:55 PM EST [facility] Exter nal Provider LAB MICROBIOLOGY - GENERAL ORDERABLES Final Result [facility] [address] [place] [address] [phone] documented in this encounter Visit Diagnoses Not on filedocumented in this encounter Care Teams Senior Specialist Relationship Specialty Start Date End Date Josefina Nelson MD [address] [place] [phone] PCP - General Family Medicine 01/19/17 documented as of this encounter
--- OUTSIDE RECORDS SUMMARY | 2025-09-05 08:39 | XMS_ITS | Encounter Summary ---
Author Organization [facility] Address [address] [facility] 7t [place] [address] Care Team Providers Care Curriculum Manager Name Role Phone Josefina Nelson MD Primary Care Provider + Encounter Details Date Type Department Care Team (Late Contact Info) Description 08/02/2023 Abstract [facility] MEDICINE [address] [place] [address] Yoko Lundy Social History Tobacco Use Types [...] Description 09/18/2025 12:00 PM EST Office Visit [facility] [address] [place] [address] Josefina Nelson MD [address] [place] [address] 12/10/2025 3:00 PM EST Office Visit [facility] ADULT DENTAL [address] [place] [address] Oralia Baugh [address] [place] [address] 12/24/2025 2:30 PM EST Office Visit [facility] OPTOMETRY [address] [place], [place] [phone] Dominique Salinas, OD [address] [place] [address] documented as of this encounter Procedures Procedure Name Priority Date/Time Associated Diagnosis Comments PAP/HPV Routine 12/21/2021 documented in this encounter Results * Pap Smear (12/21/2021) Pap Negative for intraephithelial lesion or malignancy Negative for intraephithelial lesion or malignancy, Other HPV Undetected Historical Provider HEALTH MAINTENANCE Final Result documented in this encounter Visit Diagnoses Not on filedocumented in this encounter Care Teams Curriculum Manager Relationship Specialty Start Date End Date Josefina Nelson MD 230 [place], [place] [phone] PCP - General Family Medicine 01/19/17 documented as of this encounter
--- OUTSIDE RECORDS SUMMARY | 2025-09-05 08:39 | XMS_ITS | Encounter Summary ---
Author Organization [employer] Address [address] [facility] 7t [place] [address] Care Team Providers Care Machine Heel Sprayer Name Role Phone Josefina Nelson MD Primary Care Provider + Encounter Details Date Type Department Care Team (Latest Contact Info) Description 06/09/2022 Abstract [facility] CONVERSIONS Dental, Provider, DDS Social [...] Description 09/18/2025 12:00 PM EST Office Visit [facility] MEDICINE [address] [place] [address] Josefina Nelson MD [address] [place] [address] 12/10/2025 3:00 PM EST Office Visit [facility] ADULT DENTAL [address] [place] [address] Kennedy Baugharis [address] [place] [address] 12/24/2025 2:30 PM EST Office Visit [facility] OPTOMETRY [address] [place] [address] Dominique Salinas, OD [address] [place] [address] documented as of this encounter Visit Diagnoses Not on filedocumented in this encounter Care Teams Machine Heel Sprayer Relationship Specialty Start Date End Date Josefina Nelson MD [address] [place] [address] PCP - General Family Medicine 01/19/17 documented as of this encounter
--- OUTSIDE RECORDS SUMMARY | 2025-09-05 08:40 | XMS_ITS | Encounter Summary ---
Author Organization [employer] Address [address] [facility] 7t [place] [address] Care Team Providers Care Oil Sprayer Name Role Phone Josefina Nelson MD Primary Care Provider + Reason for Visit * Reason Comments Med Refill Encounter Details Date Type Department Care Team ([facility] st Contact Info) Description 04/07/2024 Refill [facility] [address] [place], [place] [phone] Josefina Nelson MD 230 [place], [place] [phone] Cough, unspecified type Social History Tobacco Use [...] Description 09/18/2025 12:00 PM EST Office Visit [facility] MEDICINE [address] [place] [address] Josefina Nelson MD [address] [place] [address] 12/10/2025 3:00 PM EST Office Visit [facility] ADULT DENTAL [address] [place] [address] Amauri, Oralia [address] [place] [address] 12/24/2025 2:30 PM EST Office Visit [facility] OPTOMETRY [address] [place] [address] Brad, Dominique, OD 230 [place] [address] documented as of this encounter Visit Diagnoses Diagnosis Cough, unspecified type documented in this encounter Care Teams Oil Sprayer Relationship Specialty Start Date End Date Josefina Nelson MD [address] [place] [address] PCP - General Family Medicine 01/19/17 documented as of this encounter
--- OUTSIDE RECORDS SUMMARY | 2025-09-05 08:40 | XMS_ITS | Encounter Summary ---
Author Organization [employer] Address [address] [facility] 7t [place] [address] Care Team Providers Care Cardiovascular Disease Specialist Name Role Phone Josefina Nelson MD Primary Care Provider + Reason for Visit * Reason Onset Date Comments Nurse Triage 04/20/2023 Encounter Details Date Type Department Care Team ([facility] st Contact Info) Description 04/20/2023 Telephone [facility] MEDICINE 230 [place], [place] [phone] Josefina Nelson MD [address] [place] [address] Nurse Triage Social History Tobacco Use Types [...] medication. Pt is advised to come to [facility] to be seen. Pt will come in [...] for this symptom' Please contact spouse at [phone] documented in this encounter Plan of Treatment Upcoming Encounters Date Type Department Care Team (Late st Contact Info) Description 09/18/2025 12:00 PM EST Office Visit [facility] MEDICINE [address] [place] [address] Josefina Nelson MD [address] [place] [address] 12/10/2025 3:00 PM EST Office Visit [facility] ADULT DENTAL [address] [place] [address] Oralia Baugh [address] [place] [address] 12/24/2025 2:30 PM EST Office Visit [facility] OPTOMETRY [address] [place], [place] [phone] Dominique Salinas, ARMOND 230 [place] [address] documented as of this encounter Visit Diagnoses Not on filedocumented in this encounter Care Teams Cardiovascular Disease Specialist Relationship Specialty Start Date End Date Josefina Nelson MD [address] [place] [address] PCP - General Family Medicine 01/19/17 documented as of this encounter
--- OUTSIDE RECORDS SUMMARY | 2025-09-05 08:40 | XMS_ITS | Encounter Summary ---
Author Organization [employer] Address [address] [facility] 7t [place] [address] Care Team Providers Care Automobile Body Repairer Name Role Phone Josefina Nelson MD Primary Care Provider + Encounter Details Date Type Department Care Team ([facility] Contact Info) Description 12/30/2022 Abstract [facility] ADULT DENTAL [address] [place], [place] [phone] Natan Mcneil DDS [address] [place], [place] [phone] Social History Tobacco Use Types Packs/Day Years [...] Upcoming Encounters Date Type Department Care Team ([facility] Contact Info) Description 09/18/2025 12:00 PM EST Office Visit [facility] MEDICINE [address] [place] [address] Josefina Nelson MD [address] [place], [place] [phone] 12/10/2025 3:00 PM EST Office Visit [facility] ADULT DENTAL [address] [place] [address] Amauri, Oralia [address] [place] [address] 12/24/2025 2:30 PM EST Office Visit [facility] OPTOMETRY [address] [place] [address] Dominique Salinas, OD [address] [place] [address] documented as of this encounter Visit Diagnoses Not on filedocumented in this encounter Care Teams Automobile Body Repairer Relationship Specialty Start Date End Date Josefina Nelson MD [address] [place] [address] PCP - General Family Medicine 01/19/17 documented as of this encounter
--- OUTSIDE RECORDS SUMMARY | 2025-09-05 08:40 | XMS_ITS | Encounter Summary ---
Author Organization [employer] Address [address] [facility] 7t [place] [address] Care Team Providers Care Chute Worker Name Role Phone Josefina Nelson MD Primary Care Provider + Reason for Visit * Reason Comments Med Refill Encounter Details Date Type Department Care Team ([facility] st Contact Info) Description 01/11/2025 Refill [facility] MEDICINE 230 [place], [place] [phone] Josefina Nelson MD [address] [place] [address] Social History Tobacco Use Types Packs/Day Years [...] Description 09/18/2025 12:00 PM EST Office Visit [facility] MEDICINE [address] [place] [address] Josefina Nelson MD [address] [place] [address] 12/10/2025 3:00 PM EST Office Visit [facility] ADULT DENTAL [address] [place] [address] Amauri, Oralia [address] [place] [address] 12/24/2025 2:30 PM EST Office Visit [facility] OPTOMETRY [address] [place] [address] Brad, Dominique, OD [address] [place] [address] documented as of this encounter Visit Diagnoses Not on filedocumented in this encounter Additional Health Concerns Assessment Noted Time PHQ-9 Depression Total Score: 7 05/27/20 24 3:24 PM EDT documented as of this encounter Care Teams Chute Worker Relationship Specialty Start Date End Date Josefina Nelson MD [address] [place] [address] PCP - General Family Medicine 01/19/17 documented as of this encounter
--- OUTSIDE RECORDS SUMMARY | 2025-09-05 08:40 | XMS_ITS | Encounter Summary ---
Author Organization [employer] Address [address] [facility] 7t [place] [address] Care Team Providers Care Load Out Worker Name Role Phone Josefina Nelson MD Primary Care Provider + Encounter Details Date Type Department Care Team (Latest Contact Info) Description 07/21/2021 Abstract [facility] CONVERSIONS Dental, Provider, DDS Social [...] Description 09/18/2025 12:00 PM EST Office Visit [facility] MEDICINE [address] [place] [address] Josefina Nelson MD [address] [place] [address] 12/10/2025 3:00 PM EST Office Visit [facility] ADULT DENTAL [address] [place] [address] Kennedy Baguharis [address] [place] [address] 12/24/2025 2:30 PM EST Office Visit [facility] OPTOMETRY [address] [place] [address] Dominique Salinas, OD [address] [place] [address] documented as of this encounter Visit Diagnoses Not on filedocumented in this encounter Care Teams Load Out Worker Relationship Specialty Start Date End Date Josefina Nelson MD [address] [place] [address] PCP - General Family Medicine 01/19/17 documented as of this encounter
--- OUTSIDE RECORDS SUMMARY | 2025-09-05 08:40 | XMS_ITS | Clinical Summary ---
Author Organization [employer] Address [address] [facility] 7t [place] [address] Care Team Providers Care Corporate Logistics Manager Name Role Phone Josefina Nelson MD [...] 1 week 15 g 09/24/20 24 Active pioglitazone (Actos) 45 MG tablet Take 1 tablet (45 mg) by mouth Once per day. 30 tablet 11 10/28/20 24 025 Active ergocalciferol (Vitamin D2) 1.25 MG (44358 UT) capsule TAKE 1 CAPSULE BY MOUTH ONCE A WEEK 12 capsule 1 12/10/19 25 Active cetirizine (ZyrTEC) 10 MG tablet Take 1 tablet (10 mg) by mouth in the morning. 90 tablet 3 01/10/20 25 Active pramipexole (Mirapex) 0.75 MG tablet Take 1 tablet (0.75 mg) by mouth at bedtime. 30 tablet 01/21/20 25 026 Active lidocaine (Lidoderm) 5 % patch Apply 1 patch topically Once per day. Remove & discard patch within 12 hours or as directed by MD. 30 patch 2 06/10/20 25 Active Blood Pressure kit 1 each 2 times daily. 1 kit 06/10/20 25 Active gabapentin (Neurontin) 300 MG capsule TAKE 1 CAPSULE BY MOUTH THREE TIMES DAILY 90 capsule 3 06/16/20 25 Active clotrimazole (Lotrimin) 1 % vaginal creamIndicatio ns:Vulvovagina l Candidiasis Insert one applicator per vagina at bedtime for 7 nights 45 g 07/01/20 25 Active lisinopril 5 MG tablet Take 1 tablet (5 mg) by mouth Once per day. 30 tablet 07/03/20 026 Active naproxen (Naprosyn) 500 MG tablet [...] week. 2 mL 3 07/30/20 25 Active baclofen (Lioresal) 10 MG tablet TAKE 1 TABLET BY MOUTH THREE TIMES DAILY NEEDED FOR MUSCLE SPASMS 60 tablet 1 07/31/20 25 Active albuterol (Ventolin HFA) 108 (90 Base) MCG/ACT inhalerIndicat ions:Cough, unspecified type INHALE 2 PUFFS BY MOUTH EVERY 4 HOURS NEEDED FOR WHEEZING OR SHORTNESS OF BREATH 18 g 2 08/01/20 25 Active Diclofenac Sodium 1 % gel APPLY 2 GRAMS TOPICALLY TO AFFECTED AREA(S) 4 TIMES A DAY IN THE MORNING, AT NOON, IN THE EVENING, AND AT BEDTIME 200 g 2 08/11/20 25 Active fluticasone (Flonase) 50 MCG/ACT nasal sprayIndicatio ns:Allergic rhinitis, unspecified seasonality, unspecified trigger Use 1 spray each nostril daily. Shake gently. Before first use, prime pump. After use, clean tip and replace cap. 16 g 2 08/27/20 25 Active Acetaminophen Extra Strength 500 MG tabletIndicati ons:Nasal congestion TAKE 1 TABLET BY MOUTH EVERY 6 TO 8 HOURS NEEDED FOR PAIN OR FEVER 120 tablet 08/27/20 25 Active ibuprofen 400 MG tablet Take 1 tablet (400 mg) by mouth every 6 (six) hours if needed for moderate pain or fever for up to 30 doses. Do no use with naproxen 30 tablet 08/27/20 25 Active Acetaminophen Extra Strength 500 MG tabletIndicati ons:Nasal congestion TAKE 1 TABLET BY MOUTH EVERY 6 TO 8 HOURS NEEDED FOR PAIN OR FEVER 120 tablet 10/28/20 24 025 Discontinued(R eorder (will not trigger notification to Pharmacy)) Diclofenac Sodium 1 % gel Apply 2 g topically if needed in the morning, at noon, in the evening, and at bedtime (pain). 150 g 3 01/10/20 25 025 Discontinued calcium carbonate (Tums) 500 MG chewable tablet Chew 1 tablet (500 mg) if needed in the morning, at noon, and at bedtime for indigestion or heartburn for up to 10 days. 30 tablet 07/30/20 25 025 acetaminophen (Tylenol Extra Strength) 500 MG tabletIndicati ons:Acute frontal sinusitis, recurrence not specified Take 2 tablets (1,000 mg) by mouth every 8 (eight) hours if needed for moderate pain for up to 10 days. 30 tablet 08/01/20 25 025 fluticasone (Flonase) 50 MCG/ACT nasal sprayIndicatio ns:Allergic rhinitis, unspecified seasonality, unspecified trigger Use 1 spray each nostril daily. Shake gently. Before first use, prime pump. After use, clean tip and replace cap. 16 g 2 08/01/20 25 025 Discontinued(R eorder (will not trigger notification to Pharmacy)) predniSONE (Deltasone) 20 MG tablet Take 2 tablets (40 mg) by mouth Once per day for 5 days. 10 tablet 08/27/20 25 025 Active Problems Problem Noted Date Diagnosed Date Acute frontal sinusitis 08/01/2025 Assessment & Plan (08/01/2025 4:33 PM EDT): Drink plenty of fluids and rest Tarsal tunnel syndrome of left side 07/03/2025 [...] only due to potential vitamin deficiencies with usp use. Preventative health care 10/28/2024 Assessment & [...] me, patient wants to fu with another [employer], not at [facility]. I will obtain [employer] records Use tylenol prn pain, keep sxs [...] activity. Check home BP BIW and prn CP/MORIERA/HANKINS Non smoking patient. Follow-up with me in [...] 12/13/2022 Type 2 diabetes mellitus without complication 10/12/2007/03/2025 Assessment & Plan (03/14/2025 11:44 AM EDT): [...] Encounters Date Type Department Care Team Description 08/27/2025 4:00 PM EDT Office Visit [facility] [address] [place] [phone] Erick Abreu MD Influenza-like symptoms (Primary Dx); Cough in adult; Allergic rhinitis, unspecified seasonality, unspecified trigger; Nasal congestion 08/27/2025 Travel 08/09/2025 Refill [facility] [address] [place], [place] [phone] MarianaJacklyn marcano DO 08/01/2025 3:00 PM EDT Office Visit [facility] [address] [place] [phone] Rosita Bowens MD Acute URI; Acute frontal sinusitis, recurrence not specified; Allergic rhinitis, unspecified seasonality, unspecified trigger; Cough, unspecified type 08/01/2025 Travel 08/01/2025 Telephone [facility] [address] [place] [phone] Josefina Nelson MD Prior Authorization ( PA: Jyoti) 07/31/2025 Refill [facility] [address] [place] [phone] Josefina Nelson MD 07/30/2025 3:40 PM EDT [facility] [address] [phone] Josefina Nelson MD Vaginal itching (Primary Dx); Type 2 diabetes mellitus with hyperglycemia, without long-term current use of insulin ([facility]); Gastroesophageal reflux disease, unspecified whether esophagitis present; Vaginal discharge; Vaginal discomfort 07/30/2025 Orders Only [address] [address] Josefina Nelson MD 07/26/2025 Refill [facility] [address] [place] [address] [phone] Josefina Nelson MD 07/16/[address] [address] Josefina Nelson MD Prior Auth Prescription; Prior Authorization (: Satya) 07/03/2025 12:00 PM EDT Office Visit [address] [address] Josefina Nelson MD Type 2 diabetes mellitus without complication, without long-term current use of insulin ([facility]) (Primary Dx); Tarsal tunnel syndrome of left side; Primary hypertension 07/03/2025 Travel 07/02/[address] [address] Josefina Nelson MD chart prep 07/01/2025 6:20 PM EDT Office Visit [facility] [address] [place] [address] Martir Callejas MD Vaginal candidiasis (Primary Dx); Allergic rhinitis, unspecified seasonality, unspecified trigger 07/01/2025 Travel 06/27/2025 Results Follow-Up [address] [address] Amada Kaminski NP Bacterial Vaginosis 06/25/2025 6:00 PM EDT Office Visit [facility] [address] [address] Amada Kaminski NP Type 2 diabetes mellitus without complication, without long-term current use of insulin ([facility]) (Primary Dx); Vaginal discharge; Vaginal itching 06/25/2025 Orders Only [address] [address] Amada Kaminski NP 06/25/2025 Travel 06/15/2025 Refill [facility] [address] [address] Jacklyn Lindsay DO 06/11/2025 Results Follow-Up [facility] [address] [address] Erick Abreu MD Bacterial Vaginosis 06/10/2025 11:00 AM EDT [facility] [address] [address] Erick Abreu MD Influenza-like symptoms (Primary Dx); Chronic pain of left knee; UTI symptoms; Benign hypertension; Acute cough 06/10/2025 Orders Only [facility] [address] [address] Erick Abreu MD 06/10/2025 Travel 06/05/2025 Refill [facility] [address] [address] Jacklyn Lindsay DO from Last 3 Months [...] Sign Reading Time Taken Comments Blood Pressure 110/78 08/27/2025 3:15 PM EDT Pulse 96 08/27/2025 3:15 PM EDT Temperature 36.8 C (98.3 F) 08/27/2025 3:15 PM EDT Respiratory Rate 18 08/27/2025 3:15 PM EDT Oxygen Saturation 98% 08/27/2025 3:15 PM EDT Inhaled Oxygen Concentration - - Weight 94.3 kg (208 lb) 08/27/2025 3:15 PM EDT Height 158.1 cm (5' 2.25 ) 08/01/2025 2:42 PM ED T Body Mass Index 37.74 08/01/2025 2:42 PM EDT Plan of Treatment Upcoming Encounters Date Type Department Care Team (Late st Contact Info) Description 09/18/2025 12:00 PM EST Office Visit [facility] [address] [place] [address] Josefina Nelson MD [address] [place] [address] 12/10/2025 3:00 PM EST Office Visit [facility] [address] [place] [address] Kennedy Baugharis [address] [place] [address] 12/24/2025 2:30 PM EST Office Visit [facility] [address] [place] [address] Dominique Salinas, OD [address] [place] [address] Health Maintenance Due Date Last Done Comments [...] series) 04/10/2025 03/13/2025 COVID-19 Vaccine (4 - 2024- season) 2025 11/24/2021, 04/01/2021, 03/04/2021 Influenza Vaccine [...] 25 Disability Screening 03/13/2026 03/13/2025 Tobacco Screening 08/27/2026 08/27/2025 Cervical Cancer Screening 12/21/2026 HPV/Cotest 12/21/2026 12/21/2021, [...] Name Priority Date/Time Associated Diagnosis Comments POCT INFLUENZA A (ID NOW RAPID MOLECULAR) Routine 08/27/2025 3:37 PM EDT Cough in adult POCT INFLUENZA B (ID NOW RAPID MOLECULAR) Routine 08/27/2025 3:36 PM EDT Cough in adult POCT RAPID COVID ANTIGEN Routine 08/27/2025 3:35 PM EDT Cough in adult POCT INFLUENZA B (ID NOW RAPID MOLECULAR) Routine 08/01/2025 2:52 PM EDT Acute URI POCT INFLUENZA A (ID NOW RAPID MOLECULAR) Routine 08/01/2025 2:52 PM EDT Acute URI POCT RAPID COVID ANTIGEN Routine 08/01/2025 2:52 PM EDT Acute URI POCT GLUCOSE Routine 07/30/2025 5:03 PM EDT Type 2 diabetes mellitus with hyperglycemia, without long-term current use of insulin ([facility]) POCT URINALYSIS DIPSTICK Routine 07/30/2025 4:22 PM EDT Vaginal discomfort Vaginal discharge BACTERIAL VAGINOSIS PANEL Routine 07/30/2025 9:20 AM EDT CHLAMYDIA/N. GONORRHOEAE RNA, TMA, UROGENITAL Routine 07/30/2025 9:20 AM EDT Vaginal discharge POCT GLYCATED HEMOGLOBIN, TOTAL Routine 07/03/2025 12:25 PM EDT Type 2 diabetes mellitus without complication, without long-term current use of insulin ([facility]) POCT GLUCOSE Routine 07/03/2025 12:09 PM EDT Type 2 diabetes mellitus without complication, without long-term current use of insulin ([facility]) POCT INFLUENZA A (ID NOW RAPID MOLECULAR) [...] complication, without long-term current use of insulin ([facility]) POCT INFLUENZA B (ID NOW RAPID MOLECULAR) [...] VAGINOSIS PANEL Routine 06/10/2025 12:00 AM EDT PANORAMIC RADIOGRAPHIC IMAGE Routine 05/28/2025 11:30 AM EDT Acute gingival inflammation ALBUMIN, RANDOM URINE W/CREATININE Routine 10/29/2024 10:04 AM EST Type 2 diabetes mellitus without complication, without long-term current use of insulin ([facility]) LIPID PANEL WITH REFLEX TO DIRECT LDL Routine 10/29/2024 10:04 AM EST Type 2 diabetes mellitus without complication, with long-term current use of insulin ([facility]) HIV 1/2 ANTIGEN/ANTIBODY, FOURTH GENERATION W/RFL Routine 08/02/2024 4:00 PM EDT Unprotected sex HM PAP/HPV Routine 12/21/2021 from Last 3 Months or Most Recently Relevant to Health Maintenance Results * Influenza A (ID NOW Rapid Molecular) (08/27/2025 3:37 PM EDT) Only the most recent of4 resultswithin the time period is included. Influenza A Negative Negative, Indeterminate [facility] Swab 08/27/2025 3:37 PM EDT us Erick Abreu MD POINT OF CARE TEST ENTER/EDIT OR DERABLES Final Result [facility] [address] [place] [phone] * Influenza B (ID NOW Rapid Molecular) (08/27/2025 3:36 PM EDT) Only the most recent of4 resultswithin the time period is included. Influenza B Negative Negative, Indeterminate [facility] Swab 08/27/2025 3:36 PM EDT Erick Abreu MD POINT OF CARE TEST ENTER/EDIT OR DERABLES Final Result [facility] [address] [place] [address] [phone] * POCT Rapid COVID Ag (08/27/2025 3:35 PM EDT) Only the most recent of4 resultswithin the time period is included. Rapid COVID Ag Negative Swab 08/27/2025 3:35 PM EDT Erick Abreu MD POINT OF CARE TEST ENTER/EDIT OR DERABLES Final Result * (ABNORMAL) POCT glucose manually resulted (07/30/2025 5:03 PM EDT) Only the most recent of2 resultswithin the time period is included. Glucose Blood, POC 450(A) 60 - 200 mg/dL Comment:Renetta james pt Jordana bernal Is just billing [facility] Lot # [id number] Comment:[facility] Lot# Expiration Date Blood Capillary blood specimen [...] ENTER /EDIT ORDERABLES Final Result * (ABNORMAL) Bacterial Vaginosis (07/30/2025 9:20 AM EDT) Only the most recent of4 resultswithin the time period is included. TRICHOMONAS VAGINALIS DETECTION BY PCR NOT DETECTED Not Detect [facility] BACTERIAL VAGINOSIS DETECTION BY PCR NEGATIVE Negative [facility] Comment:The BV organism targ ets [...] GROUP DETECTION BY PCR DETECTED(A) Not Detect [facility] Antonieta glab krusei PCR NOT DETECTED Not Detect [facility] 07/30/2025 9:20 AM EDT 07/31/2025 11:54 AM EDT Josefina Nelson MD LAB MICROBIOLOGY - GENER AL ORDERABLES Final Result [facility] [address] [place] [address] [phone] * Chlamydia/N. Gonorrhoeae RNA, TMA, Urogenitial (07/30/2025 9:20 AM EDT) Only the most recent of3 resultswithin the time period is included. CT PCR NOT DETECTED Not Detect. [facility] Comment:A not detected test result [...] psychologicalconsequences. NG PCR NOT DETECTED Not Detect. [facility] Comment:A not detected test result [...] lead to adverse medical, social or psychologicalconsequences. Urine (Urine, Random) 07/30/2025 9:20 AM EDT 07/31/2025 11:56 AM EDT us Josefina Nelson MD LAB MICROBIOLOGY - GENER AL ORDERABLES Final Result [facility] [address] [place] [phone] * (ABNORMAL) POCT Hgb A1c (07/03/2025 12:25 PM EDT) Hemoglobin A1C 9.1(A) 4.0 - 5.7 % QC Media Lot # [id number] Lot# Expiration Date [id number] Blood 07/03/2025 12:2 5 PM EDT Josefina Nelson MD POINT OF CARE TEST ENTER /EDIT ORDERABLES Final Result * POCT rapid strep A manually resulted (07/01/2025 6:43 PM EDT) Rapid Strep A Screen Negative Negative, None Detected Swab 07/01/2025 6:43 PM EDT Martir Callejas MD POINT OF CARE TEST ENTER/EDIT OR DERABLES Final Result * Culture, Urine, Routine (06/10/2025 12:21 PM EDT) Urine Urine specimen obtained by clean catch procedure / Unknown 06/10/2025 12:21 PM EDT 06/11/2025 11:51 AM EDT Comment:UACC Narrative [facility] - 06/12/2025 1:31 PM EDT Urine Culture Report Result Urine Culture 10,000 to 50,000 cfu/ml Urine Culture Mixed bacterial orville characteristic of Urine Culture urogenital contamination. Strep agalactiae (Grp B) Quant < 10,000 cfu/mL Susc N/A Susceptibility not routinely performed on this isolate. Specimen Source: Urine clean catch Erick Abreu MD LAB MICROBIOLOGY - GENERAL ORDER SOFIA Final Result [facility] [address] [place], [place] [phone] * (ABNORMAL) Lipid Panel with Reflex to Direct LDL (10/29/2024 10:04 AM EST) Triglycerides 192(H) <150 mg/dL [facility] Comment:Desirable Triglyceri de: less than 150 mg/dLBorderline High Triglyceride 150-199 mg/dLHigh Triglyceride: 200-499 mg/dLVery High Triglyceride: greater than or equal to 5OO mg/dL Cholesterol 153 <200 mg/dL [facility] Comment:Desirable Cholestero l: less than 200 mg/dLBorderline High Cholesterol: 200-239 mg/dLHigh Cholesterol: greater than 239 mg/dL LDL Cholesterol Calculated 83 <100 mg/dL [facility] Comment:Desirable LDL: less than 100 mg/dLNear Optimal/Above Optimal LDL: 110- 129 mg/dLBorderline High LDL: 130-159 mg/dLHigh LDL: 160-189 mg/dLVery High LDL: greater than or equal to 190 mg/dL HDL Cholesterol 32(L) >40 mg/dL [facility] Comment:Desirable HDL: great er than 40 mg/dL Note: This HDL assay may give artificially low results in patients with liver disease. Blood 10/29/2024 10:0 4 AM EST 10/29/2024 10:57 AM EST us Josefina Nelson MD LAB BLOOD ORDERABLES Fin al Result Performing Organization Address City/[facility] Co de Phone Number [facility] [address] [place] [phone] * Albumin, Random Urine W/Creatinine (10/29/2024 10:04 AM EST) Creatinine, Urine 95.03 mg/dL [facility] Microalbumin Urine 16.0 mg/L [facility] Microalbum Creatinine Ratio Ur 16.8 <30 ug/mg cr [facility] Comment:Albumin/Creatinine R atio Reference Ranges: Normal: < 30 ug/mg creatinine Microalbuminuria: 30 - 300 ug/mg creatinineClinical Albuminuria: > 300 ug/mg creatinine Urine (Urine, Random) 10/29/2024 10:04 AM EST 10/29/2024 11:00 AM EST us Josefina Nelson MD LAB URINE ORDERABLES Fin al Result [facility] [address] [place] [phone] * HIV-1/2 Antigen and Antibodies, Fourth Generation, with Reflexes (08/02/2024 4:00 PM EDT) HIV AB/AG Nonreactive Nonreactive [facility] Comment:HIV-1 p24 Ag and/or HIV-1/HIV-2 Ab not detected.A test result that is nonreactive does not exclude thepossibility of exposure to or infection with HIV-1 and/orHIV-2. Nonreactive results in this assay for individualswith prior exposure to HIV-1 and/or HIV-2 may be due toantigen and antibody levels that are below the limit ofdetection of this assay.The [employer] HIV Ag/Ab Combo assay result andsupplemental assay results should be interpreted inconjunction with the patient's clinical presentation,history and other laboratory results. If the results areinconsistent with clinical evidence, additional testing issuggested to confirm the result. Blood Venous blood specimen / Unknown 08/02/2024 4:00 PM EDT 08/02/2024 5:36 PM EDT us Stephanie Bernabe NP LAB BLOOD ORDERABLES Final Resul t [facility] [address] [place] [phone] [phone] * Pap Smear (12/21/2021) Pap Negative for intraephithelial lesion or malignancy Negative for intraephithelial lesion or malignancy, Other HPV Undetected us Historical Provider HEALTH MAINTENANCE Final Result from Last 3 Months or Most Recently Relevant to Health Maintenance Insurance [employer] [place] AD[place] Care Teams Corporate Logistics Manager Relationship Specialty Start Date End Date Josefina Nelson MD [address] [place] [phone] PCP - General Family Medicine 01/19/17
--- OUTSIDE RECORDS SUMMARY | 2025-09-05 08:40 | XMS_ITS | Encounter Summary ---
Author Organization [employer] [facility] Address [address] [facility] 7t [place] [address] Care Team Providers Care Night Guard Name Role Phone Josefina Nelson MD Primary Care Provider + Encounter Details Date Type Department Care Team (Late st Contact Info) Description 11/20/[address] [facility] [address] [place] [address] [phone] Brown Osei FNP Acute cystitis without hematuria [...] 09/18/2025 12:00 PM EST Office Visit [facility] [address] [place] [address] [phone] Josefina Nelson MD [address] [place] [phone] 12/10/2025 3:00 PM EST Office Visit [facility] [address] [place] [address] [phone] Oralia Baugh [address] [place] [address] 12/24/2025 2:30 PM EST Office Visit [facility] [address] [place], [place] [phone] Dominique Salinas, OD [address] [place] [address] documented as of this encounter Visit Diagnoses Diagnosis Acute cystitis without hematuria- Primary documented in this encounter Care Teams Night Guard Relationship Specialty Start Date End Date Josefina Nelson MD [address] [place], [place] [phone] PCP - General Family Medicine 01/19/17 documented as of this encounter
--- OUTSIDE RECORDS SUMMARY | 2025-09-05 08:40 | XMS_ITS | Encounter Summary ---
Author Organization [employer] Address [address] [facility] 7t [place] [address] Care Team Providers Care Follow Up Clerk Name Role Phone Josefina Nleson MD Primary Care Provider + Reason for Visit * Reason Comments Med Refill Encounter Details Date Type Department Care Team ([facility] st Contact Info) Description 03/29/[address] [facility] [address] [place], [place] [phone] Josefina Nelson MD [address] [place], [place] [phone] Nonintractable headache, unspecified chronicity pattern, unspecified headache [...] Description 09/18/2025 12:00 PM EST Office Visit [facility] [address] [place] [address] Josefina Nelson MD [address] [place] [address] 12/10/2025 3:00 PM EST Office Visit [facility] [address] [place] [address] Amauri, Oralia [address] [place] [address] 12/24/2025 2:30 PM EST Office Visit [facility] [address] [place] [address] Brad, Dominique, OD [address] [place] [address] documented as of this encounter Visit Diagnoses Diagnosis Nonintractable headache, unspecified chronicity pattern, unspecified headache type documented in this encounter Care Teams Follow Up Clerk Relationship Specialty Start Date End Date Josefina Nelson MD [address] [place] [address] PCP - General Family Medicine 01/19/17 documented as of this encounter
--- OUTSIDE RECORDS SUMMARY | 2025-09-05 08:40 | XMS_ITS | Encounter Summary ---
Author Organization [employer] Address [address] [facility] 7t [place] [address] Care Team Providers Care Scale Model Maker Name Role Phone Josefina Nelson MD Primary Care Provider + Encounter Details Date Type Department Care Team (Late Contact Info) Description 12/12/2022 Abstract [facility] [address] [place] [address] Natan Mcneil DDS [address] [place], [place] [phone] Social History Tobacco Use Types Packs/Day Years [...] Description 09/18/2025 12:00 PM EST Office Visit [facility] [address] [place] [address] Josefina Nelson MD [address] [place] [address] 12/10/2025 3:00 PM EST Office Visit [facility] [address] [place], [place] [phone] Amauri, Oralia [address] [place] [address] 12/24/2025 2:30 PM EST Office Visit [facility] [address] [place], [place] [phone] Dominique Salinas, OD [address] [place] [address] documented as of this encounter Visit Diagnoses Not on filedocumented in this encounter Care Teams Scale Model Maker Relationship Specialty Start Date End Date Josefina Nelson MD [address] [place], [place] [phone] PCP - General Family Medicine 01/19/17 documented as of this encounter
--- OUTSIDE RECORDS SUMMARY | 2025-09-05 08:40 | XMS_ITS | Encounter Summary ---
Author Organization [employer] Address [address] [facility] 7t [place] [address] Care Team Providers Care Sailmaker Name Role Phone Josefina Nelson MD Primary Care Provider + Encounter Details Date Type Department Care Team (Late st Contact Info) Description 11/02/[address] [facility] MED & PEDS [address] [place], [place] [phone] Jacklyn Patterson LPN Social History Tobacco Use [...] 09/18/2025 12:00 PM EST Office Visit [facility] MEDICINE [address] [place], [place] [phone] Josefina Nelson MD [address] [place] [address] 12/10/2025 3:00 PM EST Office Visit [facility] ADULT DENTAL [address] [place], [place] [phone] Oralia Baugh [address] [place] [address] 12/24/2025 2:30 PM EST Office Visit [facility] [address] [place], [place] [phone] Dominiqeu Salinas, ARMOND [address] [place] [address] documented as of this encounter Visit Diagnoses Not on filedocumented in this encounter Care Teams Sailmaker Relationship Specialty Start Date End Date Josefina Nelson MD [address] [place] [address] PCP - General Family Medicine 01/19/17 documented as of this encounter
--- OUTSIDE RECORDS SUMMARY | 2025-09-05 08:40 | XMS_ITS | Encounter Summary ---
Author Organization [employer] Address [address] [facility] [address] [place] [address] Care Team Providers Care Warehouse Material Handler Name Role Phone Josefina Nelson MD Primary Care Provider + Encounter Details Date Type Department Care Team (Late st Contact Info) Description 09/25/2024 Orders Only [facility] WALK[facility]IN CENTER [address] [place], [place] [phone] Tanya Metzger FNP [address] [place] [address] Social History Tobacco Use Types Packs/Day Years [...] Description 09/18/2025 12:00 PM EST Office Visit [facility] MEDICINE [address] [place] [address] Josefina Nelson MD [address] [place] [address] 12/10/2025 3:00 PM EST Office Visit [facility] ADULT DENTAL [address] [place] [address] Amauri, Oralia [address] [place] [address] 12/24/2025 2:30 PM EST Office Visit [facility] OPTOMETRY [address] [place] [address] Brad, Dominique, OD [address] [place] [address] documented as of this encounter Visit Diagnoses Not on filedocumented in this encounter Additional Health Concerns Assessment Noted Time PHQ-9 Depression Total Score: 7 05/27/20 24 3:24 PM EDT documented as of this encounter Care Teams Warehouse Material Handler Relationship Specialty Start Date End Date Josefina Nelson MD [address] [place] [address] PCP - General Family Medicine 01/19/17 documented as of this encounter
== END 2025-09-05 08:21 | disposition home or self-care (01) ==
LOC: HO.HOSX 08:20
PROVIDERS: Visit Provider Physician Assistant
DX: Z13.89 Encounter for screening for other disorder (principal)

== ENCOUNTER 2025-09-19 16:41 | Outpatient (REF) | payer MEDICAID, SELFPAY ==
--- OUTSIDE RECORDS SUMMARY | 2025-09-19 15:00 | XMS_ITS | Encounter Summary ---
Author Organization [employer] Address [address] [facility] [address] [place] [address] Care Team Providers Care Motors Assembler Name Role Phone Josefina Nelson MD Primary Care Provider + Reason for Visit * Reason Comments Vaginal Itching Encounter Details Date Type Department Care Team ([facility] Contact Info) Description 09/19/2025 3:00 PM EST Office Visit [facility] WALK-IN CENTER [address] [place], [place] [phone] Rosita Bowens MD [address] [place] [address] Vaginal itching Social History Tobacco Use Types [...] Sign Reading Time Taken Comments Blood Pressure 127/82 09/19/2025 2:28 PM EST Pulse 95 09/19/2025 2:28 PM EST Temperature 36.7 C (98.1 F) 09/19/2025 2:28 PM EST Respiratory Rate 18 09/19/2025 2:28 PM EST Oxygen Saturation 97% 09/19/2025 2:28 PM EST Inhaled Oxygen Concentration - - Weight 94.8 kg (209 lb) 09/19/2025 2:28 PM EST Height - - Body Mass Index 37.92 08/01/2025 2:42 PM EDT documented in this encounter Progress Notes * Rosita Collins MD - 09/19/2025 3:00 PM EST SUBJECTIVE: Radha Romo is a 40 y.o. year old female who presents for acute visit . Radha Romo, 40 years Vaginal irritation and discharge - Reports vaginal itching and sensation of heat in the vaginal area - Noted onset of transparent vaginal discharge - Describes burning sensation during urination, localized to the vulva, with irritation and feelingof being cut - Symptoms have occurred previously, with episodes described as very strong in the past Diabetes - History of diabetes with poor glycemic control - Began insulin injections approximately 2 months ago, with current regimen recently started Nasal congestion - Reports persistent nasal congestion and inflammation, described as a recurring issue - Uses medication at home for nasal symptoms, started recently due to current episode Social History Social History Narrative Not on file Problem List[1] Family History[2] Review of Systems Constitutional: Negative. HENT: Positive for congestion and sinus pressure. Negative for dental problem, drooling, ear discharge, ear pain, facial swelling, hearing loss, mouth sores, nosebleeds, postnasal drip, rhinorrhea, sinus pain, sneezing, sore throat, tinnitus, trouble swallowing and voice change. Respiratory: Negative. Genitourinary: Positive for vaginal discharge and vaginal pain. Negative for decreased urine volume, difficulty urinating, dyspareunia, dysuria, enuresis, flank pain, frequency, genital sores, hematuria, menstrual problem, pelvic pain, urgency and vaginal bleeding. Vaginal itching OBJECTIVE: Vitals: 09/19/25 1428 BP: 127/82 BP Location: Right arm Patient Position: Sitting BP Cuff Size: Adult Pulse: 95 Resp: 18 Temp: 98.1 ??F (36.7 ??C) TempSrc: Temporal SpO2: 97% Weight: 209 lb (94.8 kg) Physical Exam Constitutional: Appearance: Normal appearance. Cardiovascular: Rate and Rhythm: Normal rate and regular rhythm. Pulmonary: Effort: Pulmonary effort is normal. Breath sounds: Normal breath sounds. Abdominal: General: Abdomen is flat. Palpations: Abdomen is soft. Musculoskeletal: Right lower leg: No edema. Left lower leg: No edema. Neurological: Mental Status: She is alert. Follow Up: No follow-ups on file. Medications Ordered Prior to Encounter[3] Problem List Items Addressed This Visit Vaginal itching Relevant Medications fluconazole (Diflucan) 150 MG tablet Clotrimazole 2 % vaginal cream Other Relevant Orders POCT , urine manually resulted (Completed) POCT urinalysis dipstick manually resulted (CPT 00421) (Completed) Chlamydia/N. Gonorrhoeae RNA, TMA, Urogenitial Bacterial Vaginosis Culture, Urine, Routine Vaginal itching: - Likely vaginal infection. Previous similar episodes responded to oral antifungal therapy. - Prescribed oral antifungal tablets, one dose today and a second dose after 72 hours. Advised to continue diabetes management to improve glycemic control. Nasal congestion: - Recurrent nasal congestion and inflammation, currently mild. - Advised to continue using current nasal medication at home as symptoms have just started. This note was drafted using Ambient (AI) technology. The patient/patient's guardian has been informed and has consented to the use of this technology: Yes . [1] Patient Active Problem List Diagnosis Primary [...] (HCC) Tarsal tunnel syndrome of left side Acute frontal sinusitis [2] No family history on file. [3] [...] g 0 Diclofenac Sodium 1 % gel APPLY 2 GRAMS TOPICALLY TO AFFECTED AREA(S) 4 TIMES A DAY IN THE MORNING,AT NOON, IN THE EVENING, AND AT BEDTIME 200 g 2 dicyclomine (Bentyl) 20 MG tablet Take 1 tablet by mouth if needed in the morning, at noon, in the evening, and at bedtime. Abdominal pain Emollient (Moisturizing Creme) cream use topically to affected area 4x/day prn ergocalciferol (Vitamin D2) 1.25 MG (01276 UT) capsule TAKE 1 CAPSULE BY MOUTH ONCE A WEEK 12 capsule 1 ferrous sulfate (FeroSul) 325 (65 Fe) MG tablet Take 1 tablet (325 mg) by mouth 2 times daily. 180 tablet 0 fluconazole (Diflucan) 150 MG tablet Take one tablet today and 1 tablet PO in 1w 2 tablet 0 fluticasone (Flonase) 50 MCG/ACT nasal [...] bid for 1 week 15 g 0 ibuprofen 400 MG tablet Take 1 tablet (400 mg) by mouth every 6 (six) hours if needed for moderate pain or fever for up to 30 doses. Do no use with naproxen 30 tablet 0 lidocaine (Lidoderm) 5 % patch Apply [...] NEEDED FOR MILD PAIN 30 tablet 1 omeprazole (PriLOSEC) [address] capsule Take 1 capsule (20 mg) by mouth before breakfast. Do not crush or chew. 90 capsule 3 pioglitazone (Actos) 45 MG tablet Take 1 tablet (45 mg) by mouth Once per day. 30 tablet 11 pramipexole (Mirapex) 0.75 MG tablet Take 1 tablet (0.75 mg) by mouth at bedtime. 30 tablet 11 Tirzepatide (Mounjaro) 2.5 MG/0.5ML solution auto-injector Inject 2.5 mg under the skin 1 (one) time per week. 2 mL 3 traZODone (Desyrel) 50 MG tablet TAKE 1 OR 2 TABLETS BY MOUTH AT BEDTIME NEEDED FOR SLEEP 60 tablet 0 TRUEplus Lancets 33G misc TEST BLOOD SUGAR EVERY DAY No current facility-administered medications on file prior to visit. documented in this encounter Plan of Treatment Upcoming Encounters Date Type Department Care Team (Late st Contact Info) Description 12/10/2025 2:15 PM EST Office Visit [facility] ADULT DENTAL [address] [place] [address] Amauri, Oralia [address] [place] [address] 12/24/2025 2:30 PM EST Office Visit [facility] OPTOMETRY [address] [place] [address] Brad, Dominique, OD 230 [place] [address] Scheduled Orders Name Type Priority Associated Diagnoses Orde r Schedule Chlamydia/N. Gonorrhoeae RNA, TMA, Urogenitial Microbiology Routine Vaginal itching Ordered: 09/19/2025 Bacterial Vaginosis Microbiology Routine Vaginal itching Ordered: 09/19/2025 Culture, Urine, Routine Microbiology Routine Vaginal itching Ordered: 09/19/2025 documented as of this encounter Goals Goal Patient Goal Type Associated Problems Recent Progress Patient-Stated? Author Help patients manage their type 2 diabetes Care Plan Help patients manage their type 2 diabetes No Bianka Pineda Weekly blood pressure task Care Plan Weekly blood pressure task No Bianka Pineda Help patients manage their type 2 diabetes Care Plan Help patients manage their type 2 diabetes No Bianka Pineda Patient has chronic kidney disease Care Plan Patient has chronic kidney disease No Bianka Pineda Weekly blood pressure task Care Plan Weekly blood pressure task No Bianka Pineda Patient has chronic kidney disease Care Plan Patient has chronic kidney disease No Bianka Pineda Weekly blood pressure task Care Plan Weekly blood pressure task No Isak Caldwell [place] Weekly blood pressure task Care Plan Weekly blood pressure task No Isak Caldwell [place] Patient has chronic kidney disease Care Plan Patient has chronic kidney disease No Eric Montoyacailin Isak [place] Patient has chronic kidney disease Care Plan Patient has chronic kidney disease No Reyes FraireValentine [place] documented as of this encounter Procedures Procedure Name Priority Date/Time Associated Diagnosis Comments POCT , URINE Routine 09/19/2025 2:38 PM EST Vaginal itching POCT URINALYSIS DIPSTICK Routine 09/19/2025 2:38 PM EST Vaginal itching documented in this encounter Results * (ABNORMAL) POCT urinalysis dipstick manually resulted (CPT 96351) (09/19/2025 2:38 PM EST) Color, UA Yellow Clarity, UA Clear Glucose, UA 4+ >500 Comment:1000mg Bilirubin, UA Negative Ketones, UA Positive Spec Grav, UA 1.025 Blood, UA Positive(A) Negative, None Detected Comment:Trace pH, UA 6.0 Protein, UA Negative Urobilinogen, UA 0.2 Leukocytes, UA Negative Negative, Rare, Trace Nitrite, UA Negative Negative, None Detected Appearance, UA OK Urine (Urine, Random) 09/19/2025 2:38 PM EST us Rosita Collins MD POINT OF CARE TEST EN TER/EDIT ORDERABLES Final Result * POCT , urine manually resulted (09/19/2025 2:38 PM EST) Preg Test, Ur Negative Negative, Indeterminate, None Detected, Trace, 3+, Specimen unsatisfactory for evaluation, Weakly Positive, 1+, 2+ Urine 09/19/2025 2:38 PM EST us Rosita Collins MD POINT OF CARE TEST EN TER/EDIT ORDERABLES Final Result documented in this encounter Visit Diagnoses Diagnosis Vaginal itching Pruritus of genital organs documented in this encounter Additional Health Concerns Active Problems Noted Date Diagnosed Date Help patients manage their type 2 diabetes 09/18 Weekly blood pressure task 09/18/2025 Help patients manage their type 2 diabetes 09/18 Patient has chronic kidney disease 09/18/2025 Weekly blood pressure task 09/18/2025 Patient has chronic kidney disease 09/18/2025 Weekly blood pressure task 09/19/2025 Weekly blood pressure task 09/19/2025 Patient has chronic kidney disease 09/19/2025 Patient has chronic kidney disease 09/19/2025 Assessment Noted Time PHQ-9 Depression Total Score: 0 03/13/20 25 10:38 AM EDT documented as of this encounter Care Teams Motors Assembler Relationship Specialty Start Date End Date Josefina Nelson MD [address] [place] [address] PCP - General Family Medicine 01/19/17 documented as of this encounter
--- OUTSIDE RECORDS SUMMARY | 2025-09-19 16:45 | XMS_ITS | Encounter Summary ---
Author Organization [employer] Address [address] [facility] 7t [place] [address] Care Team Providers Care Critical Care Rn Name Role Phone Josefina Nelson MD Primary Care Provider + Reason for Visit * Reason Comments Med Refill Encounter Details Date Type Department Care Team ([facility] st Contact Info) Description 01/11/2025 Refill [facility] MEDICINE [address] [place], [place] [phone] Josefina Nelson MD [address] [place] [address] Social History Tobacco Use Types Packs/Day Years [...] Description 12/10/2025 2:15 PM EST Office Visit [facility] ADULT DENTAL [address] [place] [address] Amauri, Oralia [address] [place] [address] 12/24/2025 2:30 PM EST Office Visit [facility] OPTOMETRY [address] [place] [address] Brad, Dominique, OD [address] [place] [address] documented as of this encounter Visit Diagnoses Not on filedocumented in this encounter Additional Health Concerns Assessment Noted Time PHQ-9 Depression Total Score: 7 05/27/20 24 3:24 PM EDT documented as of this encounter Care Teams Critical Care Rn Relationship Specialty Start Date End Date Josefina Nelson MD [address] [place] [address] PCP - General Family Medicine 01/19/17 documented as of this encounter
--- OUTSIDE RECORDS SUMMARY | 2025-09-19 16:45 | XMS_ITS | Encounter Summary ---
Author Organization [employer] Address [address] [facility] [address] [place] [address] Care Team Providers Care Recording Studio Set Up Worker Name Role Phone Josefina Nelson MD Primary Care Provider + Encounter Details Date Type Department Care Team (Late st Contact Info) Description 09/25/2024 Orders Only [facility] WALK-IN CENTER [address] [place], [place] [phone] Tanya Metzger FNP [address] [place] [address] Social History Tobacco Use Types Packs/Day Years [...] Description 12/10/2025 2:15 PM EST Office Visit [facility] ADULT DENTAL [address] [place] [address] Amauri, Oralia [address] [place] [address] 12/24/2025 2:30 PM EST Office Visit [facility] OPTOMETRY [address] [place] [address] Brad, Dominique, OD [address] [place] [address] documented as of this encounter Visit Diagnoses Not on filedocumented in this encounter Additional Health Concerns Assessment Noted Time PHQ-9 Depression Total Score: 7 05/27/20 24 3:24 PM EDT documented as of this encounter Care Teams Recording Studio Set Up Worker Relationship Specialty Start Date End Date Josefina Nelson MD [address] [place] [address] PCP - General Family Medicine 01/19/17 documented as of this encounter
--- OUTSIDE RECORDS SUMMARY | 2025-09-19 16:45 | XMS_ITS | Encounter Summary ---
Author Organization [employer] Address [address] [facility] 7t [place] [address] Care Team Providers Care Boom Master Name Role Phone Josefina Nelson MD Primary Care Provider + Reason for Visit * Reason Comments Med Refill Encounter Details Date Type Department Care Team ([facility] st Contact Info) Description 03/29/2024 Refill [facility] WALK-IN CENTER [address] [place], [place] [phone] Josefina Nelson MD [address] [place], [place] [phone] Nonintractable headache, unspecified chronicity pattern, unspecified headache [...] Description 12/10/2025 2:15 PM EST Office Visit [facility] ADULT DENTAL [address] [place] [address] Amauri, Oralia [address] [place] [address] 12/24/2025 2:30 PM EST Office Visit [facility] OPTOMETRY [address] [place] [address] Brad, Dominique, OD [address] [place] [address] documented as of this encounter Visit Diagnoses Diagnosis Nonintractable headache, unspecified chronicity pattern, unspecified headache type documented in this encounter Care Teams Boom Master Relationship Specialty Start Date End Date Josefina Nelson MD [address] [place] [address] PCP - General Family Medicine 01/19/17 documented as of this encounter
--- OUTSIDE RECORDS SUMMARY | 2025-09-19 16:45 | XMS_ITS | Clinical Summary ---
Author Organization [employer] Address 75 [facility] 7t [place] [address] Care Team Providers Care Design Manager Name Role Phone Josefina Nelson MD [...] 025 Active ergocalciferol (Vitamin D2) 1.25 MG (35823 UT) capsule TAKE 1 CAPSULE BY MOUTH [...] with naproxen 30 tablet 08/27/20 25 Active fluconazole (Diflucan) 150 MG tabletIndicati ons:Vaginal itching Take one tablet then after 72 hrs take another tablet 2 tablet 5 3:28 PM EST 09/19/20 25 Active Clotrimazole 2 % vaginal creamIndicatio ns:Vaginal itching Insert 1 Application into the vagina 2 times daily for 3 days. 21 g 5 3:28 PM EST 09/19/20 25 025 Active Acetaminophen Extra Strength 500 MG tabletIndicati ons:Nasal congestion TAKE 1 TABLET BY MOUTH EVERY 6 TO 8 HOURS NEEDED FOR PAIN OR FEVER 120 tablet 10/28/20 24 025 Discontinued(R eorder (will not trigger notification to Pharmacy)) fluticasone (Flonase) 50 MCG/ACT nasal sprayIndicatio ns:Allergic rhinitis, unspecified seasonality, unspecified trigger Use 1 spray each nostril daily. Shake gently. Before first use, prime pump. After use, clean tip and replace cap. 16 g 2 08/01/20 025 Discontinued(R eorder (will not trigger notification to Pharmacy)) predniSONE (Deltasone) 20 MG tablet Take 2 tablets (40 mg) by mouth Once per day for 5 days. 10 tablet 08/27/20 025 Active Problems Problem Noted Date Diagnosed [...] only due to potential vitamin deficiencies with penitentiary use. 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 Use trazodone [facility] insomnia refer to Alcohol use disorder 04/03/2023 [...] Encounters Date Type Department Care Team Description 09/19/2025 3:00 PM EST Office Visit [facility] [address] [place] [phone] Rosita Bowens MD Vaginal itching 09/19/2025 Travel 09/18/2025 Telephone [facility] [address] [place] [phone] Josefina Nelson MD No Show 08/27/2025 4:00 PM EDT Office Visit [facility] [address] [place] [phone] Erick Abreu MD Influenza-like symptoms (Primary Dx); Cough in adult; Allergic rhinitis, unspecified seasonality, unspecified trigger; Nasal congestion 08/27/2025 Travel 08/09/2025 Refill [facility] [address] [place] [phone] Jacklyn Lindsay DO 08/01/2025 3:00 PM EDT [facility] [address] [address] Rosita Bowens MD Acute URI; Acute frontal sinusitis, recurrence not specified; Allergic rhinitis, unspecified seasonality, unspecified trigger; Cough, unspecified type 08/01/2025 Travel 08/01/2025 Telephone [facility] [address] [place] [phone] Josefina Nelson MD Prior Authorization ( RICARDO: Jyoti) 07/31/2025 Refill [facility] [address] [place] [phone] Josefina Nelson MD 07/30/2025 3:40 PM EDT [facility] [address] [address] Josefina Nelson MD Vaginal itching (Primary Dx); Type 2 diabetes mellitus with hyperglycemia, without long-term current use of insulin ([facility]); Gastroesophageal reflux disease, unspecified whether esophagitis present; Vaginal discharge; Vaginal discomfort 07/30/2025 Orders Only [address] [address] Josefina Nelson MD 07/26/2025 Refill [facility] [address] [place] [address] Josefina Nelson MD 07/16/[address] [address] Josefina Nelson MD Prior Auth Prescription; Prior Authorization (: Satya) 07/03/2025 12:00 PM EDT Office Visit [address] [address] Josefina Nelson MD Type 2 diabetes mellitus without complication, without long-term current use of insulin ([facility]) (Primary Dx); Tarsal tunnel syndrome of left side; Primary hypertension 07/03/2025 Travel 07/02/2025 Telephone [facility] [address] [place] [phone] Josefina Nelson MD chart prep 07/01/2025 6:20 PM EDT Office Visit [facility] [address] [place] [address] Martir Callejas MD Vaginal candidiasis (Primary Dx); Allergic rhinitis, unspecified seasonality, unspecified trigger 07/01/2025 Travel 06/27/2025 Results Follow-Up [facility] [address] [place] [address] Amada Kaminski NP Bacterial Vaginosis 06/25/2025 6:00 PM EDT Office Visit [facility] [address] [place] [address] Amada Kaminski NP Type 2 diabetes mellitus without complication, without long-term current use of insulin ([facility]) (Primary Dx); Vaginal discharge; Vaginal itching 06/25/2025 Orders Only [facility] [address] [place] [phone] Amada Kaminski NP 06/25/2025 Travel from Last 3 Months Immunizations Immunization Administration [...] (209 lb) 09/19/2025 2:28 PM EST Height 158.1 cm (5' 2.25 ) 08/01/2025 2:42 PM ED T Body Mass Index 37.92 08/01/2025 2:42 PM EDT Plan of Treatment Upcoming Encounters Date Type Department Care Team (Late st Contact Info) Description 12/10/2025 2:15 PM EST Office Visit [facility] ADULT DENTAL [address] [place] [address] Oralia Baugh [address] [place] [address] 12/24/2025 2:30 PM EST Office Visit [facility] OPTOMETRY [address] [place] [address] Dominique Salinas, OD [address] [place] [address] Health Maintenance Due Date Last Done Comments [...] 19+ 3-dose series) 04/10/2025 03/13/2025 COVID-19 Vaccine ( - season) 2025 11/24/2021, 04/01/2021, 03/04/2021 Influenza Vaccine (#1) 2025 07/21/2022, 2020 Diabetes: Foot Exam 08/19/2025 08/19/2024, 08/19/2024, 08/19/2024, Additional history exists Hepatitis A Vaccines (2 of 2 - Risk 2-dose series) 09/13/2025 03/13/2025 Diabetes: Hemoglobin A1C 10/02/2025 025, 03/13/2025, 10/28/2024, Additional history exists Diabetes: Urine Protein Screening 10/29/2025 10/29/2024, 04/28/2022, 04/28/2022 Lipid Panel 10/29/2025 10/29/2024, 10/01, 04/22/2022, Additional history exists Depression Screening 03/13/2026 03/13/2025, 03/13/20 25 Disability Screening 03/13/2026 03/13/2025 Tobacco Screening 09/19/2026 09/19/2025 Cervical Cancer Screening 12/21/2026 HPV/Cotest 12/21/2026 12/21/2021, 12/01, 12/21/2021, Additional history exists Pap Smear 12/21/2026 12/21/2021, 08/30, 09/16/2021 Dental X-Ray: Full Mouth 05/29/2028 05/28/2025, 05/30 DTaP/Tdap/Td Vaccines (2 - Td or Tdap) [...] on patient's age to complete this topic Goals Goal Patient Goal Type Associated Problems [...] Plan Patient has chronic kidney disease No Isak Caldwell MA Patient has chronic kidney disease Care Plan Patient has chronic kidney disease No Isak Caldwell MA Procedures Procedure Name Priority Date/Time Associated Diagnosis Comments POCT URINALYSIS DIPSTICK Routine 09/19/2025 2:38 PM EST Vaginal itching POCT , URINE Routine 09/19/2025 2:38 PM EST Vaginal itching POCT INFLUENZA A (ID NOW RAPID MOLECULAR) [...] long-term current use of insulin ([facility]) POCT GLUCOSE Routine 07/03/2025 12:09 PM EDT Type 2 diabetes mellitus without complication, without long-term current use of insulin ([facility]) POCT INFLUENZA A (ID NOW RAPID MOLECULAR) [...] long-term current use of insulin ([facility]) PANORAMIC RADIOGRAPHIC IMAGE Routine 05/28/2025 11:30 AM EDT Acute gingival inflammation ALBUMIN, RANDOM URINE W/CREATININE Routine 10/29/2024 10:04 AM EST Type 2 diabetes mellitus without complication, without long-term current use of insulin ([facility]) LIPID PANEL WITH REFLEX TO DIRECT LDL Routine 10/29/2024 10:04 AM EST Type 2 diabetes mellitus without complication, with long-term current use of insulin ([facility]) HIV 1/2 ANTIGEN/ANTIBODY, FOURTH GENERATION W/RFL Routine 08/02/2024 4:00 PM EDT Unprotected sex HM PAP/HPV Routine 12/21/2021 from Last 3 Months or Most Recently Relevant to Health Maintenance Results * POCT , urine manually resulted (09/19/2025 2:38 PM EST) Preg Test, Ur Negative Negative, Indeterminate, None Detected, Trace, 3+, Specimen unsatisfactory for evaluation, Weakly Positive, 1+, 2+ Urine 09/19/2025 2:38 PM EST Rosita Collins MD POINT OF CARE TEST EN TER/EDIT ORDERABLES Final Result * (ABNORMAL) POCT urinalysis dipstick manually resulted (CPT 35722) (09/19/2025 2:38 PM EST) Only the most recent of3 resultswithin the [...] Urine (Urine, Random) 09/19/2025 2:38 PM EST Rosita Collins MD POINT OF CARE TEST EN TER/EDIT ORDERABLES Final Result * Influenza A (ID NOW Rapid Molecular) (08/27/2025 3:37 PM EDT) Only the most recent of3 resultswithin the time period is included. Pathologist [facility] Influenza A Negative Negative, Indeterminate [facility] Swab 08/27/2025 3:37 PM EDT us Erick Abreu MD POINT OF CARE TEST ENTER/EDIT OR DERABLES Final Result Performing Organization Address [facility]/ZIP Co de Phone Number [facility] [address] [place] [phone] * Influenza B (ID NOW Rapid Molecular) (08/27/2025 3:36 PM EDT) Only the most recent of3 resultswithin the time period is included. [facility] Influenza B Negative Negative, Indeterminate [facility] Swab 08/27/2025 3:36 PM EDT us Erick Abreu MD POINT OF CARE TEST ENTER/EDIT OR DERABLES Final Result Performing Organization Address [facility] Co de Phone Number [facility] [address] [place] [phone] * POCT Rapid COVID Ag (08/27/2025 3:35 PM EDT) Only the most recent of3 resultswithin the time period is included. [facility] Rapid COVID Ag Negative Swab 08/27/2025 3:35 PM EDT us Erick Abreu MD POINT OF CARE TEST ENTER/EDIT OR DERABLES Final Result * (ABNORMAL) POCT glucose manually resulted (07/30/2025 5:03 PM EDT) Only the most recent of2 resultswithin the time period is included. [facility] Glucose Blood, POC 450(A) 60 - 200 mg/dL Comment:Renetta bernal Is just billing [email or web address] Lot # [id number] Comment:[facility] Lot# Expiration Date Blood Capillary blood specimen / Unknown 07/30/2025 5:03 PM EDT Josefina Nelson MD POINT OF CARE TEST ENTER /EDIT ORDERABLES Final Result * (ABNORMAL) Bacterial Vaginosis (07/30/2025 9:20 AM EDT) Only the most recent of3 resultswithin the time period is included. TRICHOMONAS VAGINALIS DETECTION BY PCR NOT DETECTED Not Detect [facility] BACTERIAL VAGINOSIS DETECTION BY PCR NEGATIVE Negative [facility] Comment:The BV organism targ ets [...] GROUP DETECTION BY PCR DETECTED(A) Not Detect [facility] Antonieta glab krusei PCR NOT DETECTED Not Detect [facility] 07/30/2025 9:20 AM EDT 07/31/2025 11:54 AM EDT Josefina Nelson MD LAB MICROBIOLOGY - GENER AL ORDERABLES Final Result [facility] [address] [place] [phone] * Chlamydia/N. Gonorrhoeae RNA, TMA, Urogenitial (07/30/2025 9:20 AM EDT) Only the most recent of2 resultswithin the time period is included. CT PCR NOT DETECTED Not Detect. [facility] Comment:A not detected test result [...] psychologicalconsequences. NG PCR NOT DETECTED Not Detect. [facility] Comment:A not detected test result [...] 9:20 AM EDT 07/31/2025 11:56 AM EDT Josefina Nelson MD LAB MICROBIOLOGY - [facility] AL ORDERABLES Final Result [facility] [address] [place] [phone] * (ABNORMAL) POCT Hgb A1c (07/03/2025 12:25 PM EDT) Hemoglobin A1C 9.1(A) 4.0 - 5.7 % [employer] Lot # [id number] Lot# Expiration Date [id number] Blood 07/03/2025 12:2 5 PM EDT Josefina [...] to Direct LDL (10/29/2024 10:04 AM EST) Pathologist [facility] Triglycerides 192(H) <150 mg/dL [facility] Comment:Desirable Triglyceri de: less than 150 mg/dLBorderline High Triglyceride 150-199 mg/dLHigh Triglyceride: 200-499 mg/dLVery High Triglyceride: greater than or equal to 5OO mg/dL Cholesterol 153 <200 mg/dL [facility] Comment:Desirable Cholestero l: less than 200 mg/dLBorderline High Cholesterol: 200-239 mg/dLHigh Cholesterol: greater than 239 mg/dL LDL Cholesterol Calculated 83 <100 mg/dL [facility] Comment:Desirable LDL: less than 100 mg/dLNear Optimal/Above Optimal LDL: 110- 129 mg/dLBorderline High LDL: 130-159 mg/dLHigh LDL: 160-189 mg/dLVery High LDL: greater than or equal to 190 mg/dL HDL Cholesterol 32(L) >40 mg/dL [facility] Comment:Desirable HDL: great er than 40 mg/dL Note: This HDL assay may give artificially low results in patients with liver disease. Blood 10/29/2024 10:0 4 AM EST 10/29/2024 10:57 AM EST us Josefina Nelson MD LAB BLOOD ORDERABLES Fin al Result [facility] [address] [place] [phone] * Albumin, Random Urine W/Creatinine (10/29/2024 10:04 AM EST) Creatinine, Urine 95.03 mg/dL [facility] Microalbumin Urine 16.0 mg/L H [facility] Microalbum Creatinine Ratio Ur 16.8 <30 ug/mg cr [facility] Comment:Albumin/Creatinine R atio Reference Ranges: Normal: < 30 ug/mg creatinine Microalbuminuria: 30 - 300 ug/mg creatinineClinical Albuminuria: > 300 ug/mg creatinine Urine (Urine, Random) 10/29/2024 10:04 AM EST 10/29/2024 11:00 AM EST us Josefina Nelson MD LAB URINE ORDERABLES Fin al Result Performing Organization Address [facility] Co de Phone Number [facility] [address] [place] [phone] * HIV-1/2 Antigen and Antibodies, Fourth Generation, with Reflexes (08/02/2024 4:00 PM EDT) HIV AB/AG Nonreactive Nonreactive [facility] Comment:HIV-1 p24 Ag and/or HIV-1/HIV-2 Ab not detected.A test result that is nonreactive does not exclude thepossibility of exposure to or infection with HIV-1 and/orHIV-2. Nonreactive results in this assay for individualswith prior exposure to HIV-1 and/or HIV-2 may be due toantigen and antibody levels that are below the limit ofdetection of this assay.The [employer] HIV Ag/Ab Combo assay result andsupplemental assay results should be interpreted inconjunction with the patient's clinical presentation,history and other laboratory results. If the results areinconsistent with clinical evidence, additional testing issuggested to confirm the result. Blood Venous blood specimen / Unknown 08/02/2024 4:00 PM EDT 08/02/2024 5:36 PM EDT us Stephanie Bernabe NP LAB BLOOD ORDERABLES Final Resul t Performing Organization Address City/[facility]/ZIP Co de Phone Number [facility] [address] [place] [phone] * Pap Smear (12/21/2021) Pap Negative for intraephithelial lesion or malignancy Negative for intraephithelial lesion or malignancy, Other HPV Undetected us Historical Provider MD HEALTH MAINTENANCE Final Result from Last 3 Months or Most Recently Relevant to Health Maintenance Additional Health Concerns Active Problems Noted Date [...] 09/19/2025 Patient has chronic kidney disease 09/19/2025 Insurance [facility] AD[facility] Care Teams Design Manager Relationship Specialty Start Date End Date Josefina Nelson MD [address] [place] [phone] PCP - General Family Medicine 01/19/17
--- OUTSIDE RECORDS SUMMARY | 2025-09-19 16:45 | XMS_ITS | Encounter Summary ---
Author Organization [employer] Address 75 [facility] 7t [place] [address] Care Team Providers Care Reliability Technician Name Role Phone Josefina Nelson MD Primary Care Provider + Reason for Visit * Reason Onset Date Comments No Show 09/18/2025 Encounter Details Date Type Department Care Team ([facility] Contact Info) Description 09/18/2025 Telephone [facility] MED[facility] [address] [place], [place] [phone] Josefina Nelson MD [address] [place] [address] No Show Social History Tobacco Use Types Packs/Day Years [...] AM EDT documented as of this encounter Miscellaneous Notes * Telephone Encounter - Bianka Pineda - 09/18/2025 12:15 PM EST Pt no showed to appointment on 09/18/25. documented in this encounter Plan of Treatment Upcoming Encounters Date Type Department Care Team (Late st Contact Info) Description 12/10/2025 2:15 PM EST Office Visit [facility] ADULT DENTAL [address] [place] [address] Amauri, Oralia [address] [place] [address] 12/24/2025 2:30 PM EST Office Visit [facility] OPTOMETRY [address] [place] [address] Brad, Dominique, OD [address] [place] [address] documented as of this encounter Goals Goal Patient Goal Type Associated Problems Recent Progress Patient-Stated? Author Help patients manage their type 2 diabetes Care Plan Help patients manage their type 2 diabetes Bianka Johns Weekly blood pressure task Care Plan Weekly blood pressure task Bianka Johns Help patients manage their type 2 diabetes Care Plan Help patients manage their type 2 diabetes Bianka Johns Patient has chronic kidney disease Care Plan Patient has chronic kidney disease No Bianka Pineda Weekly blood pressure task Care Plan Weekly blood pressure task No PinedaBianka borden Patient has chronic kidney disease Care Plan Patient has chronic kidney disease No Bianka Pineda documented as of this encounter Visit Diagnoses Not on filedocumented in this encounter Additional Health Concerns Active Problems Noted Date Diagnosed Date Help patients manage their type 2 diabetes 09/18 Weekly blood pressure task 09/18/2025 Help patients manage their type 2 diabetes 09/18 Patient has chronic kidney disease 09/18/2025 Weekly blood pressure task 09/18/2025 Patient has chronic kidney disease 09/18/2025 Assessment Noted Time PHQ-9 Depression Total Score: 0 03/13/20 25 10:38 AM EDT documented as of this encounter Care Teams Reliability Technician Relationship Specialty Start Date End Date Josefina Nelson MD [address] [place] [phone] PCP - General Family Medicine 01/19/17 documented as of this encounter
--- OUTSIDE RECORDS SUMMARY | 2025-09-19 16:45 | XMS_ITS | Encounter Summary ---
Author Organization [employer] Address 75 [facility] 7t [place] [address] Care Team Providers Care Milled Lumber Grader Name Role Phone Josefina Nelson MD Primary Care Provider + Encounter Details Date Type Department Care Team (Late Contact Info) Description 12/30/2022 Abstract [facility] ADULT DENTAL [address] [place], [place] [phone] Natan Mcneil DDS [address] [place], [place] [phone] Social History Tobacco Use Types Packs/Day Years [...] Department Care Team (Late Contact Info) Description 12/10/2025 2:15 PM EST Office Visit [facility] ADULT DENTAL [address] [place], [place] [phone] Oralia Baugh [address] [place], [place] [phone] 12/24/2025 2:30 PM EST Office Visit [facility] OPTOMETRY [address] [place] [address] Dominique Salinas, OD [address] [place], [place] [phone] documented as of this encounter Visit Diagnoses Not on filedocumented in this encounter Care Teams Milled Lumber Grader Relationship Specialty Start Date End Date Josefina Nelson MD [address] [place], [place] [phone] PCP - General Family Medicine 01/19/17 documented as of this encounter
--- OUTSIDE RECORDS SUMMARY | 2025-09-19 16:45 | XMS_ITS | Encounter Summary ---
Author Organization [employer] Address 75 [facility] 7t [place] [address] Care Team Providers Care Chicken Picker Name Role Phone Josefina Nelson MD Primary Care Provider + Encounter Details Date Type Department Care Team (Late st Contact Info) Description 12/12/2022 Abstract [facility] ADULT DENTAL [address] [place], [place] [phone] Natan Mcneil DDS [address] [place], [place] [phone] Social History Tobacco Use Types Packs/Day Years [...] Description 12/10/2025 2:15 PM EST Office Visit [facility] ADULT DENTAL [address] [place] [address] Oralai Baugh [address] [place] [address] 12/24/2025 2:30 PM EST Office Visit [facility] OPTOMETRY [address] [place], [place] [phone] Dominique Salinas, ARMOND [address] [place] [address] documented as of this encounter Visit Diagnoses Not on filedocumented in this encounter Care Teams Chicken Picker Relationship Specialty Start Date End Date Josefina Nelson MD [address] [place] [address] PCP - General Family Medicine 01/19/17 documented as of this encounter
--- OUTSIDE RECORDS SUMMARY | 2025-09-19 16:45 | XMS_ITS | Encounter Summary ---
Author Organization [employer] Address 75 [facility] 7t [place] [address] Care Team Providers Care Frame Sample And Pattern Supervisor Name Role Phone Josefina Nelson MD Primary Care Provider + Reason for Visit * Reason Onset Date Comments Nurse Triage 04/20/2023 Encounter Details Date Type Department Care Team ([facility] st Contact Info) Description 04/20/2023 Telephone [facility] MEDICINE [address] [place], [place] [phone] Josefina Nelson MD [address] [place] [address] Nurse Triage Social History Tobacco Use Types [...] medication. Pt is advised to come to [facility] to be seen. Pt will come [...] for this symptom' Please contact spouse at [phone] documented in this encounter Plan of Treatment Upcoming Encounters Date Type Department Care Team (Late st Contact Info) Description 12/10/2025 2:15 PM EST Office Visit [facility] ADULT DENTAL [address] [place] [address] Amauri, Oralia [address] [place] [address] 12/24/2025 2:30 PM EST Office Visit [facility] OPTOMETRY [address] [place] [address] Dominique Salinas, OD [address] [place] [address] documented as of this encounter Visit Diagnoses Not on filedocumented in this encounter Care Teams Frame Sample And Pattern Supervisor Relationship Specialty Start Date End Date Josefina Nelson MD [address] [place] [phone] PCP - General Family Medicine 01/19/17 documented as of this encounter
--- OUTSIDE RECORDS SUMMARY | 2025-09-19 16:45 | XMS_ITS | Encounter Summary ---
Author Organization [employer] Address 75 [facility] 7t [place] [address] Care Team Providers Care Manager Battery Name Role Phone Josefina Nelson MD Primary Care Provider + Encounter Details Date Type Department Care Team (Late st Contact Info) Description 11/20/2022 Orders Only [facility] MED[facility] [address] [place] [address] Brown Osei FNP Acute cystitis without hematuria [...] Description 12/10/2025 2:15 PM EST Office Visit [facility] ADULT DENTAL [address] [place], [place] [phone] Amauri, Oralia [address] [place] [address] 12/24/2025 2:30 PM EST Office Visit [facility] OPTOMETRY [address] [place], [place] [phone] Brad, Dominique, OD [address] [place] [address] documented as of this encounter Visit Diagnoses Diagnosis Acute cystitis without hematuria- Primary documented in this encounter Care Teams Manager Battery Relationship Specialty Start Date End Date Josefina Nelson MD [address] [place] [address] PCP - General Family Medicine 01/19/17 documented as of this encounter
--- OUTSIDE RECORDS SUMMARY | 2025-09-19 16:45 | XMS_ITS | Encounter Summary ---
Author Organization [employer] [facility] Address [address] [facility] 7t [place] [address] Care Team Providers Care Apiculturist Name Role Phone Josefina Nelson MD Primary Care Provider + Encounter Details Date Type Department Care Team (Latest Contact Info) Description 06/09/2022 Abstract [facility] CONVERSIONS Dental, Provider, DDS Social History [...] Description 12/10/2025 2:15 PM EST Office Visit [facility] ADULT DENTAL [address] [place] [address] Amauri, Oralia [address] [place] [address] 12/24/2025 2:30 PM EST Office Visit [facility] OPTOMETRY [address] [place] [address] Brad, Dominique, OD [address] [place] [address] documented as of this encounter Visit Diagnoses Not on filedocumented in this encounter Care Teams Apiculturist Relationship Specialty Start Date End Date Josefina Nelson MD [address] [place] [address] PCP - General Family Medicine 01/19/17 documented as of this encounter
--- OUTSIDE RECORDS SUMMARY | 2025-09-19 16:45 | XMS_ITS | Encounter Summary ---
Author Organization [employer] Address [address] [facility] 7t [place] [address] Care Team Providers Care Parking Attendant Name Role Phone Josefina Nelson MD Primary Care Provider + Encounter Details Date Type Department Care Team (Late st Contact Info) Description 11/02/2022 Orders Only [facility] [address] [place], [place] [phone] Jacklyn Patterson LPN Social History Tobacco Use [...] Description 12/10/2025 2:15 PM EST Office Visit [facility] ADULT DENTAL [address] [place], [place] [phone] Amauri, Oralia [address] [place] [address] 12/24/2025 2:30 PM EST Office Visit [facility] OPTOMETRY [address] [place], [place] [phone] Brad, Dominique, OD [address] [place] [address] documented as of this encounter Visit Diagnoses Not on filedocumented in this encounter Care Teams Parking Attendant Relationship Specialty Start Date End Date Josefina Nelson MD [address] [place] [phone] PCP - General Family Medicine 01/19/17 documented as of this encounter
--- OUTSIDE RECORDS SUMMARY | 2025-09-19 16:45 | XMS_ITS | Encounter Summary ---
Author Organization [email or web address] Address [address] [facility] 7t [place] [address] Care Team Providers Care Pet Care Assistant Name Role Phone Josefina Nelson MD Primary Care Provider + Reason for Visit * Reason Comments Med Refill Encounter Details Date Type Department Care Team ([facility] st Contact Info) Description 04/07/2024 Refill [facility] [address] [place], [place] [phone] Josefina Nelson MD [address] [place], [place] [phone] Cough, unspecified type Social History Tobacco Use [...] Description 12/10/2025 2:15 PM EST Office Visit [facility] ADULT DENTAL [address] [place] [address] Amauri, Oralia [address] [place] [address] 12/24/2025 2:30 PM EST Office Visit [facility] OPTOMETRY [address] [place] [address] Brad, Dominique, OD [address] [place] [address] documented as of this encounter Visit Diagnoses Diagnosis Cough, unspecified type documented in this encounter Care Teams Pet Care Assistant Relationship Specialty Start Date End Date Josefina Nelson MD [address] [place] [address] PCP - General Family Medicine 01/19/17 documented as of this encounter
--- OUTSIDE RECORDS SUMMARY | 2025-09-19 16:45 | XMS_ITS | Encounter Summary ---
Author Organization [employer] [facility] Address [address] [facility] 7t [place] [address] Care Team Providers Care Materials Buyer Name Role Phone Josefina Nelson MD Primary Care Provider + Encounter Details Date Type Department Care Team (Latest Contact Info) Description 07/21/2021 Abstract [facility] CONVERSIONS Dental, Provider, DDS Social History [...] Description 12/10/2025 2:15 PM EST Office Visit [facility] ADULT DENTAL [address] [place] [address] Amauri, Oralia [address] [place] [address] 12/24/2025 2:30 PM EST Office Visit [facility] OPTOMETRY [address] [place] [address] Brad, Dominique, OD [address] [place] [address] documented as of this encounter Visit Diagnoses Not on filedocumented in this encounter Care Teams Materials Buyer Relationship Specialty Start Date End Date Josefina Nelson MD [address] [place] [address] PCP - General Family Medicine 01/19/17 documented as of this encounter
--- OUTSIDE RECORDS SUMMARY | 2025-09-19 16:45 | XMS_ITS | Encounter Summary ---
Author Organization [employer] Address [address] [facility] [address] [place] [address] Care Team Providers Care Underground Conduit Installer Name Role Phone Josefina Nelson MD Primary Care Provider + Encounter Details Date Type Department Care Team (Late Contact Info) Description 08/02/2023 Abstract [facility] MEDICINE [address] [place] [address] Yoko Lundy Social History Tobacco Use Types [...] 2:15 PM EST Office Visit [facility] ADULT DENTAL [address] [place] [address] Amauri, Oralia [address] [place] [address] 12/24/2025 2:30 PM EST Office Visit [facility] OPTOMETRY [address] [place] [address] Brad, Dominique, OD [address] [place] [address] documented as of this encounter Procedures Procedure Name Priority Date/Time Associated Diagnosis Comments PAP/HPV Routine 12/21/2021 documented in this encounter Results * Pap Smear (12/21/2021) Pap Negative for intraephithelial lesion or malignancy Negative for intraephithelial lesion or malignancy, Other HPV Undetected Historical Provider [facility] Final Result documented in this encounter Visit Diagnoses Not on filedocumented in this encounter Care Teams Underground Conduit Installer Relationship Specialty Start Date End Date Josefina Nelson MD [address] [place] [phone] PCP - General Family Medicine 01/19/17 documented as of this encounter
--- OUTSIDE RECORDS SUMMARY | 2025-09-19 16:45 | XMS_ITS | Encounter Summary ---
Author Organization [employer] Address [address] [facility] 7t [place] [address] Care Team Providers Care Shovel Loader Operator Name Role Phone Josefina Nelson MD Primary Care Provider + Encounter Details Date Type Department Care Team (Late Contact Info) Description 10/12/2022 Orders Only [facility] [address] [place] [address] Reyna Moya LPN Social History Tobacco Use [...] Description 12/10/2025 2:15 PM EST Office Visit [facility] ADULT DENTAL [address] [place] [address] Amauri, Oralia [address] [place] [address] 12/24/2025 2:30 PM EST Office Visit [facility] OPTOMETRY [address] [place] [address] Brad, Dominique, OD [address] [place] [address] documented as of this encounter Procedures Procedure Name Priority Date/Time Associated Diagnosis Comments SARS COV2/INFLUENZA A/B AND RSV RNA QL NAAT Routine 10/23/2022 2:46 PM EST documented in this encounter Results * SARS-CoV-2 RNA, Influenza A/B, and RSV RNA, Ql NAAT (10/23/2022 2:46 PM EST) Influenza A PCR NEGATIVE Negative [facility] Influenza B PCR NEGATIVE Negative [facility] Resp Syncy Virus RNA Qual PCR NEGATIVE Negative [facility] SARS COV2 PCR NEGATIVE Negative [facility] SARS/Flu/RSV Note See Note [facility] Comment:All test results mus t be [...] use by authorized laboratories.Testing performed on the [employer] GeneXpert utilizingreal-time RT-PCR.All SARS CoV2 and positive influenza A/B results arereported to [facility] [facility]. 10/23/2022 2:46 PM EST 10/23/2022 2:55 PM EST us [facility] Exter nal Provider LAB MICROBIOLOGY - GENERAL ORDERABLES Final Result [facility] [address] [place] [address] [phone] documented in this encounter Visit Diagnoses Not on filedocumented in this encounter Care Teams Shovel Loader Operator Relationship Specialty Start Date End Date Josefina Nelson MD [address] [place] [phone] PCP - General Family Medicine 01/19/17 documented as of this encounter
--- OUTSIDE RECORDS SUMMARY | 2025-09-19 16:45 | XMS_ITS | Encounter Summary ---
Author Organization [employer] Address [address] [facility] [address] [place] [address] Care Team Providers Care Solution Specialist Name Role Phone Josefina Nelson MD Primary Care Provider + Encounter Details Date Type Department Care Team (Latest Contact Info) Description 09/19/2025 Travel Social History Tobacco Use Types Packs/Day [...] Description 12/10/2025 2:15 PM EST Office Visit [facility] ADULT DENTAL [address] [place] [address] Amauri, Oralia [address] [place] [address] 12/24/2025 2:30 PM EST Office Visit [facility] OPTOMETRY [address] [place] [address] Brad, Dominique, OD [address] [place] [address] documented as of this encounter Goals Goal [...] Plan Patient has chronic kidney disease No Edwin Bianka Weekly blood pressure task Care Plan Weekly blood pressure task No Pineda, Bianka Patient has chronic kidney disease Care Plan Patient has chronic kidney disease No Edwin Bianka Weekly blood pressure task Care Plan Weekly blood pressure task No Isak Caldwell [place] Weekly blood pressure task Care Plan Weekly blood pressure task No Isak Caldwell [place] Patient has chronic kidney disease Care Plan Patient has chronic kidney disease No Isak [place] Patient has chronic kidney disease Care Plan Patient has chronic kidney disease No Isak Caldwell [place] documented as of this encounter Visit Diagnoses [...] documented as of this encounter Care Teams Solution Specialist Relationship Specialty Start Date End Date Josefina Nelson MD [address] [place] [phone] PCP - General Family Medicine 01/19/17 documented as of this encounter
[2025-09-19 22:52] LABS: Bacterial Vaginosis PCR NEGATIVE (Negative); Candida Group PCR DETECTED (Not Detect); Candida glab krusei PCR NOT DETECTED (Not Detect); Trichomonas vaginalis PCR NOT DETECTED (Not Detect)
[2025-09-20 01:25] LABS: CT PCR NOT DETECTED (Not Detect.); NG PCR NOT DETECTED (Not Detect.)
== END 2025-09-19 16:42 | disposition home or self-care (01) ==
LOC: HO.HHCLNP 16:41
PROVIDERS: Visit Provider Internal Medicine
DX: N89.8 Other specified noninflammatory disorders of vagina (principal); Z20.2 Contact with and (suspected) exposure to infections with a predominantly sexual mode of transmission
CPT/HCPCS: 81515; 87086; 87491; 87591